=== PATIENT | male | born 1945 | race Caucasian/White ===

== ENCOUNTER 2016-12-14 23:19 | Emergency (ER) | payer MEDICARE ==
--- NOTE | 2016-12-14 23:46 | ED ---
General Adult HPI - General Chief complaint: Urogenital Stated complaint: blocked catheter Time Seen by Provider: 12/14/16 23:37 Source: patient, family, RN notes reviewed Mode of arrival: ambulatory Limitations: no limitations - History of Present Illness Initial comments: 70 y/o male presenting for urinary retention. Patient was seen by Dr. Fuentes's PA earlier today in the office with functioning torres. States she's had issues of hematuria for the past several weeks. Has been acutely worsened since he had his knee replaced on December 03. He states that they had issues placing a Torres catheter during surgery and since then he has had persistent hematuria. States he's had urinary obstruction and gone to [facility] with the difficulty placing a Torres. There is now Torres in place with leg bag. He states however that around 6 PM tonight he stopped urinating into the bag. He believes there is a blood clot stuck in the Torres. He denies any other complaints at this time. He denies any fevers or chills. - Related Data Home Medications Medication Instructions Recorded Confirmed Ciprofloxacin HCl [Cipro] 500 mg PO Q12HR 12/14/16 12/14/16 Tamsulosin [Flomax] 0.4 mg PO DAILY 12/14/16 12/14/16 Allergies Allergy/AdvReac Type Severity Reaction Status Date / Time acetaminophen [From [place]] Allergy Nausea & Verified 12/14/16 23:34 Vomiting hydrocodone [From [place]] Allergy Nausea & Verified 12/14/16 23:34 Vomiting oxycodone Allergy Nausea & Verified 12/14/16 23:34 Vomiting Review of Systems ROS Statement: Those systems with pertinent positive or pertinent negative responses have been documented in the HPI. ROS Other: All systems not noted in ROS Statement are negative. Past Medical History Past Medical History: No Reported History History of Any Multi-Drug Resistant Organisms: None Reported Past Surgical History: Cholecystectomy, Orthopedic Surgery, Prostate Surgery Additional Past Surgical History / Comment(s): eye surgery Past Psychological History: No Psychological Hx Reported Smoking Status: Never smoker Past Alcohol Use History: None Reported Past Drug Use History: None Reported General Exam - General Exam Comments Initial Comments: General: Awake and Alert. No acute distress. Does not appear acutely ill. Uncomfortable. Eyes: OLIVIA, EOM intact. No nystagmus. No scleral icterus. HENT: Atraumatic, normocephalic. Mucous membranes moist. Trachea midline. Neck: The neck is supple, there is no tenderness or JVD. Cardiovascular: Regular rate and rhythm. No murmur, rub, or gallop is appreciated. Distal pulses intact. Respiratory: Lungs are clear to auscultation bilaterally. No wheezes, rales, rhonchi. No respiratory distress. Gastrointestinal: Soft, tenderness over suprapubic area. No rebound or guarding. Non-distended. No masses or organomegaly noted. No CVA tenderness. Genitourinary: Torres catheter in place, with left leg bag. There is gross hematuria in the bag without criss blood. Musculoskeletal: No tenderness. Normal ROM. No gross deformity. No strength deficits. Neurological: A&Ox3. CN II-XII grossly intact, There are no obvious motor or sensory deficits. Coordination appears grossly intact. Speech is normal. Skin: Skin is warm and dry and no rashes or lesions are noted. Psychiatric: Cooperative, appropriate mood & affect, normal judgment. Limitations: no limitations Course Vital Signs 12/14/16 23:29 Temperature 98.5 F Pulse Rate 111 H Respiratory 20 Rate Blood Pressure 131/73 O2 Sat by Pulse 100 Oximetry Medical Decision Making - Medical Decision Making 70-year-old male with history of recurrent hematuria presenting for acute urinary retention. He does have a Torres catheter in place. He states this was placed with significant difficulty. He did follow-up with urology earlier today. States he has seen both Dr. Fuentes and Dr. Shanks in the past from urology. He states they called Dr. Shanks earlier [facility] who recommended he come to the ED josie. On initial exam pt appears uncomfortable, hematuria present in leg bag. Plan for irrigation and UA. Will replace torres if unable to flush obstruction. Patient states that he has had blood work done in the past few days and states his hemoglobin has not dropped. He declines blood draw in the ED at this time. I do not have access to these outside records, although he does not appear pale or with evidence of acute blood loss anemia at this time. Torres was flushed with good urine output. Multiple clot fragments were irrigated. Patient feeling improved after this. Patient states he is concerned because he is worried another clot will become clogged causing him to acutely retain again. Discussed this is a possibility, but he is able to irrigate his catheter at home. He states he has some of the supplies to do this. Recommend that he irrigated his Torres catheter at home as needed. I did discussed with Dr. Shanks, on-call Urology, he recommends drinking plenty of fluids to keep steady stream of urine. Recommends Flushing catheter as needed. He does not recommend any intervention at this time. I discussed with patient my conversation with Dr. Shanks. I showed the patient and his how to disconnect and flush the Torres catheter. Patient was provided with supplies to facilitate doing this. Nurse also reviewed way to flush catheter. They feel comfortable doing this. Discussed recommendation for discharge at this time with continued follow up with Dr. Fuentes or Dr. Shanks. He plans to follow up Saturday to have catheter removed if appropriate. Discussed concerning signs symptoms for immediate return to the ED. Patient is agreeable with plan and discharge home. Disposition Clinical Impression: Acute urinary retention, Hematuria, Torres catheter problem Disposition: HOME SELF-CARE Condition: Stable Instructions: Torres Catheter Placement and Care (ED) Additional Instructions: Please flush your torres catheter if it becomes obstructed again. Referrals: Keith Bird MD [Primary Care Provider] - 1-2 days Jonah Shanks MD [STAFF PHYSICIAN] - 1-2 days Marko Fuentes MD [STAFF PHYSICIAN] - 1-2 days Time of Disposition: 00:58
[2016-12-15] MEDS ORDERED: MORPHINE SULFATE 10 MG/ML SYRINGE IM STA (00:57)
[2016-12-15] MEDS ORDERED: ONDANSETRON ODT 4 MG TAB PO STA (00:57)
[2016-12-15 01:35] VITALS: BP 135/62; PULSE 79; RESP 18; TEMP 97.9
== END 2016-12-15 01:30 | disposition home or self-care (01) ==
LOC: EC 23:19
DX: T83.091A Other mechanical complication of indwelling urethral catheter, initial encounter (principal); R33.9 Retention of urine, unspecified; R31.9 Hematuria, unspecified; Z88.5 Allergy status to narcotic agent; Z79.899 Other long term (current) drug therapy
CPT/HCPCS: 99283; 96372; J2270

== ENCOUNTER 2016-12-17 14:11 | Inpatient (IN) | payer MEDICARE ==
[2016-12-17] MEDS ORDERED: DEXTROSE 5%-0.45% NACL 1,000 ML IV SCH (15:45)
[2016-12-17 16:51] LABS: Basophils % (A) 0 %; CHCM 33.3; Eosinophils # (A) 0.1 k/uL (0-0.7); Eosinophils % (A) 1 %; HCT 33.3 % (39.0-53.0); HDW 2.73; HGB 10.8 gm/dL (13.0-17.5); Luc # (Auto) 0.12; Luc % (Auto) 1; Lymphocytes # (A) 0.7 k/uL (1.0-4.8); Lymphocytes % (A) 7 %; MCH 28.3 pg (25.0-35.0); MCHC 32.3 g/dL (31.0-37.0); MCV 87.5 fL (80.0-100.0); Mean Platelet Volume 6.8; Monocytes # (A) 0.6 k/uL (0-1.0); Monocytes % (A) 5 %; Neutrophils # (A) 9.8 k/uL (1.3-7.7); Neutrophils % (A) 86 %; RDW 14.3 % (11.5-15.5); WBC 11.4 k/uL (3.8-10.6); WBC (Perox) 12.34
[2016-12-17 17:00] LABS: Potassium 4.2 mmol/L (3.5-5.1)
[2016-12-17] MEDS ORDERED: ONDANSETRON 4 MG/2 ML VIAL IVP PRN (17:13)
[2016-12-17] MEDS: D5-0.45% NACL WITH KCL 20MEQ/L 1,000 ML IV SCH (20:16)
[2016-12-17] MEDS ORDERED: NA PHOS,M-B/NA PHOS,DI-BA 133 ML ENEMA RECTAL ONE (21:00)
[2016-12-17] MEDS: CIPROFLOXACIN HCL 500 MG TAB PO SCH (21:59)
[2016-12-17] MEDS: traMADol 50 MG TAB PO PRN (22:02)
[2016-12-18] MEDS: D5-0.45% NACL WITH KCL 20MEQ/L 1,000 ML IV SCH ×4 (02:52→20:10)
[2016-12-18] MEDS: CIPROFLOXACIN HCL 500 MG TAB PO SCH ×2 (08:28→20:15)
[2016-12-18] MEDS: TAMSULOSIN 0.4 MG CAP.ER.24H PO SCH (08:28)
[2016-12-18] MEDS: traMADol 50 MG TAB PO PRN (08:29)
[2016-12-18 10:20] LABS: CH 29.1; HCT 30.7 % (39.0-53.0); HDW 2.76; HGB 10.1 gm/dL (13.0-17.5); MCH 29.2 pg (25.0-35.0); MCV 88.7 fL (80.0-100.0); Mean Platelet Volume 6.8; RBC 3.46 m/uL (4.30-5.90); RDW 14.2 % (11.5-15.5); WBC 12.6 k/uL (3.8-10.6)
[2016-12-18 10:46] LABS: Calcium 7.8 mg/dL (8.4-10.2); Potassium 4.6 mmol/L (3.5-5.1); Total Bilirubin 0.8 mg/dL (0.2-1.3); Total Protein 5.6 g/dL (6.3-8.2)
--- NOTE | 2016-12-18 11:38 | P.PN ---
Progress Note - Text The patient had a temperature of 100.4 last night but has been afebrile since then. Blood pressure is 132/64. He remains nauseated and anorexic but has had no vomiting. He had a small bowel movement yesterday evening after an enema and had another bowel movement this morning. His urine was grossly free of blood and concentrated in color yesterday evening and this morning but over the last hour has again become grossly bloody. Hemoglobin today is 10.1 and white blood count is 12,000. BUN/creatinine is 34/ 2.87 and is slightly better than yesterday. Physical exam Abdomen-somewhat bloated with gas but no focal tenderness. Incision over right knee is uninflamed. There is no calf tenderness and no significant edema of the right or left legs. Impression: #1-gross hematuria-the origin of this is unclear but is most likely coming from the prosthetic urethra or bladder neck as is from a traumatic cathetization attempt 2 weeks ago. Recent computed tomography scan of the abdomen and pelvis showed no significant abnormalities of the upper urinary system other than nonobstructive renal calculi. #2-acute renal failure-a portion of this is probably related to prerenal causes as the patient has not been eating or drinking well. There may also be some component of obstructive uropathy due to recent episodes of urinary retention related to the gross hematuria. There was no hydronephrosis noted on the computed tomography scan. #3-constipation with secondary nausea and anorexia-this has improved somewhat with the use of enemas. Plan: The patient will be continued on IV fluids and Cipro pending results of a urine culture. Cystoscopy will be set up tomorrow to further evaluate the cause of the gross hematuria as it appears that cautery may be necessary. The patient will be continued on DVT prophylaxis with pneumatic compression stockings. Unfortunately due to the recent gross hematuria it is impossible to safely use anticoagulants.
[2016-12-18] MEDS ORDERED: HYDROmorphone 1 MG/ML 1 ML SYRINGE IVP PRN (19:21)
[2016-12-18] MEDS ORDERED: LACTATED RINGERS 1,000 ML IV SCH (19:30)
[2016-12-18] MEDS ORDERED: ACETAMINOPHEN TAB 500 MG TAB PO PRN (23:04)
[2016-12-19] MEDS: D5-0.45% NACL WITH KCL 20MEQ/L 1,000 ML IV SCH ×4 (05:26→23:39)
[2016-12-19] MEDS: traMADol 50 MG TAB PO PRN (08:20)
[2016-12-19] MEDS: TAMSULOSIN 0.4 MG CAP.ER.24H PO SCH (08:20)
[2016-12-19] MEDS: CIPROFLOXACIN HCL 500 MG TAB PO SCH ×2 (08:20→20:26)
[2016-12-19 09:50] LABS: CHCM 32.5; HCT 33.3 % (39.0-53.0); HDW 2.79; HGB 10.8 gm/dL (13.0-17.5); Hypochromasia Slight; MCH 29.1 pg (25.0-35.0); MCHC 32.4 g/dL (31.0-37.0); MCV 89.8 fL (80.0-100.0); Mean Platelet Volume 6.9; RBC 3.71 m/uL (4.30-5.90); RDW 14.2 % (11.5-15.5); WBC 10.6 k/uL (3.8-10.6)
[2016-12-19 10:30] LABS: Calcium 8.2 mg/dL (8.4-10.2); Potassium 4.7 mmol/L (3.5-5.1)
[2016-12-19] MEDS ORDERED: IV FLUID CONTINUATION 1,000 ML IV ONE (11:48)
[2016-12-19] MEDS ORDERED: DEXAMETHASONE SOD PHOS (MDV) 100 MG/10 ML VIAL IVP ONE (11:55)
[2016-12-19] MEDS ORDERED: MIDAZOLAM 2 MG/2 ML VIAL ONE (12:37)
[2016-12-19] MEDS ORDERED: PROPOFOL 10 MG/ML 20 ML VIAL IV ONE (12:37)
[2016-12-19] MEDS ORDERED: fentaNYL (PF) 50 MCG/ML 2 ML AMP ONE (12:37)
[2016-12-19] MEDS ORDERED: VANCOMYCIN IV ONE ×2 (13:00)
[2016-12-19] MEDS ORDERED: SODIUM CHLORIDE 0.9% IV ONE ×2 (13:00)
--- NOTE | 2016-12-19 18:18 | OP ---
DATE OF SERVICE: 12/19/2016 SURGEON: NAOMI KNAPP MD PREOPERATIVE DIAGNOSIS: Gross hematuria. POSTOPERATIVE DIAGNOSIS: Gross hematuria, possibly from bleeding within prostatic urethra or bladder. OPERATION: Cystoscopy with cautery of polyp on dome of bladder and cautery of prostatic urethra. ANESTHESIA: General. Patient is a 70-year-old male who developed gross hematuria following an unsuccessful placement of a De La Paz catheter at the time of a right total knee arthroplasty on 12/03. This hematuria has persisted to the point where he developed clot urinary retention. CT scan of the abdomen and pelvis without IV contrast showed a non-obstructive left renal calculus but no other abnormalities. Cystoscopy under anesthesia was planned for further evaluation of the bleeding. PROCEDURE: Patient was taken to the operating suite, where adequate spinal anesthesia was instituted. Patient was placed in the dorsal lithotomy position. Care was taken not to twist the right knee due to his recent surgery. Pneumatic compression stockings were applied to the lower legs. Patient's De La Paz catheter was removed. The genitalia was prepped with Betadine soap, painted with Betadine solution and draped in sterile fashion. The penile and prostatic urethra were traversed under direct vision using the 17 Maltese cystoscope sheath and 30-degree lens. There was no evidence of inflammatory lesion, tumor or stricture noted in the anterior urethra. Prostatic urethra showed evidence of a previous TURP. The prostatic fossa and bladder neck appeared wide open. There appeared to be a small mucosal bridge at 7 o'clock, but it was unclear whether this was the source of the bleeding. The bladder was examined. Both ureteral orifices were of normal location and configuration and effluxed clear urine. Entire bladder was examined using the 30- and 70-degree lens. On the dome of the bladder to the right of the midline was a 3 or 4 mm raised area that appeared to have bled recently. The urothelium overlying this area appeared normal, and it was unclear whether this was merely related to previous catheter trauma. Using the 5 Maltese Bugbee electrode, the lesion on the dome of the bladder was thoroughly cauterized. The Bugbee was then used to divide the mucosal bridge within the prostatic urethra at 7 o'clock. A small amount of oozing was present within the prostatic urethra anteriorly which was most likely related to trauma from the cystoscope, and this was also cauterized. At the completion of the procedure, hemostasis appeared excellent. The cystoscope was withdrawn and a 16 Maltese De La Paz catheter was inserted and left to gravity drainage. The patient tolerated the procedure well and left the operating room awake and in satisfactory condition. The patient was given 500 mg of vancomycin IV at the start of the procedure. If his urine remains clear, his catheter will be removed and he will be discharged in the morning. CAMILLE
[2016-12-20 07:58] VITALS: BP 119/61; PULSE 79; RESP 14; TEMP 96.7
[2016-12-20] MEDS: D5-0.45% NACL WITH KCL 20MEQ/L 1,000 ML IV SCH (08:01)
[2016-12-20] MEDS: TAMSULOSIN 0.4 MG CAP.ER.24H PO SCH (08:03)
[2016-12-20] MEDS: CIPROFLOXACIN HCL 500 MG TAB PO SCH (08:03)
--- NOTE | 2016-12-20 10:42 | P.PN ---
Progress Note - Text The patient has been comfortable and normotensive overnight. He is tolerating a regular diet. He has no leg pain or swelling. His urine is tea to pink in color. The patient will be discharged later this morning and will go home with a De La Paz catheter. He will call me in the morning and if his urine is clear will remove the catheter and see me later in the day.
--- NOTE | 2017-01-02 21:28 | P.DS ---
Providers Date of admission: 12/17/16 14:43 Expected date of discharge: 12/20/16 Attending physician: Jonah Shanks Primary care physician: Stated None - Discharge Diagnosis(es) (1) Gross hematuria Status: Acute (2) Chronic renal failure, stage 3 (moderate) Status: Chronic (3) Acute urinary retention Status: Acute Hospital Course: The patient developed gross hematuria on 12/03/2016 following placement of a De La Paz catheter at the time of right total knee arthroplasty at [facility]. He continued to have intermittent gross hematuria and a CT of the abdomen/pelvis was done but the only abnormality seen was a nonobstructive left renal calculus and a probable 3 mm bladder calculus.. He had undergone TURP in 2016. He was seen in the office on the date of admission and was admitted due to weakness, anemia and continued gross hematuria that was requiring catheter irrigation. He continued to have urine that was intermittently clear and bloody. He underwent cystoscopy on 12/19 and several areas were cauterized in the prostatic fossa as well as one area on the right anterolateral bladder wall that looked as if they could have been the source of the gross hematuria. A catheter was left following the procedure and the patient was discharged with the catheter in place. If the urine remained clear the catheter was to be removed in 48 hours. Procedures: Cystoscopy with cautery of prosttic fossa and bladder wall-12/19/2016 Plan - Discharge Summary New Discharge Prescriptions: No Action Tamsulosin [Flomax] 0.4 mg PO DAILY Ciprofloxacin HCl [Cipro] 500 mg PO Q12HR Gabapentin [Neurontin] 300 mg PO BID Ondansetron [Zofran ODT] 8 mg PO Q12HR PRN PRN Reason: Nausea Doxycycline Hyclate 100 mg PO BID PRN PRN Reason: MRSA traMADol HCL [Ultram] 50 mg PO Q4HR PRN PRN Reason: Pain Multivitamins, Thera [Multivitamin (formulary)] 1 tab PO DAILY Discharge Medication List Ciprofloxacin HCl [Cipro] 500 mg PO Q12HR 12/14/16 [History] Tamsulosin [Flomax] 0.4 mg PO DAILY 12/14/16 [History] Doxycycline Hyclate 100 mg PO BID PRN 12/17/16 [History] Gabapentin [Neurontin] 300 mg PO BID 12/17/16 [History] Multivitamins, Thera [Multivitamin (formulary)] 1 tab PO DAILY 12/17/16 [History ] Ondansetron [Zofran ODT] 8 mg PO Q12HR PRN 12/17/16 [History] traMADol HCL [Ultram] 50 mg PO Q4HR PRN 12/17/16 [History] Follow up Appointment(s)/Referral(s): Raj Velasco MD [REFERRING] - 12/24/16 Keith Bird MD [STAFF PHYSICIAN] - 12/27/16 10:30 am (With Nurse practioner) Marko Fuentes MD [STAFF PHYSICIAN] - 12/27/16 8:00 am [facility] Visiting Nurse, [NON-STAFF] - Patient Instructions/Handouts: Cystoscopy (DC), De La Paz Catheter Placement and Care (DC) Activity/Diet/Wound Care/Special Instructions: Regular diet. Activity as tolerated. Care Plan Goals (MU): Call Dr Fuentes in AM on 12/21/2016 Discharge Disposition: HOME WITH HOME HEALTH SERVICES
== END 2016-12-20 11:17 | disposition home health service (06) | DRG 664 ==
LOC: 4MS4W 14:43
PROVIDERS: ADMIT Urology; ATTEND Urology
PROC: 0T9B70Z Drainage of Bladder with Drainage Device, Via Natural or Artificial Opening (ICD-10-PCS; 2016-12-19)
PROC: 0W3R8ZZ Control Bleeding in Genitourinary Tract, Via Natural or Artificial Opening Endoscopic (ICD-10-PCS; principal; 2016-12-19 15:30)
DX: R31.0 Gross hematuria (principal); N17.9 Acute kidney failure, unspecified; R63.0 Anorexia; N20.0 Calculus of kidney; K59.00 Constipation, unspecified; R33.9 Retention of urine, unspecified; K21.9 Gastro-esophageal reflux disease without esophagitis; R35.1 Nocturia; N18.9 Chronic kidney disease, unspecified; N40.1 Benign prostatic hyperplasia with lower urinary tract symptoms; R14.0 Abdominal distension (gaseous); K57.90 Diverticulosis of intestine, part unspecified, without perforation or abscess without bleeding; E78.00 Pure hypercholesterolemia, unspecified; R39.15 Urgency of urination; R33.8 Other retention of urine; D41.4 Neoplasm of uncertain behavior of bladder; R11.0 Nausea; Z90.79 Acquired absence of other genital organ(s); Z87.442 Personal history of urinary calculi; Z88.5 Allergy status to narcotic agent; Z98.890 Other specified postprocedural states; Z86.010 Personal history of colon polyps; Z96.651 Presence of right artificial knee joint; Z82.3 Family history of stroke; Z82.49 Family history of ischemic heart disease and other diseases of the circulatory system; Z80.0 Family history of malignant neoplasm of digestive organs; Z80.42 Family history of malignant neoplasm of prostate; Z84.1 Family history of disorders of kidney and ureter; Z79.1 Long term (current) use of non-steroidal anti-inflammatories (NSAID); Z79.899 Other long term (current) drug therapy; Z86.69 Personal history of other diseases of the nervous system and sense organs; Z87.2 Personal history of diseases of the skin and subcutaneous tissue; Z87.19 Personal history of other diseases of the digestive system
CPT/HCPCS: 80048; 80053; 85025; 85027; 87040; 96372; 99283

== ENCOUNTER 2017-07-30 13:20 | Observation (INO) | payer MEDICARE ==
--- NOTE | 2017-07-30 14:22 | ED ---
Chest Pain HPI - General Chief Complaint: Chest Pain Stated Complaint: passing blood clots in urine Time Seen by Provider: 07/30/17 14:00 Source: patient, family, RN notes reviewed Mode of arrival: wheelchair Limitations: no limitations - History of Present Illness Initial Comments: This is a 71-year-old male who is S with complaints of shortness of breath and cough for the past 6-7 weeks he apparently has some spots on his lungs he did recently have a PET scan. He also is had hematuria today passing the clot the size of his thumb he states. He's had nausea no overt fevers chills or sweats he has some also left-sided chest pain he believes may be in his lungs. No phlegm production no other symptoms at this time MD Complaint: chest pain, other - Related Data Home Medications Medication Instructions Recorded Confirmed Doxycycline Hyclate 200 mg PO BID PRN 12/17/16 07/30/17 Multivitamins, Thera [Multivitamin 1 tab PO DAILY 12/17/16 07/30/17 (formulary)] L.acidoph,Paracasei, B.lactis 1 cap PO DAILY 07/30/17 07/30/17 [Probiotic] Magnesium Gluconate [Magonate] 500 mg PO DAILY 07/30/17 07/30/17 Meloxicam 7.5 mg PO BID 07/30/17 07/30/17 Allergies Allergy/AdvReac Type Severity Reaction Status Date / Time hydrocodone [From [place]] AdvReac Hallucinati Verified 07/30/17 14:31 ons oxycodone AdvReac Hallucinati Verified 07/30/17 14:31 ons Review of Systems ROS Statement: Those systems with pertinent positive or pertinent negative responses have been documented in the HPI. ROS Other: All systems not noted in ROS Statement are negative. EKG Findings - EKG Results: EKG: interpreted by ERMD, sinus rhythm (Sinus rhythm with occasional PVC ventricular rate of 83. Interval 170 QRS duration 106 QT since QTC of 392/460 with anterior fascicular block no acute ST-T wave changes) Past Medical History Past Medical History: GERD/Reflux, Osteoarthritis (OA), Prostate Disorder, Renal Disease Additional Past Medical History / Comment(s): vertigo,small hiatal henia, randy cataracts-lens implants, past randy retinal detatchments/lt eye scleral buckle, shinlges, post herpetic trigeminal neuralgia. constipation, eczema/scalp, diverticulosis, colon polyps-benign History of Any Multi-Drug Resistant Organisms: MRSA Date of last positivie culture/infection: stomach/arms MDRO Source:: (per pt's ) Past Surgical History: Cholecystectomy, Orthopedic Surgery, Prostate Surgery Additional Past Surgical History / Comment(s): bx, colonoscopy w/bx, randy retinal sx(detatched retina), lt scelar buckle, turp, rt knee meniscus repair, nissens, rt achilles tendon repair, egd w/bx, rt knee replacment, rt knee revision 12-03-16, randy cataracts Past Anesthesia/Blood Transfusion Reactions: Previous Problems w/ Anesthesia Additional Past Anesthesia/Blood Transfusion Reaction / Comment(s): difficult intubation Past Psychological History: No Psychological Hx Reported Smoking Status: Never smoker Past Alcohol Use History: None Reported Past Drug Use History: None Reported - Past Family History Mother Family Medical History: Cancer, Congestive Heart Failure (CHF) Additional Family Medical History / Comment(s): kidney stone Father Family Medical History: Cancer, Congestive Heart Failure (CHF), CVA/TIA, Prostate Disorder Additional Family Medical History / Comment(s): prostate cancer General Exam - General Exam Comments Initial Comments: This is a well-developed well-nourished awake alert oriented times 3 male Limitations: no limitations General appearance: alert, anxious Head exam: Present: atraumatic, normocephalic, normal inspection Eye exam: Present: normal appearance, PERRL, EOMI. Absent: scleral icterus, conjunctival injection, periorbital swelling ENT exam: Present: normal exam, mucous membranes moist Neck exam: Present: normal inspection. Absent: tenderness, meningismus, lymphadenopathy Respiratory exam: Present: normal lung sounds bilaterally. Absent: respiratory distress, wheezes, rales, rhonchi, stridor Cardiovascular Exam: Present: regular rate, normal rhythm, normal heart sounds. Absent: systolic murmur, diastolic murmur, rubs, gallop, clicks GI/Abdominal exam: Present: soft, tenderness (Mild suprapubic tenderness palpation) Extremities exam: Present: normal inspection, full ROM, normal capillary refill. Absent: tenderness, pedal edema, joint swelling, calf tenderness Back exam: Present: normal inspection Neurological exam: Present: alert, oriented X3, CN II-XII intact Psychiatric exam: Present: normal affect, normal mood Skin exam: Present: warm, dry, intact, normal color. Absent: rash Course Vital Signs 07/30/17 07/30/17 07/30/17 13:47 14:03 15:03 Temperature 97.8 F Pulse Rate 84 74 76 Respiratory 20 20 Rate Blood Pressure 158/74 156/79 166/88 O2 Sat by Pulse 100 100 100 Oximetry 07/30/17 07/30/17 15:21 16:03 Temperature 99.1 F Pulse Rate 90 92 Respiratory 18 Rate Blood Pressure 166/80 155/75 O2 Sat by Pulse 98 97 Oximetry Chest Pain MDM - MDM Imaging shows no acute findings there is some evidence of bronchitis versus reactive airway disease. I did discuss the findings with the patient family members as well as with Dr. Rico and Dr. Aliya watts who was in the emergency department. Also with Dr. Fuentes patient will be admitted Disposition Clinical Impression: Bronchospasm, Hematuria, Exertional dyspnea, Chronic renal insufficiency Disposition: ADMITTED IP TO THIS [facility] Condition: Stable Referrals: Keith Bird MD [Primary Care Provider] - 1-2 days
[2017-07-30 14:33] LABS: Basophils # (A) 0.1 k/uL (0-0.2); Basophils % (A) 0 %; Eosinophils # (A) 0.1 k/uL (0-0.7); Eosinophils % (A) 1 %; HCT 42.8 % (39.0-53.0); HGB 13.9 gm/dL (13.0-17.5); Lymphocytes # (A) 0.9 k/uL (1.0-4.8); Lymphocytes % (A) 8 %; MCH 27.5 pg (25.0-35.0); MCHC 32.5 g/dL (31.0-37.0); MCV 84.7 fL (80.0-100.0); Mean Platelet Volume 7.1; Monocytes # (A) 0.6 k/uL (0-1.0); Monocytes % (A) 5 %; Neutrophils # (A) 9.3 k/uL (1.3-7.7); Neutrophils % (A) 85 %; Platelet Count 352 k/uL (150-450); RBC 5.05 m/uL (4.30-5.90); RDW 13.8 % (11.5-15.5)
[2017-07-30 14:40] LABS: Appearance,Urine Turbid (Clear); Bacteria,Urine Rare /hpf; Bilirubin,Urine Negative (Negative); Blood,Urine Large (Negative); Color,Urine Red; Glucose,Urine (UA) Negative (Negative); Ketones,Urine Negative (Negative); Leukocyte Esterase,Urine Negative (Negative); Mucus,Urine Few /hpf; Nitrite,Urine Negative (Negative); PH, Urine 5.5 (5.0-8.0); Protein,Urine 2+ (Negative); RBC,Urine >182 /hpf (0-5); Specific Gravity,Urine 1.019 (1.001-1.035); Squamous Epithelial Cell,Urine <1 /hpf (0-4); Urobilinogen,Urine <2.0 mg/dL (<2.0)
[2017-07-30 14:45] LABS: Albumin 4.2 g/dL (3.5-5.0); Calcium 9.9 mg/dL (8.4-10.2); Magnesium 1.8 mg/dL (1.6-2.3); Potassium 4.1 mmol/L (3.5-5.1); Total Bilirubin 0.6 mg/dL (0.2-1.3)
--- NOTE | 2017-07-30 14:45 | XR ---
EXAMINATION TYPE: XR chest 2V DATE OF EXAM: 07/30/2017 COMPARISON: NONE HISTORY: Chest pain, cough, difficulty breathing TECHNIQUE: Frontal and lateral views of the chest are obtained. FINDINGS: There is no focal air space opacity, pleural effusion, or pneumothorax seen. The cardiac silhouette size is within normal limits accounting for rotation towards the left. There are overlyin g cardiac leads. Some strand-like densities are present lingula region likely reflecting atelectasis or scar. The osseous structures are intact. There is bronchial wall thickening. Eventration of the ri ght hemidiaphragm suspected. IMPRESSION: Correlate for bronchitis, reactive airways disease, there may be atelectasis or scar, co nsider follow-up as indicated.
[2017-07-30 14:50] LABS: Creatine Kinase 81 U/L (55-170)
[2017-07-30 15:04] LABS: Creatine Kinase MB 0.6 ng/mL (0.0-2.4); Troponin I <0.012 ng/mL (0.000-0.034)
--- NOTE | 2017-07-30 16:58 | XR ---
EXAMINATION TYPE: XR abdomen 1V DATE OF EXAM: 07/30/2017 COMPARISON: NONE INDICATION: Blood clots in urine TECHNIQUE: Single view abdomen upright view FINDINGS: There is a nonspecific bowel gas pattern. Small bowel loops are in the midabdomen. Normal colonic bow el gas is present. There is a 0.8 cm calcification over the mid left kidney. An inferior pole left renal stone measures 1.0 cm. No right renal stones are evident. There are some additional smaller left renal stones presen t. There is a left upper quadrant abdomen calcification measuring 1.0 cm may be a superior pole left renal stone. Psoas margins are normal. No organomegaly is present. IMPRESSION: 1. Multiple mid to inferior pole left renal stones. Additional superior renal stone may be present
[2017-07-30] MEDS ORDERED: DOXYCYCLINE 50 MG CAP PO PRN (17:02)
[2017-07-30] MEDS: BUDESONIDE 0.5 MG/2 ML NEBU INHALATION SCH (19:58)
[2017-07-30] MEDS ORDERED: IPRATROPIUM-ALBUTEROL 3 ML NEB INHALATION SCH (20:00)
[2017-07-30] MEDS: IPRATROPIUM-ALBUTEROL 3 ML NEB INHALATION SCH (20:02)
[2017-07-30] MEDS: MELOXICAM 7.5 MG TAB PO SCH (20:52)
[2017-07-30] MEDS: SODIUM CHLORIDE 0.9% 1,000 ML IV SCH (20:53)
[2017-07-30] MEDS: ACETAMINOPHEN TAB 325 MG TAB PO PRN (20:56)
--- NOTE | 2017-07-30 21:06 | CONS ---
CONSULTATION Bob Singh is a 71-year-old male who presented to the ER at [facility] with hematuria. He had been passing some blood clots, had some abdominal pain. He has also had a cough for approximately 6 weeks. He subsequently was seen and admitted for further evaluation and management. He denies any hemoptysis. He denies any significant sputum production. He has had no fever, chills or rigors. Past medical history is positive for gastroesophageal reflux disease, prostate disorder for which he apparently had a transurethral resection of the prostate, history of hiatal hernia, history of retinal detachment, history of diverticulosis, constipation, history of recent colonoscopy which apparently showed polyps which were benign, history of cataracts. Family history is positive for cancer and CHF in his father, cancer and CHF in his mother. 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 He does not drink alcohol excessively. Medications prior to admission were: 1. Multivitamin. 2. Meloxicam. 3. Magnesium gluconate. 4. Lactobacillus and. 5. Doxycycline. On physical examination, blood pressure is 138/71, respiratory rate is 16, pulse rate 79, temperature 96.9, O2 sat on 2L by nasal cannula is 99%. HEENT reveals pupils that are equal. Chest is relatively clear. Cardiovascular system reveals an S1, S2. Abdomen is soft. There is no pedal edema. The patient's recent CT scan of the chest done at [facility] shows evidence of bilateral pulmonary nodules, more in the right lower zone than the left, which on PET scan show positivity, but there is a large liver lesion as well that is 4.8 x 4 cm along with positivity in the left kidney as well. Impression at this time is: 1. Cough which may be in part due to metastatic cancer. It is not clear whether this is lung primary versus a kidney or gastrointestinal primary. 2. Airway inflammation which may be contributing to his cough. 3. Hematuria, which may be related to kidney malignancy. At this point in time from a pulmonary standpoint, would start the patient on IV Solu- Medrol and aerosolized steroids. Would have the patient further seen by Surgery and Urology to decide the best modality for a biopsy: Ultrasound-guided kidney versus liver biopsy versus the lung itself. The lesions are in the periphery and will not likely be accessible by bronch. CT-guided needle biopsy in the right lower zone may be the way to go if the lung lesion needs to be pathologically identified. I would like to thank you for allowing me to participate in his care. GEMA / DAPHNE: [id number] /
[2017-07-31] MEDS: methylPREDNISolone SOD SUCCI 125 MG/2 ML VIAL IV SCH ×5 (00:04→23:06)
[2017-07-31] MEDS: SODIUM CHLORIDE 0.9% 1,000 ML IV SCH ×2 (04:13→11:11)
[2017-07-31] MEDS: IPRATROPIUM-ALBUTEROL 3 ML NEB INHALATION SCH ×4 (07:19→20:24)
[2017-07-31] MEDS: BUDESONIDE 0.5 MG/2 ML NEBU INHALATION SCH ×2 (07:19→20:24)
[2017-07-31] MEDS: MELOXICAM 7.5 MG TAB PO SCH (07:34)
[2017-07-31] MEDS: LACTOBACILLUS ACIDOPH & BULGAR 1 EACH PACKET PO SCH (07:34)
[2017-07-31] MEDS ORDERED: NON-FORMULARY DRUG (Magnesium Gluconate 500 MG) PO SCH (09:00)
--- NOTE | 2017-07-31 10:31 | P.GSCN ---
History of Present Illness Consult date: 07/31/17 Reason for Consult: Gross hematuria nad left renal mass History of present illness: The patient is a 71-year-old male admitted through the emergency room yesterday evening for evaluation of gross hematuria and a chronic cough. The patient said he has been passing bloody urine intermittently for approximately 1 month. He believes that the hematuria occurred initially immediately following colonoscopy and lasted for 3 or 4 days. He said that it recurred following a PET scan on 07/26 and again yesterday. The hematuria has been associated with the passage of blood clots. He has had no increased frequency or dysuria. In addition to the above the patient he says that he's had a chronic dry cough with occasional shortness of breath for the last 7 weeks. Computed tomography scan of the chest out IV contrast on 07/16/2017 showed several mediastinal nodes , multiple small pulmonary nodules and a possible mass in the upper pole of left kidney. The renal findings were not noted at the time of a computed tomography scan of the abdomen performed without IV contrast on 12/11/2016. PET scan on 07/26 also suggested some suspicious bilateral pulmonary nodules as well as increased activity in the region of mediastinal lymphadenopathy. There was a hepatic mass and a mass in the upper pole of the left kidney, both with increased activity. The patient denies any upper abdominal or flank pain. He has had some vague lower abdominal discomfort which is present more on the left than the right. He says that he has had a poor appetite for over 1 month and believes that he has lost 8-10 pounds over this period. He has a history of gross hematuria which occurred in 12/2016. As previously noted a computed tomography scan of the abdomen without IV contrast at that time showed no abnormality other than some nonobstructive left renal calculi. Cystoscopy identified an abnormality on the dome of the bladder which was felt to be the site of the bleeding and was cauterized. The patient was last seen by me in 03/21 and had noted no hematuria in the intervening period. The hematuria did not recur until approximately 1 month ago. The patient has a history of bladder outflow obstruction treated with transurethral incision of the prostate in 2015. He describes a good urinary flow and says he usually voids every 3-4 hours during the day and usually once or twice at night. BUN/creatinine on 07/30 was 24/2.30. Alkaline phosphatase was 230. BUN/ creatinine on 12/17/2016 were 46/2.98. Alkaline phosphatase was 87. Hemoglobin on 07/30 was 13.9 and white blood count was 11,000. Review of Systems - Constitutional Reports malaise, Denies fever - Cardiovascular Denies chest pain, Denies dyspnea on exertion, Denies orthopnea - Respiratory Reports cough, Denies cough with sputum, Denies hemoptysis, Denies pain on inspiration - Gastrointestinal Denies constipation, Denies diarrhea, Denies hematemesis, Denies hematochezia - Genitourinary Reports as per HPI Past Medical History Past Medical History: GERD/Reflux, Osteoarthritis (OA), Prostate Disorder, Renal Disease Additional Past Medical History / Comment(s): vertigo,small hiatal henia, randy cataracts-lens implants, past randy retinal detatchments/lt eye scleral buckle, shinlges, post herpetic trigeminal neuralgia. constipation, eczema/scalp, diverticulosis, colon polyps-benign History of Any Multi-Drug Resistant Organisms: MRSA Year Discovered:: stomach/arms MDRO Source:: (per pt's ) Past Surgical History: Cholecystectomy, Orthopedic Surgery, Prostate Surgery ( Transurethral incision of prostate) Additional Past Surgical History / Comment(s): bx, colonoscopy w/bx, randy retinal sx(detatched retina), lt scelar buckle, turp, rt knee meniscus repair, nissens, rt achilles tendon repair, egd w/bx, rt knee replacment, rt knee revision 12-03-16, randy cataracts Past Anesthesia/Blood Transfusion Reactions: Previous Problems w/ Anesthesia Additional Past Anesthesia/Blood Transfusion Reaction / Comm: difficult intubation Past Psychological History: No Psychological Hx Reported Additional Psychological History / Comment(s): pt lives at home with his tena. 1 indoor pet-dog. pt had r tknee sx 12-03-16 using walker. has vna nurse and pt. has shower chair, bsc, hospital bed, tens unit, w/c, railings. 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 Smoking Status: Never smoker Past Alcohol Use History: None Reported Past Drug Use History: None Reported - Past Family History Mother Family Medical History: Cancer, Congestive Heart Failure (CHF) Additional Family Medical History / Comment(s): kidney stone Father Family Medical History: Cancer, Congestive Heart Failure (CHF), CVA/TIA, Prostate Disorder Additional Family Medical History / Comment(s): prostate cancer Medications and Allergies Home Medications Medication Instructions Recorded Confirmed Type Doxycycline Hyclate 200 mg PO BID PRN 12/17/16 07/30/17 History Multivitamins, Thera [Multivitamin 1 tab PO DAILY 12/17/16 07/30/17 History (formulary)] L.acidoph,Paracasei, B.lactis 1 cap PO DAILY 07/30/17 07/30/17 History [Probiotic] Magnesium Gluconate [Magonate] 500 mg PO DAILY 07/30/17 07/30/17 History Meloxicam 7.5 mg PO BID 07/30/17 07/30/17 History Allergies Allergy/AdvReac Type Severity Reaction Status Date / Time hydrocodone [From [place]] AdvReac Hallucinati Verified 07/30/17 14:31 ons oxycodone AdvReac Hallucinati Verified 07/30/17 14:31 ons Surgical - Exam Vital Signs Temp Pulse Resp BP Pulse Ox 97.8 F 84 20 158/74 100 07/30/17 13:47 07/30/17 13:47 07/30/17 13:47 07/30/17 13:47 07/30/17 13:47 - General well developed, well nourished, no pain - Neck no masses, no lymphadectomy - Respiratory normal respiratory effort - Abdomen Abdomen: soft, non tender, no organomegaly, no masses - Genitourinary normal penis with no external lesions, testicles present, testicles non-tender - Psychiatric memory intact Results - Labs 07/30/17 14:22 07/30/17 14:22 Abnormal Lab Results - Last 24 Hours (Table) 07/30/17 07/30/17 07/30/17 Range/Units 14:22 14:22 14:22 WBC 11.0 H (3.8-10.6) k/uL Neutrophils # 9.3 H (1.3-7.7) k/uL Lymphocytes # 0.9 L (1.0-4.8) k/uL BUN 24 H (9-20) mg/dL Creatinine 2.30 H (0.66-1.25) mg/dL Glucose 110 H (74-99) mg/dL Alkaline Phosphatase 230 H (38-126) U/L Urine Protein 2+ H (Negative) Urine Blood Large H (Negative) Urine RBC >182 H (0-5) /hpf Urine Bacteria Rare H (None) /hpf Urine Mucus Few H (None) /hpf Diabetes panel 07/30/17 Range/Units 14:22 Sodium 142 (137-145) mmol/L Potassium 4.1 (3.5-5.1) mmol/L Chloride 105 (98-107) mmol/L Carbon Dioxide 25 (22-30) mmol/L BUN 24 H (9-20) mg/dL Creatinine 2.30 H (0.66-1.25) mg/dL Glucose 110 H (74-99) mg/dL Calcium 9.9 (8.4-10.2) mg/dL AST 30 (17-59) U/L ALT 37 (21-72) U/L Alkaline Phosphatase 230 H (38-126) U/L Total Protein 7.0 (6.3-8.2) g/dL Albumin 4.2 (3.5-5.0) g/dL Calcium panel 07/30/17 Range/Units 14:22 Calcium 9.9 (8.4-10.2) mg/dL Albumin 4.2 (3.5-5.0) g/dL Pituitary panel 07/30/17 Range/Units 14:22 Sodium 142 (137-145) mmol/L Potassium 4.1 (3.5-5.1) mmol/L Chloride 105 (98-107) mmol/L Carbon Dioxide 25 (22-30) mmol/L BUN 24 H (9-20) mg/dL Creatinine 2.30 H (0.66-1.25) mg/dL Glucose 110 H (74-99) mg/dL Calcium 9.9 (8.4-10.2) mg/dL Adrenal panel 07/30/17 Range/Units 14:22 Sodium 142 (137-145) mmol/L Potassium 4.1 (3.5-5.1) mmol/L Chloride 105 (98-107) mmol/L Carbon Dioxide 25 (22-30) mmol/L BUN 24 H (9-20) mg/dL Creatinine 2.30 H (0.66-1.25) mg/dL Glucose 110 H (74-99) mg/dL Calcium 9.9 (8.4-10.2) mg/dL Total Bilirubin 0.6 (0.2-1.3) mg/dL AST 30 (17-59) U/L ALT 37 (21-72) U/L Alkaline Phosphatase 230 H (38-126) U/L Total Protein 7.0 (6.3-8.2) g/dL Albumin 4.2 (3.5-5.0) g/dL Assessment and Plan (1) Gross hematuria Narrative/Plan: The gross hematuria may be related the mass in the upper pole of the left kidney. The CT and PET scan findings are suggestive of renal cell carcinoma however the findings are not conclusive due to the lack of IV contrast on the CT study. It is possible that the patient has hepatic and pulmonary/ mediastinal metastases. I would suggest CT or ultrasound guided needle biopsy of the mass in the right lobe of the liver as the next step and I discussed this with the patient. Current Visit: No Status: Acute Code(s): R31.0 - GROSS HEMATURIA SNOMED Code(s): 222037394 (2) Chronic renal failure, stage 3 (moderate) Narrative/Plan: The source of the patient's chronic renal failure is not clear and the patient says that he has never had a nephrology evaluation. His computed tomography scan from earlier this year showed thinning of the renal parenchyma bilaterally and I suspect that his problem has been chronic. His renal function is actually improved now compared with 12/2016. Current Visit: No Status: Chronic Code(s): N18.3 - CHRONIC KIDNEY DISEASE, STAGE 3 (MODERATE) SNOMED Code(s): 58070679
[2017-07-31] MEDS: ACETAMINOPHEN TAB 325 MG TAB PO PRN ×2 (10:38→21:36)
[2017-07-31] MEDS ORDERED: traMADol 50 MG TAB PO PRN (11:02)
[2017-07-31] MEDS: MULTIVITAMINS, THERA 1 EACH TAB PO SCH (11:10)
[2017-07-31] MEDS: ALPRAZolam 0.5 MG TAB PO PRN (11:10)
--- NOTE | 2017-07-31 11:49 | P.GSCN ---
History of Present Illness Consult date: 07/31/17 History of present illness: 71-year-old male that is known to me secondary to recent colonoscopy. He states that after this colonoscopy he had a few episodes of hematuria. He states that this did resolve and then began again. He also complained of a dry cough. Computed tomography scan of the chest out IV contrast on 07/16/2017 showed several mediastinal nodes, multiple small pulmonary nodules and a possible mass in the upper pole of left kidney. At this point a PET scan was ordered. PET scan on 07/26 also suggested some suspicious bilateral pulmonary nodules as well as increased activity in the region of mediastinal lymphadenopathy. There was a hepatic mass and a mass in the upper pole of the left kidney, both with increased activity. He denies any abdominal pain. He denies any change in bowel function or blood in stool. The colonoscopy that was recently completed found diverticulosis of the descending and sigmoid colon and no suspicious polypoid or inflammatory lesions. He denies any recent fevers, chills, chest pain. Review of Systems All systems: negative Past Medical History Past Medical History: GERD/Reflux, Osteoarthritis (OA), Prostate Disorder, Renal Disease Additional Past Medical History / Comment(s): vertigo,small hiatal henia, randy cataracts-lens implants, past randy retinal detatchments/lt eye scleral buckle, shinlges, post herpetic trigeminal neuralgia. constipation, eczema/scalp, diverticulosis, colon polyps-benign History of Any Multi-Drug Resistant Organisms: MRSA Year Discovered:: stomach/arms MDRO Source:: (per pt's ) Past Surgical History: Cholecystectomy, Orthopedic Surgery, Prostate Surgery ( Transurethral incision of prostate) Additional Past Surgical History / Comment(s): bx, colonoscopy w/bx, randy retinal sx(detatched retina), lt scelar buckle, turp, rt knee meniscus repair, nissens, rt achilles tendon repair, egd w/bx, rt knee replacment, rt knee revision 12-03-16, randy cataracts Past Anesthesia/Blood Transfusion Reactions: Previous Problems w/ Anesthesia Additional Past Anesthesia/Blood Transfusion Reaction / Comm: difficult intubation Past Psychological History: No Psychological Hx Reported Additional Psychological History / Comment(s): pt lives at home with his tena. 1 indoor pet-dog. pt had r tknee sx 12-03-16 using walker. has vna nurse and pt. has shower chair, bsc, hospital bed, tens unit, w/c, railings. 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 Smoking Status: Never smoker Past Alcohol Use History: None Reported Past Drug Use History: None Reported - Past Family History Mother Family Medical History: Cancer, Congestive Heart Failure (CHF) Additional Family Medical History / Comment(s): kidney stone Father Family Medical History: Cancer, Congestive Heart Failure (CHF), CVA/TIA, Prostate Disorder Additional Family Medical History / Comment(s): prostate cancer Medications and Allergies Home Medications Medication Instructions Recorded Confirmed Type Doxycycline Hyclate 200 mg PO BID PRN 12/17/16 07/30/17 History Multivitamins, Thera [Multivitamin 1 tab PO DAILY 12/17/16 07/30/17 History (formulary)] L.acidoph,Paracasei, B.lactis 1 cap PO DAILY 07/30/17 07/30/17 History [Probiotic] Magnesium Gluconate [Magonate] 500 mg PO DAILY 07/30/17 07/30/17 History Meloxicam 7.5 mg PO BID 07/30/17 07/30/17 History Allergies Allergy/AdvReac Type Severity Reaction Status Date / Time hydrocodone [From [place]] AdvReac Hallucinati Verified 07/30/17 14:31 ons oxycodone AdvReac Hallucinati Verified 07/30/17 14:31 ons Surgical - Exam Osteopathic Statement: *. No significant issues noted on an osteopathic structural exam other than those noted in the History and Physical/Consult. Vital Signs Temp Pulse Resp BP Pulse Ox 97.8 F 84 20 158/74 100 07/30/17 13:47 07/30/17 13:47 07/30/17 13:47 07/30/17 13:47 07/30/17 13:47 - General well nourished, no distress - Eyes PERRL, normal ocular movement - ENT normal nares, normal mucosa, no hearing loss - Neck no masses, no bruits, trachea midline, no lymphadectomy - Respiratory normal respiratory effort - Abdomen Soft, nontender, nondistended, no rebound, no guarding - Integumentary no rash, no growths - Neurologic normal coordination - Psychiatric oriented to time, oriented to person, oriented to place, speech is normal, memory intact Results - Labs 07/30/17 14:22 07/30/17 14:22 Abnormal Lab Results - Last 24 Hours (Table) 07/30/17 07/30/17 07/30/17 Range/Units 14:22 14:22 14:22 WBC 11.0 H (3.8-10.6) k/uL Neutrophils # 9.3 H (1.3-7.7) k/uL Lymphocytes # 0.9 L (1.0-4.8) k/uL BUN 24 H (9-20) mg/dL Creatinine 2.30 H (0.66-1.25) mg/dL Glucose 110 H (74-99) mg/dL Alkaline Phosphatase 230 H (38-126) U/L Urine Protein 2+ H (Negative) Urine Blood Large H (Negative) Urine RBC >182 H (0-5) /hpf Urine Bacteria Rare H (None) /hpf Urine Mucus Few H (None) /hpf Diabetes panel 07/30/17 Range/Units 14:22 Sodium 142 (137-145) mmol/L Potassium 4.1 (3.5-5.1) mmol/L Chloride 105 (98-107) mmol/L Carbon Dioxide 25 (22-30) mmol/L BUN 24 H (9-20) mg/dL Creatinine 2.30 H (0.66-1.25) mg/dL Glucose 110 H (74-99) mg/dL Calcium 9.9 (8.4-10.2) mg/dL AST 30 (17-59) U/L ALT 37 (21-72) U/L Alkaline Phosphatase 230 H (38-126) U/L Total Protein 7.0 (6.3-8.2) g/dL Albumin 4.2 (3.5-5.0) g/dL Calcium panel 07/30/17 Range/Units 14:22 Calcium 9.9 (8.4-10.2) mg/dL Albumin 4.2 (3.5-5.0) g/dL Pituitary panel 07/30/17 Range/Units 14:22 Sodium 142 (137-145) mmol/L Potassium 4.1 (3.5-5.1) mmol/L Chloride 105 (98-107) mmol/L Carbon Dioxide 25 (22-30) mmol/L BUN 24 H (9-20) mg/dL Creatinine 2.30 H (0.66-1.25) mg/dL Glucose 110 H (74-99) mg/dL Calcium 9.9 (8.4-10.2) mg/dL Adrenal panel 07/30/17 Range/Units 14:22 Sodium 142 (137-145) mmol/L Potassium 4.1 (3.5-5.1) mmol/L Chloride 105 (98-107) mmol/L Carbon Dioxide 25 (22-30) mmol/L BUN 24 H (9-20) mg/dL Creatinine 2.30 H (0.66-1.25) mg/dL Glucose 110 H (74-99) mg/dL Calcium 9.9 (8.4-10.2) mg/dL Total Bilirubin 0.6 (0.2-1.3) mg/dL AST 30 (17-59) U/L ALT 37 (21-72) U/L Alkaline Phosphatase 230 H (38-126) U/L Total Protein 7.0 (6.3-8.2) g/dL Albumin 4.2 (3.5-5.0) g/dL Assessment and Plan Plan: 71-year-old male with recent CT and PET scan findings of mediastinal, lung and kidney lesions - Per pulmonology, mediastinal lesions would be difficult with a bronchoscopy - Will refer to urology for kidney lesions and hematuria - I do think a liver biopsy is a good option for diagnosis and ability to dictate future care, this could be done with interventional radiology - I will continue to follow and provide recommendations as necessary Thank you for this consultation, I look forward in providing in this patient's care
[2017-07-31] MEDS ORDERED: traMADol 50 MG TAB PO SCH (13:00)
[2017-07-31] MEDS ORDERED: HYDROmorphone 1 MG/ML 1 ML SYRINGE IVP PRN (14:33)
--- NOTE | 2017-07-31 14:57 | US ---
EXAMINATION TYPE: US biopsy liver DATE OF EXAM: 07/31/2017 HISTORY: Liver mass. FINDINGS: Maximal barrier technique was utilized. The skin overlying a suitable path to the patient' s liver mass was localized with ultrasound and the overlying skin prepped and draped. Ultrasound was utilized with sterile technique. Lidocaine was used for local anesthesia. A skin latesha was made wit h a scalpel. An 18-gauge needle was advanced under direct ultrasound guidance and core specimen obta ined of the mass. Specimen submitted in formalin to Pathology. Following the procedure, hemostasis achieved and the patient is discharged in stable condition without complication. Impression: status POST ULTRASOUND GUIDED CORE BIOPSY OF liver MASS, PATHOLOGY IS PENDING. THIS PROC EDURE IS PERFORMED BY THE UNDERSIGNED.
[2017-07-31] MEDS ORDERED: HYDROmorphone 0.5 MG/0.5 ML SYRINGE IVP PRN (15:45)
[2017-07-31] MEDS ORDERED: DRY MOUTH SPRAY 44.3 SPRAY/44.3 ML SPRAY MUCOUS MEM PRN (15:50)
[2017-07-31] MEDS ORDERED: ALPRAZolam 0.5 MG TAB PO PRN (15:50)
--- NOTE | 2017-07-31 16:34 | PN ---
PROGRESS NOTE DATE OF SERVICE: 07/31/2017 HISTORY OF PRESENT ILLNESS: The patient is a 71-year-old male who presented to the emergency room with problems with hematuria, abdominal discomfort and cough that had been going on for many weeks. The patient had a chest x-ray done that stated, "Correlate for bronchitis with reactive airway disease with atelectasis scar possible and to consider followup." In addition, he had abdominal x-ray done. Findings showed multiple mid to inferior pole left renal stones with superior renal stones also noted. He did have a CT scan on 07/16 that showed multiple mediastinal nodes with multiple small pulmonary nodules and questionable mass in the upper pole of the left kidney and then had a PET scan done on 07/26 that showed suspicion for bilateral pulmonary nodule as well as mediastinal lymphadenopathy with a hepatic mass and a mass in the upper pole of the left kidney also noted. Subsequent plans are for patient to have a liver biopsy done today by interventional radiologist with further recommendations pending results of that biopsy. He is denying any problems with pain at this time. Due to location of nodule, he is not a candidate for bronchoscopy. He at present is on steroids and antibiotics. He is quite teary-eyed about potential problems with cancer. PHYSICAL EXAMINATION: Vital signs show temperature of 97.8, heart rate 92, respiratory rate 18, blood pressure 145/70, and oxygen saturation is 96% on 2 L. He has no labs for today noted. GENERAL: He is a pleasant 71-year-old male in no acute respiratory distress HEENT: Head is atraumatic, normocephalic. Pupils are reactive. Mucous membranes are moist. Neck is supple. Trachea is midline. Lungs sounds essentially clear throughout. CARDIOVASCULAR: S1, S2 is heard. Regular. Abdomen is soft. Bowel sounds heard. EXTREMITIES: No significant edema. NEUROLOGIC: He is awake, alert. IMPRESSION: 1. Cough, possibly related to metastatic cancer. 2. Liver and kidney mass where patient is having liver biopsy today. 3. Airway inflammation. 4. Hematuria. 5. History of methicillin-resistant Staphylococcus aeruginosa to right arm. 6. Chronic renal failure, stage III. PLAN: Patient to have liver biopsy today. Await those results. Again, patient is not a candidate for bronchoscopy due to nodule placement. Medications reviewed. Continue as ordered. Continue with nebulizer treatments as ordered. Steroids can be changed to p.o. tomorrow. Increase activity as tolerated. Will need to monitor surgical site closely for any bleeding. Will continue to follow patient closely and make further changes as necessary. Further recommendations pending liver biopsy results. MMODL / IJN: [id number] /
--- NOTE | 2017-07-31 18:53 | P.CONS ---
History of Present Illness - Reason for Consult Consult date: 07/31/17 positive PET scan Requesting physician: Tray Myles - Chief Complaint PEREZ - History of Present Illness Mr. Singh is a very pleasant male pt who states acute change in his health starting having a tooth work done about 7 or 8 weeks ago. Patient states that after his dental appointment he started having a dry cough, persistent, associated with pleuritic type chest pain and progressed to significant dyspnea on exertion which he was sent for CXR, he was then told to have CT which was done on 07/16, and then sent for PET done on 07/26. He is now s/p liver mass biopsy, he is denying any discomfort from the procedure at this time. In the last 7-8 weeks he has lost his appetite, lost about 20 pounds. He denies night sweats, hemoptysis, nausea or vomiting, abdominal pain or bloating , diarrhea or constipation, he has had hematuria with clots, he has had this before, he has significant dyspnea on exertion but, comfortable at rest, tires very easily. He had his gallbladder out earlier this year, had a colonoscopy about 3-4 weeks ago, Review of Systems 14 point ROS as stated in HPI Past Medical History Past Medical History: GERD/Reflux, Osteoarthritis (OA), Prostate Disorder, Renal Disease Additional Past Medical History / Comment(s): vertigo,small hiatal henia, randy cataracts-lens implants, past randy retinal detatchments/lt eye scleral buckle, shinlges, post herpetic trigeminal neuralgia. constipation, eczema/scalp, diverticulosis, colon polyps-benign History of Any Multi-Drug Resistant Organisms: MRSA Year Discovered:: stomach/arms MDRO Source:: -2016(per pt's ) Past Surgical History: Cholecystectomy, Orthopedic Surgery, Prostate Surgery ( Transurethral incision of prostate) Additional Past Surgical History / Comment(s): bx, colonoscopy w/bx, randy retinal sx(detatched retina), lt scelar buckle, turp, rt knee meniscus repair, nissens, rt achilles tendon repair, egd w/bx, rt knee replacment, rt knee revision 12-03-16, randy cataracts Past Anesthesia/Blood Transfusion Reactions: Previous Problems w/ Anesthesia Additional Past Anesthesia/Blood Transfusion Reaction / Comm: difficult intubation Past Psychological History: No Psychological Hx Reported Additional Psychological History / Comment(s): pt lives at home with his tena. 1 indoor pet-dog. pt had r tknee sx 5--17 using walker. has vna nurse and pt. has shower chair, bsc, hospital bed, tens unit, w/c, railings. 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 Smoking Status: Never smoker Past Alcohol Use History: None Reported Past Drug Use History: None Reported - Past Family History Mother Family Medical History: Cancer, Congestive Heart Failure (CHF) Additional Family Medical History / Comment(s): kidney stone Father Family Medical History: Cancer, Congestive Heart Failure (CHF), CVA/TIA, Prostate Disorder Additional Family Medical History / Comment(s): prostate cancer Medications and Allergies Home Medications Medication Instructions Recorded Confirmed Type Doxycycline Hyclate 200 mg PO BID PRN 12/17/16 07/30/17 History Multivitamins, Thera [Multivitamin 1 tab PO DAILY 12/17/16 07/30/17 History (formulary)] L.acidoph,Paracasei, B.lactis 1 cap PO DAILY 07/30/17 07/30/17 History [Probiotic] Magnesium Gluconate [Magonate] 500 mg PO DAILY 07/30/17 07/30/17 History Meloxicam 7.5 mg PO BID 07/30/17 07/30/17 History Allergies Allergy/AdvReac Type Severity Reaction Status Date / Time hydrocodone [From [place]] AdvReac Hallucinati Verified 07/30/17 14:31 ons oxycodone AdvReac Hallucinati Verified 07/30/17 14:31 ons Physical Exam Vitals: Vital Signs Temp Pulse Pulse Resp BP Pulse Ox 07/31/17 16:58 90 07/31/17 16:47 88 95 07/31/17 14:59 80 18 145/70 96 07/31/17 14:44 77 18 154/77 94 L 07/31/17 14:20 74 18 140/72 95 07/31/17 11:31 92 07/31/17 11:18 96 07/31/17 07:40 80 07/31/17 07:20 80 07/31/17 07:00 97.8 F 74 18 110/61 94 L 07/30/17 23:00 98.5 F 91 16 122/59 96 07/30/17 20:14 90 07/30/17 20:00 92 Intake and Output 07/31/17 07/31/17 07/31/17 06:59 14:59 22:59 Other: Voiding Method Toilet Toilet # Voids 2 2 - Constitutional General appearance: average body habitus, cooperative, no acute distress - EENT reddened patches on tongue, no ulcers Eyes: anicteric sclerae, EOMI, normal appearance ENT: hearing grossly normal - Neck Neck: no lymphadenopathy - Respiratory Respiratory: bilateral: CTA - Cardiovascular Rhythm: regular Heart sounds: normal: S1, S2 leg Peripheral Edema: bilateral: None - Gastrointestinal General gastrointestinal: no absent bowel sounds, no decreased bowel sounds, no distended, no hepatomegaly, no hyperactive bowel sounds, normal bowel sounds, no organomegaly, no rigid, no scaphoid, soft, no splenomegaly, no tenderness, no umbilical hernia, no ventral hernia - Integumentary Integumentary: normal - Neurologic Neurologic: CNII-XII intact - Musculoskeletal Musculoskeletal: strength equal bilaterally - Psychiatric Psychiatric: A&O x's 3, appropriate affect, intact judgment & insight Results CBC & Chem 7: 07/30/17 14:22 07/30/17 14:22 Chest x-ray: report reviewed Abdominal x-ray: report reviewed Assessment and Plan (1) Liver mass Narrative/Plan: Patient has had liver biopsy. Await pathology Current Visit: Yes Status: Acute Priority: High Code(s): R16.0 - HEPATOMEGALY, NOT ELSEWHERE CLASSIFIED SNOMED Code(s): 274826159 (2) Exertional dyspnea Narrative/Plan: pulmonary following, multiple medications prescribed, pt is comfortable at rest Current Visit: Yes Status: Acute Priority: High Code(s): R06.09 - OTHER FORMS OF DYSPNEA SNOMED Code(s): 33996584 Plan: Patient has positive PET scan with pathological uptake in the lungs liver and kidney, this information comes from Providers notes as well as patient and family, no report or image is in EMR at this time. We discussed the concern for malignancy due to all the suspicious findings. We reviewed the importance of pathology as we need conformation of malignancy and primary malignancy source as that significantly impacts treatment and prognosis. Pt and family verbalized understanding. I did explain that path will not likely be back until early next week so, if pt is feeling better he can be discharged from a Hem/Onc standpoint once cleared by Attending and Consulting Physicians. I confirmed contact info so that he can be reached as soon as path available. Pt family has is familiar with Dr. Nunez so they will be scheduled to follow up with him as soon as results available. All questions answered to the best of my ability.
--- NOTE | 2017-07-31 19:19 | P.HPIM ---
History of Present Illness H&P Date: 07/31/17 Chief Complaint: Hematuria This is a very pleasant 71 years old gentleman patient of Dr. Bird presents with hematuria, past medical history is positive for GERD, osteoarthritis, BPH status post TURP, history of retinal detachment, shingles status post herpetic trigeminal neuralgia, diverticulosis diagnosed on recent colonoscopy presents in with gross hematuria that started yesterday. According to patient he has chronic dry cough with associated shortness of breath which started 2 weeks ago. He states are Dr. Bird as outpatient who initially started patient on azithromycin along with a course of steroids. Since patient had no improvement in his symptoms he was started on doxycycline last . Chest x-ray was suspicious for lesions. Patient underwent CT of the chest on 07/16 that showed several mediastinotomy nodes, multiple small pulmonary nodules and a possible mass in the left kidney. A PET CAT scan was ordered on 07/26 which suggested suspicious bilateral pulmonary nodules along with increased activity in the region of mediastinal lymphadenopathy, hepatic mass and a mass in the upper pole of the left kidney with increased activity was also seen. Patient does endorses shortness of breath along with chronic cough for the past 1 week with no improvement. He has history of hematuria from renal stones in the past but it is also associated with flank pain. Patient underwent colonoscopy 3 weeks ago and the PET scan on 07/26 and passed blood clots through his urine on both the occasions. Blood clots were size of thumb. Symptoms reoccurred yesterday prior to admission and patient was admitted for evaluation. Patient denies any dizziness, or loss of consciousness. He denies any chest pain, palpitation associated with the symptoms. Chest x-ray suggestive of bronchitis. Abdominal x-ray suggested of multiple renal stones, nonobstructive. Patient has been seen by urologist who do not recommend any intervention for hematuria. Patient underwent needle biopsy of the liver mass and was seen post procedure. Patient is lying flat in bed without any discomfort. He did have an episode of desaturation early in the morning with SpO2 decreasing to 90%. Patient is currently on 2 L of oxygen. IV fluids will be stopped. Continue Solu-Medrol 60 IV every 6 hours for bronchitis along with doxycycline 100 mg twice a day. Patient will be reevaluated in the morning and CBC will be ordered to monitor at the drop in hemoglobin. Review of Systems Constitutional: Reports anorexia, Reports fatigue, Reports poor appetite, Reports weight loss (20 pound weight loss in 1 month), Denies chills, Denies fever Eyes: denies diplopia, denies irritation, denies itching, denies photophobia Ears, nose, mouth and throat: Denies epistaxis, Denies headache, Denies hoarseness, Denies neck lump, Denies nose pain, Denies odynophagia, Denies post- nasal drip Cardiovascular: Reports dyspnea on exertion, Reports shortness of breath, Denies chest pain, Denies edema, Denies high blood pressure, Denies irregular heart beat, Denies leg edema, Denies lightheadedness, Denies palpitations, Denies rapid heart beat, Denies syncope Respiratory: Reports cough, Reports dyspnea, Denies congestion, Denies cough with sputum, Denies home oxygen, Denies wheezing Gastrointestinal: Reports early satiety, Reports loss of appetite, Denies dyspepsia, Denies excessive gas, Denies hematemesis, Denies nausea, Denies vomiting Genitourinary: Reports hematuria, Reports kidney stones, Denies discharge, Denies dysuria, Denies flank pain, Denies urinary frequency, Denies urinary hesitancy, Denies urinary retention Musculoskeletal: Denies arm numbness/tingling, Denies low back pain, Denies morning stiffness, Denies muscle cramps, Denies muscle weakness Integumentary: Denies change in hair/nails, Denies growths, Denies rash Neurological: Denies ataxia, Denies balance difficulties, Denies numbness, Denies paralysis, Denies seizures Psychiatric: Reports anxiety, Reports insomnia, Denies hopelessness, Denies mood swings, Denies suicidal ideation Endocrine: Denies high blood sugars, Denies polyphagia, Denies polyuria, Denies proptosis Past Medical History Past Medical History: GERD/Reflux, Osteoarthritis (OA), Prostate Disorder, Renal Disease Additional Past Medical History / Comment(s): vertigo,small hiatal henia, randy cataracts-lens implants, past randy retinal detatchments/lt eye scleral buckle, shinlges, post herpetic trigeminal neuralgia. constipation, eczema/scalp, diverticulosis, colon polyps-benign History of Any Multi-Drug Resistant Organisms: MRSA Date of last positivie culture/infection: stomach/arms MDRO Source:: (per pt's ) Past Surgical History: Cholecystectomy, Orthopedic Surgery, Prostate Surgery ( Transurethral incision of prostate) Additional Past Surgical History / Comment(s): bx, colonoscopy w/bx, randy retinal sx(detatched retina), lt scelar buckle, turp, rt knee meniscus repair, nissens, rt achilles tendon repair, egd w/bx, rt knee replacment, rt knee revision 12-03-16, randy cataracts Past Anesthesia/Blood Transfusion Reactions: Previous Problems w/ Anesthesia Additional Past Anesthesia/Blood Transfusion Reaction / Comment(s): difficult intubation Past Psychological History: No Psychological Hx Reported Additional Psychological History / Comment(s): pt lives at home with his tena. 1 indoor pet-dog. pt had r tknee sx 12-03-16 using walker. has vna nurse and pt. has shower chair, bsc, hospital bed, tens unit, w/c, railings. 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 Smoking Status: Never smoker Past Alcohol Use History: None Reported Past Drug Use History: None Reported - Past Family History Mother Family Medical History: Cancer, Congestive Heart Failure (CHF) Additional Family Medical History / Comment(s): kidney stone Father Family Medical History: Cancer, Congestive Heart Failure (CHF), CVA/TIA, Prostate Disorder Additional Family Medical History / Comment(s): prostate cancer Medications and Allergies Home Medications Medication Instructions Recorded Confirmed Type Doxycycline Hyclate 200 mg PO BID PRN 12/17/16 07/30/17 History Multivitamins, Thera [Multivitamin 1 tab PO DAILY 12/17/16 07/30/17 History (formulary)] L.acidoph,Paracasei, B.lactis 1 cap PO DAILY 07/30/17 07/30/17 History [Probiotic] Magnesium Gluconate [Magonate] 500 mg PO DAILY 07/30/17 07/30/17 History Meloxicam 7.5 mg PO BID 07/30/17 07/30/17 History Allergies Allergy/AdvReac Type Severity Reaction Status Date / Time hydrocodone [From [place]] AdvReac Hallucinati Verified 07/30/17 14:31 ons oxycodone AdvReac Hallucinati Verified 07/30/17 14:31 ons Physical Exam Vitals: Vital Signs Temp Pulse Pulse Resp BP Pulse Ox 07/31/17 16:58 90 07/31/17 16:47 88 95 07/31/17 14:59 80 18 145/70 96 07/31/17 14:44 77 18 154/77 94 L 07/31/17 14:20 74 18 140/72 95 07/31/17 11:31 92 07/31/17 11:18 96 07/31/17 07:40 80 07/31/17 07:20 80 07/31/17 07:00 97.8 F 74 18 110/61 94 L 07/30/17 23:00 98.5 F 91 16 122/59 96 07/30/17 20:14 90 07/30/17 20:00 92 Intake and Output 07/31/17 07/31/17 07/31/17 06:59 14:59 22:59 Other: Voiding Method Toilet Toilet # Voids 2 2 - Constitutional General appearance: cooperative, no acute distress, obese - EENT Eyes: anicteric sclerae, PERRLA, normal appearance ENT: hearing grossly normal - Neck Neck: no lymphadenopathy, normal ROM, no other, no rigidity, no stridor, no thyromegaly - Respiratory Respiratory: bilateral: CTA, negative: diminished, dullness, rales, rhonchi - Cardiovascular Rhythm: regular Heart sounds: normal: S1, S2 Abnormal Heart Sounds: no systolic murmur, no diastolic murmur, no rub, no S3 Gallop, no S4 Gallop, no click, no other - Gastrointestinal General gastrointestinal: normal bowel sounds, soft - Integumentary Integumentary: no rash - Neurologic Neurologic: CNII-XII intact - Musculoskeletal Musculoskeletal: gait normal, strength equal bilaterally - Psychiatric Psychiatric: A&O x's 3, appropriate affect Results CBC & Chem 7: 07/30/17 14:22 07/30/17 14:22 Thrombosis Risk Factor Assmnt - DVT/VTE Prophylaxis DVT/VTE Prophylaxis: Mechanical Prophylaxis ordered - Choose All That Apply Any of the Below Risk Factors Present?: No Assessment and Plan Plan: #1 acute gross hematuria likely related to the mass at the upper pole of left kidney. No blood clots this morning. Monitor CBC. Monitor input and output. CT and PET scan are suggestive of renal cell carcinoma but since mass since are also seen in the liver and pulmonary it is unclear of the etiology. #2 cough associated with shortness of breath secondary to acute bronchitis - continue DuoNeb for shortness of breath, doxycycline 100 mg twice daily for bronchitis along with Solu-Medrol 60 IV every 6 hours with Pulmicort twice a day #3 chronic kidney disease stage III- cortical thinning present on computed tomography scan of the abdomen in the previous imaging. Nephrology consult pending for evaluation. Renal function appears stable. No evidence of prerenal disease. BMP pending for tomorrow #4 liver mass status post needle biopsy pathology pending #5 multiple pulmonary nodules with mediastinal lymphadenopathy likely secondary to metastasis, with unknown primary. Oncology consult placed #6 BPH status post TURP , stable #7 DVT prophylaxis with SCDs #8 GI prophylaxis with Pepcid 20 mg twice a day #9 anxiety Xanax 0.5 mg twice a day as needed Disposition patient may need 1-2 inpatient nights for evaluation of hematuria.
[2017-07-31] MEDS: FAMOTIDINE 20 MG TAB PO SCH (21:37)
[2017-07-31] MEDS: DOXYCYCLINE 50 MG CAP PO SCH (21:39)
[2017-07-31] MEDS: SALT AND SODA MOUTHWASH 1,000 ML PO SCH ×2 (23:06→23:09)
[2017-08-01] MEDS: SALT AND SODA MOUTHWASH 1,000 ML PO SCH ×2 (06:28→11:23)
[2017-08-01] MEDS: methylPREDNISolone SOD SUCCI 125 MG/2 ML VIAL IV SCH (06:28)
[2017-08-01 06:36] LABS: Glucose,Whole Blood 160 mg/dL (75-99)
[2017-08-01] MEDS: ALPRAZolam 0.5 MG TAB PO PRN (06:36)
[2017-08-01 07:57] LABS: Basophils % (A) 0 %; Eosinophils % (A) 0 %; HCT 35.6 % (39.0-53.0); HGB 11.6 gm/dL (13.0-17.5); Lymphocytes # (A) 0.6 k/uL (1.0-4.8); Lymphocytes % (A) 5 %; MCH 28.1 pg (25.0-35.0); MCHC 32.5 g/dL (31.0-37.0); MCV 86.4 fL (80.0-100.0); Monocytes # (A) 0.3 k/uL (0-1.0); Monocytes % (A) 2 %; Neutrophils # (A) 11.2 k/uL (1.3-7.7); Neutrophils % (A) 92 %; Platelet Count 292 k/uL (150-450); RBC 4.13 m/uL (4.30-5.90); RDW 14.2 % (11.5-15.5); WBC 12.2 k/uL (3.8-10.6)
[2017-08-01 07:59] VITALS: BP 127/66; RESP 20; TEMP 97
[2017-08-01 08:22] LABS: Albumin 3.3 g/dL (3.5-5.0); Calcium 9.2 mg/dL (8.4-10.2); Total Bilirubin 0.2 mg/dL (0.2-1.3)
[2017-08-01 08:26] LABS: Potassium 4.3 mmol/L (3.5-5.1)
[2017-08-01] MEDS: BUDESONIDE 0.5 MG/2 ML NEBU INHALATION SCH (08:44)
[2017-08-01] MEDS: IPRATROPIUM-ALBUTEROL 3 ML NEB INHALATION SCH ×2 (08:46→12:24)
[2017-08-01] MEDS: FAMOTIDINE 20 MG TAB PO SCH (09:08)
[2017-08-01] MEDS: DOXYCYCLINE 50 MG CAP PO SCH (09:08)
[2017-08-01] MEDS: LACTOBACILLUS ACIDOPH & BULGAR 1 EACH PACKET PO SCH (09:08)
[2017-08-01] MEDS: ACETAMINOPHEN TAB 325 MG TAB PO PRN (09:11)
[2017-08-01] MEDS: MULTIVITAMINS, THERA 1 EACH TAB PO SCH (11:18)
[2017-08-01 12:26] VITALS: PULSE 88
--- NOTE | 2017-08-01 13:02 | PN ---
PROGRESS NOTE DATE OF SERVICE: 08/01/2017 HISTORY OF PRESENT ILLNESS: Patient is a 71-year-old male who initially came in with problems with abdominal discomfort, cough that been going on for many weeks and hematuria. Patient was found on CAT scan and PET scan to have multiple suspicious areas to lungs, kidney and liver. He did have liver biopsy done yesterday and results are still pending at this time. Patient thinks that he may be able to be discharged home today. He appears stable. Vital signs have been good. Lung sounds appear clear at this time. He states his cough is better with Basye cough drops and he complains of having problems with dry mouth. He denies any problems at this time with nausea/vomiting, diarrhea, or chest pain. He denies productive cough. Also, patient will require further follow up with Pulmonary for further potential treatment. He has been seen by Oncology, Nephrology, and Urology and surgery. Patient is aware that diagnosis may not be made until next week and seems to be in somewhat better spirits today. PHYSICAL EXAMINATION: His vital signs show temperature of 97, heart rate 90, respiratory rate 20, blood pressure is 127/66, oxygen saturation is 96%. LABS: WBCs are 12.2, hemoglobin 11.6, hematocrit 35.6, platelets are 292. Sodium is 138, potassium 4.3, chloride 109, carbon dioxide 19, BUN 38, creatinine is 2.84, glucose 152, calcium is 9.2, total bilirubin 0.2, AST 28, ALT 32, alkaline phosphatase 162, total protein 6, albumin is 3.3. GENERAL: Patient is a pleasant 71-year-old male in no acute respiratory distress at this time. HEENT: Head is atraumatic, normocephalic. Mucous membranes moist. Neck is supple. Trachea is midline. Lungs sounds are diminished but clear. CARDIOVASCULAR: S1, S2 is heard, regular. Abdomen is soft. Bowel sounds are present. No bleeding noted at biopsy site. Extremities with no significant edema. He is able to move all extremities. NEUROLOGIC: He is awake, alert. IMPRESSION: 1. Cough, possibly metastatic cancer. 2. Liver and kidney mass with liver biopsy done and pending results. 3. Airway inflammation. 4. Hematuria. 5. History of methicillin-resistant Staphylococcus aureus to his right arm. 6. Chronic renal failure stage III. PLAN: Will await results from liver biopsy. Again, patient should continue with medications as ordered. He would benefit from nebulizer treatments on an outpatient basis. He needs to follow up with Dr. Amor in 1 week in the office. Continue to increase activity. Continue steroids as ordered. Continue with pulmonary hygiene. Will continue to follow patient with you. Will continue with supportive care. MMODL / IJN: [id number] /
--- NOTE | 2017-08-01 15:41 | P.DS ---
Providers Date of admission: 07/30/17 16:59 Attending physician: Xin Rico MD Consults: 07/30/17 16:59 Consult Physician Routine Consulting Provider: Marko Fuentes Consult Reason/Comments: Hematuria Do you want consulting provider notified?: Already Contacted Consult Physician Routine Consulting Provider: Tray Myles Consult Reason/Comments: Exertional dyspnea, bronchospasm, abnormal PET scan Do you want consulting provider notified?: Already Contacted 07/30/17 18:30 Consult Physician Routine Consulting Provider: Dionte Nunez Consult Reason/Comments: metastatic cancer Do you want consulting provider notified?: Yes 07/30/17 18:31 Consult Physician Routine Consulting Provider: Lavonne Campos Consult Reason/Comments: metastatic cancer Do you want consulting provider notified?: Yes 07/31/17 15:52 Consult Physician Routine Consulting Provider: Hernandez Lambert Consult Reason/Comments: ckd 3 with hematuria Do you want consulting provider notified?: Yes Primary care physician: [facility] Course: This is a very pleasant 71 years old gentleman patient of Dr. Bird presents with hematuria, past medical history is positive for GERD, osteoarthritis, BPH status post TURP, history of retinal detachment, shingles status post herpetic trigeminal neuralgia, diverticulosis diagnosed on recent colonoscopy presents in with gross hematuria that started yesterday. According to patient he has chronic dry cough with associated shortness of breath which started 2 weeks ago. He states are Dr. Bird as outpatient who initially started patient on azithromycin along with a course of steroids. Since patient had no improvement in his symptoms he was started on doxycycline last . Chest x-ray was suspicious for lesions. Patient underwent CT of the chest on 07/16 that showed several mediastinotomy nodes, multiple small pulmonary nodules and a possible mass in the left kidney. A PET CAT scan was ordered on 07/26 which suggested suspicious bilateral pulmonary nodules along with increased activity in the region of mediastinal lymphadenopathy, hepatic mass and a mass in the upper pole of the left kidney with increased activity was also seen. Patient does endorses shortness of breath along with chronic cough for the past 1 week with no improvement. He has history of hematuria from renal stones in the past but it is also associated with flank pain. Patient underwent colonoscopy 3 weeks ago and the PET scan on 07/26 and passed blood clots through his urine on both the occasions. Blood clots were size of thumb. Symptoms reoccurred yesterday prior to admission and patient was admitted for evaluation. Patient denies any dizziness, or loss of consciousness. He denies any chest pain, palpitation associated with the symptoms. Chest x-ray suggestive of bronchitis. Abdominal x-ray suggested of multiple renal stones, nonobstructive. Patient has been seen by urologist who do not recommend any intervention for hematuria. Patient underwent needle biopsy of the liver mass and was seen post procedure. Patient is lying flat in bed without any discomfort. He did have an episode of desaturation early in the morning with SpO2 decreasing to 90%. Patient is currently on 2 L of oxygen. IV fluids will be stopped. Continue Solu-Medrol 60 IV every 6 hours for bronchitis along with doxycycline 100 mg twice a day. Patient will be reevaluated in the morning and CBC will be ordered to monitor at the drop in hemoglobin. 08/01 meloxicam on hold due to chronic kidney disease. Patient's breathing is better. Continue doxycycline 100 mg twice daily for acute bronchitis along with prednisone and DuoNeb. Patient to follow-up with oncology as outpatient for follow-up on pathology. He did have some dizziness this morning which improved by itself. He notices some blood in his urine, urology assessed the patient yesterday and wanted to manage conservatively. Patient asked to increase his oral intake. Discharge diagnosis #1 acute gross hematuria likely related to the mass at the upper pole of left kidney. #2 cough associated with shortness of breath secondary to acute bronchitis #3 chronic kidney disease stage III with ATN from NSAIDS #4 liver mass status post needle biopsy #5 multiple pulmonary nodules with mediastinal lymphadenopathy likely secondary to metastasis, with unknown primary #6 BPH status post TURP #7 DVT prophylaxis #8 anxiety Discharge home to home care CC a copy of discharge to Dr. Bird Patient Condition at Discharge: Stable Plan - Discharge Summary Discharge Rx Participant: Yes New Discharge Prescriptions: New ALPRAZolam [Xanax] 0.5 mg PO BID PRN #30 tab PRN Reason: Anxiety Doxycycline [Vibramycin] 100 mg PO BID #10 cap Famotidine [Pepcid] 20 mg PO DAILY #30 tab Ipratropium-Albuterol Nebulize [Duoneb 0.5 mg-3 mg/3 ml Soln] 3 ml INHALATION RT-QID #120 ampul.neb predniSONE 30 mg PO DAILY #5 tab traMADol HCl [Ultram] 50 mg PO QID PRN #30 tab PRN Reason: MODERATE Pain Ipratropium-Albuterol Nebulize [Duoneb 0.5 mg-3 mg/3 ml Soln] 3 ml INHALATION TID PRN #90 neb PRN Reason: Shortness Of Breath Continue Multivitamins, Thera [Multivitamin (formulary)] 1 tab PO DAILY Magnesium Gluconate [Magonate] 500 mg PO DAILY L.acidoph,Paracasei, B.lactis [Probiotic] 1 cap PO DAILY Discontinued Doxycycline Hyclate 200 mg PO BID PRN PRN Reason: MRSA Meloxicam 7.5 mg PO BID Discharge Medication List Multivitamins, Thera [Multivitamin (formulary)] 1 tab PO DAILY 12/17/16 [History ] L.acidoph,Paracasei, B.lactis [Probiotic] 1 cap PO DAILY 07/30/17 [History] Magnesium Gluconate [Magonate] 500 mg PO DAILY 07/30/17 [History] ALPRAZolam [Xanax] 0.5 mg PO BID PRN #30 tab 08/01/17 [Rx] Doxycycline [Vibramycin] 100 mg PO BID #10 cap 08/01/17 [Rx] Famotidine [Pepcid] 20 mg PO DAILY #30 tab 08/01/17 [Rx] Ipratropium-Albuterol Nebulize [Duoneb 0.5 mg-3 mg/3 ml Soln] 3 ml INHALATION RT -QID #120 ampul.neb 08/01/17 [Rx] Ipratropium-Albuterol Nebulize [Duoneb 0.5 mg-3 mg/3 ml Soln] 3 ml INHALATION TID PRN #90 neb 08/01/17 [Rx] predniSONE 30 mg PO DAILY #5 tab 08/01/17 [Rx] traMADol HCl [Ultram] 50 mg PO QID PRN #30 tab 08/01/17 [Rx] Follow up Appointment(s)/Referral(s): Lydia Workman MD [STAFF PHYSICIAN] - 1 Week Keith Bird MD [Primary Care Provider] - 08/08/17 2:00 pm Bhumi Amor DO [Doctor of Osteopathic Medicine] - 08/08/17 11:30 am [facility] Visiting Nurse, [NON-STAFF] - Dionte Nunez MD [STAFF PHYSICIAN] - 08/13/17 12:00 pm Patient Instructions/Handouts: Bronchospasm (DC) Activity/Diet/Wound Care/Special Instructions: Dr. Mejía office will contact you with appt. Regular diet. Activity as tolerated. [facility] will comtact you. Discharge Disposition: HOME WITH HOME HEALTH SERVICES
--- NOTE | 2017-08-01 20:52 | CONS ---
CONSULTATION REASON FOR CONSULTATION: Renal failure. HISTORY OF PRESENT ILLNESS: Patient is a 71-year-old male who was admitted to the hospital on 07/30/2017 with complaints of chest pain, shortness of breath and cough. The patient stated that he also had hematuria. He states that he was told he had CKD stage IV in December of 2016. His renal function apparently had improved over time and he had been at stage III. Patient is not sure of his baseline creatinine. Serum creatinine this admission was at 2.3 mg/dL on 07/30 and it is at 2.8 mg/dL today. Review of previous labs shows serum creatinine 2.9 in December, and then it was around 2.8 on December 19, towards the end of that hospitalization. The patient states that his hematuria has improved. The patient had a CT of the chest on 07/16 which showed several mediastinal nodes and small multiple pulmonary nodules and a possible mass in the upper pole of the left kidney. A hepatic mass was also detected on a PET scan along with the mass in the upper pole of the left kidney. The patient has had a biopsy of the kidney mass done, results of which are still pending. Patient stated that he had been using NSAIDs until recently. PAST MEDICAL HISTORY: 1. Gastroesophageal reflux disease. 2. History of hematuria previously. 3. History of BPH. 4. CKD diagnosed in December. 5. Vertigo. 6. Shingles. 7. Post-herpetic trigeminal neuralgia. 8. Eczema. 9. Diverticulosis. 10.History of MRSA infection in foot and hand. PAST SURGICAL HISTORY: 1. Cholecystectomy. 2. Prostatic surgery. 3. Transurethral resection of prostate. 4. Colonoscopy. 5. Achilles tendon repair. 6. EGD. 7. Right knee arthroplasty with revision. 8. Bilateral cataract surgery. SOCIAL HISTORY: Negative for smoking, drug abuse or alcohol abuse. MEDICATIONS: Medications at home prior to admission included: 1. Mobic. 2. Magnesium. 3. Probiotics. 4. Multivitamins. 5. Doxycycline. ALLERGIES: 1. NORCO. 2. OXYCODONE. PHYSICAL EXAMINATION: Patient is comfortable, awake, alert and oriented x3, not in any acute distress. Blood pressure is 127/66, heart rate 90 per minute. He is afebrile. EXAMINATION OF THE HEART: S1, S2. EXAMINATION OF LUNGS: Bilateral breath sounds are heard. ABDOMEN: Soft, non-tender. Examination of lower extremities shows no significant edema. F[employer] exam is grossly intact. LABS: Sodium 138, potassium 4.3, chloride 109, BUN 38, serum creatinine 2.84, hemoglobin 11.6 g/dL. ASSESSMENT: 1. Chronic kidney disease, NKF stage IV, with creatinine as high as 2.9 in December of 2016, currently staying between 2.3 and 2.8 mg/dL. The patient is nonoliguric. He was on Mobic at home and he is advised to completely avoid all kinds of nonsteroidal anti-inflammatory agents. We will see him as outpatient for followup in about one week's time. In the meantime, we need to ascertain the primary for the metastatic disease noted on the CT scan. The patient is being followed by Urology. 2. Left kidney mass with multiple pulmonary nodules, mediastinal nodes and a hepatic mass, status post biopsy of the liver mass, report of which is currently pending. 3. Hematuria with previous history of hematuria, currently awaiting result of the liver mass biopsy. The patient has had previous hematuria due to trauma in the urethra while [place] La Paz catheter was being placed. PLAN: The patient is stable for discharge. Repeat labs as outpatient. Avoid all NSAIDs. We will see him back for followup in about one week's time. Thank you for this consultation. MMODL / IJN: [id number] /
[2017-08-02] MEDS ORDERED: FAMOTIDINE 20 MG TAB PO SCH (09:00)
== END 2017-08-01 13:42 | disposition home health service (06) ==
LOC: EC 13:20 → INTOOBSV 16:59 → 4MS4W 16:59
PROVIDERS: ADMIT Internal Medicine; ATTEND Internal Medicine
DX: R31.0 Gross hematuria (principal); R07.9 Chest pain, unspecified; J20.9 Acute bronchitis, unspecified; N18.4 Chronic kidney disease, stage 4 (severe); N17.0 Acute kidney failure with tubular necrosis; T39.395A Adverse effect of other nonsteroidal anti-inflammatory drugs [NSAID], initial encounter; N40.0 Benign prostatic hyperplasia without lower urinary tract symptoms; R91.8 Other nonspecific abnormal finding of lung field; R59.0 Localized enlarged lymph nodes; F41.9 Anxiety disorder, unspecified; I44.4 Left anterior fascicular block; N20.0 Calculus of kidney; M19.90 Unspecified osteoarthritis, unspecified site; K21.9 Gastro-esophageal reflux disease without esophagitis; K44.9 Diaphragmatic hernia without obstruction or gangrene; B02.22 Postherpetic trigeminal neuralgia; K57.30 Diverticulosis of large intestine without perforation or abscess without bleeding; H33.23 Serous retinal detachment, bilateral; N28.89 Other specified disorders of kidney and ureter; C78.7 Secondary malignant neoplasm of liver and intrahepatic bile duct; H26.9 Unspecified cataract; L30.9 Dermatitis, unspecified; Z79.899 Other long term (current) drug therapy; Z90.79 Acquired absence of other genital organ(s); Z88.5 Allergy status to narcotic agent; Z86.14 Personal history of Methicillin resistant Staphylococcus aureus infection; Z82.49 Family history of ischemic heart disease and other diseases of the circulatory system; Z80.42 Family history of malignant neoplasm of prostate; Z77.090 Contact with and (suspected) exposure to asbestos; Z87.442 Personal history of urinary calculi; Z79.1 Long term (current) use of non-steroidal anti-inflammatories (NSAID); Z79.2 Long term (current) use of antibiotics
CPT/HCPCS: 96374; 96375; 99285; 51798; 36415; 94640 ×5; 94760 ×2; 93005; 83880; 80053 ×2; 82150; 82550; 82553; 83690; 83735; 84484; 85025 ×2; 85610; 85730; 81001; 88342; 88307; 86788; 88341; 71020; 74000; 47000; 76942; G0378 ×3; J2930 ×2; J1170

== ENCOUNTER → 2017-08-02 | Outpatient (CLI) | payer MEDICARE ==
--- NOTE | 2017-08-06 10:54 | US ---
EXAMINATION TYPE: US renals and bladder DATE OF EXAM: 08/02/2017 COMPARISON: CT CLINICAL HISTORY: Calculus of [id number]. Gross hematuria/ known right liver mass EXAM MEASUREMENTS: Right Kidney: 10.0 x 5.2 x 5.4 cm Left Kidney: 12.5 x 6.7 x 5.3 cm Right Kidney: Slightly dilated renal pelvis= 1.5 cm Left Kidney: Multiple renal calculi, lower pole= 1.1 cm and medial into left ureter= 0.9 cm/ Moderate hydro/ possible lesion upper pole vs. lobulated contour= 1.4 x 1.5 x 1.8 cm Bladder: wnl Bilateral Jets seen: No Right lobe liver mass visualized= 5.2 cm, recently biopsied IMPRESSION: 1. Bilateral hydronephrosis greater on the left with multiple renal calculi. Upper pole also appears somewhat lobulated mass cannot be excluded recommend CT scan. 2. Right lobe liver mass measuring 5.[address] scan to assess for malignancy.
== END | disposition home or self-care (01) ==
LOC: RADUSMAIN 16:37
PROVIDERS: ATTEND Internal Medicine Geriatric Medicine
DX: N20.0 Calculus of kidney (principal); N13.30 Unspecified hydronephrosis; R16.0 Hepatomegaly, not elsewhere classified
CPT/HCPCS: 76770

== ENCOUNTER → 2017-08-22 | Outpatient (CLI) | payer MEDICARE ==
--- NOTE | 2017-08-22 13:04 | XR ---
EXAMINATION TYPE: XR tibia fibula RT DATE OF EXAM: 08/22/2017 CLINICAL HISTORY: pain TECHNIQUE: AP and lateral images of the right tibia and fibula are obtained. COMPARISON: None. FINDINGS: There is no acute fracture/dislocation evident. The joint spaces appear within normal fernando its. Postoperative changes of right total knee arthroplasty. The overlying soft tissue appears unrem arkable. IMPRESSION: There is no acute fracture or dislocation seen. ICD 10 NO FRACTURE, INITIAL EVALUATION
== END | disposition home or self-care (01) ==
LOC: RADXRMAIN 12:37
PROVIDERS: ATTEND Internal Medicine Geriatric Medicine
DX: M79.661 Pain in right lower leg (principal)

== ENCOUNTER 2017-09-05 09:58 | Inpatient (IN) | payer MEDICARE ==
[2017-09-05] MEDS ORDERED: ACETAMINOPHEN TAB 500 MG TAB PO STA (10:37)
[2017-09-05] MEDS ORDERED: IBUPROFEN 600 MG TAB PO STA (10:37)
[2017-09-05] MEDS ORDERED: HYDROmorphone 2 MG/ML 1 ML SYRINGE IVP STA (10:39)
[2017-09-05] MEDS ORDERED: ONDANSETRON 4 MG/2 ML VIAL IVP STA (10:39)
[2017-09-05] MEDS ORDERED: cefTRIAXone IN SWFI 1,000 MG/10 ML SYRINGE IVP STA (10:41)
--- NOTE | 2017-09-05 10:42 | ED ---
General Adult HPI - General Chief complaint: Shortness of Breath Stated complaint: Chest pain Time Seen by Provider: 09/05/17 10:00 Source: patient, family, RN notes reviewed Mode of arrival: wheelchair Limitations: no limitations - History of Present Illness Initial comments: This is a 71-year-old male who presents emergency department with past medical history significant for epithelial cell renal cancer. Patient states he has some metastatic disease in the liver and adenopathy in the lungs. Patient comes in complaining that he is feeling extremely weak feels warm and has had a bad cough. Patient states she's also had hematuria which is typical but the clots of been getting bigger as of recently. Patient denies any head or neck pain. Patient denies chest pain. Patient states he does have a little right sided abdominal pain which is not unusual for him. Patient denies any vomiting but is nauseated. Patient denies any diarrhea. Patient denies any rashes or lesions or areas of redness. Some shortness of breath - Related Data Home Medications Medication Instructions Recorded Confirmed L.acidoph,Paracasei, B.lactis 1 cap PO DAILY 07/30/17 09/05/17 [Probiotic] ALPRAZolam [Xanax] 0.25 mg PO BID 09/05/17 09/05/17 Budesonide [Pulmicort] 0.5 mg INHALATION RT-BID 09/05/17 09/05/17 Calcium/Vit D3 Chewable 1 tab PO DAILY 09/05/17 09/05/17 Codeine Phosphate/Guaifenesin 10 ml PO Q6H PRN 09/05/17 09/05/17 [Cheratussin AC Syrup] Multivitamins, Thera [Multivitamin 1 tab PO DAILY 09/05/17 09/05/17 (formulary)] Wheat Dextrin [Benefiber] 1 packet PO DAILY 09/05/17 09/05/17 traMADol HCl [Ultram] 50 mg PO Q6H PRN 09/05/17 09/05/17 Previous Rx's Medication Instructions Recorded Famotidine [Pepcid] 20 mg PO DAILY #30 tab 08/01/17 Ipratropium-Albuterol Nebulize 3 ml INHALATION RT-QID #120 08/01/17 [Duoneb 0.5 mg-3 mg/3 ml Soln] ampul.neb Allergies Allergy/AdvReac Type Severity Reaction Status Date / Time codeine AdvReac Nausea & Verified 09/05/17 10:25 Vomiting hydrocodone [From [place]] AdvReac Hallucinati Verified 09/05/17 10:25 ons morphine AdvReac Hallucinati Verified 09/05/17 10:25 ons oxycodone AdvReac Hallucinati Verified 09/05/17 10:25 ons Review of Systems ROS Statement: Those systems with pertinent positive or pertinent negative responses have been documented in the HPI. ROS Other: All systems not noted in ROS Statement are negative. Past Medical History Past Medical History: Cancer, GERD/Reflux, Osteoarthritis (OA), Prostate Disorder, Renal Disease Additional Past Medical History / Comment(s): vertigo,small hiatal henia, randy cataracts-lens implants, past randy retinal detatchments/lt eye scleral buckle, shinlges, post herpetic trigeminal neuralgia. constipation, eczema/scalp, diverticulosis, colon polyps-benign, urothelial cancer History of Any Multi-Drug Resistant Organisms: MRSA Date of last positivie culture/infection: stomach/arms MDRO Source:: (per pt's ) Past Surgical History: Cholecystectomy, Orthopedic Surgery, Prostate Surgery Additional Past Surgical History / Comment(s): bx, colonoscopy w/bx, randy retinal sx(detatched retina), lt scelar buckle, turp, rt knee meniscus repair, nissens, rt achilles tendon repair, egd w/bx, rt knee replacment, rt knee revision 12-03-16, randy cataracts Past Anesthesia/Blood Transfusion Reactions: Previous Problems w/ Anesthesia Additional Past Anesthesia/Blood Transfusion Reaction / Comment(s): difficult intubation Past Psychological History: No Psychological Hx Reported Smoking Status: Never smoker Past Alcohol Use History: None Reported Past Drug Use History: None Reported - Past Family History Mother Family Medical History: Cancer, Congestive Heart Failure (CHF) Additional Family Medical History / Comment(s): kidney stone Father Family Medical History: Cancer, Congestive Heart Failure (CHF), CVA/TIA, Prostate Disorder Additional Family Medical History / Comment(s): prostate cancer General Exam - General Exam Comments Initial Comments: GENERAL: Patient is well-developed and well-nourished. Patient is nontoxic and well- hydrated and is in mild distress. ENT: Neck is soft and supple. No significant lymphadenopathy is noted. Oropharynx is clear. Dry mucous membranes. Neck has full range of motion without eliciting any pain. EYES: The sclera were anicteric and conjunctiva were pink and moist. Extraocular movements were intact and pupils were equal round and reactive to light. Eyelids were unremarkable. PULMONARY: Unlabored respirations. Good breath sounds bilaterally. No audible rales rhonchi or wheezing was noted. CARDIOVASCULAR: There is a regular rate and rhythm without any murmurs gallops or rubs. ABDOMEN: Soft and nontender with normal bowel sounds. No palpable organomegaly was noted. There is no palpable pulsatile mass. SKIN: Skin is clear with no lesions or rashes and otherwise unremarkable. NEUROLOGIC: Patient is alert and oriented x3. Cranial nerves II through XII are grossly intact. Motor and sensory are also intact. Normal speech, volume and content. Symmetrical smile. MUSCULOSKELETAL: Normal extremities with adequate strength and full range of motion. No lower extremity swelling or edema. No calf tenderness. LYMPHATICS: No significant lymphadenopathy is noted PSYCHIATRIC: Normal psychiatric evaluation. Normal interpersonal interactions appears functionally intact in deals appropriately with others. No signs of depression. No signs of anxiety. Limitations: no limitations Course Vital Signs 09/05/17 09/05/17 09/05/17 10:04 10:41 12:21 Temperature 99.9 F H 100.8 F H 99 F Pulse Rate 116 H 95 Respiratory 20 20 Rate Blood Pressure 117/63 121/63 O2 Sat by Pulse 96 96 Oximetry 09/05/17 09/05/17 12:55 14:00 Temperature 98.4 F Pulse Rate 95 85 Respiratory 18 18 Rate Blood Pressure 128/67 143/76 O2 Sat by Pulse 98 98 Oximetry Medical Decision Making - Medical Decision Making EKG shows sinus tachycardia at 108 bpm MO interval is on a 60 QRS is 90 QT interval 332 QTC is 444. Patient's EKG shows no ST segment elevation or depression or T wave abnormalities are noted. Chest x-ray showed a possible bronchitis versus pneumonitis. I spoke with Dr. Clifford and he agreed that he wanted the patient on antibiotics and for me to consult pulmonary. I spoke with Dr. Perez she agreed to admit the patient I admitted the patient - Lab Data Result diagrams: 09/05/17 11:10 09/05/17 11:10 Lab Results 09/05/17 09/05/17 09/05/17 Range/Units 11:10 11:10 11:10 WBC 7.7 (3.8-10.6) k/uL RBC 4.12 L (4.30-5.90) m/uL Hgb 11.6 L (13.0-17.5) gm/dL Hct 35.2 L (39.0-53.0) % MCV 85.5 (80.0-100.0) fL MCH 28.1 (25.0-35.0) pg MCHC 32.9 (31.0-37.0) g/dL RDW 14.3 (11.5-15.5) % Plt Count 353 (150-450) k/uL Neutrophils % 74 % Lymphocytes % 13 % Monocytes % 9 % Eosinophils % 2 % Basophils % 1 % Neutrophils # 5.7 (1.3-7.7) k/uL Lymphocytes # 1.0 (1.0-4.8) k/uL Monocytes # 0.7 (0-1.0) k/uL Eosinophils # 0.2 (0-0.7) k/uL Basophils # 0.1 (0-0.2) k/uL PT (9.0-12.0) sec INR (<1.2) APTT (22.0-30.0) sec Sodium 138 (137-145) mmol/L Potassium 4.2 (3.5-5.1) mmol/L Chloride 107 (98-107) mmol/L Carbon Dioxide 23 (22-30) mmol/L Anion Gap 8 mmol/L BUN 28 H (9-20) mg/dL Creatinine 3.00 H (0.66-1.25) mg/dL Est GFR (MDRD) Af Amer 25 (>60 ml/min/1.73 sqM) Est GFR (MDRD) Non-Af 21 (>60 ml/min/1.73 sqM) Glucose 98 (74-99) mg/dL Plasma Lactic Acid Jan (0.7-2.0) mmol/L Calcium 7.5 L (8.4-10.2) mg/dL Total Bilirubin 0.3 (0.2-1.3) mg/dL AST 50 (17-59) U/L ALT 38 (21-72) U/L Alkaline Phosphatase 283 H (38-126) U/L Total Creatine Kinase 91 (55-170) U/L CK-MB (CK-2) 0.5 (0.0-2.4) ng/mL CK-MB (CK-2) Rel Index 0.5 Troponin I 0.060 H* (0.000-0.034) ng/mL Total Protein 5.5 L (6.3-8.2) g/dL Albumin 3.0 L (3.5-5.0) g/dL Urine Color Urine Appearance (Clear) Urine RBC (0-5) /hpf Urine WBC (0-5) /hpf Urine Opiates Screen (NotDetected) Ur Oxycodone Screen (NotDetected) Urine Methadone Screen (NotDetected) Ur Propoxyphene Screen (NotDetected) Ur Barbiturates Screen (NotDetected) U Tricyclic Antidepress (NotDetected) Ur Phencyclidine Scrn (NotDetected) Ur Amphetamines Screen (NotDetected) U Methamphetamines Scrn (NotDetected) U Benzodiazepines Scrn (NotDetected) Urine Cocaine Screen (NotDetected) U Marijuana (THC) Screen (NotDetected) Influenza Type A RNA (Not Detectd) Influenza Type B (PCR) (Not Detectd) 09/05/17 09/05/17 09/05/17 Range/Units 11:10 11:10 11:10 WBC (3.8-10.6) k/uL RBC (4.30-5.90) m/uL Hgb (13.0-17.5) gm/dL Hct (39.0-53.0) % MCV (80.0-100.0) fL MCH (25.0-35.0) pg MCHC (31.0-37.0) g/dL RDW (11.5-15.5) % Plt Count (150-450) k/uL Neutrophils % % Lymphocytes % % Monocytes % % Eosinophils % % Basophils % % Neutrophils # (1.3-7.7) k/uL Lymphocytes # (1.0-4.8) k/uL Monocytes # (0-1.0) k/uL Eosinophils # (0-0.7) k/uL Basophils # (0-0.2) k/uL PT 10.0 (9.0-12.0) sec INR 1.0 (<1.2) APTT 22.9 (22.0-30.0) sec Sodium (137-145) mmol/L Potassium (3.5-5.1) mmol/L Chloride (98-107) mmol/L Carbon Dioxide (22-30) mmol/L Anion Gap mmol/L BUN (9-20) mg/dL Creatinine (0.66-1.25) mg/dL Est GFR (MDRD) Af Amer (>60 ml/min/1.73 sqM) Est GFR (MDRD) Non-Af (>60 ml/min/1.73 sqM) Glucose (74-99) mg/dL Plasma Lactic Acid Jan 1.2 (0.7-2.0) mmol/L Calcium (8.4-10.2) mg/dL Total Bilirubin (0.2-1.3) mg/dL AST (17-59) U/L ALT (21-72) U/L Alkaline Phosphatase (38-126) U/L Total Creatine Kinase (55-170) U/L CK-MB (CK-2) (0.0-2.4) ng/mL CK-MB (CK-2) Rel Index Troponin I (0.000-0.034) ng/mL Total Protein (6.3-8.2) g/dL Albumin (3.5-5.0) g/dL Urine Color Urine Appearance (Clear) Urine RBC (0-5) /hpf Urine WBC (0-5) /hpf Urine Opiates Screen (NotDetected) Ur Oxycodone Screen (NotDetected) Urine Methadone Screen (NotDetected) Ur Propoxyphene Screen (NotDetected) Ur Barbiturates Screen (NotDetected) U Tricyclic Antidepress (NotDetected) Ur Phencyclidine Scrn (NotDetected) Ur Amphetamines Screen (NotDetected) U Methamphetamines Scrn (NotDetected) U Benzodiazepines Scrn (NotDetected) Urine Cocaine Screen (NotDetected) U Marijuana (THC) Screen (NotDetected) Influenza Type A RNA Not Detected (Not Detectd) Influenza Type B (PCR) Not Detected (Not Detectd) 02/01/18 02/01/18 Range/Units 12:48 12:48 WBC (3.8-10.6) k/uL RBC (4.30-5.90) m/uL Hgb (13.0-17.5) gm/dL Hct (39.0-53.0) % MCV (80.0-100.0) fL MCH (25.0-35.0) pg MCHC (31.0-37.0) g/dL RDW (11.5-15.5) % Plt Count (150-450) k/uL Neutrophils % % Lymphocytes % % Monocytes % % Eosinophils % % Basophils % % Neutrophils # (1.3-7.7) k/uL Lymphocytes # (1.0-4.8) k/uL Monocytes # (0-1.0) k/uL Eosinophils # (0-0.7) k/uL Basophils # (0-0.2) k/uL PT (9.0-12.0) sec INR (<1.2) APTT (22.0-30.0) sec Sodium (137-145) mmol/L Potassium (3.5-5.1) mmol/L Chloride (98-107) mmol/L Carbon Dioxide (22-30) mmol/L Anion Gap mmol/L BUN (9-20) mg/dL Creatinine (0.66-1.25) mg/dL Est GFR (MDRD) Af Amer (>60 ml/min/1.73 sqM) Est GFR (MDRD) Non-Af (>60 ml/min/1.73 sqM) Glucose (74-99) mg/dL Plasma Lactic Acid Jan (0.7-2.0) mmol/L Calcium (8.4-10.2) mg/dL Total Bilirubin (0.2-1.3) mg/dL AST (17-59) U/L ALT (21-72) U/L Alkaline Phosphatase (38-126) U/L Total Creatine Kinase (55-170) U/L CK-MB (CK-2) (0.0-2.4) ng/mL CK-MB (CK-2) Rel Index Troponin I (0.000-0.034) ng/mL Total Protein (6.3-8.2) g/dL Albumin (3.5-5.0) g/dL Urine Color Red Urine Appearance Bloody (Clear) Urine RBC >182 H (0-5) /hpf Urine WBC >182 H (0-5) /hpf Urine Opiates Screen Detected H (NotDetected) Ur Oxycodone Screen Not Detected (NotDetected) Urine Methadone Screen Not Detected (NotDetected) Ur Propoxyphene Screen Not Detected (NotDetected) Ur Barbiturates Screen Not Detected (NotDetected) U Tricyclic Antidepress Not Detected (NotDetected) Ur Phencyclidine Scrn Not Detected (NotDetected) Ur Amphetamines Screen Not Detected (NotDetected) U Methamphetamines Scrn Not Detected (NotDetected) U Benzodiazepines Scrn Detected H (NotDetected) Urine Cocaine Screen Not Detected (NotDetected) U Marijuana (THC) Screen Not Detected (NotDetected) Influenza Type A RNA (Not Detectd) Influenza Type B (PCR) (Not Detectd) Disposition Clinical Impression: Pneumonitis, Generalized weakness Disposition[facility] Referrals: Keith Bird MD [Primary Care Provider] - 1-2 days Time of Disposition: 14:28
[2017-09-05] MEDS: SODIUM CHLORIDE 0.9% 500 ML IV SCH ×2 (11:26→12:19)
[2017-09-05 11:34] LABS: Basophils # (A) 0.1 k/uL (0-0.2); Basophils % (A) 1 %; Eosinophils # (A) 0.2 k/uL (0-0.7); Eosinophils % (A) 2 %; HCT 35.2 % (39.0-53.0); HGB 11.6 gm/dL (13.0-17.5); Lymphocytes % (A) 13 %; MCH 28.1 pg (25.0-35.0); MCHC 32.9 g/dL (31.0-37.0); MCV 85.5 fL (80.0-100.0); Mean Platelet Volume 6.8; Monocytes # (A) 0.7 k/uL (0-1.0); Monocytes % (A) 9 %; Neutrophils # (A) 5.7 k/uL (1.3-7.7); Neutrophils % (A) 74 %; Platelet Count 353 k/uL (150-450); RBC 4.12 m/uL (4.30-5.90); RDW 14.3 % (11.5-15.5); WBC 7.7 k/uL (3.8-10.6)
[2017-09-05 11:41] LABS: Calcium 7.5 mg/dL (8.4-10.2); Potassium 4.2 mmol/L (3.5-5.1); Total Bilirubin 0.3 mg/dL (0.2-1.3); Total Protein 5.5 g/dL (6.3-8.2)
--- NOTE | 2017-09-05 11:58 | XR ---
EXAMINATION TYPE: XR chest 2V DATE OF EXAM: 09/05/2017 COMPARISON: 07/30/2017 HISTORY: 71-year-old male with fever TECHNIQUE: Frontal and lateral views FINDINGS: Heart normal size. Aorta and pulmonary vasculature within normal limits. Increased interstitial opaci ties diffusely throughout the lungs. No significant pleural effusion. IMPRESSION: Increased interstitial densities throughout. Correlate for bronchitis, atypical pneumonias, or inters titial pneumonitis.
[2017-09-05 12:13] LABS: Creatine Kinase MB 0.5 ng/mL (0.0-2.4)
[2017-09-05 12:16] LABS: Troponin I 0.06 ng/mL (0.000-0.034)
[2017-09-05 12:19] LABS: Partial Thromboplastin Time 22.9 sec (22.0-30.0)
[2017-09-05 13:12] LABS: Appearance,Urine Bloody (Clear)
[2017-09-05 13:13] LABS: Color,Urine Red
[2017-09-05 13:16] LABS: RBC,Urine >182 /hpf (0-5); WBC,Urine >182 /hpf (0-5)
[2017-09-05 14:21] LABS: Amphetamine Screen,Urine Not Detected (NotDetected); Barbiturate Screen,Urine Not Detected (NotDetected); Benzodiazepines Screen,Urine Detected (NotDetected); Cocaine Screen,Urine Not Detected (NotDetected); Methadone Screen, Urine Not Detected (NotDetected); Opiate Screen,Urine Detected (NotDetected); Oxycodone Screen, Urine Not Detected (NotDetected); Phencyclidine Screen,Urine Not Detected (NotDetected); Tricyclic Antidepressant,Urine Not Detected (NotDetected); Urn Cannabinoid Scrn Not Detected (NotDetected)
[2017-09-05] MEDS ORDERED: SODIUM CHLORIDE 0.9% 1,000 ML IV ONE (14:30)
[2017-09-05] MEDS ORDERED: LEVOFLOXACIN 750MG-D5W PMX 750 MG in DEXTROSE/WATER 1 150ML.BAG IVPB STA (14:32)
[2017-09-05] MEDS ORDERED: traMADol 50 MG TAB PO PRN (15:17)
--- NOTE | 2017-09-05 15:36 | P.HPIM ---
History of Present Illness H&P Date: 09/05/17 Chief Complaint: shortness of breathfever on immunotherapy for renal cancer This is a very pleasant 71 years old gentleman patient of Dr. Bird, Dr. Nunez, Dr. Alfredo Dr. S/P Shar presents with CK D stage III, persistent hematuria secondary to urothelial renal cell carcinoma during his last admission in 2016, from a liver biopsy, showing metastatic carcinoma showing a urothelial primarywas kidneys,managed by Dr. Vandana Fuentes,. He received his first immunotherapy on 02/23/2018 using Atezolizumab (tecentriq)every 3 weeks. No other chemoradiation therapy offered, he got so weak, with increasing weight loss, and increasing shortness of breath.. He got dehydrated requiring IV infusionfew days ago at Dr. Ross'demarcus. Patient now presents to the emergency room with increasing shortness of breath worse for the past 1 week, fever for one day duration, cough, mainly on the left side of his throat seems to CPAP more, she mentions that the coughing is worse when he lays down on his left side , he denies any hoarseness of voice, no vocal cord paralysis, patient's sputum is purulent, no recent antibiotic use, he almost passed out secondary to lightheadedness and weakness, and increasing paroxysms of cough that seems to be bothering him the most. He mentioned that the use of Tessalon Perles worse since this in the [place] cough drop gets this better.patient is maintained on nebulized albuterol Atrovent 4 times a day and Pulmicort 0.5 mg twice a day. He has doxycycline on a when necessary basis on right wrist MRSA- the right wrist which was inactive since past 3 months ago, no recurrence since then. Patient was given IV steroids at Dr. Murcia.. Patient continues to have urinary clots, bright red hematuria, no recent blood transfusion Other past medical history is positive for GERD, osteoarthritis, BPH status post TURP, history of retinal detachment, shingles status post herpetic trigeminal neuralgia, diverticulosis diagnosed on recent colonoscopy Previous diagnostic imaging included Patient underwent CT of the chest on that showed several mediastinotomy nodes, multiple small pulmonary nodules and a possible mass in the left kidney. A PET CAT scan was ordered on 07/26 which suggested suspicious bilateral pulmonary nodules along with increased activity in the region of mediastinal lymphadenopathy, hepatic mass and a mass in the upper pole of the left kidney with increased activity was also seen. liver core biopsy 07/31/2017, metastatic carcinoma suspicious for urothelial primary , 12/19/2016,Dr. Fuentes cystoscopy with cautery of polyp on dome of bladder and cautery of prostatic urethra presenting with gross hematuria Review of Systems Constitutional: Reports as per HPI, Reports chills, Reports fatigue, Reports lethargy, Reports poor appetite, Reports sweats, Reports weakness, Reports weight loss Ears, nose, mouth and throat: Reports as per HPI, Denies ant. neck pain, Denies bleeding gums, Denies dental pain, Denies dysphagia, Denies epistaxis, Denies headache, Denies hoarseness, Denies mouth pain, Denies nasal congestion, Denies nasal discharge, Denies neck fullness/pressure, Denies neck lump, Denies nose pain, Denies odynophagia, Denies post-nasal drip, Denies sinus pain, Denies sinus pressure, Denies swelling in mouth, Denies swelling in throat, Denies sore throat, Denies vertigo, Denies voice changes Cardiovascular: Reports as per HPI, Reports lightheadedness, Denies chest pain, Denies claudication, Denies decreased exercise tolerance, Denies dyspnea on exertion, Denies edema, Denies high blood pressure, Denies irregular heart beat , Denies leg edema, Denies orthopnea, Denies palpitations, Denies paroxysmal nocturnal dyspnea, Denies phlebitis, Denies rapid heart beat, Denies shortness of breath, Denies syncope Respiratory: Reports as per HPI, Reports cough, Reports cough with sputum, Reports dyspnea, Reports pain on inspiration Gastrointestinal: Reports as per HPI, Reports abdominal pain, Denies belching, Denies bloating, Denies BRBPR, Denies change in bowel habits, Denies coffee ground emesis, Denies constipation, Denies diarrhea, Denies dyspepsia, Denies early satiety, Denies excessive gas, Denies heartburn, Denies hematemesis, Denies hematochezia, Denies indigestion, Denies jaundice, Denies lactose intolerance, Denies loss of appetite, Denies melena, Denies nausea, Denies vomiting Genitourinary: Reports as per HPI, Reports hematuria, Reports urinary frequency , Reports urinary hesitancy, Denies decreased libido, Denies difficulties fathering child, Denies discharge, Denies dysuria, Denies erectile dysfunction, Denies flank pain, Denies genital pain, Denies genital sores, Denies impotence, Denies incontinence, Denies kidney stones, Denies nocturia, Denies polyuria, Denies testicular lump, Denies testicular pain, Denies urinary retention Musculoskeletal: Reports as per HPI, Denies arm numbness/tingling, Denies atrophy, Denies fractures, Denies frequent falls, Denies gait dysfunction, Denies hot joints, Denies leg numbness/tingling, Denies limitation of motion, Denies loss of height, Denies low back pain, Denies morning stiffness, Denies muscle cramps, Denies muscle weakness, Denies myalgias, Denies neck pain, Denies neck stiffness, Denies prior amputations, Denies redness of joints, Denies shooting arm pain, Denies shooting leg pain Integumentary: Reports as per HPI, Denies acne, Denies boils, Denies brittle nails, Denies change in hair/nails, Denies color changes, Denies darkening of skin, Denies depigmentation, Denies dryness, Denies foot/leg ulcers, Denies growths, Denies hirsutism, Denies lesions, Denies onychomycosis, Denies pruritus , Denies rash, Denies sores, Denies striae, Denies unusual bruising, Denies wounds Neurological: Reports as per HPI, Denies aphasia, Denies ataxia, Denies balance difficulties, Denies burning pain, Denies change in mentation, Denies change in smell/taste, Denies change in speech, Denies confusion, Denies convulsions, Denies double vision, Denies gait dysfunction, Denies head injury, Denies headaches, Denies hearing difficulties, Denies lack of coordination, Denies loss of vision, Denies memory loss, Denies migraines, Denies motor disturbance, Denies numbness, Denies paralysis, Denies paresthesias, Denies seizures, Denies sensory deficit, Denies spasticity, Denies syncope, Denies tic, Denies tingling , Denies transient paralysis, Denies tremors, Denies vertigo, Denies weakness, Denies visual changes Psychiatric: Reports as per HPI Endocrine: Reports as per HPI Hematologic/Lymphatic: Reports as per HPI Allergic/Immunologic: Reports as per HPI, Reports wheezing Past Medical History Past Medical History: Cancer, GERD/Reflux, Osteoarthritis (OA), Prostate Disorder, Renal Disease Additional Past Medical History / Comment(s): vertigo,small hiatal henia, randy cataracts-lens implants, past randy retinal detatchments/lt eye scleral buckle, shinlges, post herpetic trigeminal neuralgia. constipation, eczema/scalp, diverticulosis, colon polyps-benign, urothelial cancer History of Any Multi-Drug Resistant Organisms: MRSA Date of last positivie culture/infection: stomach/arms MDRO Source:: (per pt's ) Past Surgical History: Cholecystectomy, Orthopedic Surgery, Prostate Surgery Additional Past Surgical History / Comment(s): bx, colonoscopy w/bx, randy retinal sx(detatched retina), lt scelar buckle, turp, rt knee meniscus repair, nissens, rt achilles tendon repair, egd w/bx, rt knee replacment, rt knee revision 12-03-16, randy cataracts Past Anesthesia/Blood Transfusion Reactions: Previous Problems w/ Anesthesia Additional Past Anesthesia/Blood Transfusion Reaction / Comment(s): difficult intubation Past Psychological History: No Psychological Hx Reported Smoking Status: Never smoker Past Alcohol Use History: None Reported Past Drug Use History: None Reported - Past Family History Mother Family Medical History: Cancer, Congestive Heart Failure (CHF) Additional Family Medical History / Comment(s): kidney stone Father Family Medical History: Cancer, Congestive Heart Failure (CHF), CVA/TIA, Prostate Disorder Additional Family Medical History / Comment(s): prostate cancer Medications and Allergies Home Medications Medication Instructions Recorded Confirmed Type L.acidoph,Paracasei, B.lactis 1 cap PO DAILY 07/30/17 09/05/17 History [Probiotic] Famotidine [Pepcid] 20 mg PO DAILY #30 tab 08/01/17 09/05/17 Rx Ipratropium-Albuterol Nebulize 3 ml INHALATION RT-QID #120 08/01/17 09/05/17 Rx [Duoneb 0.5 mg-3 mg/3 ml Soln] ampul.neb ALPRAZolam [Xanax] 0.25 mg PO BID 09/05/17 09/05/17 History Budesonide [Pulmicort] 0.5 mg INHALATION RT-BID 09/05/17 09/05/17 History Calcium/Vit D3 Chewable 1 tab PO DAILY 09/05/17 09/05/17 History Codeine Phosphate/Guaifenesin 10 ml PO Q6H PRN 09/05/17 09/05/17 History [Cheratussin AC Syrup] Multivitamins, Thera [Multivitamin 1 tab PO DAILY 09/05/17 09/05/17 History (formulary)] Wheat Dextrin [Benefiber] 1 packet PO DAILY 09/05/17 09/05/17 History traMADol HCl [Ultram] 50 mg PO Q6H PRN 09/05/17 09/05/17 History Allergies Allergy/AdvReac Type Severity Reaction Status Date / Time codeine AdvReac Nausea & Verified 09/05/17 10:25 Vomiting hydrocodone [From [place]] AdvReac Hallucinati Verified 09/05/17 10:25 ons morphine AdvReac Hallucinati Verified 09/05/17 10:25 ons oxycodone AdvReac Hallucinati Verified 09/05/17 10:25 ons Physical Exam Vitals: Vital Signs Temp Pulse Resp BP Pulse Ox 09/05/17 14:00 85 18 143/76 98 09/05/17 12:55 98.4 F 95 18 128/67 98 09/05/17 12:21 99 F 95 20 121/63 96 09/05/17 10:41 100.8 F H 09/05/17 10:04 99.9 F H 116 H 20 117/63 96 Intake and Output 09/04/17 09/05/17 09/05/17 22:59 06:59 14:59 Other: Weight 79.379 kg Patient Weight 09/06/17 06:59 Weight 79.379 kg - Constitutional General appearance: average body habitus, cooperative, mild distress - EENT Eyes: anicteric sclerae, EOMI, PERRLA, normal appearance ENT: hard of hearing, NA/AT, normal oropharynx - Neck Neck: other - Respiratory Respiratory: bilateral: CTA, negative: diminished, dullness, rales, rhonchi, wheezing - Cardiovascular Rhythm: regular Heart sounds: normal: S1, S2 - Integumentary Integumentary: decreased turgor, rash - Musculoskeletal Musculoskeletal: generalized weakness, strength equal bilaterally - Psychiatric Psychiatric: A&O x's 3, appropriate affect, intact judgment & insight Results CBC & Chem 7: 09/05/17 11:10 09/05/17 11:10 Labs: Abnormal Lab Results - Last 24 Hours (Table) 09/05/17 09/05/17 09/05/17 Range/Units 11:10 11:10 11:10 RBC 4.12 L (4.30-5.90) m/uL Hgb 11.6 L (13.0-17.5) gm/dL Hct 35.2 L (39.0-53.0) % BUN 28 H (9-20) mg/dL Creatinine 3.00 H (0.66-1.25) mg/dL Calcium 7.5 L (8.4-10.2) mg/dL Alkaline Phosphatase 283 H (38-126) U/L Troponin I 0.060 H* (0.000-0.034) ng/mL Total Protein 5.5 L (6.3-8.2) g/dL Albumin 3.0 L (3.5-5.0) g/dL Urine RBC (0-5) /hpf Urine WBC (0-5) /hpf Urine Opiates Screen (NotDetected) U Benzodiazepines Scrn (NotDetected) 09/05/17 09/05/17 Range/Units 12:48 12:48 RBC (4.30-5.90) m/uL Hgb (13.0-17.5) gm/dL Hct (39.0-53.0) % BUN (9-20) mg/dL Creatinine (0.66-1.25) mg/dL Calcium (8.4-10.2) mg/dL Alkaline Phosphatase (38-126) U/L Troponin I (0.000-0.034) ng/mL Total Protein (6.3-8.2) g/dL Albumin (3.5-5.0) g/dL Urine RBC >182 H (0-5) /hpf Urine WBC >182 H (0-5) /hpf Urine Opiates Screen Detected H (NotDetected) U Benzodiazepines Scrn Detected H (NotDetected) Laboratory Results WBC 7.7 k/uL (3.8-10.6) 09/05/17 11:10 RBC 4.12 m/uL (4.30-5.90) L 09/05/17 11:10 Hgb 11.6 gm/dL (13.0-17.5) L 09/05/17 11:10 Hct 35.2 % (39.0-53.0) L 09/05/17 11:10 MCV 85.5 fL (80.0-100.0) 09/05/17 11:10 MCH 28.1 pg (25.0-35.0) 09/05/17 11:10 MCHC 32.9 g/dL (31.0-37.0) 09/05/17 11:10 RDW 14.3 % (11.5-15.5) 09/05/17 11:10 Plt Count 353 k/uL (150-450) 09/05/17 11:10 Neutrophils % 74 % 09/05/17 11:10 Lymphocytes % 13 % 09/05/17 11:10 Monocytes % 9 % 09/05/17 11:10 Eosinophils % 2 % 09/05/17 11:10 Basophils % 1 % 09/05/17 11:10 Neutrophils # 5.7 k/uL (1.3-7.7) 09/05/17 11:10 Lymphocytes # 1.0 k/uL (1.0-4.8) 09/05/17 11:10 Monocytes # 0.7 k/uL (0-1.0) 09/05/17 11:10 Eosinophils # 0.2 k/uL (0-0.7) 09/05/17 11:10 Basophils # 0.1 k/uL (0-0.2) 09/05/17 11:10 PT 10.0 sec (9.0-12.0) 09/05/17 11:10 INR 1.0 (<1.2) 09/05/17 11:10 APTT 22.9 sec (22.0-30.0) 09/05/17 11:10 Sodium 138 mmol/L (137-145) 09/05/17 11:10 Potassium 4.2 mmol/L (3.5-5.1) 09/05/17 11:10 Chloride 107 mmol/L (98-107) 09/05/17 11:10 Carbon Dioxide 23 mmol/L (22-30) 09/05/17 11:10 Anion Gap 8 mmol/L 09/05/17 11:10 BUN 28 mg/dL (9-20) H 09/05/17 11:10 Creatinine 3.00 mg/dL (0.66-1.25) H 09/05/17 11:10 Est GFR (MDRD) Af Amer 25 (>60 ml/min/1.73 sqM) 09/05/17 11:10 Est GFR (MDRD) Non-Af 21 (>60 ml/min/1.73 sqM) 09/05/17 11:10 Glucose 98 mg/dL (74-99) 09/05/17 11:10 Plasma Lactic Acid Jan 1.2 mmol/L (0.7-2.0) 09/05/17 11:10 Calcium 7.5 mg/dL (8.4-10.2) L 09/05/17 11:10 Total Bilirubin 0.3 mg/dL (0.2-1.3) 09/05/17 11:10 AST 50 U/L (17-59) 09/05/17 11:10 ALT 38 U/L (21-72) 09/05/17 11:10 Alkaline Phosphatase 283 U/L (38-126) H 09/05/17 11:10 Total Creatine Kinase 91 U/L (55-170) 09/05/17 11:10 CK-MB (CK-2) 0.5 ng/mL (0.0-2.4) 09/05/17 11:10 CK-MB (CK-2) Rel Index 0.5 09/05/17 11:10 Troponin I 0.060 ng/mL (0.000-0.034) H* 09/05/17 11:10 Total Protein 5.5 g/dL (6.3-8.2) L 09/05/17 11:10 Albumin 3.0 g/dL (3.5-5.0) L 09/05/17 11:10 Urine Color Red 09/05/17 12:48 Urine Appearance Bloody (Clear) 09/05/17 12:48 Urine RBC >182 /hpf (0-5) H 09/05/17 12:48 Urine WBC >182 /hpf (0-5) H 09/05/17 12:48 Urine Opiates Screen Detected (NotDetected) H 09/05/17 12:48 Ur Oxycodone Screen Not Detected (NotDetected) 09/05/17 12:48 Urine Methadone Screen Not Detected (NotDetected) 09/05/17 12:48 Ur Propoxyphene Screen Not Detected (NotDetected) 09/05/17 12:48 Ur Barbiturates Screen Not Detected (NotDetected) 09/05/17 12:48 U Tricyclic Antidepress Not Detected (NotDetected) 09/05/17 12:48 Ur Phencyclidine Scrn Not Detected (NotDetected) 09/05/17 12:48 Ur Amphetamines Screen Not Detected (NotDetected) 09/05/17 12:48 U Methamphetamines Scrn Not Detected (NotDetected) 09/05/17 12:48 U Benzodiazepines Scrn Detected (NotDetected) H 09/05/17 12:48 Urine Cocaine Screen Not Detected (NotDetected) 09/05/17 12:48 U Marijuana (THC) Screen Not Detected (NotDetected) 09/05/17 12:48 Influenza Type A RNA Not Detected (Not Detectd) 09/05/17 11:10 Influenza Type B (PCR) Not Detected (Not Detectd) 09/05/17 11:10 Thrombosis Risk Factor Assmnt - DVT/VTE Prophylaxis DVT/VTE Prophylaxis: Mechanical Prophylaxis ordered, Contraindicated - See note (nocturia) - Choose All That Apply Each Factor Represents 1 point: Abnormal pulmonary function (COPD) Each Risk Factor Represents 2 Points: Age 61-74 years, Malignancy Thrombosis Risk Factor Assessment Total Risk Factor Score: 5 Thrombosis Risk Factor Assessment Level: High Risk Assessment and Plan Plan: 1.febrile illness sepsis with SIRSworsening dyspnea, worsening hematuria, severe paroxysms of cough presenting with increasing debility and weakness, known urothelial cell carcinoma of the kidneys, with metastasis stasis to the liver and pulmonary lymph nodes followed closely by Dr. Nunez, which we have consulted, and is on Tecentriq given frst dose 08/26/2017.obtain VQ scan to evaluate for pulmonary emboli, patient will be difficult to anticoagulate secondary to hematuria, 2.pulmonary decompensation with mild respiratory distress without any hypoxemia , atypical pneumonia so interstitial pneumonitis, influenza test is negative, Solu-Medrol 60 mg every 6 hours, maintain Pulmicort and Xopenex IV IVLevaquin consult with Dr. Aliya Myles, obtain echocardiogram 3 metastatic urothelial kidney carcinoma presenting with, Mass left upper pole left kidneyongoing hematuria, monitor for postobstructive kidney failure, metastases to the liver and mediastinal lymph node noted patient has bilateral hydronephrosis, consult were made with Dr. Fuentes urologyDr. Mayra Workman 4.Bilateral hydronephrosis with hematuria, postobstructive uropathy noted with acute on chronic kidney failure consult with Dr. Fuentes 5.CK D stage III-IV with acute kidney failure,secondary to dehydration and postobstructive hydronephrosis nephrology is consulted consult with Dr. Workman 6 BPH status post TURP , stable 7 DVT prophylaxis with SCDs 8 GI prophylaxis with Pepcid 20 mg twice a day 9 anxiety Xanax 0.5 mg twice a day as needed 10. Personal history of MRSA resolved June 2017 located right wrist
[2017-09-05] MEDS: IPRATROPIUM-ALBUTEROL 3 ML NEB INHALATION SCH ×2 (16:29→20:39)
--- NOTE | 2017-09-05 16:54 | NM ---
EXAMINATION TYPE: NM pul vent and perfuse DATE OF EXAM: 09/05/2017 COMPARISON: Radiograph same day HISTORY: 71-year-old male shortness of breath and history of cancer TECHNIQUE: Utilizing inhalation of 71.0 mCi Tc 99m DTPA aerosol and intravenous injection of 5.3 mCi of Tc 99m MAA, ventilation and perfusion images are acquired post injection in multiple projections. FINDINGS: There is heterogeneity of ventilation and perfusion in the lungs without any mismatched perfusion def ects. IMPRESSION: Low probability for pulmonary embolus.
--- NOTE | 2017-09-05 17:37 | P.GSCN ---
History of Present Illness Consult date: 09/05/17 Reason for Consult: Gross hematuria History of present illness: The patient is a 71-year-old male admitted through emergency emergency room for evaluation of increasing weakness associated with coughing, shortness of breath and gross hematuria. 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 He has a history of intermittent gross hematuria which has occurred in the past following periods of activity. He was started on immunotherapy with Atezolizumab approximately 10 days ago. He says he's had a persistent cough which is worse when he lies on his left side. The cough has only subsided over the last 24 hours. He is become progressively weaker and his had periods of nausea but no vomiting. He has periodic gross hematuria which recurred over the last 2 days. The patient has been passing some clots along with the blood. His hemoglobin in the emergency room was 11.6. BUN/creatinine were 28/3.0 and are relatively stable as the patient has chronic kidney disease's-stage 3. V/Q scan in the emergency room showed a low likelihood of pulmonary emboli. Computed tomography scan of the chest, abdomen and pelvis showed changes suggestive of blood in the left renal pelvis and proximal ureter as well as small amount of density in the bladder consistent with some blood adjacent to the left ureteral orifice. A mass is present in the upper pole the left kidney consistent with the patient's known transitional cell carcinoma. Review of Systems - Constitutional Reports chills, Reports poor appetite, Reports weakness - Cardiovascular Reports shortness of breath, Denies leg edema - Respiratory Reports cough, Denies cough with sputum - Gastrointestinal Reports abdominal pain (the patient said he had some right upper quadrant abdominal pain yesterday but this has resolved) - Genitourinary Reports as per HPI Past Medical History Past Medical History: Cancer, GERD/Reflux, Osteoarthritis (OA), Prostate Disorder, Renal Disease Additional Past Medical History / Comment(s): vertigo,small hiatal henia, randy cataracts-lens implants, past randy retinal detatchments/lt eye scleral buckle, shinlges, post herpetic trigeminal neuralgia.brochitis constipation, eczema/ scalp, diverticulosis, colon polyps-benign,kidney stone,urinary retention, hematuria- urothelial cancer, per family "spots on liver, bones. pulmonary nodules History of Any Multi-Drug Resistant Organisms: MRSA Year Discovered:: stomach/arms MDRO Source:: (per pt's ) Past Surgical History: Cholecystectomy, Orthopedic Surgery, Prostate Surgery Additional Past Surgical History / Comment(s): bx, colonoscopy w/bx, randy retinal sx(detatched retina), lt scelar buckle, turp, rt knee meniscus repair, nissens, rt achilles tendon repair, egd w/bx, rt knee replacment, rt knee revision 12-03-16, randy cataracts, cystocopy w/ cautery of polyp, liver bx Past Anesthesia/Blood Transfusion Reactions: Previous Problems w/ Anesthesia Additional Past Anesthesia/Blood Transfusion Reaction / Comm: difficult intubation Smoking Status: Never smoker - Past Family History Mother Family Medical History: Cancer, Congestive Heart Failure (CHF) Additional Family Medical History / Comment(s): kidney stone Father Family Medical History: Cancer, Congestive Heart Failure (CHF), CVA/TIA, Prostate Disorder Additional Family Medical History / Comment(s): prostate cancer Medications and Allergies Home Medications Medication Instructions Recorded Confirmed Type L.acidoph,Paracasei, B.lactis 1 cap PO DAILY 07/30/17 09/05/17 History [Probiotic] Famotidine [Pepcid] 20 mg PO DAILY #30 tab 08/01/17 09/05/17 Rx Ipratropium-Albuterol Nebulize 3 ml INHALATION RT-QID #120 08/01/17 09/05/17 Rx [Duoneb 0.5 mg-3 mg/3 ml Soln] ampul.neb ALPRAZolam [Xanax] 0.25 mg PO BID 09/05/17 09/05/17 History Budesonide [Pulmicort] 0.5 mg INHALATION RT-BID 09/05/17 09/05/17 History Calcium/Vit D3 Chewable 1 tab PO DAILY 09/05/17 09/05/17 History Codeine Phosphate/Guaifenesin 10 ml PO Q6H PRN 09/05/17 09/05/17 History [Cheratussin AC Syrup] Multivitamins, Thera [Multivitamin 1 tab PO DAILY 09/05/17 09/05/17 History (formulary)] Wheat Dextrin [Benefiber] 1 packet PO DAILY 09/05/17 09/05/17 History traMADol HCl [Ultram] 50 mg PO Q6H PRN 09/05/17 09/05/17 History Allergies Allergy/AdvReac Type Severity Reaction Status Date / Time codeine AdvReac Nausea & Verified 09/05/17 10:25 Vomiting hydrocodone [From [place]] AdvReac Hallucinati Verified 09/05/17 10:25 ons morphine AdvReac Hallucinati Verified 09/05/17 10:25 ons oxycodone AdvReac Hallucinati Verified 09/05/17 10:25 ons Surgical - Exam Vital Signs Temp Pulse Resp BP Pulse Ox 99.9 F H 116 H 20 117/63 96 09/05/17 10:04 09/05/17 10:04 09/05/17 10:04 09/05/17 10:04 09/05/17 10:04 - General well developed, well nourished, moderate distress - Neck no masses, no lymphadectomy - Respiratory other (The patient is slightly short of breath but there is no audible wheezing or rhonchi ) - Abdomen Abdomen: soft, non tender, no organomegaly Results - Labs 09/05/17 11:10 09/05/17 11:10 Abnormal Lab Results - Last 24 Hours (Table) 09/05/17 09/05/17 09/05/17 Range/Units 11:10 11:10 11:10 RBC 4.12 L (4.30-5.90) m/uL Hgb 11.6 L (13.0-17.5) gm/dL Hct 35.2 L (39.0-53.0) % BUN 28 H (9-20) mg/dL Creatinine 3.00 H (0.66-1.25) mg/dL Calcium 7.5 L (8.4-10.2) mg/dL Alkaline Phosphatase 283 H (38-126) U/L Troponin I 0.060 H* (0.000-0.034) ng/mL Total Protein 5.5 L (6.3-8.2) g/dL Albumin 3.0 L (3.5-5.0) g/dL Urine RBC (0-5) /hpf Urine WBC (0-5) /hpf Urine Opiates Screen (NotDetected) U Benzodiazepines Scrn (NotDetected) 09/05/17 09/05/17 Range/Units 12:48 12:48 RBC (4.30-5.90) m/uL Hgb (13.0-17.5) gm/dL Hct (39.0-53.0) % BUN (9-20) mg/dL Creatinine (0.66-1.25) mg/dL Calcium (8.4-10.2) mg/dL Alkaline Phosphatase (38-126) U/L Troponin I (0.000-0.034) ng/mL Total Protein (6.3-8.2) g/dL Albumin (3.5-5.0) g/dL Urine RBC >182 H (0-5) /hpf Urine WBC >182 H (0-5) /hpf Urine Opiates Screen Detected H (NotDetected) U Benzodiazepines Scrn Detected H (NotDetected) Diabetes panel 09/05/17 Range/Units 11:10 Sodium 138 (137-145) mmol/L Potassium 4.2 (3.5-5.1) mmol/L Chloride 107 (98-107) mmol/L Carbon Dioxide 23 (22-30) mmol/L BUN 28 H (9-20) mg/dL Creatinine 3.00 H (0.66-1.25) mg/dL Glucose 98 (74-99) mg/dL Calcium 7.5 L (8.4-10.2) mg/dL AST 50 (17-59) U/L ALT 38 (21-72) U/L Alkaline Phosphatase 283 H (38-126) U/L Total Protein 5.5 L (6.3-8.2) g/dL Albumin 3.0 L (3.5-5.0) g/dL Calcium panel 09/05/17 Range/Units 11:10 Calcium 7.5 L (8.4-10.2) mg/dL Albumin 3.0 L (3.5-5.0) g/dL Pituitary panel 09/05/17 Range/Units 11:10 Sodium 138 (137-145) mmol/L Potassium 4.2 (3.5-5.1) mmol/L Chloride 107 (98-107) mmol/L Carbon Dioxide 23 (22-30) mmol/L BUN 28 H (9-20) mg/dL Creatinine 3.00 H (0.66-1.25) mg/dL Glucose 98 (74-99) mg/dL Calcium 7.5 L (8.4-10.2) mg/dL Adrenal panel 09/05/17 Range/Units 11:10 Sodium 138 (137-145) mmol/L Potassium 4.2 (3.5-5.1) mmol/L Chloride 107 (98-107) mmol/L Carbon Dioxide 23 (22-30) mmol/L BUN 28 H (9-20) mg/dL Creatinine 3.00 H (0.66-1.25) mg/dL Glucose 98 (74-99) mg/dL Calcium 7.5 L (8.4-10.2) mg/dL Total Bilirubin 0.3 (0.2-1.3) mg/dL AST 50 (17-59) U/L ALT 38 (21-72) U/L Alkaline Phosphatase 283 H (38-126) U/L Total Protein 5.5 L (6.3-8.2) g/dL Albumin 3.0 L (3.5-5.0) g/dL Assessment and Plan (1) Hematuria Narrative/Plan: The patient's gross hematuria is most likely arising from his known transitional cell carcinoma in the upper pole the left kidney. He has had intermittent episodes of gross hematuria associated with activity and it is likely that his prolonged coughing has caused this again. Unfortunately surgical treatment of the left kidney is not a reasonable option due to the patient's underlying renal dysfunction. It is hoped that the patient's immunotherapy will allow regression of the tumor as well as his metastatic disease. The patient is voiding and at the present time a catheter is not necessary due to the hematuria. Current Visit: No Status: Acute Code(s): R31.9 - HEMATURIA, UNSPECIFIED SNOMED Code(s): 46292291
[2017-09-05] MEDS: CHLORPHEN-HYDROcod 8-10mg/5ml 5 ML ORAL.SYRG PO SCH ×2 (18:23→21:11)
[2017-09-05] MEDS: BUDESONIDE 0.5 MG/2 ML NEBU INHALATION SCH (20:39)
[2017-09-05] MEDS: AMMONIUM LACTATE 12% LOTION 225 GM BTL TOPICAL SCH (21:11)
[2017-09-05] MEDS: MIRTAZAPINE 15 MG TAB PO SCH (21:11)
[2017-09-06] MEDS: ALPRAZolam 0.25 MG TAB PO SCH ×3 (00:48→20:51)
[2017-09-06 07:21] LABS: Basophils # (A) 0.1 k/uL (0-0.2); Basophils % (A) 1 %; Eosinophils # (A) 0.3 k/uL (0-0.7); Eosinophils % (A) 4 %; HCT 33.8 % (39.0-53.0); HGB 10.8 gm/dL (13.0-17.5); Hypochromasia Slight; Lymphocytes # (A) 0.8 k/uL (1.0-4.8); Lymphocytes % (A) 12 %; MCH 27.8 pg (25.0-35.0); MCHC 31.8 g/dL (31.0-37.0); MCV 87.4 fL (80.0-100.0); Mean Platelet Volume 6.8; Monocytes # (A) 0.4 k/uL (0-1.0); Monocytes % (A) 6 %; Neutrophils # (A) 5.4 k/uL (1.3-7.7); Neutrophils % (A) 76 %; Platelet Count 348 k/uL (150-450); RBC 3.87 m/uL (4.30-5.90); RDW 14.3 % (11.5-15.5); WBC 7.1 k/uL (3.8-10.6)
[2017-09-06 07:35] LABS: Calcium 7.4 mg/dL (8.4-10.2); Total Bilirubin 0.2 mg/dL (0.2-1.3); Total Protein 5.5 g/dL (6.3-8.2)
[2017-09-06] MEDS: BUDESONIDE 0.5 MG/2 ML NEBU INHALATION SCH ×2 (07:43→19:55)
[2017-09-06] MEDS: IPRATROPIUM-ALBUTEROL 3 ML NEB INHALATION SCH ×4 (07:43→19:55)
[2017-09-06 07:51] LABS: Potassium 4.5 mmol/L (3.5-5.1)
[2017-09-06] MEDS: FAMOTIDINE 20 MG TAB PO SCH (08:25)
[2017-09-06] MEDS: CHLORPHEN-HYDROcod 8-10mg/5ml 5 ML ORAL.SYRG PO SCH ×2 (08:25→21:06)
[2017-09-06] MEDS: MULTIVITAMINS, THERA 1 EACH TAB PO SCH (08:26)
[2017-09-06] MEDS: AMMONIUM LACTATE 12% LOTION 225 GM BTL TOPICAL SCH ×2 (08:26→20:51)
[2017-09-06] MEDS: LACTOBACILLUS ACIDOPH & BULGAR 1 EACH PACKET PO SCH (08:26)
--- NOTE | 2017-09-06 10:10 | CT ---
EXAMINATION TYPE: CT ChestAbdPelvis wo con DATE OF EXAM: 09/05/2017 INDICATION: Dyspnea, bilateral hydronephrosis, and renal CA. COMPARISON: 03/04/2014 CT abdomen pelvis, Ultrasound renals 08/02/2017. Ultrasound biopsy liver 2016. CT DLP: 1431 mGycm CONTRAST: Performed without Oral Contrast . No intravenous contrast. TECHNIQUE: Axial images at 5 mm thick sections. Reconstructed images in the coronal plane. FINDINGS: CT CHEST: Portion of the thyroid visualized is normal. There is some apical thickening. Some pneumonitis changes in the anterior left upper lobe. There is a peripheral punctate density left upper lobe measuring 0.5 cm. Series 3 image 15 tiny right upper lob e peripheral based nodule measuring 0.4 cm is present. Series 3 image 20. There are multiple peripher al based nodules throughout bilateral lungs. A larger density is include posterior right midlung shari uring 0.4-0.5 cm. Series 3 image 23. Possible nodular density posterior right midlung measuring 1.1 c m. Series 3 image 25. 0.6 cm peripheral nodule left lateral lung. Series 3 image 25. Additional nodul es are in the posterior right midlung. Measuring 0.7 cm. Series 3 image 31. There is a lingular nodul e in the periphery measuring 0.9 cm. Series 3 image 36. There is a nodule at the right lung base shari uring 0.8 cm. Series 3 image 46. Numerous additional punctate nodules are present. A small nodule in the left lung base measuring 1.5 cm. Series 3 image 49. 1.0 cm calcification is within the pleural effusion posteriorly. Series 3 image 29. Small pretracheal lymph nodes are present in the superior mediastinum. There is a 1.3 cm lymph node a djacent to the ascending thoracic aorta at the level of the aortopulmonic window. A 1.0 cm lymph node is in the medial aspect aortopulmonic window additional smaller lymph nodes in the pretracheal space . There is a subcarinal lymph node which appears enlarged measuring 1.4 cm. Soft tissue density may b e in the suprahilar region on the right. Underlying adenopathy may be present. Studies without intrav enous contrast limiting the evaluation at the right hilar soft tissue density. The ascending aorta diameter at the level of the main pulmonary artery is 4.0 cm. The main pulmonary artery diameter at the bifurcation is 2.[address] ABDOMEN: Liver: Within the anterior right tip of the liver there is very subtle hypodensity in relation to the remaining portions of the liver. Underlying mass may be present which may measure up to 6.0 x 6.3 cm . This area may correspond with the ultrasound findings. This appears to be biopsied 07/31/2017. An a dditional hypoechoic area measuring 1.3 cm at the superior dome of the right lobe of the liver. This is hypoechoic and indistinct and is not a simple cyst. An additional lesion is not excluded. Spleen: Normal Pancreas: There is fatty infiltration through the pancreas. Adrenal glands: The adrenal glands are normal. Gallbladder: Surgically absent Kidneys: There are nonobstructing renal stones at the inferior pole left kidney measuring 0.9 and 0.7 cm in size. There is a mass at the superior pole left kidney. It is difficult to delineate the mass from the norm al parenchymal tissue. Best estimate of size is 7.2 x 7.6 cm. There is a 1.6 cm lymph node adjacent t o the renal artery and vein adjacent to the aorta. Series 3 image 71. Some shotty periaortic adenopat hy is evident. No hydronephrosis or hydroureter is evident on either kidney. No masses cysts or calcifications are w ithin the right kidney. Aorta: Minimal Vascular calcification is within the aorta. Inferior vena cava: Normal. Evaluation for thrombus cannot be performed. CT PELVIS: Multiple diverticuli are within the sigmoid colon. Some fluid-filled small bowel loops within the low er pelvis are at the upper limits of normal for size. Mild ileus is not excluded. No suspicious obstr uction is evident. Fecal debris is within the colon. Appendix: Not clearly identified. No suspicious tubular structures or inflammatory changes are eviden t. Urinary bladder: Normal. Genitourinary structures: Prostate calcification is present. Osseous structures: There are multiple scattered small areas of mild sclerosis scattered within the b ilateral femoral necks within the proximal pubic rami and within the medial iliac wings and sacroilia c joints. Some additional mild sclerosis is within upper lumbar vertebral levels and within lower tho racic vertebral levels. Facet degenerative changes are present within the lumbar spine. Spondylosis p resent greater in the thoracic spine. IMPRESSIONS: 1. Soft tissue density at the right hilar region has limited evaluation due to lack of intravenous co ntrast. Adenopathy and mass should be considered. 2. Too numerous to count small peripheral nodules present throughout the bilateral lungs. Larger nodu les measuring 0.4 to 1.5 cm are discussed above. Findings are suspicious for metastatic disease. 3. Enlarged mediastinal adenopathy. 4. Small bilateral pleural effusions. 5. Scattered mildly sclerotic areas within the pelvis and vertebral bodies discussed above. Findings are suspicious for sclerotic metastases. No expansile lytic lesions are identified at this time. 6. Diverticulosis within the sigmoid colon without acute diverticulitis. #7 liver lesion poorly visu alized on current examination due to lack of contrast. This area is better visualized on the ultrasou nd images.
--- NOTE | 2017-09-06 10:34 | P.CNPUL ---
History of Present Illness Consult date: 09/06/17 Requesting physician: Donna Perez Reason for consult: pneumonia Chief complaint: Shortness of breath History of present illness: This is a 71-year-old male patient being seen and examined and evaluated on rounds. Patient states he came into the emergency room complaining of lethargy and weakness as well as increasing shortness of breath with a productive cough with purulent sputum. The patient uses DuoNeb 4 times a day at home and Pulmicort twice a day. Patient was recently given IV steroids at oncologist's office. He also stated that he had been having increased hematuria more than his baseline and had been passing blood clots through his urine. He has a known history of chronic persistent hematuria secondary urothelial cell carcinoma of the kidneys, with metastasis stasis to the liver and pulmonary lymph nodes followed closely also by Dr. Nunez, Dr Fuentes, Dr Workman. A PET CAT scan was ordered on 07/26 which suggested suspicious bilateral pulmonary nodules along with increased activity in the region of mediastinal lymphadenopathy, hepatic mass and a mass in the upper pole of the left kidney with increased activity was also seen. Upon examination today the patient's resting up in bed on room air states he continues to have shortness of breath with exertion and extensive conversation. He continues to have a productive cough with purulent sputum. He has been utilizing the breathing treatments as scheduled which he states is helping him. Review of Systems 14 point review of systems was completed and is negative unless noted above in the HPI. Past Medical History Past Medical History: Cancer, GERD/Reflux, Osteoarthritis (OA), Prostate Disorder, Renal Disease Additional Past Medical History / Comment(s): vertigo,small hiatal henia, randy cataracts-lens implants, past randy retinal detatchments/lt eye scleral buckle, shinlges, post herpetic trigeminal neuralgia.brochitis constipation, eczema/ scalp, diverticulosis, colon polyps-benign,kidney stone,urinary retention, hematuria- urothelial cancer, per family "spots on liver, bones. pulmonary nodules History of Any Multi-Drug Resistant Organisms: MRSA Date of last positivie culture/infection: stomach/arms MDRO Source:: (per pt's ) Past Surgical History: Cholecystectomy, Orthopedic Surgery, Prostate Surgery Additional Past Surgical History / Comment(s): bx, colonoscopy w/bx, randy retinal sx(detatched retina), lt scelar buckle, turp, rt knee meniscus repair, nissens, rt achilles tendon repair, egd w/bx, rt knee replacment, rt knee revision 12-03-16, randy cataracts, cystocopy w/ cautery of polyp, liver bx Past Anesthesia/Blood Transfusion Reactions: Previous Problems w/ Anesthesia Additional Past Anesthesia/Blood Transfusion Reaction / Comment(s): difficult intubation Smoking Status: Never smoker - Past Family History Mother Family Medical History: Cancer, Congestive Heart Failure (CHF) Additional Family Medical History / Comment(s): kidney stone Father Family Medical History: Cancer, Congestive Heart Failure (CHF), CVA/TIA, Prostate Disorder Additional Family Medical History / Comment(s): prostate cancer Medications and Allergies Home Medications Medication Instructions Recorded Confirmed Type L.acidoph,Paracasei, B.lactis 1 cap PO DAILY 07/30/17 09/05/17 History [Probiotic] Famotidine [Pepcid] 20 mg PO DAILY #30 tab 08/01/17 09/05/17 Rx Ipratropium-Albuterol Nebulize 3 ml INHALATION RT-QID #120 08/01/17 09/05/17 Rx [Duoneb 0.5 mg-3 mg/3 ml Soln] ampul.neb ALPRAZolam [Xanax] 0.25 mg PO BID 09/05/17 09/05/17 History Budesonide [Pulmicort] 0.5 mg INHALATION RT-BID 09/05/17 09/05/17 History Calcium/Vit D3 Chewable 1 tab PO DAILY 09/05/17 09/05/17 History Codeine Phosphate/Guaifenesin 10 ml PO Q6H PRN 09/05/17 09/05/17 History [Cheratussin AC Syrup] Multivitamins, Thera [Multivitamin 1 tab PO DAILY 09/05/17 09/05/17 History (formulary)] Wheat Dextrin [Benefiber] 1 packet PO DAILY 09/05/17 09/05/17 History traMADol HCl [Ultram] 50 mg PO Q6H PRN 09/05/17 09/05/17 History Allergies Allergy/AdvReac Type Severity Reaction Status Date / Time codeine AdvReac Nausea & Verified 09/05/17 10:25 Vomiting hydrocodone [From [place]] AdvReac Hallucinati Verified 09/05/17 10:25 ons morphine AdvReac Hallucinati Verified 09/05/17 10:25 ons oxycodone AdvReac Hallucinati Verified 09/05/17 10:25 ons Physical Exam Vitals: Vital Signs Temp Pulse Pulse Pulse Resp BP BP 09/06/17 08:02 120 H 09/06/17 08:00 97.4 F L 119 H 24 156/74 09/06/17 07:44 116 H 09/06/17 04:20 94 17 09/06/17 04:00 98.8 F 115 H 20 179/84 09/06/17 00:15 98.4 F 94 17 134/64 09/05/17 20:52 84 16 09/05/17 20:40 97.4 F L 80 89 20 133/80 09/05/17 20:39 86 16 09/05/17 17:33 96.6 F L 80 24 141/74 09/05/17 16:40 84 09/05/17 16:36 97.1 F L 77 18 142/81 09/05/17 16:29 84 09/05/17 14:00 85 18 143/76 09/05/17 12:55 98.4 F 95 18 128/67 09/05/17 12:21 99 F 95 20 121/63 09/05/17 10:41 100.8 F H Pulse Ox 09/06/17 08:02 09/06/17 08:00 94 L 09/06/17 07:44 09/06/17 04:20 09/06/17 04:00 97 09/06/17 00:15 96 09/05/17 20:52 09/05/17 20:40 98 09/05/17 20:39 09/05/17 17:33 99 09/05/17 16:40 09/05/17 16:36 99 09/05/17 16:29 09/05/17 14:00 98 09/05/17 12:55 98 09/05/17 12:21 96 09/05/17 10:41 Intake and Output 09/05/17 09/06/17 09/06/17 22:59 06:59 14:59 Intake Total 150 354 Output Total 500 1200 300 Balance -350 -1200 54 Intake: IV 150 Levofloxacin 750Mg-D5w 150 Pmx 750 mg In Dextrose/ Water 1 150ml.bag @ 100 mls/hr IVPB ONCE STA Rx#: [id number] Oral 354 Output: Urine 500 1200 300 Other: Voiding Method Toilet Toilet Toilet Urinal Urinal Urinal # Voids 1 1 1 Weight 83.7 kg GENERAL EXAM: Alert comfortable in no apparent distress. HEAD: Normocephalic. EYES: Normal reaction of pupils, equal size. NOSE: Clear with pink turbinates. THROAT: No erythema or exudates. NECK: No masses, no JVD. CHEST: No chest wall deformity. LUNGS: Equal air entry with no crackles, wheeze, rhonchi or dullness. Bases diminished CVS: S1 and S2 normal with no audible mumurs, regular rhythm. ABDOMEN: No hepatosplenomegaly, normal bowel sounds, no guarding or rigidity. EXTREMITIES: No edema noted, pedal pulses palpable. CENTRAL NERVOUS SYSTEM: No focal deficits, tone is normal in all 4 extremities. Results - Laboratory Findings CBC and BMP: 09/06/17 06:51 09/06/17 06:51 PT/INR, D-dimer PT 10.0 sec (9.0-12.0) 09/05/17 11:10 INR 1.0 (<1.2) 09/05/17 11:10 Abnormal lab findings: Abnormal Labs 09/05/17 09/05/17 09/05/17 11:10 11:10 11:10 RBC 4.12 L Hgb 11.6 L Hct 35.2 L Lymphocytes # Chloride BUN 28 H Creatinine 3.00 H Glucose Calcium 7.5 L Alkaline Phosphatase 283 H Troponin I 0.060 H* Total Protein 5.5 L Albumin 3.0 L Urine RBC Urine WBC Urine Opiates Screen U Benzodiazepines Scrn 09/05/17 09/05/17 09/06/17 12:48 12:48 06:51 RBC 3.87 L Hgb 10.8 L Hct 33.8 L Lymphocytes # 0.8 L Chloride BUN Creatinine Glucose Calcium Alkaline Phosphatase Troponin I Total Protein Albumin Urine RBC >182 H Urine WBC >182 H Urine Opiates Screen Detected H U Benzodiazepines Scrn Detected H 09/06/17 06:51 RBC Hgb Hct Lymphocytes # Chloride 111 H BUN 24 H Creatinine 2.57 H Glucose 100 H Calcium 7.4 L Alkaline Phosphatase 291 H Troponin I Total Protein 5.5 L Albumin 3.0 L Urine RBC Urine WBC Urine Opiates Screen U Benzodiazepines Scrn - Diagnostic Findings Chest x-ray: report reviewed, image reviewed Assessment and Plan Assessment: SIRS urothelial cell carcinoma of the kidneys, with metastasis stasis to the liver and pulmonary lymph nodes followed closely by Dr. Nunez Interstitial pneumonitis Multiple peripheral bilateral lung nodules suspicious for metastatic disease Small bilateral pleural effusions Bilateral hydronephrosis with hematuria Acute on Chronic kidney disease stage 3-4 Anxiety BPH Medications have been reviewed and will be continued as ordered. Continue with antibiotics. Influenza swab was negative. Continue with pulmonary hygiene, coughing and deep breathing exercises, and supportive care. Supplemental oxygen to maintain oxygen saturations of 92% or better. Continue nebulizer treatments. GI and DVT prophylaxis. Oncology, urology also on consult. We will continue to monitor labs/results and adjust treatment as necessary. Further recommendations pending. I performed an examination of the patient and discussed their management with the nurse practitioner. I have reviewed the nurse practitioner's note and agree with the documented findings and plan of care.
[2017-09-06] MEDS ORDERED: METHYLPHENIDATE HCL 10 MG TAB PO ONE (11:00)
[2017-09-06 11:33] VITALS: BMI 27.2
--- NOTE | 2017-09-06 13:21 | P.PN ---
Subjective Progress Note Date: 09/06/17 This is a very pleasant 71 years old gentleman patient of Dr. Bird, Dr. Nunez, Dr. Fuentes, S/P Shar presents with CK D stage III, persistent hematuria secondary to urothelial renal cell carcinoma during his last admission in 2016, from a liver biopsy, showing metastatic carcinoma showing a urothelial primarywas kidneys,managed by Dr. Vandana Fuentes,. He received his first immunotherapy on 02/23/2018 using Atezolizumab (tecentriq)every 3 weeks. No other chemoradiation therapy offered, he got so weak, with increasing weight loss, and increasing shortness of breath.. He got dehydrated requiring IV infusionfew days ago at Dr. Ross's. Patient now presents to the emergency room with increasing shortness of breath worse for the past 1 week, fever for one day duration, cough, mainly on the left side of his throat seems to CPAP more, she mentions that the coughing is worse when he lays down on his left side , he denies any hoarseness of voice, no vocal cord paralysis, patient's sputum is purulent, no recent antibiotic use, he almost passed out secondary to lightheadedness and weakness, and increasing paroxysms of cough that seems to be bothering him the most. He mentioned that the use of Tessalon Perles worse since this in the [place] cough drop gets this better.patient is maintained on nebulized albuterol Atrovent 4 times a day and Pulmicort 0.5 mg twice a day. He has doxycycline on a when necessary basis on right wrist MRSA- the right wrist which was inactive since past 3 months ago, no recurrence since then. Patient was given IV steroids at Dr. Murcia.. Patient continues to have urinary clots, bright red hematuria, no recent blood transfusion Other past medical history is positive for GERD, osteoarthritis, BPH status post TURP, history of retinal detachment, shingles status post herpetic trigeminal neuralgia, diverticulosis diagnosed on recent colonoscopy Previous diagnostic imaging included Patient underwent CT of the chest on that showed several mediastinotomy nodes, multiple small pulmonary nodules and a possible mass in the left kidney. A PET CAT scan was ordered on 07/26 which suggested suspicious bilateral pulmonary nodules along with increased activity in the region of mediastinal lymphadenopathy, hepatic mass and a mass in the upper pole of the left kidney with increased activity was also seen. liver core biopsy 07/31/2017, metastatic carcinoma suspicious for urothelial primary , 12/19/2016,Dr. Fuentes cystoscopy with cautery of polyp on dome of bladder and cautery of prostatic urethra presenting with gross hematuria 09/06: VQ scan is low probability for pulmonary embolism. Patient has been seen by Dr. Fuentes for hematuria most likely from transitional cell carcinoma in the upper pole of the left kidney aggravated by prolonged coughing. Surgical treatment is not an option no need for catheter. CT of the chest abdomen and pelvis reveal soft tissue density at the right hilar region. Adenopathy and mass should be considered. Numerous small peripheral nodules bilateral lungs. Larger nodules measuring 0.4-1.5 cm. Findings suspicious for metastatic disease. Enlarged mediastinal adenopathy. Small bilateral pleural effusions. Scattered mildly sclerotic areas within the pelvis and vertebral bodies. Findings are suspicious for sclerotic metastasis. No expansile lytic lesions identified. Diverticulosis within the sigmoid without acute diverticulitis. Liver lesion poorly visualized. Today BUN is 24 and creatinine 2.57. Urine culture is in progress and blood culture is received. Patient seen by Dr. LORI Myles with recommendations continue current plan. Oncology consult is pending. Nephrology is following. Psychiatry consult is pending. Echocardiogram has been taken but not reported. Physical therapy has evaluated with recommendations for either home care inpatient rehab or subacute rehab. Objective - Vital Signs Vital signs: Vital Signs Temp 98.8 F 09/06/17 04:00 Pulse 116 H 09/06/17 07:44 Resp 17 09/06/17 04:20 BP 179/84 09/06/17 04:00 Pulse Ox 97 09/06/17 04:00 Intake & Output 09/05/17 09/06/17 09/06/17 18:59 06:59 18:59 Intake Total 150 Output Total 200 1500 Balance -50 -1500 Weight 79.379 kg 83.7 kg Intake: IV 150 Levofloxacin 750Mg-D5w 150 Pmx 750 mg In Dextrose/ Water 1 150ml.bag @ 100 mls/hr IVPB ONCE STA Rx#: [id number] Output: Urine 200 1500 Other: Voiding Method Toilet Toilet Urinal Urinal # Voids 1 - Exam General appearance: average body habitus, cooperative, mild distress - EENT Eyes: anicteric sclerae, EOMI, PERRLA, normal appearance ENT: hard of hearing, NA/AT, normal oropharynx - Neck Neck: other - Respiratory Respiratory: bilateral: CTA, negative: diminished, dullness, rales, rhonchi, wheezing - Cardiovascular Rhythm: regular Heart sounds: normal: S1, S2 - Integumentary Integumentary: decreased turgor, rash - Musculoskeletal Musculoskeletal: generalized weakness, strength equal bilaterally - Psychiatric Psychiatric: A&O x's 3, appropriate affect, intact judgment & insight - Labs CBC & Chem 7: 09/06/17 06:51 09/06/17 06:51 Labs: Abnormal Lab Results - Last 24 Hours (Table) 09/05/17 09/05/17 09/05/17 Range/Units 11:10 11:10 11:10 RBC 4.12 L (4.30-5.90) m/uL Hgb 11.6 L (13.0-17.5) gm/dL Hct 35.2 L (39.0-53.0) % Lymphocytes # (1.0-4.8) k/uL Chloride (98-107) mmol/L BUN 28 H (9-20) mg/dL Creatinine 3.00 H (0.66-1.25) mg/dL Glucose (74-99) mg/dL Calcium 7.5 L (8.4-10.2) mg/dL Alkaline Phosphatase 283 H (38-126) U/L Troponin I 0.060 H* (0.000-0.034) ng/mL Total Protein 5.5 L (6.3-8.2) g/dL Albumin 3.0 L (3.5-5.0) g/dL Urine RBC (0-5) /hpf Urine WBC (0-5) /hpf Urine Opiates Screen (NotDetected) U Benzodiazepines Scrn (NotDetected) 09/05/17 09/05/17 09/06/17 Range/Units 12:48 12:48 06:51 RBC 3.87 L (4.30-5.90) m/uL Hgb 10.8 L (13.0-17.5) gm/dL Hct 33.8 L (39.0-53.0) % Lymphocytes # 0.8 L (1.0-4.8) k/uL Chloride (98-107) mmol/L BUN (9-20) mg/dL Creatinine (0.66-1.25) mg/dL Glucose (74-99) mg/dL Calcium (8.4-10.2) mg/dL Alkaline Phosphatase (38-126) U/L Troponin I (0.000-0.034) ng/mL Total Protein (6.3-8.2) g/dL Albumin (3.5-5.0) g/dL Urine RBC >182 H (0-5) /hpf Urine WBC >182 H (0-5) /hpf Urine Opiates Screen Detected H (NotDetected) U Benzodiazepines Scrn Detected H (NotDetected) 09/06/17 Range/Units 06:51 RBC (4.30-5.90) m/uL Hgb (13.0-17.5) gm/dL Hct (39.0-53.0) % Lymphocytes # (1.0-4.8) k/uL Chloride 111 H (98-107) mmol/L BUN 24 H (9-20) mg/dL Creatinine 2.57 H (0.66-1.25) mg/dL Glucose 100 H (74-99) mg/dL Calcium 7.4 L (8.4-10.2) mg/dL Alkaline Phosphatase 291 H (38-126) U/L Troponin I (0.000-0.034) ng/mL Total Protein 5.5 L (6.3-8.2) g/dL Albumin 3.0 L (3.5-5.0) g/dL Urine RBC (0-5) /hpf Urine WBC (0-5) /hpf Urine Opiates Screen (NotDetected) U Benzodiazepines Scrn (NotDetected) Microbiology - Last 24 Hours (Table) 09/05/17 12:48 Urine Culture - Preliminary Urine,Voided Assessment and Plan Plan: 1. Febrile illness with sepsis with SIRS with worsening dyspnea, worsening hematuria, severe paroxysms of cough presenting with increasing debility and weakness, known urothelial cell carcinoma of the kidneys, with metastasis stasis to the liver and pulmonary lymph nodes followed closely by Dr. Nunez, which we have consulted, and is on Tecentriq given frst dose 08/26/2017. VQ scan negative. 2. Pulmonary decompensation with mild respiratory distress without any hypoxemia , atypical pneumonia or interstitial pneumonitis, influenza test is negative, Solu-Medrol 60 mg every 6 hours, maintain Pulmicort and Xopenex IV IVLevaquin consult with Dr. Aliya Myles, obtain echocardiogram 3. metastatic urothelial kidney carcinoma presenting with, Mass left upper pole left kidneyongoing hematuria, monitor for postobstructive kidney failure, metastases to the liver and mediastinal lymph node noted patient has bilateral hydronephrosis, consult were made with Dr. Fuentes urologyDr. Mayra Workman 4. Bilateral hydronephrosis with hematuria, postobstructive uropathy noted with acute on chronic kidney failure consult with Dr. Fuentes 5. CKD stage III-IV with acute kidney failure,secondary to dehydration and postobstructive hydronephrosis nephrology is consulted consult with Dr. Workman 6. BPH status post TURP , stable 7. DVT prophylaxis with SCDs 8. GI prophylaxis with Pepcid 20 mg twice a day 9. Generalized anxiety disorder. Continue Xanax 0.5 mg twice a day as needed 10. Personal history of MRSA resolved June 2017 located right wrist Discharge plan: To be determined Impression and plan of care have been directed as dictated by the signing physician. Shannan Vail nurse practitioner acting as scribe for signing physician.
--- NOTE | 2017-09-06 13:32 | ECHOF ---
Referral Reason:dyspnea MEASUREMENTS -------- HEIGHT: 175.3 cm WEIGHT: 79.4 kg BP: 142/81 RVIDd: 2.8 cm (< 3.3) IVSd: 1.5 cm (0.6 - 1.1) LVIDd: 4.5 cm (3.9 - 5.3) LVPWd: 1.5 cm (0.6 - 1.1) IVSs: 1.7 cm LVIDs: 3.2 cm LVPWs: 1.9 cm LAESV Index (A-L): 26.29 ml/m Ao Diam: 3.4 cm (2.0 - 3.7) AV Cusp: 2.2 cm (1.5 - 2.6) LA Diam: 3.1 cm (2.7 - 3.8) EPSS: 1.0 cm MV E Lázaro: 0.71 m/s MV DecT: 249 ms MV A Lázaro: 0.75 m/s MV E/A Ratio: 0.95 RAP: 5.00 mmHg RVSP: 11.37 mmHg MV EF SLOPE: 96.41 mm/s (70 - 150) MV EXCURSION: 1.35 cm (> 18.000) FINDINGS -------- Sinus rhythm. This was a technically good study. The left ventricular size is normal. There is moderate concentric left ventricular hypertrophy. O verall left ventricular systolic function is normal with, an EF between 55 - 60 %. The right ventricle is normal in size and function. Normal LA size by volume 22+/-6 ml/m2. The right atrium is normal in size. The aortic valve is trileaflet, and appears structurally normal. No aortic stenosis or regurgitation. The mitral valve leaflets are mildly thickened. There is trace mitral regurgitation. Trace tricuspid regurgitation present. Right ventricular systolic pressure is normal at < 35 mmHg. There is no evidence of pulmonary hypertension. The pulmonic valve was not well visualized. The aortic root size is normal. Normal inferior vena cava with normal inspiratory collapse consistent with estimated right atrial pre ssure of 5 mmHg. The pericardium is normal. There is no pericardial effusion. CONCLUSIONS -------- 1. Sinus rhythm. 2. This was a technically good study. 3. The left ventricular size is normal. 4. There is moderate concentric left ventricular hypertrophy. 5. Overall left ventricular systolic function is normal with, an EF between 55 - 60 %. 6. Normal LA size by volume 22+/-6 ml/m2. 7. The aortic valve is trileaflet, and appears structurally normal. No aortic stenosis or regurgitati on. 8. The mitral valve leaflets are mildly thickened. 9. There is trace mitral regurgitation. 10. Trace tricuspid regurgitation present. 11. Right ventricular systolic pressure is normal at < 35 mmHg. 12. There is no evidence of pulmonary hypertension. 13. The pulmonic valve was not well visualized. 14. The aortic root size is normal. 15. There is no pericardial effusion. FREIGHT REPRESENTATIVE: Ranjith Stephens RDCS
[2017-09-06] MEDS: FLUTICASONE 50MCG/SPRAY NASAL 16GM EA NOSTRIL SCH ×2 (13:53→20:51)
--- NOTE | 2017-09-06 15:03 | CONS ---
CONSULTATION REASON FOR CONSULT: Renal failure. HISTORY OF PRESENT ILLNESS: Patient is a 71-year-old male who has a history of renal cell cancer, being managed by Urology and Oncology, maintained on immunotherapy. He was admitted to the hospital with complaints of increased weakness, not feeling well. He states that he had not been eating much. Patient's serum creatinine was 3.0 mg/dL on initial admission. He is maintained on IV fluids. His creatinine is down to 2.57. Review of previous labs show serum creatinine about 2.8-2.3 mg/dL. Patient did complain of cough as well prior to admission. He had a CT of the chest, abdomen and pelvis done which showed evidence of changes suggestive of blood in the left renal pelvis and proximal ureter and a mass in the upper pole of the left kidney from the left renal cell cancer. Review of previous labs did show serum creatinine about 2.8-2.3 mg/dL. PAST MEDICAL HISTORY: As stated for renal cell cancer with mets, currently on immunotherapy. Chronic kidney disease stage IV, osteoarthritis, BPH, hiatal hernia, post herpetic trigeminal neuralgia, retinal detachment, diverticulosis, history of MRSA infection on the right forearm about 4 years ago. PAST SURGICAL HISTORY: Colonoscopy, retinal surgery, knee surgery, knee arthroplasty on the right side , right Achilles tendon repair, cataract surgery. Revision of arthroplasty in December of 2016, liver biopsy. SOCIAL HISTORY: Negative for smoking, drug abuse or alcohol abuse. REVIEW OF SYSTEMS: As per the HPI, no history of diarrhea or abdominal pain. Patient has had low appetite and some nausea on and off. Other systems negative. MEDICATIONS: At home included probiotic, Pepcid, calcium, Pulmicort, Xanax, Ultram, Benefiber , multivitamins. ALLERGIES: Include CODEINE, NORCO, MORPHINE, VICODIN. PHYSICAL EXAMINATION: On examination, patient is currently comfortable, awake, alert, oriented x3, he is not in any acute distress. Blood pressure is 148/78, heart rate 119 per minute. He is afebrile. Examination of the heart, S1, S2. Examination of the lungs, decreased breath sounds at bases. No crackles or wheezing is heard. Abdomen is soft, nontender. Examination of the lower extremities shows no evidence of edema. PATIENT SAFETY COORDINATOR exam is grossly intact. Patient is moving all 4 extremities. LABS: Show sodium 143, potassium 4.5, chloride 111, serum creatinine 2.57, hemoglobin 10.8 g/dL, calcium 7.4. UA shows more than 182 RBCs and WBCs. ASSESSMENT: 1. Acute kidney injury, prerenal, currently improving with IV hydration. Patient is maintained on IV fluids. 2. Chronic kidney disease stage IV, etiology is likely nephrosclerosis. Patient does not have underlying obstructive uropathy. We will review his outpatient record as well. It appears that his creatinine has been about 2.3-2.6 mg/ dL over most of the year in 2017. 3. Metastatic left renal cell cancer with multiple nodules in the lungs and the liver and mediastinum. 4. Hematuria related to underlying urothelial malignancy. 5. Possible pneumonia. PLAN: Continue IV fluids. Will review outpatient record. No nephrotoxic agents on board. Decrease dose on Levaquin. Encourage increased oral intake and repeat labs in a.m. Thank you for this consultation. Will continue to follow the patient with you during his hospitalization. MMODL / IJN: [id number] / CAMLILE
[2017-09-06] MEDS ORDERED: LEVOFLOXACIN 750MG-D5W PMX 750 MG in DEXTROSE/WATER 1 150ML.BAG IVPB SCH (16:00)
[2017-09-06] MEDS: LEVOFLOXACIN 750MG-D5W PMX 750 MG in DEXTROSE/WATER 1 150ML.BAG IVPB SCH (16:50)
--- NOTE | 2017-09-06 17:09 | CONS ---
CONSULTATION DATE OF SERVICE: 09/06/2017 PURPOSE OF CONSULTATION: Evaluate for depression. HISTORY OF PRESENT ILLNESS: The patient is a 71-year-old male who was admitted for complications related to renal cell carcinoma that is advanced. From a psychiatric standpoint, the patient has had significant depression and anxiety. The patient described how his had gone through an extended period of time of significant medical problems in the recent past. She was in some type of placement setting for number of months. She had a slow recovery. Apparently, the patient had to provide a significant amount of care for his . He felt that things were just clearing up for him as his now is stable. He had been an active person doing outdoor activities, some home repair and so forth then he was found to have renal cell carcinoma. There had been a lot of studies and interventions that he said all happened very quickly to him. He became increasingly depressed. He has crying spells. His sleep is up and down. He has persistent physical symptoms including shortness of breath and dehydration. He notes poor energy impart related to the interventions he has been through and part relating to depressed mood. He does not have a past history of psychiatric issues. There is no past history of substance abuse. I talked with the patient's and daughter. They both confirmed that he has been struggling for quite a while with depression. He gets quite hopeless and negative. He has crying spells. He gets anxious. At times it can be difficult for his to try to provide him with assurance and support. MENTAL STATUS: The patient was in bed sitting up. He gave good eye contact. Psychomotor activity was a little restless. Speech was clear. He answered questions with direct responses. He talked at length about things that had been going on in his life including some of the struggles he had with trying to support his during her infirmity. He spoke in a fairly calm measured voice. When he talked about his current situation he teared up very quickly. He then was able to recover from that. His affect was intense at times. His mood depressed. He was significantly distressed. ASSESSMENT: I would initiate a diagnosis of major depression. There are a number of factors leading into his depression. I will start the patient on Ritalin 10 mg a day. The benefits of Ritalin is it can be effective antidepressant and often can work in a fairly short period of time compared to standard antidepressants. Also half-life his a very short so that if there are any problems the medicine is cleared quickly. I will start him on 10 mg for a 1 time dose. I will get a report from the staff in the afternoon. I would look to at least get him to 10 mg in the morning and possibly 5 mg in the afternoon. I would consider titrating to somewhat higher doses as indicated. I will continue to follow. GEMA / SAVITAN: [id number] /
--- NOTE | 2017-09-06 18:05 | P.CONS ---
History of Present Illness - Reason for Consult Consult date: 09/06/17 Fever, SOB, metastatic urothelial cancer - History of Present Illness This is a 71 yr old white patient who presented with persistent dry cough for about 8 weeks,had a CXR followed by CT scan of chest on 07/16/2017 which revealed bilateral suspicious lung nodules and borderline enlarged mediastinal nodes,at the same time. He had had prior h/o intermittent gross hematuria,he had a cystoscopy in ,at that time and felt to be secondary to his prostate,he had recurrent gross hematuria in June and . On 07/26/2017,PET scan revealed suspicious uptake in bilateral subcentimeter lung nodules,mediastinal nodes,2cm subcarinal node,suspicious uptake in left kidney,suspicious 4.8cm right hepatic lobe lesion,multiple suspicious osseous lesions,involving right humerus,T11-L1,L2,left iliac bone and right sacrum. On 07/31/2017,CT guided biopsy of liver lesion was consistent with metastatic urothelial carcinoma,was confirmed at [facility] as well. He lost about 20 pounds over the last 3 months,has dry cough,hoarsness of his voice and exertional dyspnea. Thus he appeared to have metastatic urothelial carcinoma,likely of left renal pelvis origin. His hoarsness and cough were felt related to laryngeal nerve involvement with subcarinal nodes. he was seen in the office by Dr. Nunez, and various treatment options discussed. His renal function did not permit the use of cisplatin. therefore he recommended immunotherapy with atezolizumab, and adding xgeva in view of bone mets. The patient and his family decided to proceed with immunotherapy and xgeva. He had his first treatment 2 weeks ago. As noted, the patient has been short of breath since prior to starting treatment. He has had a dry cough off and on. He states that his symptoms have been slowly progressive. there does seem to be fluctuation in severity related to humidity and the temperature. He came into the emergency room due to feeling feverish, and was found to have a temperature of 100.8. Clinically he appeared to be short of breath. He was therefore admitted for management. On careful questioning, the patient denies any drastic change in his respiratory status since his treatment, but feels that he has had somewhat steady progression at the same rate. consult was placed for further evaluation and recommendations Review of Systems Constitutional: Reports fatigue, Reports fever, Reports poor appetite, Reports weight loss Eyes: denies blurred vision, denies pain Ears: deny: decreased hearing, ear discharge, earache, tinnitus Ears, nose, mouth and throat: Reports hoarseness, Reports nasal congestion Cardiovascular: Reports dyspnea on exertion Respiratory: Reports cough, Reports dyspnea Gastrointestinal: Denies abdominal pain, Denies diarrhea, Denies nausea, Denies vomiting Genitourinary: Reports as per HPI Musculoskeletal: Reports muscle weakness Integumentary: Denies pruritus, Denies rash Neurological: Reports weakness, Denies numbness Psychiatric: Denies anxiety, Denies depression Endocrine: Reports fatigue, Reports weight change Hematologic/Lymphatic: Reports as per HPI Past Medical History Past Medical History: Cancer, GERD/Reflux, Osteoarthritis (OA), Prostate Disorder, Renal Disease Additional Past Medical History / Comment(s): vertigo,small hiatal henia, randy cataracts-lens implants, past randy retinal detatchments/lt eye scleral buckle, shinlges, post herpetic trigeminal neuralgia.brochitis constipation, eczema/ scalp, diverticulosis, colon polyps-benign,kidney stone,urinary retention, hematuria- urothelial cancer, per family "spots on liver, bones. pulmonary nodules History of Any Multi-Drug Resistant Organisms: MRSA Year Discovered:: stomach/arms MDRO Source:: (per pt's ) Past Surgical History: Cholecystectomy, Orthopedic Surgery, Prostate Surgery Additional Past Surgical History / Comment(s): bx, colonoscopy w/bx, randy retinal sx(detatched retina), lt scelar buckle, turp, rt knee meniscus repair, nissens, rt achilles tendon repair, egd w/bx, rt knee replacment, rt knee revision 12-03-16, randy cataracts, cystocopy w/ cautery of polyp, liver bx Past Anesthesia/Blood Transfusion Reactions: Previous Problems w/ Anesthesia Additional Past Anesthesia/Blood Transfusion Reaction / Comm: difficult intubation Smoking Status: Never smoker - Past Family History Mother Family Medical History: Cancer, Congestive Heart Failure (CHF) Additional Family Medical History / Comment(s): kidney stone Father Family Medical History: Cancer, Congestive Heart Failure (CHF), CVA/TIA, Prostate Disorder Additional Family Medical History / Comment(s): prostate cancer Medications and Allergies Home Medications Medication Instructions Recorded Confirmed Type L.acidoph,Paracasei, B.lactis 1 cap PO DAILY 07/30/17 09/05/17 History [Probiotic] Famotidine [Pepcid] 20 mg PO DAILY #30 tab 08/01/17 09/05/17 Rx Ipratropium-Albuterol Nebulize 3 ml INHALATION RT-QID #120 08/01/17 09/05/17 Rx [Duoneb 0.5 mg-3 mg/3 ml Soln] ampul.neb ALPRAZolam [Xanax] 0.25 mg PO BID 09/05/17 09/05/17 History Budesonide [Pulmicort] 0.5 mg INHALATION RT-BID 09/05/17 09/05/17 History Calcium/Vit D3 Chewable 1 tab PO DAILY 09/05/17 09/05/17 History Codeine Phosphate/Guaifenesin 10 ml PO Q6H PRN 09/05/17 09/05/17 History [Cheratussin AC Syrup] Multivitamins, Thera [Multivitamin 1 tab PO DAILY 09/05/17 09/05/17 History (formulary)] Wheat Dextrin [Benefiber] 1 packet PO DAILY 09/05/17 09/05/17 History traMADol HCl [Ultram] 50 mg PO Q6H PRN 09/05/17 09/05/17 History Allergies Allergy/AdvReac Type Severity Reaction Status Date / Time codeine AdvReac Nausea & Verified 09/05/17 10:25 Vomiting hydrocodone [From [place]] AdvReac Hallucinati Verified 09/05/17 10:25 ons morphine AdvReac Hallucinati Verified 09/05/17 10:25 ons oxycodone AdvReac Hallucinati Verified 09/05/17 10:25 ons Physical Exam Vitals: Vital Signs Temp Pulse Pulse Pulse Resp BP Pulse Ox 09/06/17 16:56 112 H 09/06/17 16:41 115 H 96 09/06/17 16:00 97.8 F 115 H 20 146/77 94 L 09/06/17 13:36 112 H 09/06/17 13:23 112 H 09/06/17 11:29 105 H 20 148/78 95 09/06/17 11:15 119 H 24 09/06/17 08:02 120 H 09/06/17 08:00 97.4 F L 119 H 24 156/74 94 L 09/06/17 07:44 116 H 09/06/17 04:20 94 17 09/06/17 04:00 98.8 F 115 H 20 179/84 97 09/06/17 00:15 98.4 F 94 17 134/64 96 09/05/17 20:52 84 16 09/05/17 20:40 97.4 F L 80 89 20 133/80 98 09/05/17 20:39 86 16 Intake and Output 09/06/17 09/06/17 09/06/17 06:59 14:59 22:59 Intake Total 594 150 Output Total 1200 300 250 Balance -1200 294 -100 Intake: Intake, IV Titration 150 Amount Levofloxacin 750Mg-D5w 150 Pmx 750 mg In Dextrose/ Water 1 150ml.bag @ 100 mls/hr IVPB Q48H [facility] Rx#: [id number] Oral 594 Output: Urine 1200 300 250 Other: Voiding Method Toilet Toilet Toilet Urinal Urinal Urinal # Voids 1 1 1 Weight 83.7 kg 83.7 kg Patient Weight 09/07/17 06:59 Weight 83.7 kg - Constitutional General appearance: no acute distress (increased work of breathing after even mild exertion, and conversation noted) - EENT Eyes: EOMI, PERRLA ENT: hearing grossly normal, normal oropharynx - Neck Neck: no lymphadenopathy Thyroid: bilateral: normal size - Respiratory Respiratory: bilateral: CTA - Cardiovascular Rhythm: regular Heart sounds: normal: S1, S2 - Gastrointestinal General gastrointestinal: normal bowel sounds, soft - Integumentary Integumentary: normal - Neurologic Neurologic: CNII-XII intact - Musculoskeletal Musculoskeletal: generalized weakness, strength equal bilaterally - Psychiatric Psychiatric: A&O x's 3, appropriate affect Results CBC & Chem 7: 09/06/17 06:51 09/06/17 06:51 Labs: Abnormal Lab Results - Last 24 Hours (Table) 09/06/17 09/06/17 Range/Units 06:51 06:51 RBC 3.87 L (4.30-5.90) m/uL Hgb 10.8 L (13.0-17.5) gm/dL Hct 33.8 L (39.0-53.0) % Lymphocytes # 0.8 L (1.0-4.8) k/uL Chloride 111 H (98-107) mmol/L BUN 24 H (9-20) mg/dL Creatinine 2.57 H (0.66-1.25) mg/dL Glucose 100 H (74-99) mg/dL Calcium 7.4 L (8.4-10.2) mg/dL Alkaline Phosphatase 291 H (38-126) U/L Total Protein 5.5 L (6.3-8.2) g/dL Albumin 3.0 L (3.5-5.0) g/dL Microbiology - Last 24 Hours (Table) 09/05/17 12:48 Urine Culture - Final Urine,Voided 09/05/17 11:10 Blood Culture - Preliminary Blood No Growth after 24 hours Chest x-ray: report reviewed CT scan - chest: report reviewed, image reviewed Assessment and Plan (1) Exertional dyspnea Narrative/Plan: he patient had presented with fever, as well as worsening shortness of breath. The case was discussed with the emergency room physician. The concern was an adverse event from his immunotherapy, versus exacerbation of pre- existing COPD and dyspnea, likely due to a viral syndrome. His chest x-ray did not show significant findings in terms of interstitial infiltrates. His CT scan of the chest done in 07/21 had shown some bilateral interstitial changes. Therefore a repeat CT scan was ordered, and the case discussed in detail with pulmonary medicine. Images were also reviewed with them. Evidence of metastatic disease in the lung, and mild interstitial changes bilaterally were again noted with small bilateral pleural effusions. The patient was assessed by pulmonary medicine. Based on his imaging, as well as his clinical presentation, it was felt that this was unlikely to be a medication effect but rather a probable viral syndrome causing exacerbation of his underlying lung condition. The patient is being treated with aerosols, antibiotics and steroids. Defer to pulmonary medicine for continued management. Current Visit: No Status: Acute Priority: High Code(s): R06.09 - OTHER FORMS OF DYSPNEA SNOMED Code(s): 75898892 (2) Metastatic urothelial carcinoma Narrative/Plan: The patient has just started treatment, with immunotherapy. As noted it is felt that his presentation is unlikely to be related to adverse drug reaction. Therefore after resolution of his acute condition, the patient will continue treatment as scheduled, with close monitoring. Current Visit: Yes Status: Acute Code(s): C79.10 - SECONDARY MALIGNANT NEOPLASM OF UNSPECIFIED URINARY ORGANS SNOMED Code(s): 88561362
[2017-09-06] MEDS: MIRTAZAPINE 15 MG TAB PO SCH (18:44)
[2017-09-07] MEDS: IPRATROPIUM-ALBUTEROL 3 ML NEB INHALATION SCH ×4 (07:14→19:43)
[2017-09-07] MEDS: BUDESONIDE 0.5 MG/2 ML NEBU INHALATION SCH ×3 (07:15→19:43)
[2017-09-07 08:18] LABS: Basophils % (A) 1 %; Eosinophils # (A) 0.3 k/uL (0-0.7); Eosinophils % (A) 4 %; HCT 30.6 % (39.0-53.0); Lymphocytes # (A) 1.2 k/uL (1.0-4.8); Lymphocytes % (A) 17 %; MCH 27.8 pg (25.0-35.0); MCHC 32.7 g/dL (31.0-37.0); MCV 84.8 fL (80.0-100.0); Mean Platelet Volume 7.1; Monocytes # (A) 0.7 k/uL (0-1.0); Monocytes % (A) 9 %; Neutrophils # (A) 4.8 k/uL (1.3-7.7); Neutrophils % (A) 67 %; Platelet Count 326 k/uL (150-450); RDW 14.9 % (11.5-15.5); WBC 7.1 k/uL (3.8-10.6)
[2017-09-07 08:28] LABS: Albumin 2.7 g/dL (3.5-5.0); Calcium 7.2 mg/dL (8.4-10.2); Potassium 4.2 mmol/L (3.5-5.1); Total Bilirubin 0.2 mg/dL (0.2-1.3); Total Protein 5.1 g/dL (6.3-8.2)
[2017-09-07] MEDS ORDERED: METHYLPHENIDATE HCL 10 MG TAB PO ONE (09:00)
[2017-09-07] MEDS: MULTIVITAMINS, THERA 1 EACH TAB PO SCH (10:04)
[2017-09-07] MEDS: FAMOTIDINE 20 MG TAB PO SCH (10:04)
[2017-09-07] MEDS: CHLORPHEN-HYDROcod 8-10mg/5ml 5 ML ORAL.SYRG PO SCH ×2 (10:05→21:12)
[2017-09-07] MEDS ORDERED: ALPRAZolam 0.25 MG TAB PO PRN (10:06)
[2017-09-07] MEDS: ALPRAZolam 0.25 MG TAB PO SCH (10:08)
[2017-09-07] MEDS: FLUTICASONE 50MCG/SPRAY NASAL 16GM EA NOSTRIL SCH ×2 (10:09→21:12)
[2017-09-07] MEDS: AMMONIUM LACTATE 12% LOTION 225 GM BTL TOPICAL SCH ×2 (10:09→21:12)
--- NOTE | 2017-09-07 10:49 | P.PN ---
Subjective Progress Note Date: 09/07/17 This is a very pleasant 71 years old gentleman patient of Dr. Bird, Dr. Nunez, Dr. Fuentes, S/P Shar presents with CK D stage III, persistent hematuria secondary to urothelial renal cell carcinoma during his last admission in 2016, from a liver biopsy, showing metastatic carcinoma showing a urothelial primarywas kidneys,managed by Dr. Vandana Fuentes,. He received his first immunotherapy on 02/23/2018 using Atezolizumab (tecentriq)every 3 weeks. No other chemoradiation therapy offered, he got so weak, with increasing weight loss, and increasing shortness of breath.. He got dehydrated requiring IV infusionfew days ago at Dr. Ross's. Patient now presents to the emergency room with increasing shortness of breath worse for the past 1 week, fever for one day duration, cough, mainly on the left side of his throat seems to CPAP more, she mentions that the coughing is worse when he lays down on his left side , he denies any hoarseness of voice, no vocal cord paralysis, patient's sputum is purulent, no recent antibiotic use, he almost passed out secondary to lightheadedness and weakness, and increasing paroxysms of cough that seems to be bothering him the most. He mentioned that the use of Tessalon Perles worse since this in the [place] cough drop gets this better.patient is maintained on nebulized albuterol Atrovent 4 times a day and Pulmicort 0.5 mg twice a day. He has doxycycline on a when necessary basis on right wrist MRSA- the right wrist which was inactive since past 3 months ago, no recurrence since then. Patient was given IV steroids at Dr. Murcia.. Patient continues to have urinary clots, bright red hematuria, no recent blood transfusion Other past medical history is positive for GERD, osteoarthritis, BPH status post TURP, history of retinal detachment, shingles status post herpetic trigeminal neuralgia, diverticulosis diagnosed on recent colonoscopy Previous diagnostic imaging included Patient underwent CT of the chest on that showed several mediastinotomy nodes, multiple small pulmonary nodules and a possible mass in the left kidney. A PET CAT scan was ordered on 07/26 which suggested suspicious bilateral pulmonary nodules along with increased activity in the region of mediastinal lymphadenopathy, hepatic mass and a mass in the upper pole of the left kidney with increased activity was also seen. liver core biopsy 07/31/2017, metastatic carcinoma suspicious for urothelial primary , 12/19/2016,Dr. Fuentes cystoscopy with cautery of polyp on dome of bladder and cautery of prostatic urethra presenting with gross hematuria 2/: VQ scan is low probability for pulmonary embolism. Patient has been seen by Dr. Fuentes for hematuria most likely from transitional cell carcinoma in the upper pole of the left kidney aggravated by prolonged coughing. Surgical treatment is not an option no need for catheter. CT of the chest abdomen and pelvis reveal soft tissue density at the right hilar region. Adenopathy and mass should be considered. Numerous small peripheral nodules bilateral lungs. Larger nodules measuring 0.4-1.5 cm. Findings suspicious for metastatic disease. Enlarged mediastinal adenopathy. Small bilateral pleural effusions. Scattered mildly sclerotic areas within the pelvis and vertebral bodies. Findings are suspicious for sclerotic metastasis. No expansile lytic lesions identified. Diverticulosis within the sigmoid without acute diverticulitis. Liver lesion poorly visualized. Today BUN is 24 and creatinine 2.57. Urine culture is in progress and blood culture is received. Patient seen by Dr. LORI Myles with recommendations continue current plan. Oncology consult is pending. Nephrology is following. Psychiatry consult is pending. Echocardiogram has been taken but not reported. Physical therapy has evaluated with recommendations for either home care, inpatient rehab or subacute rehab. 2/3: Patient is continued on IV fluids. Dr. Clifford is following with dyspnea thought to be possibly related to immunotherapy versus exacerbation of COPD or likely due to viral syndrome but after review thought to be less likely a medication effect. Patient states that he has been on immunotherapy for about 2 weeks now. He does complain of cough being back and nonproductive. He denies any fever or chills. He does state he has decreased appetite and is feeling tired. He is urinating without difficulty. He is complaining of constipation for which Senokot scheduled.repeat BUN 19 and creatinine 2.56. Patient has been seen by an psychiatrist with new diagnosis of major depression and started Ritalin 10 mg for one dose. His nurse is going to give this this morning and give report to Dr. Lopez. Objective - Vital Signs Vital signs: Vital Signs Temp 98.3 F 02/03/18 07:00 Pulse 106 H 09/07/17 08:00 Resp 16 09/07/17 08:00 BP 150/74 09/07/17 07:00 Pulse Ox 94 L 09/07/17 07:18 Intake & Output 09/06/17 09/07/17 09/07/17 18:59 06:59 18:59 Intake Total 981 Output Total 550 Balance 431 Weight 83.7 kg 80.428 kg Intake: Intake, IV Titration 150 Amount Levofloxacin 750Mg-D5w 150 Pmx 750 mg In Dextrose/ Water 1 150ml.bag @ 100 mls/hr IVPB Q48H [facility] Rx#: [id number] Oral 831 Output: Urine 550 Other: Voiding Method Toilet Toilet Urinal Urinal # Voids 1 2 - Exam General appearance: average body habitus, cooperative, mild distress - EENT Eyes: anicteric sclerae, EOMI, PERRLA, normal appearance ENT: hard of hearing, NA/AT, normal oropharynx - Neck Neck: other - Respiratory Respiratory: bilateral: CTA, negative: diminished, dullness, rales, rhonchi, wheezing - Cardiovascular Rhythm: regular Heart sounds: normal: S1, S2 - Integumentary Integumentary: decreased turgor, rash - Musculoskeletal Musculoskeletal: generalized weakness, strength equal bilaterally - Psychiatric Psychiatric: A&O x's 3, appropriate affect, intact judgment & insight - Labs CBC & Chem 7: 09/07/17 07:42 09/07/17 07:42 Labs: Abnormal Lab Results - Last 24 Hours (Table) 09/07/17 09/07/17 Range/Units 07:42 07:42 RBC 3.60 L (4.30-5.90) m/uL Hgb 10.0 L (13.0-17.5) gm/dL Hct 30.6 L (39.0-53.0) % Chloride 111 H (98-107) mmol/L Creatinine 2.56 H (0.66-1.25) mg/dL Calcium 7.2 L (8.4-10.2) mg/dL Alkaline Phosphatase 255 H (38-126) U/L Total Protein 5.1 L (6.3-8.2) g/dL Albumin 2.7 L (3.5-5.0) g/dL Microbiology - Last 24 Hours (Table) 09/05/17 12:48 Urine Culture - Final Urine,Voided 09/05/17 11:10 Blood Culture - Preliminary Blood No Growth after 24 hours Assessment and Plan Plan: 1. Febrile illness with sepsis with SIRS with worsening dyspneasecondary to COPD exacerbation or viral syndrome. Continue Pulmicort, DuoNeb treatments, Levaquin. Consult with pulmonary medicine and oncology appreciated. Patient is followed closely by Dr. Nunez, which we have consulted, and is on Tecentriq given frst dose 08/26/2017. VQ scan negative. 2. Pulmonary decompensation with mild respiratory distress without any hypoxemia due to viral syndrome, maintain Pulmicort and Xopenex IV IVLevaquin consult with Dr. Nickerson/Juan Manuel Myles, obtain echocardiogram 3. metastatic urothelial kidney carcinoma presenting with, Mass left upper pole left kidneyongoing hematuria, monitor for postobstructive kidney failure, metastases to the liver and mediastinal lymph node noted patient has bilateral hydronephrosis, consult were made with Dr. Fuentes urologyDr. Mayra Workman. Patient is on immunotherapy. 4. Bilateral hydronephrosis with hematuria, postobstructive uropathy noted with acute on chronic kidney failure consult with Dr. Fuentes 5. Acute kidney injury with chronic kidney disease stage IV. Nephrology is following. Continue IV fluids. Avoid nephrotoxic agents. 6. BPH status post TURP , stable 7. DVT prophylaxis with SCDs 8. GI prophylaxis with Pepcid 20 mg twice a day 9. Generalized anxiety disorder. Continue Xanax 0.5 mg twice a day as needed 10. Personal history of MRSA resolved June 2017 located right wrist 11. New diagnosis of major depression. Consult with psychiatry appreciated. Ritalin 1 dose to be started this morning. Discharge plan: To be determined Impression and plan of care have been directed as dictated by the signing physician. Shannan Vail nurse practitioner acting as scribe for signing physician.
[2017-09-07] MEDS: SENNOSIDES-DOCUSATE SODIUM 1 EACH TAB PO SCH (11:59)
[2017-09-07] MEDS: LACTOBACILLUS ACIDOPH & BULGAR 1 EACH PACKET PO SCH (12:00)
--- NOTE | 2017-09-07 14:11 | P.PN ---
Subjective Progress Note Date: 09/07/17 Seen and examined for the follow-up of acute kidney injury. Complaining of polyuria. Still has hematuria Objective - Vital Signs Vital signs: Vital Signs Temp 98.3 F 09/07/17 07:00 Pulse 108 H 09/07/17 11:27 Resp 16 09/07/17 08:00 BP 150/74 09/07/17 07:00 Pulse Ox 94 L 09/07/17 07:18 Intake & Output 09/06/17 09/07/17 09/07/17 18:59 06:59 18:59 Intake Total 981 Output Total 550 Balance 431 Weight 83.7 kg 80.428 kg Intake: Intake, IV Titration 150 Amount Levofloxacin 750Mg-D5w 150 Pmx 750 mg In Dextrose/ Water 1 150ml.bag @ 100 mls/hr IVPB Q48H [facility] Rx#: [id number] Oral 831 Output: Urine 550 Other: Voiding Method Toilet Toilet Urinal Urinal # Voids 1 2 1 - Exam Lying in bed no acute distress S1 and S2 heard Lungs clear No edema - Labs CBC & Chem 7: 09/07/17 07:42 09/07/17 07:42 Labs: Abnormal Lab Results - Last 24 Hours (Table) 09/07/17 09/07/17 Range/Units 07:42 07:42 RBC 3.60 L (4.30-5.90) m/uL Hgb 10.0 L (13.0-17.5) gm/dL Hct 30.6 L (39.0-53.0) % Chloride 111 H (98-107) mmol/L Creatinine 2.56 H (0.66-1.25) mg/dL Calcium 7.2 L (8.4-10.2) mg/dL Alkaline Phosphatase 255 H (38-126) U/L Total Protein 5.1 L (6.3-8.2) g/dL Albumin 2.7 L (3.5-5.0) g/dL Microbiology - Last 24 Hours (Table) 09/05/17 11:10 Blood Culture - Preliminary Blood No Growth after 48 hours 09/05/17 12:48 Urine Culture - Final Urine,Voided Assessment and Plan Assessment: Impression: #1 acute kidney injury secondary to prerenal process from dehydration #2 CK D stage IV secondary to nephrosclerosis and obstructive uropathy from urothelial malignancy baseline creatinine 2.3-2.6 MG per DL #3 metastatic left renal cell cancer #4 hematuria secondary to urothelial malignancy #5 possible pneumonia Recommendations: #1 renal function stable and improving agree with stopping IV fluids as he is getting short of breath #2 avoid nephrotoxic agents #3 monitor hemoglobin for persistent hematuria #4 supportive care
--- NOTE | 2017-09-07 16:59 | PN ---
PROGRESS NOTE He seems to be doing significantly better overall. He is not in any respiratory distress today and has been relatively afebrile. On physical examination, his blood pressure is 150/74, respiratory rate of 18, pulse rate of 108, temperature 98.3, O2 saturation on room air is 92%. HEENT is unremarkable. Chest reveals decreased breath sounds. No wheeze. Cardiovascular system reveals an S1, S2. Abdomen is soft. There is no edema. Sodium is 141, potassium 4.2, chloride 111, bicarb 22, BUN 19, creatinine 2.56. White count of 7.1, hemoglobin of 10. IMPRESSION AT THIS TIME: 1. Urothelial carcinoma with metastasis to the liver and pulmonary lymph nodes. 2. Metastatic disease in the lungs. 3. Small bilateral effusions. 4. Possible viral illness, cannot rule out atypical pneumonia. Continue Levaquin, bronchodilators, aerosolized steroids, hydration. Prognosis is fair. MMODL / IJN: [id number] /
[2017-09-07] MEDS: MIRTAZAPINE 15 MG TAB PO SCH (17:31)
[2017-09-08] MEDS: IPRATROPIUM-ALBUTEROL 3 ML NEB INHALATION SCH ×4 (07:38→20:01)
[2017-09-08] MEDS: BUDESONIDE 0.5 MG/2 ML NEBU INHALATION SCH ×2 (07:38→20:01)
[2017-09-08 07:53] LABS: Basophils % (A) 1 %; Eosinophils # (A) 0.3 k/uL (0-0.7); Eosinophils % (A) 5 %; HCT 32.3 % (39.0-53.0); HGB 9.9 gm/dL (13.0-17.5); Hypochromasia Slight; Lymphocytes # (A) 0.9 k/uL (1.0-4.8); Lymphocytes % (A) 13 %; MCH 27.3 pg (25.0-35.0); MCHC 30.7 g/dL (31.0-37.0); MCV 88.9 fL (80.0-100.0); Mean Platelet Volume 7.1; Monocytes # (A) 0.6 k/uL (0-1.0); Monocytes % (A) 9 %; Neutrophils # (A) 4.8 k/uL (1.3-7.7); Neutrophils % (A) 71 %; Platelet Count 360 k/uL (150-450); RBC 3.63 m/uL (4.30-5.90); RDW 15.2 % (11.5-15.5); WBC 6.8 k/uL (3.8-10.6)
[2017-09-08] MEDS: CHLORPHEN-HYDROcod 8-10mg/5ml 5 ML ORAL.SYRG PO SCH ×2 (08:36→20:20)
[2017-09-08] MEDS: METHYLPHENIDATE HCL 5 MG TAB PO SCH ×2 (08:38→14:23)
[2017-09-08] MEDS: FLUTICASONE 50MCG/SPRAY NASAL 16GM EA NOSTRIL SCH ×2 (08:39→20:20)
[2017-09-08] MEDS: AMMONIUM LACTATE 12% LOTION 225 GM BTL TOPICAL SCH (08:39)
[2017-09-08] MEDS: FAMOTIDINE 20 MG TAB PO SCH (08:39)
[2017-09-08] MEDS: SENNOSIDES-DOCUSATE SODIUM 1 EACH TAB PO SCH (08:39)
[2017-09-08] MEDS ORDERED: BISACODYL 10 MG SUPP RECTAL PRN (09:28)
[2017-09-08] MEDS: HYDROcodone/APAP 7.5-325MG 1 EACH TAB PO PRN ×3 (09:38→20:20)
--- NOTE | 2017-09-08 10:37 | P.PN ---
Subjective Progress Note Date: 09/08/17 This is a very pleasant 71 years old gentleman patient of Dr. Bird, Dr. Nunez, Dr. Fuenets, S/P Shar presents with CK D stage III, persistent hematuria secondary to urothelial renal cell carcinoma during his last admission in 2016, from a liver biopsy, showing metastatic carcinoma showing a urothelial primarywas kidneys,managed by Dr. Vandana Fuentes,. He received his first immunotherapy on 02/23/2018 using Atezolizumab (tecentriq)every 3 weeks. No other chemoradiation therapy offered, he got so weak, with increasing weight loss, and increasing shortness of breath.. He got dehydrated requiring IV infusionfew days ago at Dr. Ross's. Patient now presents to the emergency room with increasing shortness of breath worse for the past 1 week, fever for one day duration, cough, mainly on the left side of his throat seems to CPAP more, she mentions that the coughing is worse when he lays down on his left side , he denies any hoarseness of voice, no vocal cord paralysis, patient's sputum is purulent, no recent antibiotic use, he almost passed out secondary to lightheadedness and weakness, and increasing paroxysms of cough that seems to be bothering him the most. He mentioned that the use of Tessalon Perles worse since this in the [place] cough drop gets this better.patient is maintained on nebulized albuterol Atrovent 4 times a day and Pulmicort 0.5 mg twice a day. He has doxycycline on a when necessary basis on right wrist MRSA- the right wrist which was inactive since past 3 months ago, no recurrence since then. Patient was given IV steroids at Dr. Murcia.. Patient continues to have urinary clots, bright red hematuria, no recent blood transfusion Other past medical history is positive for GERD, osteoarthritis, BPH status post TURP, history of retinal detachment, shingles status post herpetic trigeminal neuralgia, diverticulosis diagnosed on recent colonoscopy Previous diagnostic imaging included Patient underwent CT of the chest on that showed several mediastinotomy nodes, multiple small pulmonary nodules and a possible mass in the left kidney. A PET CAT scan was ordered on 07/26 which suggested suspicious bilateral pulmonary nodules along with increased activity in the region of mediastinal lymphadenopathy, hepatic mass and a mass in the upper pole of the left kidney with increased activity was also seen. liver core biopsy 07/31/2017, metastatic carcinoma suspicious for urothelial primary , 12/19/2016,Dr. Fuentes cystoscopy with cautery of polyp on dome of bladder and cautery of prostatic urethra presenting with gross hematuria 2/: VQ scan is low probability for pulmonary embolism. Patient has been seen by Dr. Fuentes for hematuria most likely from transitional cell carcinoma in the upper pole of the left kidney aggravated by prolonged coughing. Surgical treatment is not an option no need for catheter. CT of the chest abdomen and pelvis reveal soft tissue density at the right hilar region. Adenopathy and mass should be considered. Numerous small peripheral nodules bilateral lungs. Larger nodules measuring 0.4-1.5 cm. Findings suspicious for metastatic disease. Enlarged mediastinal adenopathy. Small bilateral pleural effusions. Scattered mildly sclerotic areas within the pelvis and vertebral bodies. Findings are suspicious for sclerotic metastasis. No expansile lytic lesions identified. Diverticulosis within the sigmoid without acute diverticulitis. Liver lesion poorly visualized. Today BUN is 24 and creatinine 2.57. Urine culture is in progress and blood culture is received. Patient seen by Dr. LORI Myles with recommendations continue current plan. Oncology consult is pending. Nephrology is following. Psychiatry consult is pending. Echocardiogram has been taken but not reported. Physical therapy has evaluated with recommendations for either home care, inpatient rehab or subacute rehab. 2/3: Patient is continued on IV fluids. Dr. Clifford is following with dyspnea thought to be possibly related to immunotherapy versus exacerbation of COPD or likely due to viral syndrome but after review thought to be less likely a medication effect. Patient states that he has been on immunotherapy for about 2 weeks now. He does complain of cough being back and nonproductive. He denies any fever or chills. He does state he has decreased appetite and is feeling tired. He is urinating without difficulty. He is complaining of constipation for which Senokot scheduled.repeat BUN 19 and creatinine 2.56. Patient has been seen by an psychiatrist with new diagnosis of major depression and started Ritalin 10 mg for one dose. His nurse is going to give this this morning and give report to Dr. Lopez. 2/4: Patient is complaining of right lower abdominal pain and found to have a ventral hernia. Patient instructed to hold area. No incarceration noted. Patient tolerated the Adderall and psychiatry has added this for scheduled morning and afternoon dose. Patient continues to have a cough which [place] increased to 7.5 and he has had no hallucinations is listed as a ALLERGY. Scheduled Solu-Medrol added 40 mg every 8 hours. Abdominal binder to be ordered. He is complaining of constipation despite Senokot and brown balm will be given today. Objective - Vital Signs Vital signs: Vital Signs Temp 98 F 09/08/17 06:42 Pulse 100 09/08/17 07:50 Resp 20 09/08/17 06:42 BP 139/76 09/08/17 06:42 Pulse Ox 92 L 09/08/17 06:42 Intake & Output 09/07/17 09/08/17 09/08/17 18:59 06:59 18:59 Output Total 300 Balance -300 Weight 79.5 kg Output: Urine 300 Other: Voiding Method Toilet Urinal # Voids 3 2 # Bowel Movements 1 - Exam General appearance: average body habitus, cooperative, mild distress - EENT Eyes: anicteric sclerae, EOMI, PERRLA, normal appearance ENT: hard of hearing, NA/AT, normal oropharynx - Neck Neck: other - Respiratory Respiratory: bilateral: CTA, negative: diminished, dullness, rales, rhonchi, wheezing - Cardiovascular Rhythm: regular Heart sounds: normal: S1, S2 - Integumentary Integumentary: decreased turgor, rash - Musculoskeletal Musculoskeletal: generalized weakness, strength equal bilaterally - Psychiatric Psychiatric: A&O x's 3, appropriate affect, intact judgment & insight - Labs CBC & Chem 7: 09/08/17 07:19 09/07/17 07:42 Labs: Abnormal Lab Results - Last 24 Hours (Table) 09/08/17 Range/Units 07:19 RBC 3.63 L (4.30-5.90) m/uL Hgb 9.9 L (13.0-17.5) gm/dL Hct 32.3 L (39.0-53.0) % MCHC 30.7 L (31.0-37.0) g/dL Lymphocytes # 0.9 L (1.0-4.8) k/uL Microbiology - Last 24 Hours (Table) 09/05/17 11:10 Blood Culture - Preliminary Blood No Growth after 48 hours Assessment and Plan Plan: 1. Febrile illness with sepsis with SIRS with worsening dyspneasecondary to COPD exacerbation or viral syndrome. Continue Pulmicort, DuoNeb treatments, Levaquin. Consult with pulmonary medicine and oncology appreciated. Patient is followed closely by Dr. Nunez, which we have consulted, and is on Tecentriq given frst dose 08/26/2017. VQ scan negative. 2. Pulmonary decompensation with mild respiratory distress without any hypoxemia due to viral syndrome, maintain Pulmicort and Xopenex IV IVLevaquin consult with Dr. Aliya Myles, obtain echocardiogram 3. metastatic urothelial kidney carcinoma presenting with, Mass left upper pole left kidneyongoing hematuria, monitor for postobstructive kidney failure, metastases to the liver and mediastinal lymph node noted patient has bilateral hydronephrosis, consult were made with Dr. Fuentes urologyDr. Mayra Workman. Patient is on immunotherapy. 4. Bilateral hydronephrosis with hematuria, postobstructive uropathy noted with acute on chronic kidney failure consult with Dr. Fuentes 5. Acute kidney injury with chronic kidney disease stage IV. Nephrology is following. Continue IV fluids. Avoid nephrotoxic agents. 6. BPH status post TURP , stable 7. DVT prophylaxis with SCDs 8. GI prophylaxis with Pepcid 20 mg twice a day 9. Generalized anxiety disorder. Continue Xanax 0.5 mg twice a day as needed 10. Personal history of MRSA resolved June 2017 located right wrist 11. New diagnosis of major depression. Consult with psychiatry appreciated. Ritalin 1 dose to be started this morning. Discharge plan: home with [facility] palliative care Impression and plan of care have been directed as dictated by the signing physician. Shannan [place] nurse practitioner acting as scribe for signing physician. Time with Patient: Greater than 30
[2017-09-08] MEDS: methylPREDNISolone SOD SUCCI 40 MG/ML 1 ML VIAL IV SCH ×3 (11:41→23:04)
[2017-09-08] MEDS: MULTIVITAMINS, THERA 1 EACH TAB PO SCH (11:41)
[2017-09-08] MEDS: LACTOBACILLUS ACIDOPH & BULGAR 1 EACH PACKET PO SCH (11:41)
--- NOTE | 2017-09-08 11:55 | P.PN ---
Subjective Progress Note Date: 09/08/17 Seen and examined for the follow-up of acute kidney injury. Still has hematuria , better Objective - Vital Signs Vital signs: Vital Signs Temp 98 F 09/08/17 06:42 Pulse 100 09/08/17 11:42 Resp 20 09/08/17 06:42 BP 139/76 09/08/17 06:42 Pulse Ox 92 L 09/08/17 06:42 Intake & Output 09/07/17 09/08/17 09/08/17 18:59 06:59 18:59 Output Total 300 Balance -300 Weight 79.5 kg Output: Urine 300 Other: Voiding Method Toilet Urinal Urinal # Voids 3 2 # Bowel Movements 1 - Exam Lying in bed no acute distress S1 and S2 heard Lungs clear No edema - Labs CBC & Chem 7: 09/08/17 07:19 09/07/17 07:42 Labs: Abnormal Lab Results - Last 24 Hours (Table) 09/08/17 Range/Units 07:19 RBC 3.63 L (4.30-5.90) m/uL Hgb 9.9 L (13.0-17.5) gm/dL Hct 32.3 L (39.0-53.0) % MCHC 30.7 L (31.0-37.0) g/dL Lymphocytes # 0.9 L (1.0-4.8) k/uL Microbiology - Last 24 Hours (Table) 09/05/17 11:10 Blood Culture - Preliminary Blood No Growth after 48 hours Assessment and Plan Assessment: Impression: #1 acute kidney injury secondary to prerenal process from dehydration. Creatinine back to baseline #2 CKD stage IV secondary to nephrosclerosis and obstructive uropathy from urothelial malignancy baseline creatinine 2.3-2.6 MG per DL #3 metastatic left renal cell cancer #4 hematuria secondary to urothelial malignancy #5 possible pneumonia Recommendations: #1 renal function stable and back to baseline #2 avoid nephrotoxic agents #3 monitor hemoglobin for persistent hematuria #4 supportive care
[2017-09-08] MEDS: MAGNESIUM HYDROXIDE 2,400 MG/10 ML CUP PO PRN (14:23)
[2017-09-08] MEDS: LEVOFLOXACIN 750MG-D5W PMX 750 MG in DEXTROSE/WATER 1 150ML.BAG IVPB SCH (14:37)
--- NOTE | 2017-09-08 17:10 | PN ---
PROGRESS NOTE DATE OF SERVICE: 09/08/17 He was seen on 09/08/2017. He has some shortness of breath and wheezing, but is feeling better overall. His blood pressure 144/82, respiratory rate of 18, pulse of 103, temperature 97.9, O2 saturation on room air is 94%. HEENT is unremarkable. Chest reveals wheeze on forced expiration. Cardiovascular system is S1, S2. Abdomen is soft. There is no edema. White count of 6.8, hemoglobin of 9.9. IMPRESSION: At this time is: 1. Possible viral illness contributing to his fever and cannot rule out secondary bacterial infection. 2. Urothelial cancer with metastatic disease to the lung in the form of mediastinal lymph nodes. 3. Chronic obstructive pulmonary disease exacerbation. 4. Anemia. At this point in time, would continue bronchodilators, aerosolized steroids, IV steroids, may start to taper them or switch him to oral steroids tomorrow if he is otherwise doing better. Increase his activity level. His prognosis at this time is fair. MMODL / IJN: [id number] /
[2017-09-08] MEDS: MIRTAZAPINE 15 MG TAB PO SCH (17:28)
[2017-09-09] MEDS: HYDROcodone/APAP 7.5-325MG 1 EACH TAB PO PRN ×2 (08:16→20:25)
[2017-09-09] MEDS: FAMOTIDINE 20 MG TAB PO SCH (08:16)
[2017-09-09] MEDS: METHYLPHENIDATE HCL 5 MG TAB PO SCH ×2 (08:16→14:55)
[2017-09-09] MEDS: SENNOSIDES-DOCUSATE SODIUM 1 EACH TAB PO SCH (08:17)
[2017-09-09] MEDS: methylPREDNISolone SOD SUCCI 40 MG/ML 1 ML VIAL IV SCH (08:17)
[2017-09-09] MEDS: FLUTICASONE 50MCG/SPRAY NASAL 16GM EA NOSTRIL SCH ×2 (08:17→20:25)
[2017-09-09] MEDS: AMMONIUM LACTATE 12% LOTION 225 GM BTL TOPICAL SCH (08:17)
[2017-09-09] MEDS: BUDESONIDE 0.5 MG/2 ML NEBU INHALATION SCH ×2 (08:26→20:13)
[2017-09-09] MEDS: IPRATROPIUM-ALBUTEROL 3 ML NEB INHALATION SCH ×4 (08:26→20:13)
[2017-09-09] MEDS: CHLORPHEN-HYDROcod 8-10mg/5ml 5 ML ORAL.SYRG PO SCH ×2 (08:57→20:25)
--- NOTE | 2017-09-09 11:16 | P.PN ---
Subjective Progress Note Date: 09/09/17 Principal diagnosis: SIRS, 2/4 POA Acute exacerbation of COPD Dyspnea on exertion without hypoxemia Generalized weakness Viral illness Urothelial cancer with metastatic disease to lungs/liver Small bilateral pleural effusions Anemia, normocytic TOÑITO on CKD 4 Hematuria Major depression Moderate PCM O2 to maintain saturation greater than equal to 90%, patient currently on room air Pulmicort Duo nebs Add Perforomist Antibiotics: Levaquin Solu-Medrol taper Consider diuresis, will leave up to the discretion of nephrology Check lower extremity ultrasound PT and OT Incentive spirometry and pulmonary hygiene Psych, nephro, heme/onc, urology recommendations appreciated GI and DVT prophylaxis: Pepcid and add Heparin Objective - Vital Signs Vital signs: Vital Signs Temp 97.0 F L 09/09/17 07:00 Pulse 104 H 09/09/17 08:42 Resp 18 09/09/17 07:00 BP 138/86 09/09/17 07:00 Pulse Ox 97 09/09/17 08:29 Intake & Output 09/08/17 09/09/17 09/09/17 18:59 06:59 18:59 Intake Total 755 Balance 755 Weight 79 kg Intake: Oral 755 Other: Voiding Method Urinal Urinal Toilet Urinal # Voids 3 2 - Labs CBC & Chem 7: 09/08/17 07:19 09/07/17 07:42 Labs: Microbiology - Last 24 Hours (Table) 09/05/17 11:10 Blood Culture - Preliminary Blood No Growth after 72 hours
[2017-09-09] MEDS ORDERED: RX INFO: IV CONTRAST WAS GIVEN 1 EACH MISC MISCELLANE PRN (13:20)
--- NOTE | 2017-09-09 13:22 | US ---
EXAMINATION TYPE: US venous doppler duplex LE DATE OF EXAM: 09/09/2017 12:57 PM COMPARISON: CTR chest CLINICAL HISTORY: rule out DVT. Right adrenal CA with metastasis SIDE PERFORMED: bilateral TECHNIQUE: The lower extremity deep venous system is examined utilizing real time linear array sonog nishant with graded compression, doppler sonography and color-flow sonography. VESSELS IMAGED: Common Femoral Vein Deep Femoral Vein Greater Saphenous Vein * Femoral Vein Popliteal Vein Small Saphenous Vein * Proximal Calf Veins (* superficial vessels) Right Leg: Is positive for DVT in one of two calf veins. Valve echoes are also noted in Femoral Vein , but color flow patency is seen at this level. Left Leg: Negative for DVT. IMPRESSION: 1. Exam positive for DVT within the right lower extremity involving the infrapopliteal deep venous sy stem.
[2017-09-09] MEDS: guaiFENesin 600 MG TABLET.ER PO SCH ×2 (13:37→20:25)
[2017-09-09] MEDS: MULTIVITAMINS, THERA 1 EACH TAB PO SCH (13:38)
[2017-09-09] MEDS: LACTOBACILLUS ACIDOPH & BULGAR 1 EACH PACKET PO SCH (13:38)
[2017-09-09] MEDS ORDERED: traMADol 50 MG TAB PO PRN (14:37)
[2017-09-09] MEDS: MAGNESIUM HYDROXIDE 2,400 MG/10 ML CUP PO PRN (14:55)
--- NOTE | 2017-09-09 15:30 | P.PN ---
Subjective Progress Note Date: 09/09/17 This is a very pleasant 71 years old gentleman patient of Dr. Bird, Dr. Nunez, Dr. Fuentes, S/P Shar presents with CK D stage III, persistent hematuria secondary to urothelial renal cell carcinoma during his last admission in 2016, from a liver biopsy, showing metastatic carcinoma showing a urothelial primarywas kidneys,managed by Dr. Vandana Fuentes,. He received his first immunotherapy on 02/23/2018 using Atezolizumab (tecentriq)every 3 weeks. No other chemoradiation therapy offered, he got so weak, with increasing weight loss, and increasing shortness of breath.. He got dehydrated requiring IV infusionfew days ago at Dr. Ross's. Patient now presents to the emergency room with increasing shortness of breath worse for the past 1 week, fever for one day duration, cough, mainly on the left side of his throat seems to CPAP more, she mentions that the coughing is worse when he lays down on his left side , he denies any hoarseness of voice, no vocal cord paralysis, patient's sputum is purulent, no recent antibiotic use, he almost passed out secondary to lightheadedness and weakness, and increasing paroxysms of cough that seems to be bothering him the most. He mentioned that the use of Tessalon Perles worse since this in the [place] cough drop gets this better.patient is maintained on nebulized albuterol Atrovent 4 times a day and Pulmicort 0.5 mg twice a day. He has doxycycline on a when necessary basis on right wrist MRSA- the right wrist which was inactive since past 3 months ago, no recurrence since then. Patient was given IV steroids at Dr. Murcia.. Patient continues to have urinary clots, bright red hematuria, no recent blood transfusion Other past medical history is positive for GERD, osteoarthritis, BPH status post TURP, history of retinal detachment, shingles status post herpetic trigeminal neuralgia, diverticulosis diagnosed on recent colonoscopy Previous diagnostic imaging included Patient underwent CT of the chest on that showed several mediastinotomy nodes, multiple small pulmonary nodules and a possible mass in the left kidney. A PET CAT scan was ordered on 07/26 which suggested suspicious bilateral pulmonary nodules along with increased activity in the region of mediastinal lymphadenopathy, hepatic mass and a mass in the upper pole of the left kidney with increased activity was also seen. liver core biopsy 07/31/2017, metastatic carcinoma suspicious for urothelial primary , 12/19/2016,Dr. Fuentes cystoscopy with cautery of polyp on dome of bladder and cautery of prostatic urethra presenting with gross hematuria 2/: VQ scan is low probability for pulmonary embolism. Patient has been seen by Dr. Fuentes for hematuria most likely from transitional cell carcinoma in the upper pole of the left kidney aggravated by prolonged coughing. Surgical treatment is not an option no need for catheter. CT of the chest abdomen and pelvis reveal soft tissue density at the right hilar region. Adenopathy and mass should be considered. Numerous small peripheral nodules bilateral lungs. Larger nodules measuring 0.4-1.5 cm. Findings suspicious for metastatic disease. Enlarged mediastinal adenopathy. Small bilateral pleural effusions. Scattered mildly sclerotic areas within the pelvis and vertebral bodies. Findings are suspicious for sclerotic metastasis. No expansile lytic lesions identified. Diverticulosis within the sigmoid without acute diverticulitis. Liver lesion poorly visualized. Today BUN is 24 and creatinine 2.57. Urine culture is in progress and blood culture is received. Patient seen by Dr. LORI Myles with recommendations continue current plan. Oncology consult is pending. Nephrology is following. Psychiatry consult is pending. Echocardiogram has been taken but not reported. Physical therapy has evaluated with recommendations for either home care, inpatient rehab or subacute rehab. 2/3: Patient is continued on IV fluids. Dr. Clifford is following with dyspnea thought to be possibly related to immunotherapy versus exacerbation of COPD or likely due to viral syndrome but after review thought to be less likely a medication effect. Patient states that he has been on immunotherapy for about 2 weeks now. He does complain of cough being back and nonproductive. He denies any fever or chills. He does state he has decreased appetite and is feeling tired. He is urinating without difficulty. He is complaining of constipation for which Senokot scheduled.repeat BUN 19 and creatinine 2.56. Patient has been seen by an psychiatrist with new diagnosis of major depression and started Ritalin 10 mg for one dose. His nurse is going to give this this morning and give report to Dr. Lopez. 2/4: Patient is complaining of right lower abdominal pain and found to have a ventral hernia. Patient instructed to hold area. No incarceration noted. Patient tolerated the Adderall and psychiatry has added this for scheduled morning and afternoon dose. Patient continues to have a cough which [place] increased to 7.5 and he has had no hallucinations is listed as a ALLERGY. Scheduled Solu-Medrol added 40 mg every 8 hours. Abdominal binder to be ordered. He is complaining of constipation despite Senokot and brown balm will be given today. 09/09: BUN is 19 and creatinine 2.56. Ultrasound of the right lower extremity was positive for DVT within the infrapopliteal. Patient was unable to have CT angiogram as his kidney function was too high. VQ scan was unable to be performed as there was no isotope available. Patient will be started on renal dose Lovenox. Objective - Vital Signs Vital signs: Vital Signs Temp 97.0 F L 09/09/17 07:00 Pulse 104 H 09/09/17 08:42 Resp 18 09/09/17 07:00 BP 138/86 09/09/17 07:00 Pulse Ox 97 09/09/17 08:29 Intake & Output 09/08/17 09/09/17 09/09/17 18:59 06:59 18:59 Intake Total 755 Balance 755 Weight 79 kg Intake: Oral 755 Other: Voiding Method Urinal Urinal Toilet Urinal # Voids 3 2 - Exam General appearance: average body habitus, cooperative, mild distress - EENT Eyes: anicteric sclerae, EOMI, PERRLA, normal appearance ENT: hard of hearing, NA/AT, normal oropharynx - Neck Neck: other - Respiratory Respiratory: bilateral: CTA, negative: diminished, dullness, rales, rhonchi, wheezing - Cardiovascular Rhythm: regular Heart sounds: normal: S1, S2 - Integumentary Integumentary: decreased turgor, rash - Musculoskeletal Musculoskeletal: generalized weakness, strength equal bilaterally - Psychiatric Psychiatric: A&O x's 3, appropriate affect, intact judgment & insight - Labs CBC & Chem 7: 09/08/17 07:19 09/07/17 07:42 Labs: Microbiology - Last 24 Hours (Table) 09/05/17 11:10 Blood Culture - Preliminary Blood No Growth after 72 hours Assessment and Plan Plan: 1. Febrile illness with sepsis with SIRS with worsening dyspneasecondary to COPD exacerbation or viral syndrome. Continue Pulmicort, DuoNeb treatments, Levaquin. Consult with pulmonary medicine and oncology appreciated. Patient is followed closely by Dr. Nunez, which we have consulted, and is on Tecentriq given frst dose 08/26/2017. VQ scan negative. 2. Pulmonary decompensation with mild respiratory distress without any hypoxemia due to viral syndrome, maintain Pulmicort and Xopenex IV IVLevaquin consult with Dr. Nickerson/Juan Manuel Myles, obtain echocardiogram 3. metastatic urothelial kidney carcinoma presenting with, Mass left upper pole left kidneyongoing hematuria, monitor for postobstructive kidney failure, metastases to the liver and mediastinal lymph node noted patient has bilateral hydronephrosis, consult were made with Dr. Fuentes urologyDr. Mayra Workman. Patient is on immunotherapy. 4. Bilateral hydronephrosis with hematuria, postobstructive uropathy noted with acute on chronic kidney failure consult with Dr. Fuentes 5. Acute kidney injury with chronic kidney disease stage IV. Nephrology is following. Continue IV fluids. Avoid nephrotoxic agents. 6. BPH status post TURP , stable 7. DVT prophylaxis with SCDs 8. GI prophylaxis with Pepcid 20 mg twice a day 9. Generalized anxiety disorder. Continue Xanax 0.5 mg twice a day as needed 10. Personal history of MRSA resolved June 2017 located right wrist 11. New diagnosis of major depression. Consult with psychiatry appreciated. Ritalin 1 dose to be started this morning. 12. Right lower extremity DVT. Lovenox started. Discharge plan: home with [facility] palliative care Impression and plan of care have been directed as dictated by the signing physician. Shannan [place] nurse practitioner acting as scribe for signing physician.
[2017-09-09] MEDS ORDERED: HEPARIN SODIUM,PORCINE 5,000 UNIT/ML 1 ML VIAL SQ SCH (16:00)
--- NOTE | 2017-09-09 16:54 | P.PN ---
Progress Note - Text Progress Note Date: 09/09/17 Patient had lower extremity doppler which was positive for right lower extremity DVT. Patient started on Lovenox. With worsening dyspnea, would treat for presumed pulmonary embolism. No need for CTA as the patient has TOÑITO/ CKD and the treatment will not change. Will discuss oral anticoagulation options with the patient tomorrow.
[2017-09-09] MEDS: MIRTAZAPINE 15 MG TAB PO SCH (17:00)
[2017-09-09] MEDS: FORMOTEROL FUMARATE 20 MCG/2 ML NEBU INHALATION SCH (20:13)
[2017-09-09] MEDS: ENOXAPARIN 80 MG/0.8 ML SYRINGE SQ SCH (20:26)
[2017-09-09] MEDS ORDERED: methylPREDNISolone SOD SUCCI 40 MG/ML 1 ML VIAL IV SCH (21:00)
[2017-09-09] MEDS ORDERED: ENOXAPARIN 80 MG/0.8 ML SYRINGE SQ SCH (21:00)
--- NOTE | 2017-09-09 21:50 | CONS ---
CONSULTATION DATE OF SERVICE: 09/09/2017 PURPOSE OF CONSULTATION: Evaluate for depression. INTERVAL HISTORY: Patient has been doing fair. He has had some complications in his care, in that he says that he developed a blood clot behind his left knee. He will be getting treatment for that, though he says that he anticipates being discharged tomorrow. He continues to have periods where he can get quite intense crying spells when he thinks about what he says is "the unknown." He is quite aware of his medical treatments and the discharge plan. He is able to repeat things in detail without reference to any information. He generally seems to be tolerating the Ritalin fairly well. His pulse is been up; however, his pulse was up prior to his starting on Ritalin. All morning on September 06 his pulse is in the 110 to 120 range prior to receiving his first dose. His pulse continued the same after that. It is noted that Ritalin has a short half-life of typically 4 hours, though in spite of that he has shown a consistent elevated pulse in the evening times as well. It is noteworthy that after his increase to 15 mg, which he received at 8:30 on September 08, his pulse actually has been lower and remained below 100 until 2300 on September 08, when his pulse went up to 109. Today he received Ritalin 15 mg at 8:15. His pulse 30 minutes later was 104 and then at noon 96 and has remained in the 90s for the rest of the day today. The patient continues to show significant mood struggles, though it is difficult to say to what extent that is depression that requires treatment with antidepressants. At this point, I think it is reasonable to continue his Ritalin 15 mg in the morning and 5 mg in mid afternoon. The dose could be raised to the range of 20 mg in the morning and 10 in the afternoon or even 20 twice a day if there is clear evidence that it is helping. Typically depression shows fairly early response to Ritalin therapy, within a week or 2 at the most. If he persists with significant distress, it might be reasonable to put him on an SSRI such as Prozac. I would start 10 mg a day for 4 or 5 days and then increase to 20 mg. It would be reasonable to start an SSRI and continue the Ritalin at least short term and then consider a cross taper or continue both medications if he shows good response. I will continue to follow. MMODL / IJN: [id number] /
[2017-09-10 01:30] VITALS: TEMP 96.8
[2017-09-10] MEDS: IPRATROPIUM-ALBUTEROL 3 ML NEB INHALATION SCH ×2 (07:39→11:10)
[2017-09-10] MEDS: BUDESONIDE 0.5 MG/2 ML NEBU INHALATION SCH (07:39)
[2017-09-10] MEDS: FORMOTEROL FUMARATE 20 MCG/2 ML NEBU INHALATION SCH (07:39)
[2017-09-10 08:19] VITALS: BP 149/70; RESP 18
[2017-09-10] MEDS: CHLORPHEN-HYDROcod 8-10mg/5ml 5 ML ORAL.SYRG PO SCH (08:34)
[2017-09-10] MEDS: HYDROcodone/APAP 7.5-325MG 1 EACH TAB PO PRN (08:37)
[2017-09-10] MEDS: guaiFENesin 600 MG TABLET.ER PO SCH (08:38)
[2017-09-10] MEDS: FLUTICASONE 50MCG/SPRAY NASAL 16GM EA NOSTRIL SCH (08:39)
[2017-09-10] MEDS: METHYLPHENIDATE HCL 5 MG TAB PO SCH (08:39)
[2017-09-10] MEDS: SENNOSIDES-DOCUSATE SODIUM 1 EACH TAB PO SCH (08:39)
[2017-09-10] MEDS: FAMOTIDINE 20 MG TAB PO SCH (08:39)
[2017-09-10] MEDS: AMMONIUM LACTATE 12% LOTION 225 GM BTL TOPICAL SCH (08:40)
[2017-09-10 08:41] LABS: HCT 32.2 % (39.0-53.0); HGB 10.2 gm/dL (13.0-17.5); Hypochromasia Slight; MCH 27.2 pg (25.0-35.0); MCHC 31.5 g/dL (31.0-37.0); MCV 86.5 fL (80.0-100.0); Mean Platelet Volume 6.6; Platelet Count 460 k/uL (150-450); RBC 3.73 m/uL (4.30-5.90); RDW 14.4 % (11.5-15.5); WBC 10.1 k/uL (3.8-10.6)
[2017-09-10] MEDS ORDERED: predniSONE 20 MG TAB PO SCH (09:00)
[2017-09-10 09:01] LABS: Calcium 7.8 mg/dL (8.4-10.2); Phosphorus 2.1 mg/dL (2.5-4.5); Potassium 4.6 mmol/L (3.5-5.1)
--- NOTE | 2017-09-10 10:36 | P.PN ---
Subjective Progress Note Date: 09/10/17 Patient is being seen examined and evaluated today on rounds. Yesterday Patient had lower extremity doppler which was positive for right lower extremity DVT. Patient started on Lovenox. With worsening dyspnea, would treat for presumed pulmonary embolism. No need for CTA as the patient has TOÑITO/ CKD and the treatment will not change. Patient states that he will discuss oral anticoagulation options with the PCP and his Hem/onc physician. Today he states he is feeling much more better he is feeling as if the flutter valve and the Mucinex have helped him greatly. He has readily bringing up sputum more efficiently. Patient states he is slightly less short of breath today, and looking forward to discharge. Patient is being set up with [facility] nursing. Objective - Vital Signs Vital signs: Vital Signs Temp 96.8 F L 09/10/17 07:00 Pulse 98 09/10/17 08:05 Resp 18 09/10/17 07:00 BP 149/70 09/10/17 07:00 Pulse Ox 98 09/10/17 07:00 Intake & Output 09/09/17 09/10/17 09/10/17 18:59 06:59 18:59 Intake Total 480 Balance 480 Weight 80.5 kg Intake: Oral 480 Other: Voiding Method Toilet Toilet Urinal Urinal # Voids 3 1 # Bowel Movements 1 - Exam GENERAL EXAM: Alert, active, comfortable in no apparent distress. HEAD: Normocephalic. EYES: Normal reaction of pupils, equal size. NOSE: Clear with pink turbinates. THROAT: No erythema or exudates. NECK: No masses, no JVD. CHEST: No chest wall deformity. LUNGS: Equal air entry with no crackles, wheeze, rhonchi or dullness. CVS: S1 and S2 normal with no audible mumurs, regular rhythm. ABDOMEN: No hepatosplenomegaly, normal bowel sounds, no guarding or rigidity. EXTREMITIES: No edema noted, pedal pulses palpable. Generalized weakness CENTRAL NERVOUS SYSTEM: No focal deficits, tone is normal in all 4 extremities. - Labs CBC & Chem 7: 09/10/17 07:45 09/10/17 07:45 Labs: Abnormal Lab Results - Last 24 Hours (Table) 09/10/17 09/10/17 Range/Units 07:45 07:45 RBC 3.73 L (4.30-5.90) m/uL Hgb 10.2 L (13.0-17.5) gm/dL Hct 32.2 L (39.0-53.0) % Plt Count 460 H (150-450) k/uL Chloride 108 H (98-107) mmol/L BUN 32 H (9-20) mg/dL Creatinine 2.65 H (0.66-1.25) mg/dL Calcium 7.8 L (8.4-10.2) mg/dL Phosphorus 2.1 L (2.5-4.5) mg/dL Microbiology - Last 24 Hours (Table) 09/05/17 11:10 Blood Culture - Preliminary Blood No Growth after 96 hours Assessment and Plan Assessment: SIRS, 2/4 POA Acute exacerbation of COPD Dyspnea on exertion without hypoxemia Generalized weakness Viral illness 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 O2 to maintain saturation greater than equal to 90%, patient currently on room air Pulmicort Duo nebs Perforomist Antibiotics: Levaquin Oral steroid taper PT and OT Incentive spirometry and pulmonary hygiene Psych, nephro, heme/onc, urology recommendations appreciated GI and DVT prophylaxis I performed an examination of the patient and discussed their management with the nurse practitioner. I have reviewed the nurse practitioner's note and agree with the documented findings and plan of care.
[2017-09-10] MEDS: ENOXAPARIN 80 MG/0.8 ML SYRINGE SQ SCH (11:07)
[2017-09-10 11:13] VITALS: PULSE 98
[2017-09-10] MEDS ORDERED: LEVOFLOXACIN 750 MG TAB PO SCH (15:00)
--- NOTE | 2017-09-10 15:21 | P.DS ---
Providers Date of admission: 09/05/17 14:32 Expected date of discharge: 09/10/17 Attending physician: Donna Perez Consults: 09/05/17 14:30 Consult Physician Urgent Consulting Provider: Tray Myles Consult Reason/Comments: Pneumonitis Do you want consulting provider notified?: Yes 09/05/17 14:36 Consult Physician Urgent Consulting Provider: Dionte Nunez Consult Reason/Comments: Epithelial cell cancer Do you want consulting provider notified?: Yes 09/05/17 15:15 Consult Physician Routine Consulting Provider: Lydia Workman Consult Reason/Comments: ckd 3 Do you want consulting provider notified?: Yes 09/05/17 15:32 Consult Physician Routine Consulting Provider: Marko Fuentes Consult Reason/Comments: urothelial ca kidney, randy hydro, hematuria Do you want consulting provider notified?: Yes 09/05/17 18:12 Consult Physician Urgent Consulting Provider: Brendan Lopez Consult Reason/Comments: suicidal ideations Do you want consulting provider notified?: Yes Primary care physician: [place] [facility] Course: This is a very pleasant 71 years old gentleman patient of Dr. Bird, Dr. Nunez, Dr. Fuentes, Dr. Nickerson/Juan Manuel Myles presents with CK D stage III, persistent hematuria secondary to urothelial renal cell carcinoma during his last admission in 2016, from a liver biopsy, showing metastatic carcinoma showing a urothelial primarywas kidneys,managed by Dr. Vandana Fuentes,. He received his first immunotherapy on 02/23/2018 using Atezolizumab (tecentriq)every 3 weeks. No other chemoradiation therapy offered, he got so weak, with increasing weight loss, and increasing shortness of breath.. He got dehydrated requiring IV infusionfew days ago at Dr. Ross's. Patient now presents to the emergency room with increasing shortness of breath worse for the past 1 week, fever for one day duration, cough, mainly on the left side of his throat seems to CPAP more, she mentions that the coughing is worse when he lays down on his left side , he denies any hoarseness of voice, no vocal cord paralysis, patient's sputum is purulent, no recent antibiotic use, he almost passed out secondary to lightheadedness and weakness, and increasing paroxysms of cough that seems to be bothering him the most. He mentioned that the use of Tessalon Perles worse since this in the [place] cough drop gets this better.patient is maintained on nebulized albuterol Atrovent 4 times a day and Pulmicort 0.5 mg twice a day. He has doxycycline on a when necessary basis on right wrist MRSA- the right wrist which was inactive since past 3 months ago, no recurrence since then. Patient was given IV steroids at Dr. Nunez'demarcus.. Patient continues to have urinary clots, bright red hematuria, no recent blood transfusion Other past medical history is positive for GERD, osteoarthritis, BPH status post TURP, history of retinal detachment, shingles status post herpetic trigeminal neuralgia, diverticulosis diagnosed on recent colonoscopy Previous diagnostic imaging included Patient underwent CT of the chest on that showed several mediastinotomy nodes, multiple small pulmonary nodules and a possible mass in the left kidney. A PET CAT scan was ordered on 07/26 which suggested suspicious bilateral pulmonary nodules along with increased activity in the region of mediastinal lymphadenopathy, hepatic mass and a mass in the upper pole of the left kidney with increased activity was also seen. liver core biopsy 07/31/2017, metastatic carcinoma suspicious for urothelial primary , 12/19/2016,Dr. Fuentes cystoscopy with cautery of polyp on dome of bladder and cautery of prostatic urethra presenting with gross hematuria 09/06: VQ scan is low probability for pulmonary embolism. Patient has been seen by Dr. Fuentes for hematuria most likely from transitional cell carcinoma in the upper pole of the left kidney aggravated by prolonged coughing. Surgical treatment is not an option no need for catheter. CT of the chest abdomen and pelvis reveal soft tissue density at the right hilar region. Adenopathy and mass should be considered. Numerous small peripheral nodules bilateral lungs. Larger nodules measuring 0.4-1.5 cm. Findings suspicious for metastatic disease. Enlarged mediastinal adenopathy. Small bilateral pleural effusions. Scattered mildly sclerotic areas within the pelvis and vertebral bodies. Findings are suspicious for sclerotic metastasis. No expansile lytic lesions identified. Diverticulosis within the sigmoid without acute diverticulitis. Liver lesion poorly visualized. Today BUN is 24 and creatinine 2.57. Urine culture is in progress and blood culture is received. Patient seen by Dr. LORI Myles with recommendations continue current plan. Oncology consult is pending. Nephrology is following. Psychiatry consult is pending. Echocardiogram has been taken but not reported. Physical therapy has evaluated with recommendations for either home care, inpatient rehab or subacute rehab. 2/3: Patient is continued on IV fluids. Dr. Clifford is following with dyspnea thought to be possibly related to immunotherapy versus exacerbation of COPD or likely due to viral syndrome but after review thought to be less likely a medication effect. Patient states that he has been on immunotherapy for about 2 weeks now. He does complain of cough being back and nonproductive. He denies any fever or chills. He does state he has decreased appetite and is feeling tired. He is urinating without difficulty. He is complaining of constipation for which Senokot scheduled.repeat BUN 19 and creatinine 2.56. Patient has been seen by an psychiatrist with new diagnosis of major depression and started Ritalin 10 mg for one dose. His nurse is going to give this this morning and give report to Dr. Lopez. 09/08: Patient is complaining of right lower abdominal pain and found to have a ventral hernia. Patient instructed to hold area. No incarceration noted. Patient tolerated the Adderall and psychiatry has added this for scheduled morning and afternoon dose. Patient continues to have a cough which [place] increased to 7.5 and he has had no hallucinations is listed as a ALLERGY. Scheduled Solu-Medrol added 40 mg every 8 hours. Abdominal binder to be ordered. He is complaining of constipation despite Senokot and brown balm will be given today. 09/09: BUN is 19 and creatinine 2.56. Ultrasound of the right lower extremity was positive for DVT within the infrapopliteal. Patient was unable to have CT angiogram as his kidney function was too high. VQ scan was unable to be performed as there was no isotope available. Patient will be started on renal dose Lovenox. 09/10: Patient will be maintained on Lovenox at discharge and he does have a follow-up appointment with Dr. Ross on Saturday. Patient does complain of shortness of breath with ambulation. No new complaints. Patient will be discharged home today in stable condition. Discharge diagnoses: 1. Febrile illness with sepsis with SIRS with worsening dyspneasecondary to COPD exacerbation or viral syndrome. 2. Pulmonary decompensation with mild respiratory distress without any hypoxemia due to viral syndrome 3. metastatic urothelial kidney carcinoma 4. Bilateral hydronephrosis with hematuria, postobstructive uropathy noted with acute on chronic kidney failure 5. Acute kidney injury with chronic kidney disease stage IV 6. BPH status post TURP 7. Generalized anxiety disorder. 8. Personal history of MRSA resolved June 2017 located right wrist 9. New diagnosis of major depression. 10. Right lower extremity DVT. Discharge plan: home with [facility] palliative care Impression and plan of care have been directed as dictated by the signing physician. Shannan Vail nurse practitioner acting as scribe for signing physician. Patient Condition at Discharge: Good Plan - Discharge Summary Discharge Rx Participant: Yes New Discharge Prescriptions: New Ammonium Lactate Lotion [Lac-Hydrin 12% Lotion] 1 applic TOPICAL DAILY applic CHLORPHEN-HYDROcod 8-10mg/5ml [Tussionex] 5 ml PO Q12HR #150 ml Enoxaparin [Lovenox] 80 mg SQ HS #30 syringe Fluticasone Nasal [place] [Flonase Nasal [place]] 1 spray EA NOSTRIL BID spr guaiFENesin [Mucinex] 1,200 mg PO Q12HR tablet.er Levofloxacin [Levaquin] 750 mg PO Q48H #4 tab Methylphenidate HCl [Ritalin] 5 mg PO 1400 #30 tab Methylphenidate HCl [Ritalin] 15 mg PO AC-BRKFST #30 tab Mirtazapine [Remeron] 15 mg PO 1800 #30 tab predniSONE 0 mg PO DIRECTED #40 tab Continue L.acidoph,Paracasei, B.lactis [Probiotic] 1 cap PO DAILY Famotidine [Pepcid] 20 mg PO DAILY #30 tab Ipratropium-Albuterol Nebulize [Duoneb 0.5 mg-3 mg/3 ml Soln] 3 ml INHALATION RT-QID #120 ampul.neb Wheat Dextrin [Benefiber] 1 packet PO DAILY Multivitamins, Thera [Multivitamin (formulary)] 1 tab PO DAILY Calcium/Vit D3 Chewable 1 tab PO DAILY ALPRAZolam [Xanax] 0.25 mg PO BID traMADol HCl [Ultram] 50 mg PO Q6H PRN PRN Reason: Pain Budesonide [Pulmicort] 0.5 mg INHALATION RT-BID Discontinued Codeine Phosphate/Guaifenesin [Cheratussin AC Syrup] 10 ml PO Q6H PRN PRN Reason: Cough Discharge Medication List L.acidoph,Paracasei, B.lactis [Probiotic] 1 cap PO DAILY 07/30/17 [History] Famotidine [Pepcid] 20 mg PO DAILY #30 tab 08/01/17 [Rx] Ipratropium-Albuterol Nebulize [Duoneb 0.5 mg-3 mg/3 ml Soln] 3 ml INHALATION RT -QID #120 ampul.neb 08/01/17 [Rx] ALPRAZolam [Xanax] 0.25 mg PO BID 09/05/17 [History] Budesonide [Pulmicort] 0.5 mg INHALATION RT-BID 09/05/17 [History] Calcium/Vit D3 Chewable 1 tab PO DAILY 09/05/17 [History] Multivitamins, Thera [Multivitamin (formulary)] 1 tab PO DAILY 09/05/17 [History ] Wheat Dextrin [Benefiber] 1 packet PO DAILY 09/05/17 [History] traMADol HCl [Ultram] 50 mg PO Q6H PRN 09/05/17 [History] Ammonium Lactate Lotion [Lac-Hydrin 12% Lotion] 1 applic TOPICAL DAILY applic 09/10/17 [Rx] CHLORPHEN-HYDROcod 8-10mg/5ml [Tussionex] 5 ml PO Q12HR #150 ml 09/10/17 [Rx] Enoxaparin [Lovenox] 80 mg SQ HS #30 syringe 09/10/17 [Rx] Fluticasone Nasal [place] [Flonase Nasal [place]] 1 spray EA NOSTRIL BID spr [Rx] Levofloxacin [Levaquin] 750 mg PO Q48H #4 tab 09/10/17 [Rx] Methylphenidate HCl [Ritalin] 5 mg PO 1400 #30 tab 09/10/17 [Rx] Methylphenidate HCl [Ritalin] 15 mg PO AC-BRKFST #30 tab 09/10/17 [Rx] Mirtazapine [Remeron] 15 mg PO 1800 #30 tab 09/10/17 [Rx] guaiFENesin [Mucinex] 1,200 mg PO Q12HR tablet.er 09/10/17 [Rx] predniSONE 0 mg PO DIRECTED #40 tab 09/10/17 [Rx] Follow up Appointment(s)/Referral(s): Keith Bird MD [Primary Care Provider] - 09/19/17 5:45 pm Bhumi Amor DO [Doctor of Osteopathic Medicine] - 09/17/17 11:45 am [facility] Visiting Nurse, [NON-STAFF] - Dionte Nunez MD [STAFF PHYSICIAN] - 1 Week (scheduled on Saturday) Patient Instructions/Handouts: Pneumonitis (DC) Activity/Diet/Wound Care/Special Instructions: Regular diet. Activity as tolerated. Discharge Disposition: HOME WITH HOME HEALTH SERVICES
== END 2017-09-10 12:42 | disposition home health service (06) | DRG 871 ==
LOC: EC 09:58 → UNDOADMIN 14:32 → 5MS5E 14:32 → 6SEL 14:32 → 4MS4W 09-06 18:29
PROVIDERS: ADMIT Family Medicine; ATTEND Family Medicine
DX: A41.9 Sepsis, unspecified organism (principal); I26.99 Other pulmonary embolism without acute cor pulmonale; E44.0 Moderate protein-calorie malnutrition; I82.401 Acute embolism and thrombosis of unspecified deep veins of right lower extremity; C78.00 Secondary malignant neoplasm of unspecified lung; N17.9 Acute kidney failure, unspecified; N18.4 Chronic kidney disease, stage 4 (severe); J84.89 Other specified interstitial pulmonary diseases; C64.2 Malignant neoplasm of left kidney, except renal pelvis; D64.9 Anemia, unspecified; C78.7 Secondary malignant neoplasm of liver and intrahepatic bile duct; C79.51 Secondary malignant neoplasm of bone; J44.1 Chronic obstructive pulmonary disease with (acute) exacerbation; N13.30 Unspecified hydronephrosis; E86.0 Dehydration; B34.9 Viral infection, unspecified; F32.9 Major depressive disorder, single episode, unspecified; F41.1 Generalized anxiety disorder; I12.9 Hypertensive chronic kidney disease with stage 1 through stage 4 chronic kidney disease, or unspecified chronic kidney disease; K21.9 Gastro-esophageal reflux disease without esophagitis; K43.9 Ventral hernia without obstruction or gangrene; K57.90 Diverticulosis of intestine, part unspecified, without perforation or abscess without bleeding; K59.00 Constipation, unspecified; Z80.42 Family history of malignant neoplasm of prostate; N40.0 Benign prostatic hyperplasia without lower urinary tract symptoms; Z79.899 Other long term (current) drug therapy; Z82.49 Family history of ischemic heart disease and other diseases of the circulatory system; Z86.010 Personal history of colon polyps; Z86.14 Personal history of Methicillin resistant Staphylococcus aureus infection; Z87.442 Personal history of urinary calculi; Z90.79 Acquired absence of other genital organ(s); Z96.1 Presence of intraocular lens
CPT/HCPCS: 36415; 71046; 71250; 74176; 78582; 80048; 80053; 80306; 81001; 82533; 82550; 82553; 83605; 83880; 84100; 84439; 84443; 84481; 84484; 85025; 85027; 85610; 85730; 87040; 87086; 87502; 93005; 93306; 93970; 94640; 94667; 94760; 96365; 96366; 96375; 99285

== ENCOUNTER 2017-09-17 10:51 | Inpatient (IN) | payer MEDICARE ==
[2017-09-17] MEDS ORDERED: LEVOFLOXACIN 750 MG TAB PO SCH (13:30)
[2017-09-17 14:58] VITALS: BMI 25.5
[2017-09-17] MEDS: ALPRAZolam 0.25 MG TAB PO SCH ×2 (15:01→22:10)
[2017-09-17 15:24] LABS: HCT 35.3 % (39.0-53.0); HGB 10.6 gm/dL (13.0-17.5); Hypochromasia Slight; MCH 26.5 pg (25.0-35.0); MCV 88.4 fL (80.0-100.0); Mean Platelet Volume 6.9; Platelet Count 348 k/uL (150-450); RBC 3.99 m/uL (4.30-5.90); RDW 15.1 % (11.5-15.5)
[2017-09-17] MEDS: SODIUM CHLORIDE 0.9% 1,000 ML IV SCH (15:27)
[2017-09-17] MEDS: CHLORPHEN-HYDROcod 8-10mg/5ml 5 ML ORAL.SYRG PO SCH ×2 (15:30→22:10)
[2017-09-17] MEDS: METHYLPHENIDATE HCL 5 MG TAB PO SCH (15:30)
[2017-09-17 15:37] LABS: Albumin 2.9 g/dL (3.5-5.0); Calcium 7.4 mg/dL (8.4-10.2); Phosphorus 3.2 mg/dL (2.5-4.5); Potassium 4.2 mmol/L (3.5-5.1); Total Bilirubin 0.3 mg/dL (0.2-1.3); Total Protein 5.3 g/dL (6.3-8.2)
[2017-09-17] MEDS: traMADol 50 MG TAB PO PRN ×2 (15:53→22:33)
[2017-09-17] MEDS: IPRATROPIUM-ALBUTEROL 3 ML NEB INHALATION SCH ×2 (16:10→20:51)
--- NOTE | 2017-09-17 16:39 | XR ---
EXAMINATION TYPE: XR chest 2V DATE OF EXAM: 09/17/2017 COMPARISON: September 05, 2017 HISTORY: Fever TECHNIQUE: Frontal and lateral views of the chest are obtained. FINDINGS: There is some patchy infiltrate in the left lower lobe. There is a small linear infiltrate in the right midlung. There is very slight blunting of costophrenic angles. Heart size is normal. Me diastinum is normal. The bony thorax is intact. There is spurring in the thoracic spine. IMPRESSION: Bilateral pulmonary infiltrates and atelectasis that is worse in the left lower lobe. No gross heart failure. Chest appears slightly improved compared to last exam.
[2017-09-17] MEDS: MIRTAZAPINE 15 MG TAB PO SCH (17:33)
[2017-09-17] MEDS: NYSTATIN 100,000 UNIT/ML SUSP 500,000 UNIT/5 ML CUP PO SCH ×2 (18:08→22:09)
[2017-09-17] MEDS: BUDESONIDE 0.5 MG/2 ML NEBU INHALATION SCH (20:51)
[2017-09-17] MEDS: guaiFENesin 600 MG TABLET.ER PO SCH (22:09)
[2017-09-17] MEDS: ENOXAPARIN 80 MG/0.8 ML SYRINGE SQ SCH (22:09)
[2017-09-17] MEDS: FLUTICASONE 50MCG/SPRAY NASAL 16GM EA NOSTRIL SCH (23:57)
[2017-09-18] MEDS: SODIUM CHLORIDE 0.9% 1,000 ML IV SCH ×2 (06:25→17:42)
[2017-09-18] MEDS: FAMOTIDINE 20 MG TAB PO SCH (07:30)
[2017-09-18] MEDS: AMMONIUM LACTATE 12% LOTION 225 GM BTL TOPICAL SCH (07:30)
[2017-09-18] MEDS: METHYLPHENIDATE HCL 5 MG TAB PO SCH ×2 (07:30→13:50)
[2017-09-18] MEDS: ALPRAZolam 0.25 MG TAB PO SCH ×2 (07:30→22:16)
[2017-09-18] MEDS: guaiFENesin 600 MG TABLET.ER PO SCH ×2 (07:31→22:16)
[2017-09-18] MEDS: NYSTATIN 100,000 UNIT/ML SUSP 500,000 UNIT/5 ML CUP PO SCH ×4 (07:31→22:16)
[2017-09-18] MEDS: CHLORPHEN-HYDROcod 8-10mg/5ml 5 ML ORAL.SYRG PO SCH ×2 (07:34→23:29)
[2017-09-18] MEDS ORDERED: predniSONE 20 MG TAB PO SCH (09:00)
[2017-09-18 09:08] LABS: HCT 32.8 % (39.0-53.0); HGB 10.1 gm/dL (13.0-17.5); Hypochromasia Slight; MCH 26.8 pg (25.0-35.0); MCHC 30.9 g/dL (31.0-37.0); MCV 86.7 fL (80.0-100.0); Mean Platelet Volume 6.7; Platelet Count 357 k/uL (150-450); RBC 3.78 m/uL (4.30-5.90); RDW 15.2 % (11.5-15.5)
[2017-09-18] MEDS: IPRATROPIUM-ALBUTEROL 3 ML NEB INHALATION SCH ×4 (09:15→20:17)
[2017-09-18] MEDS: BUDESONIDE 0.5 MG/2 ML NEBU INHALATION SCH ×2 (09:15→20:17)
[2017-09-18 09:38] LABS: Albumin 2.7 g/dL (3.5-5.0); Calcium 6.8 mg/dL (8.4-10.2); Total Bilirubin 0.5 mg/dL (0.2-1.3); Total Protein 5.2 g/dL (6.3-8.2)
[2017-09-18] MEDS: FLUTICASONE 50MCG/SPRAY NASAL 16GM EA NOSTRIL SCH ×2 (09:55→22:16)
[2017-09-18] MEDS ORDERED: VANCOMYCIN IV PER PHARMACY 1 EACH MISC MISCELLANE PRN (10:01)
--- NOTE | 2017-09-18 10:25 | P.CNPUL ---
<Jenny Rowell E - Last Filed: 09/18/17 10:12> History of Present Illness Consult date: 09/18/17 Requesting physician: Keith Bird Reason for consult: pneumonia Chief complaint: shortness of breath History of present illness: This patient came in to our office on 09/17/2017, for follow-up visit post his previous hospitalization. The patient was noted to have an elevated white count from his previous days lab drawn, a congested cough, phlegm production, fever, tachypnea, tachycardia. The patient had just received chemotherapy this week as well. Patient was advised to go to the hospital and was a direct admit to his primary care physician Dr. Bird. The patient's will in the office also had a lot of questions in regards to the chemo and she feels that the patient gets very sick with each chemo treatment she had multiple questions in regards to the chemo unwired like the oncologist to be on board during his stay as well. 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 He is followed closely by Dr. Ross, Dr. Rendon and Dr. Workman. His PET scan on 1222 suggested suspicious bilateral pulmonary nodules with increased activity in the regional of mediastinal lymphadenopathy, hepatic mass and a mass in the upper pole of the left kidney was also seen. Upon examination today the patient is resting up in bed on room air he is currently in chemo precautions, he continues to have some shortness of breath cough and congestion he's had a hard time bringing up the sputum. Patient was on a prednisone taper in the outpatient setting we will put the patient back on IV Solu-Medrol. Chest x-ray was reviewed and does show bilateral pulmonary infiltrates/atelectasis more so in the left lower lobe. All labs have been reviewed. Review of Systems 14 point review of systems was completed and is negative unless noted above in the HPI. Past Medical History Past Medical History: Cancer, GERD/Reflux, Osteoarthritis (OA), Prostate Disorder, Renal Disease Additional Past Medical History / Comment(s): vertigo,small hiatal henia, randy cataracts-lens implants, past randy retinal detatchments/lt eye scleral buckle, shinlges, post herpetic trigeminal neuralgia.brochitis constipation, eczema/ scalp, diverticulosis, colon polyps-benign,kidney stone,urinary retention, hematuria- urothelial cancer, per family "spots on liver, bones. pulmonary nodules; DVT right leg, possible PE in lungs per patient. History of Any Multi-Drug Resistant Organisms: MRSA Date of last positivie culture/infection: stomach/arms MDRO Source:: 2011(per pt's ) Past Surgical History: Cholecystectomy, Orthopedic Surgery, Prostate Surgery Additional Past Surgical History / Comment(s): bx, colonoscopy w/bx, randy retinal sx(detatched retina), lt scelar buckle, turp, rt knee meniscus repair, nissens, rt achilles tendon repair, egd w/bx, rt knee replacment, rt knee revision 12-03-16, randy cataracts, cystocopy w/ cautery of polyp, liver bx Past Anesthesia/Blood Transfusion Reactions: Previous Problems w/ Anesthesia Additional Past Anesthesia/Blood Transfusion Reaction / Comment(s): Difficult intubation Past Psychological History: Anxiety, Depression Additional Psychological History / Comment(s): pt lives at home with his tena. 1 indoor pet-dog. pt had r tknee sx 12-03-16 using walker. has VNA nurse and pt. has shower chair, bsc, hospital bed, tens unit, w/c, railings. 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 Smoking Status: Never smoker Past Alcohol Use History: None Reported Past Drug Use History: None Reported - Past Family History Mother Family Medical History: Cancer, Congestive Heart Failure (CHF) Additional Family Medical History / Comment(s): kidney stone Father Family Medical History: Cancer, Congestive Heart Failure (CHF), CVA/TIA, Prostate Disorder Additional Family Medical History / Comment(s): prostate cancer Medications and Allergies Home Medications Medication Instructions Recorded Confirmed Type L.acidoph,Paracasei, B.lactis 1 cap PO DAILY 07/30/17 09/17/17 History [Probiotic] Famotidine [Pepcid] 20 mg PO DAILY #30 tab 08/01/17 09/17/17 Rx Ipratropium-Albuterol Nebulize 3 ml INHALATION RT-QID #120 08/01/17 09/17/17 Rx [Duoneb 0.5 mg-3 mg/3 ml Soln] ampul.neb ALPRAZolam [Xanax] 0.25 mg PO BID 09/05/17 09/17/17 History Budesonide [Pulmicort] 0.5 mg INHALATION RT-BID 09/05/17 09/17/17 History Calcium/Vit D3 Chewable 1 tab PO DAILY 09/05/17 09/17/17 History Multivitamins, Thera [Multivitamin 1 tab PO DAILY 09/05/17 09/17/17 History (formulary)] Wheat Dextrin [Benefiber] 1 packet PO DAILY 09/05/17 09/17/17 History traMADol HCl [Ultram] 50 mg PO Q6H PRN 09/05/17 09/17/17 History Ammonium Lactate Lotion 1 applic TOPICAL DAILY applic 09/10/17 09/17/17 Rx [Lac-Hydrin 12% Lotion] CHLORPHEN-HYDROcod 8-10mg/5ml 5 ml PO Q12HR #150 ml 09/10/17 09/17/17 Rx [Tussionex] Enoxaparin [Lovenox] 80 mg SQ HS #30 syringe 09/10/17 09/17/17 Rx Fluticasone Nasal [place] [Flonase 1 spray EA NOSTRIL BID spr 09/10/17 09/17/17 Rx Nasal [place]] Methylphenidate HCl [Ritalin] 15 mg PO AC-BRKFST #30 tab 09/10/17 09/17/17 Rx guaiFENesin [Mucinex] 1,200 mg PO Q12HR tablet.er 09/10/17 09/17/17 Rx Methylphenidate HCl [Ritalin] 5 mg PO DAILY@1400 09/17/17 09/17/17 History Mirtazapine [Remeron] 15 mg PO HS@1800 09/17/17 09/17/17 History predniSONE See Taper PO DAILY 09/17/17 09/17/17 History Allergies Allergy/AdvReac Type Severity Reaction Status Date / Time codeine AdvReac Nausea & Verified 09/17/17 13:49 Vomiting hydrocodone [From [place]] AdvReac Hallucinati Verified 09/17/17 13:49 ons morphine AdvReac Hallucinati Verified 09/17/17 13:49 ons oxycodone AdvReac Hallucinati Verified 09/17/17 13:49 ons Physical Exam Vitals: Vital Signs Temp Pulse Pulse Resp BP Pulse Ox 09/18/17 07:00 99.8 F H 62 16 126/74 94 L 09/17/17 23:00 99.4 F 108 H 16 124/68 94 L 09/17/17 21:06 60 09/17/17 20:53 62 96 09/17/17 20:00 0 L 09/17/17 16:17 57 L 09/17/17 16:11 57 L 09/17/17 15:00 98.1 F 57 L 18 126/57 94 L 09/17/17 13:20 97.5 F L 61 18 127/61 97 Intake and Output 09/17/17 09/18/17 09/18/17 22:59 06:59 14:59 Intake Total 220 Output Total 1100 525 Balance -880 -525 Intake: Oral 220 Output: Urine 1100 525 Other: Voiding Method Urinal # Voids 1 2 Weight 78.5 kg Patient Weight 09/19/17 06:59 Weight 78.5 kg GENERAL EXAM: Alert, comfortable in no apparent distress. HEAD: Normocephalic. EYES: Normal reaction of pupils, equal size. NOSE: Clear with pink turbinates. THROAT: No erythema or exudates. NECK: No masses, no JVD. CHEST: No chest wall deformity. LUNGS: Lungs noted to be diminished with some expiratory wheezing throughout.. CVS: S1 and S2 normal with no audible mumurs, regular rhythm. ABDOMEN: No hepatosplenomegaly, normal bowel sounds, no guarding or rigidity. EXTREMITIES: No edema noted, pedal pulses palpable. CENTRAL NERVOUS SYSTEM: No focal deficits, tone is normal in all 4 extremities. Results - Laboratory Findings CBC and BMP: 09/18/17 08:05 09/17/17 15:07 Abnormal lab findings: Abnormal Labs 09/17/17 09/17/17 09/18/17 15:07 15:07 08:05 WBC 17.0 H 12.0 H RBC 3.99 L 3.78 L Hgb 10.6 L 10.1 L Hct 35.3 L 32.8 L MCHC 30.0 L 30.9 L Chloride 109 H Carbon Dioxide 20 L BUN 42 H Creatinine 2.90 H Glucose 113 H Calcium 7.4 L Alkaline Phosphatase 303 H Total Protein 5.3 L Albumin 2.9 L - Diagnostic Findings Chest x-ray: report reviewed, image reviewed Assessment and Plan Assessment: Sepsis Bilateral pneumonia, suspect mixed bacterial, healthcare acquired Acute exacerbation of COPD Urothelial cancer with metastatic disease disease to the lungs and liver Immunocompromise secondary to chemotherapy treatment Generalized weakness CKD 4 Hematuria Severe depression Supplemental oxygen to maintain oxygen saturations greater than 90% currently on room air DuoNeb and Pulmicort Antibiotics cefepime and Vanco consult ID Solu-Medrol Incentive spirometer and pulmonary hygiene Repeat chest x-ray and labs in the morning Obtain sputum culture Consult oncology, has multiple questions in regards to the current chemotherapy treatment, and requests oncology on board Blood cultures pending GI and DVT prophylaxis I performed an examination of the patient and discussed their management with the nurse practitioner. I have reviewed the nurse practitioner's note and agree with the documented findings and plan of care. <Bhumi Amor A - Last Filed: 09/18/17 10:28> Physical Exam Osteopathic Statement: *. No significant issues noted on an osteopathic structural exam other than those noted in the History and Physical/Consult. Vitals: Vital Signs Temp Pulse Pulse Resp BP Pulse Ox 09/18/17 07:00 99.8 F H 62 16 126/74 94 L 09/17/17 23:00 99.4 F 108 H 16 124/68 94 L 09/17/17 21:06 60 09/17/17 20:53 62 96 09/17/17 20:00 0 L 09/17/17 16:17 57 L 09/17/17 16:11 57 L 09/17/17 15:00 98.1 F 57 L 18 126/57 94 L 09/17/17 13:20 97.5 F L 61 18 127/61 97 Intake and Output 09/17/17 09/18/17 09/18/17 22:59 06:59 14:59 Intake Total 220 Output Total 1100 525 Balance -880 -525 Intake: Oral 220 Output: Urine 1100 525 Other: Voiding Method Urinal # Voids 1 2 Weight 78.5 kg Patient Weight 09/19/17 06:59 Weight 78.5 kg Results - Laboratory Findings CBC and BMP: 09/18/17 08:05 09/18/17 08:05 Abnormal lab findings: Abnormal Labs 09/17/17 09/17/17 09/18/17 15:07 15:07 08:05 WBC 17.0 H 12.0 H RBC 3.99 L 3.78 L Hgb 10.6 L 10.1 L Hct 35.3 L 32.8 L MCHC 30.0 L 30.9 L Chloride 109 H Carbon Dioxide 20 L BUN 42 H Creatinine 2.90 H Glucose 113 H Calcium 7.4 L Alkaline Phosphatase 303 H Total Protein 5.3 L Albumin 2.9 L 09/18/17 08:05 WBC RBC Hgb Hct MCHC Chloride 108 H Carbon Dioxide 17 L BUN 36 H Creatinine 2.72 H Glucose 107 H Calcium 6.8 L Alkaline Phosphatase 299 H Total Protein 5.2 L Albumin 2.7 L Assessment and Plan Assessment: NAGMA - recheck lactic acid, monitor renal function Repeat Labs in AM UA and urine culture, blood cultures pending
[2017-09-18] MEDS ORDERED: VANCOMYCIN 1,500 MG in SODIUM CHLORIDE 0.9% 250 ML IVPB ONE (10:30)
[2017-09-18] MEDS: CEFEPIME 2 GM in SODIUM CHLORIDE 0.9% 50 ML IVPB SCH (10:45)
[2017-09-18] MEDS: MULTIVITAMINS, THERA 1 EACH TAB PO SCH (11:42)
[2017-09-18] MEDS: LACTOBACILLUS ACIDOPH & BULGAR 1 EACH PACKET PO SCH (11:43)
--- NOTE | 2017-09-18 13:52 | P.HPIM ---
History of Present Illness H&P Date: 09/17/17 This is a 71-year-old male patient of Dr. Bird, Dr. Nunez, Dr. Fuentes, Dr. LORI Myles with history of CKD stage III, persistent hematuria secondary to urothelial renal cell carcinoma during his admission in 07/31/2017, from a liver biopsy, showing metastatic carcinoma showing a urothelial primary was kidneys,managed by Dr. Mayra Fuentes. He received his first immunotherapy using Atezolizumab (tecentriq)every 3 weeks. No other chemoradiation therapy offered, he got so weak, with increasing weight loss, and increasing shortness of breath, and was seen by yesterday in the office as a follow-up from recent hospitalization and the patient was directed to the hospital as a direct admission due to bilateral lower lobe pneumonia with increased shortness with an increased coughing and a temperature 103.1 because of the recent chemotherapy was admitted to the hospital for bilateral gram-negative pneumonia with sepsis. Patient was started on vancomycin as well as cefepime awaiting blood cultures as well as sputum culture. Previous diagnostic imaging included Patient underwent CT of the chest on that showed several mediastinotomy nodes, multiple small pulmonary nodules and a possible mass in the left kidney. A PET CAT scan was ordered on 07/26 which suggested suspicious bilateral pulmonary nodules along with increased activity in the region of mediastinal lymphadenopathy, hepatic mass and a mass in the upper pole of the left kidney with increased activity was also seen. liver core biopsy 07/31/2017, metastatic carcinoma suspicious for urothelial primary , 12/19/2016,Dr. Fuentes cystoscopy with cautery of polyp on dome of bladder and cautery of prostatic urethra presenting with gross hematuria . Review of Systems Constitutional: Reports anorexia, Reports chronic pain, Reports fatigue, Reports fever, Reports lethargy, Reports malaise, Reports weakness, Reports weight loss Eyes: denies blurred vision, denies bulging eye, denies decreased vision Ears: deny: decreased hearing Ears, nose, mouth and throat: Reports voice changes, Denies dysphagia, Denies neck lump, Denies swelling in throat, Denies sore throat, Denies vertigo Cardiovascular: Reports decreased exercise tolerance, Reports dyspnea on exertion, Reports shortness of breath, Denies chest pain, Denies high blood pressure, Denies paroxysmal nocturnal dyspnea, Denies phlebitis, Denies rapid heart beat, Denies syncope Respiratory: Reports congestion, Reports cough, Reports cough with sputum, Reports dyspnea, Reports wheezing, Denies sleep apnea, Denies snoring Gastrointestinal: Reports constipation, Reports nausea, Denies abdominal pain, Denies bloating, Denies BRBPR, Denies excessive gas, Denies heartburn, Denies hematemesis, Denies melena, Denies vomiting Genitourinary: Reports dysuria, Reports hematuria, Reports nocturia, Reports urinary hesitancy Musculoskeletal: Denies myalgias Musculoskeletal: absent: ankle pain, ankle stiffness, ankle swelling, elbow pain , elbow stiffness, elbow swelling, foot pain, foot stiffness, foot swelling, hand pain, hand stiffness, hand swelling, hip pain, hip stiffness, hip swelling , knee pain, knee stiffness, knee swelling, shoulder pain, shoulder stiffness, shoulder swelling, wrist pain, wrist stiffness, wrist swelling Integumentary: Denies pruritus, Denies rash Neurological: Denies numbness, Denies weakness Psychiatric: Reports anxiety, Reports depression Endocrine: Denies fatigue, Denies weight change Past Medical History Past Medical History: Cancer, GERD/Reflux, Hyperlipidemia, Osteoarthritis (OA), Prostate Disorder, Renal Disease Additional Past Medical History / Comment(s): vertigo,small hiatal henia, randy cataracts-lens implants, past randy retinal detatchments/lt eye scleral buckle, shinlges, post herpetic trigeminal neuralgia.brochitis constipation, eczema/ scalp, diverticulosis, colon polyps-benign,kidney stone,urinary retention, hematuria- urothelial cancer, per family "spots on liver, bones. pulmonary nodules; DVT right leg, possible PE in lungs per patient. History of Any Multi-Drug Resistant Organisms: MRSA Date of last positivie culture/infection: stomach/arms MDRO Source:: 2011(per pt's ) Past Surgical History: Cholecystectomy, Orthopedic Surgery, Prostate Surgery Additional Past Surgical History / Comment(s): bx, colonoscopy w/bx, randy retinal sx(detatched retina), lt scelar buckle, turp, rt knee meniscus repair, nissens, rt achilles tendon repair, egd w/bx, rt knee replacment, rt knee revision 12-03-16, randy cataracts, cystocopy w/ cautery of polyp, liver bx Past Anesthesia/Blood Transfusion Reactions: Previous Problems w/ Anesthesia Additional Past Anesthesia/Blood Transfusion Reaction / Comment(s): Difficult intubation Past Psychological History: Anxiety, Depression Additional Psychological History / Comment(s): pt lives at home with his tena. 1 indoor pet-dog. pt had r tknee sx 12-03-16 using walker. has VNA nurse and pt. has shower chair, bsc, hospital bed, tens unit, w/c, railings. 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 Smoking Status: Never smoker Past Alcohol Use History: None Reported Past Drug Use History: None Reported - Past Family History Mother Family Medical History: Cancer, Congestive Heart Failure (CHF) Additional Family Medical History / Comment(s): Mother at age 83 from acute kidney failure with history of kidney stones. Father Family Medical History: Cancer, Congestive Heart Failure (CHF), CVA/TIA, Prostate Disorder Additional Family Medical History / Comment(s): Father in his 60s from prostate cancer. He had a stroke in his 40s. Brother(s) Additional Family Medical History / Comment(s): Patient had one brother that as an infant from pneumonia. Sister(s) Additional Family Medical History / Comment(s): Patient has one sister with hypertension and glaucoma. Son(s) Additional Family Medical History / Comment(s): Patient has 2 sons and 1 daughter with no major medical problems. Medications and Allergies Home Medications Medication Instructions Recorded Confirmed Type L.acidoph,Paracasei, B.lactis 1 cap PO DAILY 07/30/17 09/17/17 History [Probiotic] Famotidine [Pepcid] 20 mg PO DAILY #30 tab 08/01/17 09/17/17 Rx Ipratropium-Albuterol Nebulize 3 ml INHALATION RT-QID #120 08/01/17 09/17/17 Rx [Duoneb 0.5 mg-3 mg/3 ml Soln] ampul.neb ALPRAZolam [Xanax] 0.25 mg PO BID 09/05/17 09/17/17 History Budesonide [Pulmicort] 0.5 mg INHALATION RT-BID 09/05/17 09/17/17 History Calcium/Vit D3 Chewable 1 tab PO DAILY 09/05/17 09/17/17 History Multivitamins, Thera [Multivitamin 1 tab PO DAILY 09/05/17 09/17/17 History (formulary)] Wheat Dextrin [Benefiber] 1 packet PO DAILY 09/05/17 09/17/17 History traMADol HCl [Ultram] 50 mg PO Q6H PRN 09/05/17 09/17/17 History Ammonium Lactate Lotion 1 applic TOPICAL DAILY applic 09/10/17 09/17/17 Rx [Lac-Hydrin 12% Lotion] CHLORPHEN-HYDROcod 8-10mg/5ml 5 ml PO Q12HR #150 ml 09/10/17 09/17/17 Rx [Tussionex] Enoxaparin [Lovenox] 80 mg SQ HS #30 syringe 09/10/17 09/17/17 Rx Fluticasone Nasal [place] [Flonase 1 spray EA NOSTRIL BID spr 09/10/17 09/17/17 Rx Nasal [place]] Methylphenidate HCl [Ritalin] 15 mg PO AC-BRKFST #30 tab 09/10/17 09/17/17 Rx guaiFENesin [Mucinex] 1,200 mg PO Q12HR tablet.er 09/10/17 09/17/17 Rx Methylphenidate HCl [Ritalin] 5 mg PO DAILY@1400 09/17/17 09/17/17 History Mirtazapine [Remeron] 15 mg PO HS@1800 09/17/17 09/17/17 History predniSONE See Taper PO DAILY 09/17/17 09/17/17 History Allergies Allergy/AdvReac Type Severity Reaction Status Date / Time codeine AdvReac Nausea & Verified 09/17/17 13:49 Vomiting hydrocodone [From [place]] AdvReac Hallucinati Verified 09/17/17 13:49 ons morphine AdvReac Hallucinati Verified 09/17/17 13:49 ons oxycodone AdvReac Hallucinati Verified 09/17/17 13:49 ons Physical Exam Vitals: Vital Signs Temp Pulse Pulse Resp BP Pulse Ox 09/18/17 07:00 99.8 F H 62 16 126/74 94 L 09/17/17 23:00 99.4 F 108 H 16 124/68 94 L 09/17/17 21:06 60 09/17/17 20:53 62 96 09/17/17 20:00 0 L 09/17/17 16:17 57 L 09/17/17 16:11 57 L 09/17/17 15:00 98.1 F 57 L 18 126/57 94 L 09/17/17 13:20 97.5 F L 61 18 127/61 97 Intake and Output 09/17/17 09/18/17 09/18/17 22:59 06:59 14:59 Intake Total 220 Output Total 1100 525 Balance -880 -525 Intake: Oral 220 Output: Urine 1100 525 Other: Voiding Method Urinal Urinal # Voids 1 2 Weight 78.5 kg Patient Weight 09/19/17 06:59 Weight 78.5 kg - Constitutional General appearance: average body habitus, mild distress - EENT Eyes: anicteric sclerae, EOMI, PERRLA, no ptosis, no scleral icterus, normal appearance ENT: hearing grossly normal, other (Thrush.), thrush Ears: bilateral: normal - Neck Neck: no lymphadenopathy, normal ROM, no rigidity, no stridor, no thyromegaly Carotids: bilateral: upstroke delayed Thyroid: bilateral: normal size - Respiratory Respiratory: bilateral: diminished, rhonchi, wheezing, negative: dullness, rales - Cardiovascular Rhythm: regular Heart sounds: normal: S1, S2 Abnormal Heart Sounds: systolic murmur, no S3 Gallop, no S4 Gallop, no click - Gastrointestinal General gastrointestinal: normal bowel sounds, soft, no splenomegaly, no tenderness, no umbilical hernia, no ventral hernia - Integumentary Integumentary: normal, normal turgor - Neurologic Neurologic: CNII-XII intact - Musculoskeletal Musculoskeletal: generalized weakness, strength equal bilaterally - Psychiatric Psychiatric: A&O x's 3, appropriate affect, intact judgment & insight Results CBC & Chem 7: 09/19/17 08:42 09/19/17 08:42 Labs: Abnormal Lab Results - Last 24 Hours (Table) 09/17/17 09/17/17 09/18/17 Range/Units 15:07 15:07 08:05 WBC 17.0 H 12.0 H (3.8-10.6) k/uL RBC 3.99 L 3.78 L (4.30-5.90) m/uL Hgb 10.6 L 10.1 L (13.0-17.5) gm/dL Hct 35.3 L 32.8 L (39.0-53.0) % MCHC 30.0 L 30.9 L (31.0-37.0) g/dL Chloride 109 H (98-107) mmol/L Carbon Dioxide 20 L (22-30) mmol/L BUN 42 H (9-20) mg/dL Creatinine 2.90 H (0.66-1.25) mg/dL Glucose 113 H (74-99) mg/dL Calcium 7.4 L (8.4-10.2) mg/dL Alkaline Phosphatase 303 H (38-126) U/L Total Protein 5.3 L (6.3-8.2) g/dL Albumin 2.9 L (3.5-5.0) g/dL 09/18/17 Range/Units 08:05 WBC (3.8-10.6) k/uL RBC (4.30-5.90) m/uL Hgb (13.0-17.5) gm/dL Hct (39.0-53.0) % MCHC (31.0-37.0) g/dL Chloride 108 H (98-107) mmol/L Carbon Dioxide 17 L (22-30) mmol/L BUN 36 H (9-20) mg/dL Creatinine 2.72 H (0.66-1.25) mg/dL Glucose 107 H (74-99) mg/dL Calcium 6.8 L (8.4-10.2) mg/dL Alkaline Phosphatase 299 H (38-126) U/L Total Protein 5.2 L (6.3-8.2) g/dL Albumin 2.7 L (3.5-5.0) g/dL Thrombosis Risk Factor Assmnt - DVT/VTE Prophylaxis DVT/VTE Prophylaxis: Pharmacologic Prophylaxis ordered, Mechanical Prophylaxis ordered - Choose All That Apply Any of the Below Risk Factors Present?: Yes Each Factor Represents 1 point: Sepsis (< 1month) Other Risk Factors: Yes Each Risk Factor Represents 2 Points: Age 61-74 years Each Risk Factor Represents 3 Points: Family history of DVT/PE, History of DVT/ PE Thrombosis Risk Factor Assessment Total Risk Factor Score: 9 Thrombosis Risk Factor Assessment Level: High Risk Assessment and Plan Assessment: Assessment and plan: 1. Bilateral lower lobe gram-negative pneumonias along with metastatic urothelial cancer to the lungs and possible from embolic disease. Continue patient on Lovenox 80 mg subcutaneously every 24 hours, continue vancomycin pharmacy to dose its peak and trough, continue cefepime, pulmonary consultation as well as ID consult, continue oxygen support, continue DuoNeb 3 mg nebulization 4 times every day, continue Pulmicort nebulization twice every day , continue patient on Tussionex 5 mL orally twice every day, continue Mucinex 1200 mg orally twice every day, monitor the patient very closely. Check blood cultures as well as sputum culture. 2. Thrush. Start the patient on nystatin swish and swallow 5 mL orally 3 times every day . 3. metastatic urothelial kidney carcinoma . Patient did receive 2 doses of Tecentriq last dose was yesterday. 4. Bilateral hydronephrosis with hematuria, postobstructive uropathy noted with acute on chronic kidney failure . 5. Acute kidney injury with chronic kidney disease stage IV. Monitor the patient CMP. 6. BPH status post TURP . Stable at this time. 7. Generalized anxiety disorder. Currently on Xanax. 8. Personal history of MRSA resolved June 2017 located right wrist. Stable. 9. New diagnosis of major depression. Continue current management. 10. Right lower extremity DVT. Continue Lovenox 80 mg subcutaneously every 24 hours. 11. DVT prophylaxis. Continue patient on Lovenox 80 mg subcutaneously every 24 hours. 12. GI prophylaxis. Continue Pepcid 20 mg orally twice every day. 13. Admit to inpatient. Estimate length of stay 2 midnights.
--- NOTE | 2017-09-18 14:57 | P.PN ---
Subjective Progress Note Date: 09/18/17 This is a 71-year-old male patient of Dr. Bird, Dr. Nunez, Dr. Fuentes, Dr. LORI Myles with history of CKD stage III, persistent hematuria secondary to urothelial renal cell carcinoma during his admission in 07/31/2017, from a liver biopsy, showing metastatic carcinoma showing a urothelial primary was kidneys,managed by Dr. Mayra Fuentes. He received his first immunotherapy on 02/23/2018 using Atezolizumab (tecentriq)every 3 weeks. No other chemoradiation therapy offered, he got so weak, with increasing weight loss, and increasing shortness of breath, and was seen by yesterday in the office as a follow-up from recent hospitalization and the patient was directed to the hospital as a direct admission due to bilateral lower lobe pneumonia with increased shortness with an increased coughing and a temperature 103.1 because of the recent chemotherapy was admitted to the hospital for bilateral gram-negative pneumonia with sepsis. Patient was started on vancomycin as well as cefepime awaiting blood cultures as well as sputum culture. Previous diagnostic imaging included Patient underwent CT of the chest on that showed several mediastinotomy nodes, multiple small pulmonary nodules and a possible mass in the left kidney. A PET CAT scan was ordered on 07/26 which suggested suspicious bilateral pulmonary nodules along with increased activity in the region of mediastinal lymphadenopathy, hepatic mass and a mass in the upper pole of the left kidney with increased activity was also seen. liver core biopsy 07/31/2017, metastatic carcinoma suspicious for urothelial primary , 12/19/2016,Dr. Fuentes cystoscopy with cautery of polyp on dome of bladder and cautery of prostatic urethra presenting with gross hematuria . 09/18: Repeat white count is 12.0. BUN 36 and creatinine 2.72. Alkaline phosphatase is 299. Patient is seen and followed by Dr. Amor. Patient has been sleepy and tired today. No new complaints. Objective - Vital Signs Vital signs: Vital Signs Temp 99.8 F H 09/18/17 07:00 Pulse 62 09/18/17 07:00 Resp 16 09/18/17 07:00 BP 126/74 09/18/17 07:00 Pulse Ox 94 L 09/18/17 07:00 Intake & Output 09/17/17 09/18/17 09/18/17 18:59 06:59 18:59 Intake Total 220 Output Total 800 825 Balance -800 -605 Weight 78.5 kg 78.5 kg Intake: Oral 220 Output: Urine 800 825 Other: Voiding Method Urinal Urinal # Voids 1 2 - Exam - Constitutional General appearance: average body habitus, mild distress - EENT Eyes: anicteric sclerae, EOMI, PERRLA, no ptosis, no scleral icterus, normal appearance ENT: hearing grossly normal, other (Thrush.), thrush Ears: bilateral: normal - Neck Neck: no lymphadenopathy, normal ROM, no rigidity, no stridor, no thyromegaly Carotids: bilateral: upstroke delayed Thyroid: bilateral: normal size - Respiratory Respiratory: bilateral: diminished, rhonchi, wheezing, negative: dullness, rales - Cardiovascular Rhythm: regular Heart sounds: normal: S1, S2 Abnormal Heart Sounds: systolic murmur, no S3 Gallop, no S4 Gallop, no click - Gastrointestinal General gastrointestinal: normal bowel sounds, soft, no splenomegaly, no tenderness, no umbilical hernia, no ventral hernia - Integumentary Integumentary: normal, normal turgor - Neurologic Neurologic: CNII-XII intact - Musculoskeletal Musculoskeletal: generalized weakness, strength equal bilaterally - Psychiatric Psychiatric: A&O x's 3, appropriate affect, intact judgment & insight - Labs CBC & Chem 7: 09/18/17 08:05 09/18/17 08:05 Labs: Abnormal Lab Results - Last 24 Hours (Table) 09/17/17 09/17/17 09/18/17 Range/Units 15:07 15:07 08:05 WBC 17.0 H 12.0 H (3.8-10.6) k/uL RBC 3.99 L 3.78 L (4.30-5.90) m/uL Hgb 10.6 L 10.1 L (13.0-17.5) gm/dL Hct 35.3 L 32.8 L (39.0-53.0) % MCHC 30.0 L 30.9 L (31.0-37.0) g/dL Chloride 109 H (98-107) mmol/L Carbon Dioxide 20 L (22-30) mmol/L BUN 42 H (9-20) mg/dL Creatinine 2.90 H (0.66-1.25) mg/dL Glucose 113 H (74-99) mg/dL Calcium 7.4 L (8.4-10.2) mg/dL Alkaline Phosphatase 303 H (38-126) U/L Total Protein 5.3 L (6.3-8.2) g/dL Albumin 2.9 L (3.5-5.0) g/dL Assessment and Plan Plan: 1. Bilateral lower lobe gram-negative pneumonias along with metastatic urothelial cancer to the lungs and possible from embolic disease. Continue patient on Lovenox 80 mg subcutaneously every 24 hours, continue vancomycin pharmacy to dose its peak and trough, continue cefepime, pulmonary consultation as well as ID consult, continue oxygen support, continue DuoNeb 3 mg nebulization 4 times every day, continue Pulmicort nebulization twice every day , continue patient on Tussionex 5 mL orally twice every day, continue Mucinex 1200 mg orally twice every day, monitor the patient very closely. Check blood cultures as well as sputum culture. 2. Thrush. Start the patient on nystatin swish and swallow 5 mL orally 3 times every day . 3. metastatic urothelial kidney carcinoma . Patient did receive 2 doses of Tecentriq last dose was yesterday. 4. Bilateral hydronephrosis with hematuria, postobstructive uropathy noted with acute on chronic kidney failure . 5. Acute kidney injury with chronic kidney disease stage IV. Monitor the patient CMP. 6. BPH status post TURP . Stable at this time. 7. Generalized anxiety disorder. Currently on Xanax. 8. Personal history of MRSA resolved June 2017 located right wrist. Stable. 9. New diagnosis of major depression. Continue current management. 10. Right lower extremity DVT. Continue Lovenox 80 mg subcutaneously every 24 hours. 11. DVT prophylaxis. Continue patient on Lovenox 80 mg subcutaneously every 24 hours. 12. GI prophylaxis. Continue Pepcid 20 mg orally twice every day. 13. Admit to inpatient. Estimate length of stay 2 midnights. Discharge plan: Most likely return home Impression and plan of care have been directed as dictated by the signing physician. Shannan Vail nurse practitioner acting as scribe for signing physician.
[2017-09-18] MEDS: MIRTAZAPINE 15 MG TAB PO SCH (17:42)
--- NOTE | 2017-09-18 22:02 | CONS ---
CONSULTATION DATE OF SERVICE: 09/18/2017 REASON FOR CONSULTATION: Pneumonia and antibiotic recommendations. HISTORY OF PRESENT ILLNESS: The patient is a 71-year-old male with a past medical history significant for urothelial carcinoma of the kidneys, metastases to the liver, pulmonary nodules , for which the patient is under the care of Dr. Nunez. The patient received his chemo on Saturday. The patient was evaluated in the pulmonary office on Saturday, where the patient was noted to be extremely weak and tired, with no energy. The patient does have a dry hacking cough, bringing up some yellow sputum, moderate in intensity. At times he is bringing up some yellowish to whitish sputum but no hemoptysis. The patient also has bilateral lower rib cage pain from all the coughing that has been going on for the last 2 to 3 days. The pain is described to be 5 to 6 out of 10 in intensity, and no radiation. The patient apparently also had a fever at the pulmonary office of 103 degrees Fahrenheit. He was noted to have elevated white count and a fever and concern about sepsis. He was directly admitted to the hospital with the x- ray showing bilateral infiltrate. He was started on broad-spectrum antibiotic and ID was consulted for further recommendations regarding antibiotic therapy. The patient denies having any URI symptoms. He has some mild headache. Denies any abdominal pain. He has been feeling nauseous but no vomiting and no diarrhea. However, the patient is constipated. No bowel movement for 2 days. REVIEW OF SYSTEMS: CONSTITUTIONAL: Positive for weakness along with a fever. EYES: No complaint. ENT: No complaint. RESPIRATORY: As per HPI. CARDIOVASCULAR: No complaint. GENITOURINARY: As per HPI. GASTROINTESTINAL: As per HPI. MUSCULOSKELETAL: No complaint. INTEGUMENTARY: No complaint. PSYCHOLOGICAL: No complaint. ENDOCRINE: No complaint. NEUROLOGICAL: No complaint. PAST MEDICAL HISTORY: 1. Metastatic renal cancer with metastases to the liver and lungs. 2. History of prostate disorder. 3. Gastroesophageal reflux disease. 4. Osteoarthritis. 5. Hiatal hernia. 6. Shingles. 7. Postoperative neuralgia. 8. Previous history of MRSA infection. PAST SURGICAL HISTORY: 1. Cholecystectomy. 2. Prostate surgery. 3. Colonoscopy with biopsy. 4. Bilateral retinal surgery. SOCIAL HISTORY: No history of smoking, drinking or drug use. FAMILY HISTORY: Mother with history of congestive heart failure and kidney stone. Father with history of prostate cancer and congestive heart failure with CVA. ALLERGIES: 1. CODEINE. 2. HYDROMORPHONE. CURRENT MEDICATIONS: 1. DuoNeb. 2. Xanax. 3. Pulmicort. 4. Cefepime 2 grams daily. 5. Tussionex. 6. Lovenox. 7. Pepcid. 8. Flonase. 9. Mucinex. 10.Lac-Hydrin. 11.Ritalin. 12.Solu-Medrol. 13.Remeron. 14.Vancomycin, Pharmacy to dose. 15.Mycostatin oral suspension. PHYSICAL EXAMINATION: His blood pressure is 114/69 with a pulse of 91, temperature of 98.3. He is 94% on room air. General description is an elderly male up in the bed up in no distress. No tachypnea or accessory muscle of respiration use. HEENT examination shows slight pallor. No scleral icterus. Oral mucosa membrane is dry. No pharyngeal erythema or thrush NECK: Trachea is central. There is no thyromegaly. LUNGS: Unlabored breathing with coarse breath sounds at the bases bilaterally. Occasional wheeze. HEART: S1, S2. Regular rate and rhythm. No murmur. ABDOMEN: Soft. No tenderness. No guarding or rigidity. No organomegaly. EXTREMITIES: No edema of the feet. SKIN EXAMINATION: No rashes or mass palpable. Neurologically patient is awake, alert, oriented x 3 mood and affect is normal LABS: BUN of 42, creatinine 2.0. Electrolytes have been normal. Liver enzymes are normal. Alkaline phosphatase is slightly elevated. Hemoglobin 10.6, white count 17,000. Influenza serology was negative. Blood culture has been obtained, currently pending. Chest x-ray with bilateral pulmonary infiltrates and atelectasis that is worse in the left lower lobe. DIAGNOSTIC IMPRESSION AND PLAN: 1. Patient admitted to hospital with a cough, increasing shortness of breath with some yellow sputum with bilateral lower lobe infiltrates, mostly on the left side , in a patient who does have metastatic renal cancer with recent chemotherapy. The patient did have features of sepsis, especially with the fever of 103 and elevated white count and tachycardia. Source is pneumonia with concern about possible Gram- negative pneumonia, though underlying MRSA infection is not totally excluded. 2. Patient who does have renal insufficiency and high risk of nephrotoxicity from the antibiotic that he needs for his underlying pneumonia. 3. Comorbid conditions, including metastatic renal cancer with metastases to the liver and kidneys. PLAN: 1. Recommend obtaining sputum for Gram stain culture and sensitivity. 2. With the concern more likely about a Gram-negative pneumonia, recommend keeping the patient on cefepime 2 grams daily dose adjust to his kidney function. However, we will hold on his vancomycin to prevent any further nephrotoxicity. 3. Gentle IV fluid. 4. We will follow up on his clinical condition as well as cultures to further adjust medication if needed. Thank you for this consultation. Will follow this patient along with you. His was present at bedside. All her questions and concerns were answered. MMODL / IJN: [id number] / [place]IL[place]
[2017-09-18] MEDS: methylPREDNISolone SOD SUCCI 40 MG/ML 1 ML VIAL IV SCH (22:16)
[2017-09-18] MEDS: ENOXAPARIN 80 MG/0.8 ML SYRINGE SQ SCH (22:16)
[2017-09-18] MEDS: traMADol 50 MG TAB PO PRN (23:30)
[2017-09-19] MEDS: BUDESONIDE 0.5 MG/2 ML NEBU INHALATION SCH ×2 (07:04→19:26)
[2017-09-19] MEDS: IPRATROPIUM-ALBUTEROL 3 ML NEB INHALATION SCH ×4 (07:04→19:26)
[2017-09-19] MEDS: SODIUM CHLORIDE 0.9% 1,000 ML IV SCH (07:42)
[2017-09-19] MEDS: AMMONIUM LACTATE 12% LOTION 225 GM BTL TOPICAL SCH (07:43)
[2017-09-19] MEDS: CEFEPIME 2 GM in SODIUM CHLORIDE 0.9% 50 ML IVPB SCH (07:43)
[2017-09-19] MEDS: guaiFENesin 600 MG TABLET.ER PO SCH ×2 (07:43→21:17)
[2017-09-19] MEDS: ALPRAZolam 0.25 MG TAB PO SCH ×2 (07:43→21:16)
[2017-09-19] MEDS: METHYLPHENIDATE HCL 5 MG TAB PO SCH ×2 (07:43→11:16)
[2017-09-19] MEDS: FLUTICASONE 50MCG/SPRAY NASAL 16GM EA NOSTRIL SCH ×2 (07:44→21:17)
[2017-09-19] MEDS: FAMOTIDINE 20 MG TAB PO SCH (07:44)
[2017-09-19] MEDS: methylPREDNISolone SOD SUCCI 40 MG/ML 1 ML VIAL IV SCH ×2 (07:44→21:18)
[2017-09-19] MEDS: NYSTATIN 100,000 UNIT/ML SUSP 500,000 UNIT/5 ML CUP PO SCH ×4 (07:45→23:01)
[2017-09-19] MEDS: CHLORPHEN-HYDROcod 8-10mg/5ml 5 ML ORAL.SYRG PO SCH ×2 (07:48→21:16)
[2017-09-19 09:10] LABS: HCT 33.2 % (39.0-53.0); HGB 10.2 gm/dL (13.0-17.5); Hypochromasia Moderate; MCHC 30.6 g/dL (31.0-37.0); MCV 88.1 fL (80.0-100.0); Mean Platelet Volume 7.1; Platelet Count 365 k/uL (150-450); RBC 3.77 m/uL (4.30-5.90)
[2017-09-19 09:34] LABS: Albumin 2.9 g/dL (3.5-5.0); Calcium 7.3 mg/dL (8.4-10.2); Potassium 4.7 mmol/L (3.5-5.1); Total Bilirubin 0.4 mg/dL (0.2-1.3); Total Protein 5.5 g/dL (6.3-8.2)
--- NOTE | 2017-09-19 09:51 | P.CONS ---
History of Present Illness - Reason for Consult Consult date: 09/19/17 metastatic urothelial adenocarcinoma Requesting physician: Jenny Rowell - Chief Complaint PEREZ - History of Present Illness Jammie Flaherty is a very pleasant male pt of Dr. Nunez who initially presented with persistent dry cough of about 8 weeks duration, CXR was suspicious so pt had CT on 07/16/17 which revealed bilateral lung nodules and borderline enlarged mediastinal nodes. Pt had been experiencing intermittent gross hematuria earlier in the year and had cystoscopy done in December 2016, hematuria was felt to be secondary to his prostate, but he had recurrent gross hematuria in June and July 2017. PET revealed suspicious uptake lung nodules, mediastinal nodes, subcarinal node , left kidney, suspicious 4.8cm right hepatic lobe lesion, multiple suspicious osseous lesions, 07/31/17 pt had biopsy of liver lesion, path consistent with metastatic urothelial carcinoma, diagnosis confirmed at [facility]. Pt was started on immunotherapy atezolizumab, and he was admitted to hospital just a few days after infusion with SOB. He was seen by Dr. Myles and chest imaging did not appear to be a treatment induced pneumonitis, pt was treated with abx and steroids with resolution of his symptoms. He received his second cycle 3 days ago, about 24 hours after infusion he returned to hospital with SOB/PEREZ. When seen pt denied fevers, oral irritation, his cough and breathing are actually better then before he started treatment, no nausea, vomiting, mild abd discomfort but denies diarrhea or constipation, swelling, rash, numbness, tingling or new pain. He can ambulate independently. Review of Systems 10 point ROS as stated in HPI Past Medical History Past Medical History: Cancer, GERD/Reflux, Hyperlipidemia, Osteoarthritis (OA), Prostate Disorder, Renal Disease Additional Past Medical History / Comment(s): vertigo,small hiatal henia, randy cataracts-lens implants, past randy retinal detatchments/lt eye scleral buckle, shinlges, post herpetic trigeminal neuralgia.brochitis constipation, eczema/ scalp, diverticulosis, colon polyps-benign,kidney stone,urinary retention, hematuria- urothelial cancer, per family "spots on liver, bones. pulmonary nodules; DVT right leg, possible PE in lungs per patient. History of Any Multi-Drug Resistant Organisms: MRSA Year Discovered:: stomach/arms MDRO Source:: 2011(per pt's ) Past Surgical History: Cholecystectomy, Orthopedic Surgery, Prostate Surgery Additional Past Surgical History / Comment(s): bx, colonoscopy w/bx, randy retinal sx(detatched retina), lt scelar buckle, turp, rt knee meniscus repair, nissens, rt achilles tendon repair, egd w/bx, rt knee replacment, rt knee revision 12-03-16, randy cataracts, cystocopy w/ cautery of polyp, liver bx Past Anesthesia/Blood Transfusion Reactions: Previous Problems w/ Anesthesia Additional Past Anesthesia/Blood Transfusion Reaction / Comm: Difficult intubation Past Psychological History: Anxiety, Depression Additional Psychological History / Comment(s): pt lives at home with his tena. 1 indoor pet-dog. pt had r tknee sx 12-03-16 using walker. has VNA nurse and pt. has shower chair, bsc, hospital bed, tens unit, w/c, railings. 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 Smoking Status: Never smoker Past Alcohol Use History: None Reported Past Drug Use History: None Reported - Past Family History Mother Family Medical History: Cancer, Congestive Heart Failure (CHF) Additional Family Medical History / Comment(s): Mother at age 83 from acute kidney failure with history of kidney stones. Father Family Medical History: Cancer, Congestive Heart Failure (CHF), CVA/TIA, Prostate Disorder Additional Family Medical History / Comment(s): Father in his 60s from prostate cancer. He had a stroke in his 40s. Brother(s) Additional Family Medical History / Comment(s): Patient had one brother that as an infant from pneumonia. Sister(s) Additional Family Medical History / Comment(s): Patient has one sister with hypertension and glaucoma. Son(s) Additional Family Medical History / Comment(s): Patient has 2 sons and 1 daughter with no major medical problems. Medications and Allergies Home Medications Medication Instructions Recorded Confirmed Type L.acidoph,Paracasei, B.lactis 1 cap PO DAILY 07/30/17 09/17/17 History [Probiotic] Famotidine [Pepcid] 20 mg PO DAILY #30 tab 08/01/17 09/17/17 Rx Ipratropium-Albuterol Nebulize 3 ml INHALATION RT-QID #120 08/01/17 09/17/17 Rx [Duoneb 0.5 mg-3 mg/3 ml Soln] ampul.neb ALPRAZolam [Xanax] 0.25 mg PO BID 09/05/17 09/17/17 History Budesonide [Pulmicort] 0.5 mg INHALATION RT-BID 09/05/17 09/17/17 History Calcium/Vit D3 Chewable 1 tab PO DAILY 09/05/17 09/17/17 History Multivitamins, Thera [Multivitamin 1 tab PO DAILY 09/05/17 09/17/17 History (formulary)] Wheat Dextrin [Benefiber] 1 packet PO DAILY 09/05/17 09/17/17 History traMADol HCl [Ultram] 50 mg PO Q6H PRN 09/05/17 09/17/17 History Ammonium Lactate Lotion 1 applic TOPICAL DAILY applic 09/10/17 09/17/17 Rx [Lac-Hydrin 12% Lotion] CHLORPHEN-HYDROcod 8-10mg/5ml 5 ml PO Q12HR #150 ml 09/10/17 09/17/17 Rx [Tussionex] Enoxaparin [Lovenox] 80 mg SQ HS #30 syringe 09/10/17 09/17/17 Rx Fluticasone Nasal [place] [Flonase 1 spray EA NOSTRIL BID spr 09/10/17 09/17/17 Rx Nasal [place]] Methylphenidate HCl [Ritalin] 15 mg PO AC-BRKFST #30 tab 09/10/17 09/17/17 Rx guaiFENesin [Mucinex] 1,200 mg PO Q12HR tablet.er 09/10/17 09/17/17 Rx Methylphenidate HCl [Ritalin] 5 mg PO DAILY@1400 09/17/17 09/17/17 History Mirtazapine [Remeron] 15 mg PO HS@1800 09/17/17 09/17/17 History predniSONE See Taper PO DAILY 09/17/17 09/17/17 History Allergies Allergy/AdvReac Type Severity Reaction Status Date / Time codeine AdvReac Nausea & Verified 09/17/17 13:49 Vomiting hydrocodone [From [place]] AdvReac Hallucinati Verified 09/17/17 13:49 ons morphine AdvReac Hallucinati Verified 09/17/17 13:49 ons oxycodone AdvReac Hallucinati Verified 09/17/17 13:49 ons Physical Exam Vitals: Vital Signs Temp Pulse Pulse Resp BP BP Pulse Ox 09/19/17 08:20 156/67 09/19/17 07:21 60 09/19/17 07:07 52 L 95 09/19/17 07:00 96.7 F L 58 L 22 174/74 96 09/18/17 23:00 99.2 F 99 20 155/84 93 L 09/18/17 20:32 97 09/18/17 20:17 94 09/18/17 16:57 99 09/18/17 16:49 101 H 96 09/18/17 15:00 98.3 F 91 16 114/69 94 L 09/18/17 13:53 52 L 09/18/17 13:36 52 L Intake and Output 09/18/17 09/19/17 09/19/17 22:59 06:59 14:59 Intake Total 600 950 240 Output Total 800 Balance 600 150 240 Intake: Intake, IV Titration 600 600 Amount Sodium Chloride 0.9% 1, 600 600 000 ml @ 75 mls/hr IV . [id number] [facility] Rx#:[id number] Oral 350 240 Output: Urine 800 Other: Voiding Method Urinal Urinal - Constitutional General appearance: average body habitus, cooperative, mild distress - EENT Eyes: anicteric sclerae, EOMI, normal appearance ENT: normal oropharynx - Neck Neck: no lymphadenopathy - Respiratory Respiratory: left: diminished (base), bilateral: CTA - Cardiovascular Heart sounds: normal: S1, S2 Abnormal Heart Sounds: other (extra beats noted) - Gastrointestinal General gastrointestinal: normal bowel sounds, tenderness Localized gastrointestinal: tender: RUQ, LLQ - Neurologic Neurologic: CNII-XII intact - Musculoskeletal Musculoskeletal: strength equal bilaterally - Psychiatric Psychiatric: A&O x's 3, appropriate affect, intact judgment & insight Results CBC & Chem 7: 09/19/17 08:42 09/19/17 08:42 Labs: Abnormal Lab Results - Last 24 Hours (Table) 09/18/17 09/19/17 09/19/17 Range/Units 08:05 08:42 08:42 WBC 11.0 H (3.8-10.6) k/uL RBC 3.77 L (4.30-5.90) m/uL Hgb 10.2 L (13.0-17.5) gm/dL Hct 33.2 L (39.0-53.0) % MCHC 30.6 L (31.0-37.0) g/dL Chloride 108 H 111 H (98-107) mmol/L Carbon Dioxide 17 L 15 L (22-30) mmol/L BUN 36 H 35 H (9-20) mg/dL Creatinine 2.72 H 2.55 H (0.66-1.25) mg/dL Glucose 107 H 247 H (74-99) mg/dL Calcium 6.8 L 7.3 L (8.4-10.2) mg/dL Alkaline Phosphatase 299 H 286 H (38-126) U/L Total Protein 5.2 L 5.5 L (6.3-8.2) g/dL Albumin 2.7 L 2.9 L (3.5-5.0) g/dL Microbiology - Last 24 Hours (Table) 09/18/17 15:00 Gram Stain - Final Sputum Sputum Culture - Final 09/17/17 16:38 Blood Culture - Preliminary Blood No Growth after 24 hours 09/17/17 15:07 Blood Culture - Preliminary Blood No Growth after 24 hours Chest x-ray: report reviewed Assessment and Plan (1) Exertional dyspnea Narrative/Plan: Pulmonary and ID following. When I first met pt he was in tears because his breathing was so labored, he could not finish a sentence and his cough was nagging and nearly constant. His breathing symptoms have actually improved since receiving immunotherapy. Case was discussed with ID, suspect a pneumonia so pt will be treated for the same and see how pt improves. Current Visit: Yes Status: Acute Priority: High Code(s): R06.09 - OTHER FORMS OF DYSPNEA SNOMED Code(s): 35959364 (2) Metastatic urothelial carcinoma Narrative/Plan: S/P 2 cycles of atezolizumab with improvements in symptoms of PEREZ and hematuria , pt agrees with this assessment. He thinks he would do better with some hydration after treatment so we will look into providing that for him. Treatment plan will continue as scheduled as long as he recovers adequately. Current Visit: Yes Status: Acute Priority: High Code(s): C79.10 - SECONDARY MALIGNANT NEOPLASM OF UNSPECIFIED URINARY ORGANS SNOMED Code(s): 75833079 (3) Hematuria Narrative/Plan: Pt states this is intermittent, he states it gets a little worse right after treatment then it slows down again, Pt will ensure he is voiding at least 4-5 times a day and report any feeling of bladder fullness Current Visit: Yes Status: Chronic Priority: Medium Code(s): R31.9 - HEMATURIA, UNSPECIFIED SNOMED Code(s): 52389437
[2017-09-19] MEDS ORDERED: VANCOMYCIN 1,500 MG in SODIUM CHLORIDE 0.9% 250 ML IVPB ONE (10:00)
--- NOTE | 2017-09-19 10:15 | XR ---
EXAMINATION TYPE: XR chest 2V DATE OF EXAM: 09/19/2017 COMPARISON: 09/17/2017 TECHNIQUE: PA and lateral views submitted. HISTORY: febrile FINDINGS: Small less than 1 cm nodules again noted within the left upper lobe. Coarsened interstitium with left lower lobe infiltrate and small left effusion. Heart size stable. No pneumothorax. IMPRESSION: 1. Left lower lobe infiltrate and small effusion. 2. Coarsened interstitium correlate for chronic interstitial lung disease, interstitial pneumonitis o r venous congestion.
[2017-09-19] MEDS: MULTIVITAMINS, THERA 1 EACH TAB PO SCH (11:16)
[2017-09-19] MEDS: LACTOBACILLUS ACIDOPH & BULGAR 1 EACH PACKET PO SCH (11:16)
[2017-09-19] MEDS: SODIUM BICARBONATE TAB 650 MG TAB PO SCH ×2 (14:05→21:17)
--- NOTE | 2017-09-19 15:11 | P.PN ---
Subjective Progress Note Date: 09/19/17 This is a 71-year-old male patient of Dr. Bird, Dr. Nunez, Dr. Fuentes, Dr. LORI Myles with history of CKD stage III, persistent hematuria secondary to urothelial renal cell carcinoma during his admission in 07/31/2017, from a liver biopsy, showing metastatic carcinoma showing a urothelial primary was kidneys,managed by Dr. Mayra Fuentes. He received his first immunotherapy using Atezolizumab (tecentriq)every 3 weeks. No other chemoradiation therapy offered, he got so weak, with increasing weight loss, and increasing shortness of breath, and was seen by yesterday in the office as a follow-up from recent hospitalization and the patient was directed to the hospital as a direct admission due to bilateral lower lobe pneumonia with increased shortness with an increased coughing and a temperature 103.1 because of the recent chemotherapy was admitted to the hospital for bilateral gram-negative pneumonia with sepsis. Patient was started on vancomycin as well as cefepime awaiting blood cultures as well as sputum culture. Previous diagnostic imaging included Patient underwent CT of the chest on that showed several mediastinotomy nodes, multiple small pulmonary nodules and a possible mass in the left kidney. A PET CAT scan was ordered on 07/26 which suggested suspicious bilateral pulmonary nodules along with increased activity in the region of mediastinal lymphadenopathy, hepatic mass and a mass in the upper pole of the left kidney with increased activity was also seen. liver core biopsy 07/31/2017, metastatic carcinoma suspicious for urothelial primary , 12/19/2016,Dr. Fuentes cystoscopy with cautery of polyp on dome of bladder and cautery of prostatic urethra presenting with gross hematuria. 09/18: Repeat white count is 12.0. BUN 36 and creatinine 2.72. Alkaline phosphatase is 299. Patient is seen and followed by Dr. Amor. Patient has been sleepy and tired today. No new complaints. 09/19: Repeat chest x-ray shows left lower lobe infiltrate and small effusion. Coarse and interstitial and correlate for chronic interstitial lung disease, interstitial pneumonitis or venous congestion. Patient is followed by oncology and Dr. Ordaz from infectious disease. Patient is continued on cefepime. Sputum culture is contaminated with oral jose a. Repeat sputum culture has not been obtained.. Blood culture is showing no growth on 2 specimens. CO2 is down to 15 and sodium bicarb added. IV fluids discontinued. BUN 35 and creatinine 2.55. Patient has had a bowel movement. He is currently on Solu- Medrol 40 mg every 12 hours. Patient does state that he has been up for a shower today and is now seen sitting in a chair. Objective - Vital Signs Vital signs: Vital Signs Temp 96.7 F L 09/19/17 07:00 Pulse 64 09/19/17 10:59 Resp 22 09/19/17 07:00 BP 156/67 09/19/17 08:20 Pulse Ox 95 09/19/17 07:07 Intake & Output 09/18/17 09/19/17 09/19/17 18:59 06:59 18:59 Intake Total 1550 240 Output Total 800 Balance 750 240 Weight 78.5 kg Intake: Intake, IV Titration 1200 Amount Sodium Chloride 0.9% 1, 1200 000 ml @ 75 mls/hr IV . [id number] [facility] Rx#:[id number] Oral 350 240 Output: Urine 800 Other: Voiding Method Urinal Urinal Urinal # Voids 2 # Bowel Movements 1 - Exam - Constitutional General appearance: average body habitus, mild distress - EENT Eyes: anicteric sclerae, EOMI, PERRLA, no ptosis, no scleral icterus, normal appearance ENT: hearing grossly normal, other (Thrush.), thrush Ears: bilateral: normal - Neck Neck: no lymphadenopathy, normal ROM, no rigidity, no stridor, no thyromegaly Carotids: bilateral: upstroke delayed Thyroid: bilateral: normal size - Respiratory Respiratory: bilateral: diminished, rhonchi, wheezing, negative: dullness, rales - Cardiovascular Rhythm: regular Heart sounds: normal: S1, S2 Abnormal Heart Sounds: systolic murmur, no S3 Gallop, no S4 Gallop, no click - Gastrointestinal General gastrointestinal: normal bowel sounds, soft, no splenomegaly, no tenderness, no umbilical hernia, no ventral hernia - Integumentary Integumentary: normal, normal turgor - Neurologic Neurologic: CNII-XII intact - Musculoskeletal Musculoskeletal: generalized weakness, strength equal bilaterally - Psychiatric Psychiatric: A&O x's 3, appropriate affect, intact judgment & insight - Labs CBC & Chem 7: 09/19/17 08:42 09/19/17 08:42 Labs: Abnormal Lab Results - Last 24 Hours (Table) 09/19/17 09/19/17 Range/Units 08:42 08:42 WBC 11.0 H (3.8-10.6) k/uL RBC 3.77 L (4.30-5.90) m/uL Hgb 10.2 L (13.0-17.5) gm/dL Hct 33.2 L (39.0-53.0) % MCHC 30.6 L (31.0-37.0) g/dL Chloride 111 H (98-107) mmol/L Carbon Dioxide 15 L (22-30) mmol/L BUN 35 H (9-20) mg/dL Creatinine 2.55 H (0.66-1.25) mg/dL Glucose 247 H (74-99) mg/dL Calcium 7.3 L (8.4-10.2) mg/dL Alkaline Phosphatase 286 H (38-126) U/L Total Protein 5.5 L (6.3-8.2) g/dL Albumin 2.9 L (3.5-5.0) g/dL Microbiology - Last 24 Hours (Table) 09/18/17 15:00 Gram Stain - Final Sputum Sputum Culture - Final 09/17/17 16:38 Blood Culture - Preliminary Blood No Growth after 24 hours 09/17/17 15:07 Blood Culture - Preliminary Blood No Growth after 24 hours Assessment and Plan Plan: 1. Bilateral lower lobe gram-negative pneumonias along with metastatic urothelial cancer to the lungs and possible from embolic disease. Continue patient on Lovenox 80 mg subcutaneously every 24 hours, continue cefepime, pulmonary consultation as well as ID consult, continue oxygen support, continue DuoNeb 3 mg nebulization 4 times every day, continue Pulmicort nebulization twice every day, continue patient on Tussionex 5 mL orally twice every day, continue Mucinex 1200 mg orally twice every day, monitor the patient very closely. Check blood cultures as well as sputum culture. 2. Thrush. Start the patient on nystatin swish and swallow 5 mL orally 3 times every day . 3. metastatic urothelial kidney carcinoma . Patient did receive 2 doses of Tecentriq last dose was yesterday. 4. Bilateral hydronephrosis with hematuria, postobstructive uropathy noted with acute on chronic kidney failure . 5. Acute kidney injury with chronic kidney disease stage IV. Monitor the patient CMP. 6. BPH status post TURP . Stable at this time. 7. Generalized anxiety disorder. Currently on Xanax. 8. Personal history of MRSA resolved June 2017 located right wrist. Stable. 9. New diagnosis of major depression. Continue current management. 10. Right lower extremity DVT. Continue Lovenox 80 mg subcutaneously every 24 hours. 11. DVT prophylaxis. Continue patient on Lovenox 80 mg subcutaneously every 24 hours. 12. GI prophylaxis. Continue Pepcid 20 mg orally twice every day. 13. Admit to inpatient. Estimate length of stay 2 midnights. Discharge plan: Most likely return home Impression and plan of care have been directed as dictated by the signing physician. Shannan Vail nurse practitioner acting as scribe for signing physician.
--- NOTE | 2017-09-19 16:25 | P.PN ---
Subjective Progress Note Date: 09/19/17 Principal diagnosis: Sepsis Patient seen and examined with his at bedside. The patient is complaining of continued cough. He states he is having a hard time expectorating his sputum. He feels that it is very thick and difficult to bring up. He denies fevers and chills. He states overall he is feeling much better. Objective - Vital Signs Vital signs: Vital Signs Temp 97.2 F L 09/19/17 15:00 Pulse 68 09/19/17 15:22 Resp 20 09/19/17 15:00 BP 142/71 09/19/17 15:00 Pulse Ox 94 L 09/19/17 15:00 Intake & Output 09/18/17 09/19/17 09/19/17 18:59 06:59 18:59 Intake Total 1550 240 Output Total 800 Balance 750 240 Weight 78.5 kg Intake: Intake, IV Titration 1200 Amount Sodium Chloride 0.9% 1, 1200 000 ml @ 75 mls/hr IV . [id number] [facility] Rx#:[id number] Oral 350 240 Output: Urine 800 Other: Voiding Method Urinal Urinal Urinal # Voids 2 2 # Bowel Movements 1 - Exam GENERAL EXAM: Alert, comfortable in no apparent distress. HEAD: Normocephalic. EYES: Normal reaction of pupils, equal size. NOSE: Clear with pink turbinates. THROAT: No erythema or exudates. NECK: No masses, no JVD. CHEST: No chest wall deformity. LUNGS: Lungs noted to be diminished with some expiratory wheezing throughout.. CVS: S1 and S2 normal with no audible mumurs, regular rhythm. ABDOMEN: No hepatosplenomegaly, normal bowel sounds, no guarding or rigidity. EXTREMITIES: No edema noted, pedal pulses palpable. CENTRAL NERVOUS SYSTEM: No focal deficits, tone is normal in all 4 extremities. - Labs CBC & Chem 7: 09/19/17 08:42 09/19/17 08:42 Labs: Abnormal Lab Results - Last 24 Hours (Table) 09/19/17 09/19/17 Range/Units 08:42 08:42 WBC 11.0 H (3.8-10.6) k/uL RBC 3.77 L (4.30-5.90) m/uL Hgb 10.2 L (13.0-17.5) gm/dL Hct 33.2 L (39.0-53.0) % MCHC 30.6 L (31.0-37.0) g/dL Chloride 111 H (98-107) mmol/L Carbon Dioxide 15 L (22-30) mmol/L BUN 35 H (9-20) mg/dL Creatinine 2.55 H (0.66-1.25) mg/dL Glucose 247 H (74-99) mg/dL Calcium 7.3 L (8.4-10.2) mg/dL Alkaline Phosphatase 286 H (38-126) U/L Total Protein 5.5 L (6.3-8.2) g/dL Albumin 2.9 L (3.5-5.0) g/dL Microbiology - Last 24 Hours (Table) 09/19/17 11:45 Gram Stain - Final Sputum Sputum Culture - Final 09/18/17 15:00 Gram Stain - Final Sputum Sputum Culture - Final 09/17/17 16:38 Blood Culture - Preliminary Blood No Growth after 24 hours 09/17/17 15:07 Blood Culture - Preliminary Blood No Growth after 24 hours Assessment and Plan Assessment: Sepsis Bilateral pneumonia, suspect mixed bacterial, healthcare acquired Acute exacerbation of COPD Urothelial cancer with metastatic disease disease to the lungs and liver Immunocompromise secondary to chemotherapy treatment Generalized weakness CKD 4 Hematuria Severe depression Supplemental oxygen to maintain oxygen saturations greater than 90% currently on room air DuoNeb and Pulmicort Antibiotics cefepime and Vanco consult ID Solu-Medrol Incentive spirometer and pulmonary hygiene Repeat chest x-ray and labs in the morning Obtain sputum culture Consult oncology, has multiple questions in regards to the current chemotherapy treatment, and requests oncology on board Blood cultures pending GI and DVT prophylaxis Flutter and Mucomyst nebs
[2017-09-19] MEDS: MIRTAZAPINE 15 MG TAB PO SCH (18:40)
[2017-09-19 18:58] LABS: Appearance,Urine Cloudy (Clear); Bacteria,Urine Rare /hpf; Bilirubin,Urine Negative (Negative); Blood,Urine Large (Negative); Color,Urine Yellow; Glucose,Urine (UA) 3+ (Negative); Granular Casts,Urine 8 /lpf (0); Ketones,Urine Negative (Negative); Leukocyte Esterase,Urine Negative (Negative); Mucus,Urine Rare /hpf; Nitrite,Urine Negative (Negative); PH, Urine 5.5 (5.0-8.0); Protein,Urine 1+ (Negative); RBC,Urine >182 /hpf (0-5); Specific Gravity,Urine 1.014 (1.001-1.035); Urobilinogen,Urine <2.0 mg/dL (<2.0); WBC,Urine 5 /hpf (0-5)
[2017-09-19] MEDS: ACETYLCYSTEINE 800 MG/4 ML VIAL INHALATION SCH (19:26)
[2017-09-19] MEDS: ENOXAPARIN 80 MG/0.8 ML SYRINGE SQ SCH (21:17)
--- NOTE | 2017-09-19 21:42 | PN ---
PROGRESS NOTE DATE OF SERVICE: 09/19/2017. REASON FOR FOLLOWUP: Pneumonia possible gram negative. INTERVAL HISTORY: The patient is afebrile. Has been breathing comfortably. Cough seems to have slightly decreased in intensity and more productive now. No chest pain. No abdominal pain and no diarrhea. EXAMINATION: Blood pressure 142/71 with a pulse 66, temperature 97.2. He is 94% on room air. General description is an elderly male up in the bed, up in no distress. Respiratory system unlabored breathing. Some coarse breath sounds in the bases. No wheeze. Heart S1, S2. Regular rate and rhythm. Abdomen soft. No tenderness. LABS: Hemoglobin 10.2, white count 11,000, BUN of 35, creatinine is 2.55. Sputum is currently pending. Blood culture so far negative. DIAGNOSTIC IMPRESSION AND PLAN: The patient with left lobe pneumonia in a patient who recently did received his immunotherapy for the underlying malignancy with immune deficiency and concern for possible gram- negative. The patient this time will continue on the cefepime while waiting for the sputum culture to finalize. Continue supportive care. MMODL / IJN: [id number] / MTDBishop
[2017-09-20] MEDS: IPRATROPIUM-ALBUTEROL 3 ML NEB INHALATION SCH ×4 (06:54→21:34)
[2017-09-20] MEDS: BUDESONIDE 0.5 MG/2 ML NEBU INHALATION SCH ×2 (06:54→21:39)
[2017-09-20] MEDS: ACETYLCYSTEINE 800 MG/4 ML VIAL INHALATION SCH ×3 (06:54→21:34)
[2017-09-20] MEDS: METHYLPHENIDATE HCL 5 MG TAB PO SCH ×2 (08:05→11:29)
[2017-09-20] MEDS: AMMONIUM LACTATE 12% LOTION 225 GM BTL TOPICAL SCH (08:06)
[2017-09-20] MEDS: ALPRAZolam 0.25 MG TAB PO SCH ×2 (08:06→20:34)
[2017-09-20] MEDS: CEFEPIME 2 GM in SODIUM CHLORIDE 0.9% 50 ML IVPB SCH (08:09)
[2017-09-20] MEDS: CHLORPHEN-HYDROcod 8-10mg/5ml 5 ML ORAL.SYRG PO SCH ×2 (08:09→20:34)
[2017-09-20] MEDS: methylPREDNISolone SOD SUCCI 40 MG/ML 1 ML VIAL IV SCH ×2 (08:10→22:30)
[2017-09-20] MEDS: guaiFENesin 600 MG TABLET.ER PO SCH ×2 (08:10→20:35)
[2017-09-20] MEDS: FLUTICASONE 50MCG/SPRAY NASAL 16GM EA NOSTRIL SCH ×2 (08:10→20:36)
[2017-09-20] MEDS: SODIUM BICARBONATE TAB 650 MG TAB PO SCH ×2 (08:10→20:35)
[2017-09-20] MEDS: NYSTATIN 100,000 UNIT/ML SUSP 500,000 UNIT/5 ML CUP PO SCH ×4 (08:10→22:47)
[2017-09-20] MEDS: FAMOTIDINE 20 MG TAB PO SCH (08:10)
[2017-09-20] MEDS: MULTIVITAMINS, THERA 1 EACH TAB PO SCH (08:11)
[2017-09-20 08:51] LABS: HCT 31.8 % (39.0-53.0); HGB 9.8 gm/dL (13.0-17.5); Hypochromasia Slight; MCH 26.7 pg (25.0-35.0); MCHC 30.9 g/dL (31.0-37.0); MCV 86.6 fL (80.0-100.0); Mean Platelet Volume 7.2; Platelet Count 417 k/uL (150-450); RBC 3.67 m/uL (4.30-5.90); RDW 15.4 % (11.5-15.5); WBC 15.3 k/uL (3.8-10.6)
--- NOTE | 2017-09-20 09:35 | P.PN ---
Subjective Progress Note Date: 09/20/17 Principal diagnosis: Sepsis Patient is being seen examined and evaluated today with medical surgical unit. The patient remains in chemo precautions. Patient states that he continues to have shortness of breath with exertion however it is improving. He states he likes the Mucomyst breathing treatment that was added yesterday. He continues to have shortness of breath with exertion and activity however this is improving. He is using his incentive spirometer and pulling volumes of the thousand without. Patient's repeat sputum culture is currently pending. He is afebrile denies any further complaints. Objective - Vital Signs Vital signs: Vital Signs Temp 96.8 F L 09/20/17 07:00 Pulse 56 L 09/20/17 07:18 Resp 16 09/20/17 07:00 BP 137/69 09/20/17 07:00 Pulse Ox 96 09/20/17 07:00 Intake & Output 09/19/17 09/20/17 09/20/17 18:59 06:59 18:59 Intake Total 240 300 Balance 240 300 Intake: Oral 240 300 Other: Voiding Method Toilet Toilet Urinal # Voids 2 1 1 # Bowel Movements 0 - Exam GENERAL EXAM: Alert, comfortable in no apparent distress. HEAD: Normocephalic. EYES: Normal reaction of pupils, equal size. NOSE: Clear with pink turbinates. THROAT: No erythema or exudates. NECK: No masses, no JVD. CHEST: No chest wall deformity. LUNGS: Lungs noted to be diminished with some expiratory wheezing throughout.. CVS: S1 and S2 normal with no audible mumurs, regular rhythm. ABDOMEN: No hepatosplenomegaly, normal bowel sounds, no guarding or rigidity. EXTREMITIES: No edema noted, pedal pulses palpable. CENTRAL NERVOUS SYSTEM: No focal deficits, tone is normal in all 4 extremities. - Labs CBC & Chem 7: 09/20/17 08:10 09/19/17 08:42 Labs: Abnormal Lab Results - Last 24 Hours (Table) 09/19/17 09/19/17 09/20/17 Range/Units 08:42 15:26 08:10 WBC 15.3 H (3.8-10.6) k/uL RBC 3.67 L (4.30-5.90) m/uL Hgb 9.8 L (13.0-17.5) gm/dL Hct 31.8 L (39.0-53.0) % MCHC 30.9 L (31.0-37.0) g/dL Chloride 111 H (98-107) mmol/L Carbon Dioxide 15 L (22-30) mmol/L BUN 35 H (9-20) mg/dL Creatinine 2.55 H (0.66-1.25) mg/dL Glucose 247 H (74-99) mg/dL Calcium 7.3 L (8.4-10.2) mg/dL Alkaline Phosphatase 286 H (38-126) U/L Total Protein 5.5 L (6.3-8.2) g/dL Albumin 2.9 L (3.5-5.0) g/dL Urine Protein 1+ H (Negative) Urine Glucose (UA) 3+ H (Negative) Urine Blood Large H (Negative) Urine RBC >182 H (0-5) /hpf Urine Bacteria Rare H (None) /hpf Urine Mucus Rare H (None) /hpf Microbiology - Last 24 Hours (Table) 09/19/17 19:00 Gram Stain - Preliminary Sputum Sputum Culture - Preliminary 09/19/17 15:26 Urine Culture - Preliminary Urine,Voided 09/17/17 16:38 Blood Culture - Preliminary Blood No Growth after 48 hours 09/17/17 15:07 Blood Culture - Preliminary Blood No Growth after 48 hours 09/19/17 11:45 Gram Stain - Final Sputum Sputum Culture - Final 09/18/17 15:00 Gram Stain - Final Sputum Sputum Culture - Final Assessment and Plan Assessment: Sepsis Bilateral pneumonia, suspect mixed bacterial, healthcare acquired Acute exacerbation of COPD Urothelial cancer with metastatic disease disease to the lungs and liver Immunocompromise secondary to chemotherapy treatment Generalized weakness CKD 4 Hematuria Severe depression Supplemental oxygen to maintain oxygen saturations greater than 90% currently on room air DuoNeb and Pulmicort Antibiotics cefepime, consult ID Solu-Medrol Incentive spirometer and pulmonary hygiene Repeat sputum culture pending Consult oncology, has multiple questions in regards to the current chemotherapy treatment, and requests oncology on board Blood cultures pending GI and DVT prophylaxis Flutter and Mucomyst nebs I performed an examination of the patient and discussed their management with the nurse practitioner. I have reviewed the nurse practitioner's note and agree with the documented findings and plan of care.
[2017-09-20 09:58] LABS: Calcium 7.8 mg/dL (8.4-10.2); Potassium 4.8 mmol/L (3.5-5.1); Total Bilirubin 0.3 mg/dL (0.2-1.3); Total Protein 5.5 g/dL (6.3-8.2)
[2017-09-20 10:31] LABS: Vancomycin,Random 5.9 ug/mL
[2017-09-20] MEDS: LACTOBACILLUS ACIDOPH & BULGAR 1 EACH PACKET PO SCH (11:29)
--- NOTE | 2017-09-20 14:07 | P.PN ---
Subjective Progress Note Date: 09/20/17 This is a 71-year-old male patient of Dr. Bird, Dr. Nunez, Dr. Fuentes, Dr. LORI Myles with history of CKD stage III, persistent hematuria secondary to urothelial renal cell carcinoma during his admission in 07/31/2017, from a liver biopsy, showing metastatic carcinoma showing a urothelial primary was kidneys,managed by Dr. Mayra Fuentes. He received his first immunotherapy using Atezolizumab (tecentriq)every 3 weeks. No other chemoradiation therapy offered, he got so weak, with increasing weight loss, and increasing shortness of breath, and was seen by yesterday in the office as a follow-up from recent hospitalization and the patient was directed to the hospital as a direct admission due to bilateral lower lobe pneumonia with increased shortness with an increased coughing and a temperature 103.1 because of the recent chemotherapy was admitted to the hospital for bilateral gram-negative pneumonia with sepsis. Patient was started on vancomycin as well as cefepime awaiting blood cultures as well as sputum culture. Previous diagnostic imaging included Patient underwent CT of the chest on that showed several mediastinotomy nodes, multiple small pulmonary nodules and a possible mass in the left kidney. A PET CAT scan was ordered on 07/26 which suggested suspicious bilateral pulmonary nodules along with increased activity in the region of mediastinal lymphadenopathy, hepatic mass and a mass in the upper pole of the left kidney with increased activity was also seen. liver core biopsy 07/31/2017, metastatic carcinoma suspicious for urothelial primary , 12/19/2016,Dr. Fuentes cystoscopy with cautery of polyp on dome of bladder and cautery of prostatic urethra presenting with gross hematuria. 09/18: Repeat white count is 12.0. BUN 36 and creatinine 2.72. Alkaline phosphatase is 299. Patient is seen and followed by Dr. Amor. Patient has been sleepy and tired today. No new complaints. 09/19: Repeat chest x-ray shows left lower lobe infiltrate and small effusion. Coarse and interstitial and correlate for chronic interstitial lung disease, interstitial pneumonitis or venous congestion. Patient is followed by oncology and Dr. Ordaz from infectious disease. Patient is continued on cefepime. Sputum culture is contaminated with oral jose a. Repeat sputum culture has not been obtained.. Blood culture is showing no growth on 2 specimens. CO2 is down to 15 and sodium bicarb added. IV fluids discontinued. BUN 35 and creatinine 2.55. Patient has had a bowel movement. He is currently on Solu- Medrol 40 mg every 12 hours. Patient does state that he has been up for a shower today and is now seen sitting in a chair. 09/20: Patient is sitting up in bed eating his lunch is feeling better, he continues to have some coughing minimal phlegm production, he denies any chest pain less short of breath he denies any abdominal pain no nausea or vomiting he had a small bowel movement. Objective - Vital Signs Vital signs: Vital Signs Temp 96.8 F L 09/20/17 07:00 Pulse 56 L 09/20/17 07:18 Resp 16 09/20/17 07:00 BP 137/69 09/20/17 07:00 Pulse Ox 96 09/20/17 07:00 Intake & Output 09/19/17 09/20/17 09/20/17 18:59 06:59 18:59 Intake Total 240 300 Balance 240 300 Intake: Oral 240 300 Other: Voiding Method Toilet Toilet Urinal # Voids 2 1 1 # Bowel Movements 0 - Exam - Constitutional General appearance: average body habitus, mild distress - EENT Eyes: anicteric sclerae, EOMI, PERRLA, no ptosis, no scleral icterus, normal appearance ENT: hearing grossly normal, other (Thrush.), thrush Ears: bilateral: normal - Neck Neck: no lymphadenopathy, normal ROM, no rigidity, no stridor, no thyromegaly Carotids: bilateral: upstroke delayed Thyroid: bilateral: normal size - Respiratory Respiratory: bilateral: diminished, rhonchi, wheezing, negative: dullness, rales - Cardiovascular Rhythm: regular Heart sounds: normal: S1, S2 Abnormal Heart Sounds: systolic murmur, no S3 Gallop, no S4 Gallop, no click - Gastrointestinal General gastrointestinal: normal bowel sounds, soft, no splenomegaly, no tenderness, no umbilical hernia, no ventral hernia - Integumentary Integumentary: normal, normal turgor - Neurologic Neurologic: CNII-XII intact - Musculoskeletal Musculoskeletal: generalized weakness, strength equal bilaterally - Psychiatric Psychiatric: A&O x's 3, appropriate affect, intact judgment & insight - Labs CBC & Chem 7: 09/20/17 08:10 09/20/17 08:10 Labs: Abnormal Lab Results - Last 24 Hours (Table) 09/19/17 09/20/17 Range/Units 15:26 08:10 WBC 15.3 H (3.8-10.6) k/uL RBC 3.67 L (4.30-5.90) m/uL Hgb 9.8 L (13.0-17.5) gm/dL Hct 31.8 L (39.0-53.0) % MCHC 30.9 L (31.0-37.0) g/dL Urine Protein 1+ H (Negative) Urine Glucose (UA) 3+ H (Negative) Urine Blood Large H (Negative) Urine RBC >182 H (0-5) /hpf Urine Bacteria Rare H (None) /hpf Urine Mucus Rare H (None) /hpf Microbiology - Last 24 Hours (Table) 09/19/17 19:00 Gram Stain - Preliminary Sputum Sputum Culture - Preliminary 09/19/17 15:26 Urine Culture - Preliminary Urine,Voided 09/17/17 16:38 Blood Culture - Preliminary Blood No Growth after 48 hours 09/17/17 15:07 Blood Culture - Preliminary Blood No Growth after 48 hours 09/19/17 11:45 Gram Stain - Final Sputum Sputum Culture - Final 09/18/17 15:00 Gram Stain - Final Sputum Sputum Culture - Final Assessment and Plan Assessment: Assessment and Plan Plan: 1. Bilateral lower lobe gram-negative pneumonias along with metastatic urothelial cancer to the lungs and possible from embolic disease. Continue patient on Lovenox 80 mg subcutaneously every 24 hours, continue cefepime, continue oxygen support, continue DuoNeb 3 mg nebulization 4 times every day, continue Pulmicort nebulization twice every day, continue patient on Tussionex 5 mL orally twice every day, continue Mucinex 1200 mg orally twice every day, monitor the patient very closely. Did use Mucomyst today for first time. 2. Thrush. Start the patient on nystatin swish and swallow 5 mL orally 3 times every day . 3. metastatic urothelial kidney carcinoma . Patient did receive 2 doses of Tecentriq last dose was yesterday. 4. Bilateral hydronephrosis with hematuria, postobstructive uropathy noted with acute on chronic kidney failure . 5. Acute kidney injury with chronic kidney disease stage IV. Monitor the patient CMP. 6. BPH status post TURP . Stable at this time. 7. Generalized anxiety disorder. Currently on Xanax. 8. Personal history of MRSA resolved June 2017 located right wrist. Stable. 9. New diagnosis of major depression. Continue current management. 10. Right lower extremity DVT. Continue Lovenox 80 mg subcutaneously every 24 hours. 11. DVT prophylaxis. Continue patient on Lovenox 80 mg subcutaneously every 24 hours. 12. GI prophylaxis. Continue Pepcid 20 mg orally twice every day.
[2017-09-20] MEDS: MIRTAZAPINE 15 MG TAB PO SCH (17:41)
--- NOTE | 2017-09-20 20:13 | PN ---
PROGRESS NOTE DATE OF SERVICE: 09/20/2016. REASON FOR FOLLOWUP: Pneumonia. INTERVAL HISTORY: The patient is afebrile, has been slightly comfortable. He did have a cough which is getting now more productive. No hemoptysis. No chest pain. No nausea, vomiting. No abdominal pain and no diarrhea. EXAMINATION: Blood pressure 150/82 with a pulse of 54, temperature of 97.2. He is 92% on room air. General description is an elderly male lying in bed in no distress. RESPIRATORY SYSTEM: Unlabored breathing. Some coarse breath sounds at the bases. No wheeze. HEART: S1, S2. Regular rate and rhythm. ABDOMEN: Soft. No tenderness. LABS: White count slightly jumped to 15.3 with a BUN of 38, creatinine is 2.58. Sputum culture has negative so far. Blood culture has been negative so far. DIAGNOSTIC IMPRESSION AND PLAN: Patient with left lower lobe pneumonia, question for possible gram-negative. He is currently covered with cefepime. That will be continued. Did have slight jump in the white count, could be related to the steroids the patient is already on, as clinically no evidence of any worsening condition and adjusting antibiotic further based on his clinical response. Continue supportive care. MMODL / IJN: [id number] /
[2017-09-20] MEDS: ENOXAPARIN 80 MG/0.8 ML SYRINGE SQ SCH (20:36)
[2017-09-21] MEDS: IPRATROPIUM-ALBUTEROL 3 ML NEB INHALATION SCH ×4 (07:19→19:33)
[2017-09-21] MEDS: BUDESONIDE 0.5 MG/2 ML NEBU INHALATION SCH ×2 (07:20→19:33)
[2017-09-21 08:21] LABS: Basophils % (A) 0 %; Eosinophils % (A) 0 %; HCT 31.6 % (39.0-53.0); HGB 9.8 gm/dL (13.0-17.5); Hypochromasia Slight; Lymphocytes # (A) 0.7 k/uL (1.0-4.8); Lymphocytes % (A) 5 %; MCH 27.1 pg (25.0-35.0); MCHC 30.9 g/dL (31.0-37.0); MCV 87.5 fL (80.0-100.0); Mean Platelet Volume 7.1; Monocytes # (A) 0.4 k/uL (0-1.0); Monocytes % (A) 3 %; Neutrophils # (A) 12.8 k/uL (1.3-7.7); Neutrophils % (A) 92 %; Platelet Count 426 k/uL (150-450); RBC 3.61 m/uL (4.30-5.90); RDW 15.5 % (11.5-15.5); WBC 13.9 k/uL (3.8-10.6)
[2017-09-21 08:36] LABS: Calcium 8.2 mg/dL (8.4-10.2); Magnesium 2.3 mg/dL (1.6-2.3); Potassium 5.4 mmol/L (3.5-5.1); Total Bilirubin 0.3 mg/dL (0.2-1.3); Total Protein 5.4 g/dL (6.3-8.2)
[2017-09-21] MEDS: METHYLPHENIDATE HCL 5 MG TAB PO SCH ×2 (09:36→13:06)
[2017-09-21] MEDS: ALPRAZolam 0.25 MG TAB PO SCH ×2 (09:36→21:54)
[2017-09-21] MEDS: AMMONIUM LACTATE 12% LOTION 225 GM BTL TOPICAL SCH (09:37)
[2017-09-21] MEDS: CEFEPIME 2 GM in SODIUM CHLORIDE 0.9% 50 ML IVPB SCH (09:37)
[2017-09-21] MEDS: FAMOTIDINE 20 MG TAB PO SCH (09:37)
[2017-09-21] MEDS: NYSTATIN 100,000 UNIT/ML SUSP 500,000 UNIT/5 ML CUP PO SCH ×4 (09:38→21:54)
[2017-09-21] MEDS: FLUTICASONE 50MCG/SPRAY NASAL 16GM EA NOSTRIL SCH ×2 (09:38→21:53)
[2017-09-21] MEDS: guaiFENesin 600 MG TABLET.ER PO SCH ×2 (09:38→21:54)
[2017-09-21] MEDS: methylPREDNISolone SOD SUCCI 40 MG/ML 1 ML VIAL IV SCH (09:38)
[2017-09-21] MEDS: SODIUM BICARBONATE TAB 650 MG TAB PO SCH ×2 (09:39→21:53)
[2017-09-21] MEDS: CHLORPHEN-HYDROcod 8-10mg/5ml 5 ML ORAL.SYRG PO SCH ×2 (09:48→21:54)
[2017-09-21] MEDS: traMADol 50 MG TAB PO PRN (09:48)
--- NOTE | 2017-09-21 10:08 | P.PN ---
Subjective Progress Note Date: 09/21/17 Principal diagnosis: Sepsis Patient seen and examined. Patient states he is feeling much better today. Although he notes that he gets very short of breath with exertion. His cough is improving. He has been able to expectorate sputum. He denies fevers and chills. Objective - Vital Signs Vital signs: Vital Signs Temp 97.2 F L 09/20/17 15:00 Pulse 60 09/21/17 07:33 Resp 18 09/20/17 22:05 BP 165/82 09/20/17 22:05 Pulse Ox 100 09/20/17 22:05 Intake & Output 09/20/17 09/21/17 09/21/17 18:59 06:59 18:59 Other: Voiding Method Toilet Toilet # Voids 2 2 1 - Exam GENERAL EXAM: Alert, comfortable in no apparent distress. HEAD: Normocephalic. EYES: Normal reaction of pupils, equal size. NOSE: Clear with pink turbinates. THROAT: No erythema or exudates. NECK: No masses, no JVD. CHEST: No chest wall deformity. LUNGS: Lungs noted to be diminished with some expiratory wheezing throughout.. CVS: S1 and S2 normal with no audible mumurs, regular rhythm. ABDOMEN: No hepatosplenomegaly, normal bowel sounds, no guarding or rigidity. EXTREMITIES: No edema noted, pedal pulses palpable. CENTRAL NERVOUS SYSTEM: No focal deficits, tone is normal in all 4 extremities. - Labs CBC & Chem 7: 09/21/17 07:31 09/21/17 07:31 Labs: Abnormal Lab Results - Last 24 Hours (Table) 09/20/17 09/21/17 09/21/17 Range/Units 08:10 07:31 07:31 WBC 13.9 H (3.8-10.6) k/uL RBC 3.61 L (4.30-5.90) m/uL Hgb 9.8 L (13.0-17.5) gm/dL Hct 31.6 L (39.0-53.0) % MCHC 30.9 L (31.0-37.0) g/dL Neutrophils # 12.8 H (1.3-7.7) k/uL Lymphocytes # 0.7 L (1.0-4.8) k/uL Potassium 5.4 H (3.5-5.1) mmol/L Chloride 109 H 109 H (98-107) mmol/L Carbon Dioxide 19 L 20 L (22-30) mmol/L BUN 38 H 44 H (9-20) mg/dL Creatinine 2.58 H 2.51 H (0.66-1.25) mg/dL Glucose 154 H 124 H (74-99) mg/dL Calcium 7.8 L 8.2 L (8.4-10.2) mg/dL Alkaline Phosphatase 286 H 288 H (38-126) U/L Total Protein 5.5 L 5.4 L (6.3-8.2) g/dL Albumin 3.0 L 3.0 L (3.5-5.0) g/dL Microbiology - Last 24 Hours (Table) 09/19/17 15:26 Urine Culture - Final Urine,Voided 09/17/17 16:38 Blood Culture - Preliminary Blood No Growth after 72 hours 09/17/17 15:07 Blood Culture - Preliminary Blood No Growth after 72 hours 09/19/17 19:00 Gram Stain - Preliminary Sputum Sputum Culture - Preliminary Assessment and Plan Assessment: Sepsis Bilateral pneumonia, suspect mixed bacterial, healthcare acquired Acute exacerbation of COPD 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
[2017-09-21] MEDS: ACETYLCYSTEINE 800 MG/4 ML VIAL INHALATION SCH ×3 (11:14→19:33)
[2017-09-21] MEDS ORDERED: SODIUM POLYSTYRENE SULFONATE 15 GM/60 ML BOTTLE PO STA (12:25)
[2017-09-21] MEDS: LACTOBACILLUS ACIDOPH & BULGAR 1 EACH PACKET PO SCH (13:05)
[2017-09-21] MEDS: MULTIVITAMINS, THERA 1 EACH TAB PO SCH (13:06)
--- NOTE | 2017-09-21 13:10 | P.PN ---
Subjective Progress Note Date: 09/21/17 Principal diagnosis: Pneumonia Patient continued to improve slowly and gradually since admission stated that this morning was able to spit up some loose sputum patient feels all overall improved but still not quite back to baseline. The bedside including daughter and granddaughter and who reassured me that he was able to take shower on his own yesterday and felt much better. Patient is denying chest pain, nausea, vomiting, abdominal pain and said that he is back to normal with his appetite Objective - Vital Signs Vital signs: Vital Signs Temp 97.1 F L 09/21/17 07:00 Pulse 68 09/21/17 11:30 Resp 16 09/21/17 07:00 BP 138/76 09/21/17 07:00 Pulse Ox 95 09/21/17 07:00 Intake & Output 09/20/17 09/21/17 09/21/17 18:59 06:59 18:59 Other: Voiding Method Toilet Toilet # Voids 2 2 1 - Exam Gen.: in stated age, no acute distress Heart: Normal S1-S2 Lungs: Diminished bilaterally Abdomen: Soft, no tenderness, positive bowel sounds in all 4 quadrant no guarding or rebound Skin: No new rash Psych: Alert and oriented 3 Neuro: No focal deficit - Labs CBC & Chem 7: 09/21/17 07:31 09/21/17 07:31 Labs: Abnormal Lab Results - Last 24 Hours (Table) 09/21/17 09/21/17 Range/Units 07:31 07:31 WBC 13.9 H (3.8-10.6) k/uL RBC 3.61 L (4.30-5.90) m/uL Hgb 9.8 L (13.0-17.5) gm/dL Hct 31.6 L (39.0-53.0) % MCHC 30.9 L (31.0-37.0) g/dL Neutrophils # 12.8 H (1.3-7.7) k/uL Lymphocytes # 0.7 L (1.0-4.8) k/uL Potassium 5.4 H (3.5-5.1) mmol/L Chloride 109 H (98-107) mmol/L Carbon Dioxide 20 L (22-30) mmol/L BUN 44 H (9-20) mg/dL Creatinine 2.51 H (0.66-1.25) mg/dL Glucose 124 H (74-99) mg/dL Calcium 8.2 L (8.4-10.2) mg/dL Alkaline Phosphatase 288 H (38-126) U/L Total Protein 5.4 L (6.3-8.2) g/dL Albumin 3.0 L (3.5-5.0) g/dL Microbiology - Last 24 Hours (Table) 09/19/17 15:26 Urine Culture - Final Urine,Voided 09/17/17 16:38 Blood Culture - Preliminary Blood No Growth after 72 hours 09/17/17 15:07 Blood Culture - Preliminary Blood No Growth after 72 hours Assessment and Plan Assessment: 1. Left lower lobe pneumonia. We would continue cefepime continue aggressive breathing treatment and pulmonary hygiene. White blood count is still elevated but close to normal we will continue monitoring and continue IV antibiotics consider discharge once patient is hemodialysis stable. 2. Zestoretic urothelial cancer. We will continue supportive [place] and follow- up with hematology oncology recommendation. 3. DVT perplexes patients on Lovenox 80 milligram for concern of embolic disease we would discontinue current medication giving the chronic kidney disease and placed patient's on heparin instead. I would like to consult nephrology for further evaluation. 4. Chronic kidney disease. Baseline around 3 this morning creatinine is 2.5 I would like to follow up with nephrology recommendation consult that Dr. Workman who is aware with the condition. 5. Hyperkalemia. I would like to provide cachexia late on the. Blood work in the morning follow-up with nephrology recommendation. 6. Elevated white blood count management as above. 7. Serial debility and deconditioning will have PT OT evaluated the patient regarding discharge planning
[2017-09-21] MEDS ORDERED: traMADol 50 MG TAB PO PRN (14:27)
[2017-09-21] MEDS: HEPARIN SODIUM,PORCINE 5,000 UNIT/ML 1 ML VIAL SQ SCH ×2 (16:52→22:56)
[2017-09-21] MEDS: MIRTAZAPINE 15 MG TAB PO SCH (16:53)
--- NOTE | 2017-09-21 17:47 | PN ---
PROGRESS NOTE DATE OF SERVICE: 09/21/2017. REASON FOR FOLLOWUP: Pneumonia. INTERVAL HISTORY: The patient is afebrile. He is breathing slightly comfortably. He did have a cough. He is getting more productive now. No chest pain. No abdominal pain or any diarrhea. EXAMINATION: Blood pressure is 140/72 with a pulse of 94. Temperature 97.9. He is 93% on room air. General description is a elderly male up in the bed, up in no distress. RESPIRATORY SYSTEM: Unlabored breathing with coarse breath sounds bilaterally. Occasional wheeze. HEART: S1, S2. Regular rate and rhythm. ABDOMEN: Soft, no tenderness. LABS: Hemoglobin 9.8, white count 13.9 with a BUN of 44, creatinine is 2.51. Sputum is currently pending. Blood cultures have been negative. DIAGNOSTIC IMPRESSION AND PLAN: Patient with left lower lobe pneumonia. Cultures with possible positive gram negative. Waiting for the sputum culture to finalize to narrow down his antibiotics. Keep the patient on cefepime at this point and continue supportive care. Family present at bedside. Their questions were answered. MMODL / IJN: [id number] /
--- NOTE | 2017-09-21 19:02 | CONS ---
CONSULTATION REASON FOR CONSULT: Renal failure. HISTORY OF PRESENT ILLNESS: Patient is a 71-year-old male who was admitted to the hospital on 09/17/2017 with a weakness and fever. He was not feeling well. He was found to have bilateral pneumonia. Currently, he is maintained on antibiotics. Patient has a underlying history of urothelial renal cell cancer, which was diagnosed from a metastatic lesion in the liver. He was started on immunotherapy. Currently patient states he has had hematuria on and off. He has CKD stage III with a creatinine currently staying at about 2.5-2.6 mg/dL for baseline. The patient was mildly hyperkalemic today with a potassium of 5.4. He is currently maintained on IV antibiotics in form of cefepime and he is feeling better. PAST MEDICAL HISTORY: CKD stage IV as of December of 2016. Vertigo, shingles, post herpetic neuralgia. Trigeminal neuralgia, gastroesophageal reflux disease, BPH, diverticulosis, history of MRSA infection in foot and hand. PAST SURGICAL HISTORY: Cholecystectomy, prostatic surgery, TURP, colonoscopy, Achilles tendon repair, EGD, right knee arthroplasty with revision, bilateral cataract surgery. SOCIAL HISTORY: Negative for smoking, drug abuse or alcohol abuse. ALLERGIES: Include NORCO AND VICODIN. REVIEW OF SYSTEMS: As per HPI. Other systems negative on examination. MEDICATIONS: Medications at home prior to admission: Pepcid, Xanax, Pulmicort, Ultram, Lovenox, Ritalin, Mucinex, Remeron, prednisone. EXAMINATION: Patient is currently comfortable, awake, alert, oriented x3. He is not in any acute distress. Blood pressure is 140/72, heart rate is 72 per minute. He is afebrile. Examination of the heart: S1, S2. Examination lungs: Bilateral breath sounds are heard. Occasional wheezing is heard. Abdomen is soft, nontender. Examination lower extremity shows no significant edema. 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 Patient moving all 4 extremities. LAB: Show sodium 140, potassium 5.4, chloride 109, CO2 is 20, BUN 44, serum creatinine 2.5, hemoglobin 9.8 g/dL, calcium 8.2. ASSESSMENT: 1. Chronic kidney disease NKF stage IV, etiology is a secondary to nephrosclerosis. The patient could have an underlying GN. Also, he has a left renal mass. At this time we do not have labs prior to December of 2016. 2. Hyperkalemia associated with chronic kidney disease as well as hyperglycemia. Blood sugar had been high at 247 on 09/19. Subsequently, it has been about 150-120 mg/dL. The patient did receive 1 dose of Kayexalate. 3. Bilateral pneumonia, hospital-acquired. Maintained on cefepime. 4. Metastatic renal cell cancer, maintained on the immunotherapy which was started recently. PLAN: Maintain patient on low-potassium diet. Repeat labs in a.m. Avoid nephrotoxic agents. May continue with the sodium bicarb which will also help with the hyperkalemia. Thank you for this consultation. We will continue to follow the patient with you during his hospitalization. MMODL / IJN: [id number] /
[2017-09-22] MEDS: METHYLPHENIDATE HCL 5 MG TAB PO SCH ×2 (08:32→13:51)
[2017-09-22] MEDS: AMMONIUM LACTATE 12% LOTION 225 GM BTL TOPICAL SCH (08:33)
[2017-09-22] MEDS: HEPARIN SODIUM,PORCINE 5,000 UNIT/ML 1 ML VIAL SQ SCH ×2 (08:33→16:44)
[2017-09-22] MEDS: ALPRAZolam 0.25 MG TAB PO SCH ×2 (08:33→20:43)
[2017-09-22] MEDS: CEFEPIME 2 GM in SODIUM CHLORIDE 0.9% 50 ML IVPB SCH (08:33)
[2017-09-22] MEDS: CHLORPHEN-HYDROcod 8-10mg/5ml 5 ML ORAL.SYRG PO SCH ×2 (08:36→20:44)
[2017-09-22] MEDS: FAMOTIDINE 20 MG TAB PO SCH (08:36)
[2017-09-22] MEDS: guaiFENesin 600 MG TABLET.ER PO SCH ×2 (08:37→20:43)
[2017-09-22] MEDS: FLUTICASONE 50MCG/SPRAY NASAL 16GM EA NOSTRIL SCH ×2 (08:37→20:44)
[2017-09-22] MEDS: NYSTATIN 100,000 UNIT/ML SUSP 500,000 UNIT/5 ML CUP PO SCH ×4 (08:37→20:43)
[2017-09-22] MEDS: predniSONE 20 MG TAB PO SCH (08:39)
[2017-09-22] MEDS: SODIUM BICARBONATE TAB 650 MG TAB PO SCH ×2 (08:39→20:43)
[2017-09-22] MEDS: IPRATROPIUM-ALBUTEROL 3 ML NEB INHALATION SCH ×4 (08:40→20:54)
[2017-09-22] MEDS: BUDESONIDE 0.5 MG/2 ML NEBU INHALATION SCH ×2 (08:40→20:55)
[2017-09-22] MEDS: ACETYLCYSTEINE 800 MG/4 ML VIAL INHALATION SCH ×3 (08:40→20:54)
--- NOTE | 2017-09-22 10:29 | P.PN ---
Subjective Progress Note Date: 09/22/17 Principal diagnosis: HCAP Patient seen and examined. Patient states he is feeling much better today. He was able to ambulate in the hallway. He states he doesn't cough all night but he is coughing this morning. It is productive. He denies fevers or chills. He is hoping to go home soon. Objective - Vital Signs Vital signs: Vital Signs Temp 97.7 F 09/22/17 05:00 Pulse 88 09/22/17 09:03 Resp 16 09/22/17 09:03 BP 144/79 09/22/17 05:00 Pulse Ox 95 09/22/17 08:44 Intake & Output 09/21/17 09/22/17 09/22/17 18:59 06:59 18:59 Intake Total 1020 100 Balance 1020 100 Intake: Oral 1020 100 Other: Voiding Method Toilet # Voids 3 1 - Exam GENERAL EXAM: Alert, comfortable in no apparent distress. HEAD: Normocephalic. EYES: Normal reaction of pupils, equal size. NOSE: Clear with pink turbinates. THROAT: No erythema or exudates. NECK: No masses, no JVD. CHEST: No chest wall deformity. LUNGS: improving aeration, scattered crackles at the bases CVS: S1 and S2 normal with no audible mumurs, regular rhythm. ABDOMEN: No hepatosplenomegaly, normal bowel sounds, no guarding or rigidity. EXTREMITIES: No edema noted, pedal pulses palpable. CENTRAL NERVOUS SYSTEM: No focal deficits, tone is normal in all 4 extremities. 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
--- NOTE | 2017-09-22 11:16 | P.PN ---
Subjective Progress Note Date: 09/22/17 Principal diagnosis: Pneumonia Patient continued to improve slowly and gradually since admission stated that this morning was able to spit up some loose sputum patient feels all overall improved but still not quite back to baseline. The bedside including daughter and granddaughter and who reassured me that he was able to take shower on his own yesterday and felt much better. Patient is denying chest pain, nausea, vomiting, abdominal pain and said that he is back to normal with his appetite Objective - Vital Signs Vital signs: Vital Signs Temp 97.7 F 09/22/17 05:00 Pulse 88 09/22/17 09:03 Resp 16 09/22/17 09:03 BP 144/79 09/22/17 05:00 Pulse Ox 95 09/22/17 08:44 Intake & Output 09/21/17 09/22/17 09/22/17 18:59 06:59 18:59 Intake Total 1020 100 Balance 1020 100 Intake: Oral 1020 100 Other: Voiding Method Toilet # Voids 3 1 - Labs CBC & Chem 7: 09/21/17 07:31 09/21/17 07:31 Labs: Microbiology - Last 24 Hours (Table) 09/19/17 19:00 Gram Stain - Final Sputum Sputum Culture - Final 09/17/17 16:38 Blood Culture - Preliminary Blood No Growth after 96 hours 09/17/17 15:07 Blood Culture - Preliminary Blood No Growth after 96 hours
--- NOTE | 2017-09-22 11:18 | P.PN ---
Subjective Progress Note Date: 09/22/17 Principal diagnosis: Pneumonia Patient is improving overall up to the bathroom on his own steady on his feet tolerating diet still complaining of cough but stated that his shortness breath has improved significantly since yesterday and still able to cough up loose sputum Objective - Vital Signs Vital signs: Vital Signs Temp 97.7 F 09/22/17 05:00 Pulse 88 09/22/17 09:03 Resp 16 09/22/17 09:03 BP 144/79 09/22/17 05:00 Pulse Ox 95 09/22/17 08:44 Intake & Output 09/21/17 09/22/17 09/22/17 18:59 06:59 18:59 Intake Total 1020 100 Balance 1020 100 Intake: Oral 1020 100 Other: Voiding Method Toilet # Voids 3 1 - Exam Gen.: in stated age, no acute distress Heart: Normal S1-S2 Lungs: Diminished bilaterally Abdomen: Soft, no tenderness, positive bowel sounds in all 4 quadrant no guarding or rebound Skin: No new rash Psych: Alert and oriented 3 Neuro: No focal deficit - Labs CBC & Chem 7: 09/21/17 07:31 09/21/17 07:31 Labs: Microbiology - Last 24 Hours (Table) 09/19/17 19:00 Gram Stain - Final Sputum Sputum Culture - Final 09/17/17 16:38 Blood Culture - Preliminary Blood No Growth after 96 hours 09/17/17 15:07 Blood Culture - Preliminary Blood No Growth after 96 hours Assessment and Plan Assessment: 1. Left lower lobe pneumonia. We would continue cefepime continue aggressive breathing treatment and pulmonary hygiene. White blood count is still elevated but close to normal we will continue monitoring and continue IV antibiotics consider discharge once stable 2. Metastatic urothelial cancer. We will continue supportive Care and follow- up with hematology oncology recommendation. 3. DVT perplexes patients on Lovenox 80 milligram for concern of embolic disease we would discontinue current medication giving the chronic kidney disease and placed patient's on heparin instead. I would like to consult nephrology for further evaluation. 4. Chronic kidney disease. Baseline around 3 this morning creatinine is 2.5 I would like to follow up with nephrology recommendation consult that Dr. Workman who is aware with the condition. 5. Hyperkalemia. Patient had 2 bowel movements since yesterday and blood work is still pending this morning. 6. Elevated white blood count management as above. 7. Serial debility and deconditioning will have PT OT evaluated the patient regarding discharge planning
[2017-09-22 12:06] LABS: Basophils % (A) 0 %; Eosinophils % (A) 0 %; HCT 32.7 % (39.0-53.0); HGB 10.3 gm/dL (13.0-17.5); Hypochromasia Slight; Lymphocytes # (A) 0.7 k/uL (1.0-4.8); Lymphocytes % (A) 5 %; MCH 27.1 pg (25.0-35.0); MCHC 31.4 g/dL (31.0-37.0); MCV 86.4 fL (80.0-100.0); Monocytes # (A) 0.9 k/uL (0-1.0); Monocytes % (A) 6 %; Neutrophils # (A) 12.9 k/uL (1.3-7.7); Neutrophils % (A) 88 %; Platelet Count 389 k/uL (150-450); RBC 3.79 m/uL (4.30-5.90); RDW 15.5 % (11.5-15.5); WBC 14.6 k/uL (3.8-10.6)
[2017-09-22 12:14] LABS: Calcium 8.5 mg/dL (8.4-10.2); Potassium 4.2 mmol/L (3.5-5.1)
[2017-09-22] MEDS: MULTIVITAMINS, THERA 1 EACH TAB PO SCH (13:52)
[2017-09-22] MEDS: LACTOBACILLUS ACIDOPH & BULGAR 1 EACH PACKET PO SCH (13:52)
--- NOTE | 2017-09-22 14:36 | XR ---
EXAMINATION TYPE: XR chest 2V DATE OF EXAM: 09/22/2017 HISTORY: pneumonia. REFERENCE: Previous study dated 09/19/2017. FINDINGS: The patient's left lower lobe infiltrate persists. This is not significantly changed from p revious. There is an associated left effusion. The heart is not enlarged. There is coarse interstitia l change, unchanged from previous. IMPRESSION: 1. LEFT LOWER LOBE INFILTRATE. 2. COARSE INTERSTITIAL CHANGE. THIS HAS WORSENED FROM THE STUDY OF 07/30/2017. THIS MAY REPRESENT ATY PICAL PNEUMONIA SUPERIMPOSED UPON CHRONIC INTERSTITIAL CHANGE.
[2017-09-22] MEDS: MIRTAZAPINE 15 MG TAB PO SCH (16:44)
--- NOTE | 2017-09-22 16:55 | PN ---
PROGRESS NOTE Patient is seen for followup for acute kidney injury. Renal function has improved with serum creatinine down from 2.9 to about 2.5-2.4 mg/dL, which appears to be his baseline. The patient was admitted with pneumonia. He has been maintained on antibiotics. He was also mildly hyperkalemic. Currently, he feels well. He is off of the oxygen and wants to go home. EXAMINATION: Blood pressure 156/76, heart rate 100 per minute. He is afebrile. Examination of the heart S1, S2. Examination of the lungs bilateral breath sounds are heard. Abdomen is soft, nontender. Examination of the lower extremities shows no evidence of edema. FUNDS TRANSFER CLERK exam is grossly intact. LABS SHOW: Sodium 140, potassium 4.2, chloride 106, BUN 47, serum creatinine 2.42, hemoglobin 10.3 g/dL. ASSESSMENT: 1. Acute kidney injury secondary to pneumonia, currently improved. 2. Chronic kidney disease stage 4 with baseline creatinine about 2.5 mg/dL. The patient will need followup as outpatient. He does have metastatic renal cancer on the left kidney. 3. Metastatic renal cell cancer, maintained on immunotherapy, being followed by Oncology. PLAN: Patient is stable for discharge from Nephrology standpoint. He needs to follow up as outpatient and we will obtain his proteinuria workup as outpatient. MMODL / IJN: [id number] /
--- NOTE | 2017-09-22 23:12 | PN ---
PROGRESS NOTE DATE OF SERVICE: 09/22/2017. REASON FOR FOLLOWUP VISIT: Pneumonia, questionable gram-negative. INTERVAL HISTORY: The patient is afebrile. He has been breathing comfortably. Cough decreased in intensity and become more sputum but no hemoptysis. No chest pain. No abdominal pain. No diarrhea. EXAMINATION: Blood pressure 156/76 with a pulse of 100. Temperature 97.2. He is 94% on room air. General description is an elderly male up in the bed, up in no distress. Respiratory system: Unlabored breathing. Coarse breath sounds at the bases. No wheeze. Heart S1, S2 regular rate and rhythm. Abdomen soft, no tenderness. LABS: Hemoglobin 10.3, white count 14.6, BUN of 47, creatinine is 2.42. Sputum culture so far negative. DIAGNOSTIC IMPRESSION AND PLAN: Patient with left lobe pneumonia concerning for possible gram-negative, overall improvement on the cefepime. Recommend finish therapy with oral Avelox 400 daily for another week with close outpatient followup. Family present at bedside. Their questions were answered. MMODL / IJN: [id number] /
[2017-09-23] MEDS: HEPARIN SODIUM,PORCINE 5,000 UNIT/ML 1 ML VIAL SQ SCH ×2 (00:17→09:10)
--- NOTE | 2017-09-23 07:16 | P.CONS ---
History of Present Illness - Chief Complaint Medical debility - History of Present Illness I had the op to see patient for inpatient rehab consultation with regard to medical debility. He was admitted to [facility] September 17 known cancer with shortness of breath. Diagnoses bilateral pneumonia with history of MRSA. Seen by Dr. Amor for this. Also seen by Donya zamorano who notes metastatic urothelial cancer. I have just added PT and OT. Chest x-rays followed for at least left lower lobe infiltrate and coarse changes consistent with pneumonia. Previous functional history as elicited from patient: 71-year-old right-handed white male who is lives in one floor home with . does the cooking, laundry, driving. Patient retired. Describes independent with sitdown shower and gait without device. Dr. Bird is regular doctor. Family history of cancer in both parents. Review of Systems Review of systems: ENT: Denies sneezes or discharge. Eyes: Denies discharge or photophobia. Cardiac: Denies chest pain or palpitation. Pulmonary: Denies cough or shortness of breath. Gastrointestinal: Denies nausea, emesis, constipation, diarrhea. Genitourinary: Denies discharge or frequency. Musculoskeletal: Denies muscle or bone aches. Neurologic: Denies motor or sensory change. In fact, reports independent in room including bathroom. Endocrine: Denies shakes or sweats. Oncology: Denies cancers. Dermatologic: Denies rash, itching, pruritus. ALLERGY/immunology: Denies sneezes, rashes. Past Medical History Past Medical History: Cancer, GERD/Reflux, Hyperlipidemia, Osteoarthritis (OA), Prostate Disorder, Renal Disease Additional Past Medical History / Comment(s): vertigo,small hiatal henia, randy cataracts-lens implants, past randy retinal detatchments/lt eye scleral buckle, shinlges, post herpetic trigeminal neuralgia.brochitis constipation, eczema/ scalp, diverticulosis, colon polyps-benign,kidney stone,urinary retention, hematuria- urothelial cancer, per family "spots on liver, bones. pulmonary nodules; DVT right leg, possible PE in lungs per patient. History of Any Multi-Drug Resistant Organisms: MRSA Year Discovered:: stomach/arms MDRO Source:: 2011(per pt's ) Past Surgical History: Cholecystectomy, Orthopedic Surgery, Prostate Surgery Additional Past Surgical History / Comment(s): bx, colonoscopy w/bx, randy retinal sx(detatched retina), lt scelar buckle, turp, rt knee meniscus repair, nissens, rt achilles tendon repair, egd w/bx, rt knee replacment, rt knee revision 12-03-16, randy cataracts, cystocopy w/ cautery of polyp, liver bx Past Anesthesia/Blood Transfusion Reactions: Previous Problems w/ Anesthesia Additional Past Anesthesia/Blood Transfusion Reaction / Comm: Difficult intubation Past Psychological History: Anxiety, Depression Additional Psychological History / Comment(s): pt lives at home with his tena. 1 indoor pet-dog. pt had r tknee sx 12-03-16 using walker. has VNA nurse and pt. has shower chair, bsc, hospital bed, tens unit, w/c, railings. 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 Smoking Status: Never smoker Past Alcohol Use History: None Reported Past Drug Use History: None Reported - Past Family History Mother Family Medical History: Cancer, Congestive Heart Failure (CHF) Additional Family Medical History / Comment(s): Mother at age 83 from acute kidney failure with history of kidney stones. Father Family Medical History: Cancer, Congestive Heart Failure (CHF), CVA/TIA, Prostate Disorder Additional Family Medical History / Comment(s): Father in his 60s from prostate cancer. He had a stroke in his 40s. Brother(s) Additional Family Medical History / Comment(s): Patient had one brother that as an from pneumonia. Sister(s) Additional Family Medical History / Comment(s): Patient has one sister with hypertension and glaucoma. Son(s) Additional Family Medical History / Comment(s): Patient has 2 sons and 1 daughter with no major medical problems. Medications and Allergies Home Medications Medication Instructions Recorded Confirmed Type L.acidoph,Paracasei, B.lactis 1 cap PO DAILY 07/30/17 09/17/17 History [Probiotic] Famotidine [Pepcid] 20 mg PO DAILY #30 tab 08/01/17 09/17/17 Rx Ipratropium-Albuterol Nebulize 3 ml INHALATION RT-QID #120 08/01/17 09/17/17 Rx [Duoneb 0.5 mg-3 mg/3 ml Soln] ampul.neb ALPRAZolam [Xanax] 0.25 mg PO BID 09/05/17 09/17/17 History Budesonide [Pulmicort] 0.5 mg INHALATION RT-BID 09/05/17 09/17/17 History Calcium/Vit D3 Chewable 1 tab PO DAILY 09/05/17 09/17/17 History Multivitamins, Thera [Multivitamin 1 tab PO DAILY 09/05/17 09/17/17 History (formulary)] Wheat Dextrin [Benefiber] 1 packet PO DAILY 09/05/17 09/17/17 History traMADol HCl [Ultram] 50 mg PO Q6H PRN 09/05/17 09/17/17 History Ammonium Lactate Lotion 1 applic TOPICAL DAILY applic 09/10/17 09/17/17 Rx [Lac-Hydrin 12% Lotion] CHLORPHEN-HYDROcod 8-10mg/5ml 5 ml PO Q12HR #150 ml 09/10/17 09/17/17 Rx [Tussionex] Enoxaparin [Lovenox] 80 mg SQ HS #30 syringe 09/10/17 09/17/17 Rx Fluticasone Nasal [place] [Flonase 1 spray EA NOSTRIL BID spr 09/10/17 09/17/17 Rx Nasal [place]] Methylphenidate HCl [Ritalin] 15 mg PO AC-BRKFST #30 tab 09/10/17 09/17/17 Rx guaiFENesin [Mucinex] 1,200 mg PO Q12HR tablet.er 09/10/17 09/17/17 Rx Methylphenidate HCl [Ritalin] 5 mg PO DAILY@1400 09/17/17 09/17/17 History Mirtazapine [Remeron] 15 mg PO HS@1800 09/17/17 09/17/17 History predniSONE See Taper PO DAILY 09/17/17 09/17/17 History Allergies Allergy/AdvReac Type Severity Reaction Status Date / Time codeine AdvReac Nausea & Verified 09/17/17 13:49 Vomiting hydrocodone [From [place]] AdvReac Hallucinati Verified 09/17/17 13:49 ons morphine AdvReac Hallucinati Verified 09/17/17 13:49 ons oxycodone AdvReac Hallucinati Verified 09/17/17 13:49 ons Physical Exam Vitals: Vital Signs Temp Pulse Pulse Resp BP Pulse Ox 09/22/17 23:00 98.5 F 107 H 20 135/74 90 L 09/22/17 21:18 90 09/22/17 21:08 90 09/22/17 21:07 90 09/22/17 20:54 90 18 09/22/17 17:03 97 09/22/17 16:53 97 18 09/22/17 15:00 97.2 F L 100 16 156/76 94 L 09/22/17 12:35 87 16 09/22/17 12:23 90 09/22/17 09:03 88 16 09/22/17 08:55 86 16 09/22/17 08:54 84 16 09/22/17 08:44 80 16 95 Intake and Output 09/22/17 09/23/17 09/23/17 22:59 06:59 14:59 Other: Voiding Method Toilet # Voids 1 1 Skin: Atrophic, intact. General: Medium build and comfortable appearance. Head: Normocephalic, atraumatic. Eyes: Symmetric. Pupils equal round. Ears: Symmetric. Hearing within normal limits. Mouth: Clear. Neck: Supple. Carotid without bruit. Cardiac: Regular rate and rhythm. Lungs: Clear anteriorly and posteriorly. Abdomen: Soft active nontender. Extremities: Normal tone. Neurological: Mental status: Alert, cooperative, pleasant. Cranial nerves: Symmetric facial tone and trapezius. Motor: Normal strength and isolation all 4 limbs. Sensation: Intact throughout. DTRs: Symmetric and equal throughout. Mobility: Reports independent in room including bathroom. Results CBC & Chem 7: 09/22/17 11:40 09/22/17 11:40 Labs: Abnormal Lab Results - Last 24 Hours (Table) 09/22/17 09/22/17 Range/Units 11:40 11:40 WBC 14.6 H (3.8-10.6) k/uL RBC 3.79 L (4.30-5.90) m/uL Hgb 10.3 L (13.0-17.5) gm/dL Hct 32.7 L (39.0-53.0) % Neutrophils # 12.9 H (1.3-7.7) k/uL Lymphocytes # 0.7 L (1.0-4.8) k/uL BUN 47 H (9-20) mg/dL Creatinine 2.42 H (0.66-1.25) mg/dL Glucose 147 H (74-99) mg/dL Microbiology - Last 24 Hours (Table) 09/17/17 16:38 Blood Culture - Preliminary Blood No Growth after 120 hours 09/17/17 15:07 Blood Culture - Preliminary Blood No Growth after 120 hours 09/19/17 19:00 Gram Stain - Final Sputum Sputum Culture - Final Chest x-ray: report reviewed (Chest x-rays followed for infiltrates including left lower lobe and quit coarse changes) Assessment and Plan (1) Metastatic urothelial carcinoma Current Visit: Yes Status: Acute Priority: High Code(s): C79.10 - SECONDARY MALIGNANT NEOPLASM OF UNSPECIFIED URINARY ORGANS SNOMED Code(s): 60154450 Plan: Impression: 1. Medical debility. 2. Urothelial cancer with metastatic changes. 3. Hematuria. 4. Reflux. 5. Dyslipidemia. Comments and plan: At this time I have added PT and OT. Anticipate patient will do well and not require inpatient rehab. Will however follow closely with yourself for possible safety concerns not noted by myself but noted by therapist.
[2017-09-23 07:48] VITALS: BP 134/65; RESP 16; TEMP 98.6
[2017-09-23] MEDS: ACETYLCYSTEINE 800 MG/4 ML VIAL INHALATION SCH ×2 (08:58→12:11)
[2017-09-23] MEDS: IPRATROPIUM-ALBUTEROL 3 ML NEB INHALATION SCH ×2 (08:58→12:11)
[2017-09-23] MEDS: BUDESONIDE 0.5 MG/2 ML NEBU INHALATION SCH (08:58)
[2017-09-23] MEDS: CHLORPHEN-HYDROcod 8-10mg/5ml 5 ML ORAL.SYRG PO SCH (09:05)
[2017-09-23] MEDS: METHYLPHENIDATE HCL 5 MG TAB PO SCH ×2 (09:09→09:17)
[2017-09-23] MEDS: CEFEPIME 2 GM in SODIUM CHLORIDE 0.9% 50 ML IVPB SCH (09:10)
[2017-09-23] MEDS: FAMOTIDINE 20 MG TAB PO SCH (09:10)
[2017-09-23] MEDS: ALPRAZolam 0.25 MG TAB PO SCH (09:10)
[2017-09-23] MEDS: AMMONIUM LACTATE 12% LOTION 225 GM BTL TOPICAL SCH ×2 (09:10→09:18)
[2017-09-23] MEDS: FLUTICASONE 50MCG/SPRAY NASAL 16GM EA NOSTRIL SCH (09:10)
[2017-09-23] MEDS: guaiFENesin 600 MG TABLET.ER PO SCH (09:10)
[2017-09-23] MEDS: NYSTATIN 100,000 UNIT/ML SUSP 500,000 UNIT/5 ML CUP PO SCH ×2 (09:10→12:18)
[2017-09-23] MEDS: SODIUM BICARBONATE TAB 650 MG TAB PO SCH (09:10)
[2017-09-23] MEDS: predniSONE 20 MG TAB PO SCH (09:10)
[2017-09-23 09:22] VITALS: PULSE 92
[2017-09-23] MEDS ORDERED: CHLORPHEN-HYDROcod 8-10mg/5ml 5 ML ORAL.SYRG PO PRN (09:59)
--- NOTE | 2017-09-23 10:06 | P.PN ---
Subjective Progress Note Date: 09/23/17 Principal diagnosis: HCAP Patient is being seen examined and evaluated today with medical surgical unit. The patient remains in chemo precautions. Patient states that he continues to have shortness of breath with exertion however it is improving. He has been ambulating in the hallway. He states he continues to have a cough that is productive however each day becomes less and less. He is looking forward to be going home. Objective - Vital Signs Vital signs: Vital Signs Temp 98.6 F 09/23/17 07:00 Pulse 92 09/23/17 09:21 Resp 16 09/23/17 07:00 BP 134/65 09/23/17 07:00 Pulse Ox 93 L 09/23/17 07:00 Intake & Output 09/22/17 09/23/17 09/23/17 18:59 06:59 18:59 Intake Total 1200 Balance 1200 Intake: Oral 1200 Other: Voiding Method Toilet # Voids 3 1 - Exam GENERAL EXAM: Alert, comfortable in no apparent distress. HEAD: Normocephalic. EYES: Normal reaction of pupils, equal size. NOSE: Clear with pink turbinates. THROAT: No erythema or exudates. NECK: No masses, no JVD. CHEST: No chest wall deformity. LUNGS: improving aeration, scattered crackles at the bases, improved CVS: S1 and S2 normal with no audible mumurs, regular rhythm. ABDOMEN: No hepatosplenomegaly, normal bowel sounds, no guarding or rigidity. EXTREMITIES: No edema noted, pedal pulses palpable. CENTRAL NERVOUS SYSTEM: No focal deficits, tone is normal in all 4 extremities. - Labs CBC & Chem 7: 09/22/17 11:40 09/22/17 11:40 Labs: Abnormal Lab Results - Last 24 Hours (Table) 09/22/17 09/22/17 Range/Units 11:40 11:40 WBC 14.6 H (3.8-10.6) k/uL RBC 3.79 L (4.30-5.90) m/uL Hgb 10.3 L (13.0-17.5) gm/dL Hct 32.7 L (39.0-53.0) % Neutrophils # 12.9 H (1.3-7.7) k/uL Lymphocytes # 0.7 L (1.0-4.8) k/uL BUN 47 H (9-20) mg/dL Creatinine 2.42 H (0.66-1.25) mg/dL Glucose 147 H (74-99) mg/dL Microbiology - Last 24 Hours (Table) 09/17/17 16:38 Blood Culture - Preliminary Blood No Growth after 120 hours 09/17/17 15:07 Blood Culture - Preliminary Blood No Growth after 120 hours 09/19/17 19:00 Gram Stain - Final Sputum Sputum Culture - Final Assessment and Plan Assessment: Sepsis Bilateral pneumonia, suspect mixed bacterial, healthcare acquired Acute exacerbation of COPD Urothelial cancer with metastatic disease disease to the lungs and liver Immunocompromise secondary to chemotherapy treatment Generalized weakness CKD 4 Hematuria Severe depression Supplemental oxygen to maintain oxygen saturations greater than 90% DuoNeb and Pulmicort Antibiotics cefepime per ID Discontinue Solu-Medrol, start prednisone taper Incentive spirometer and pulmonary hygiene Oncology recommendations GI and DVT prophylaxis Flutter and Mucomyst nebs PT and OT Consult case management Consult PMR Patient cleared for discharge from a pulmonary standpoint I performed an examination of the patient and discussed their management with the nurse practitioner. I have reviewed the nurse practitioner's note and agree with the documented findings and plan of care.
--- NOTE | 2017-09-23 10:47 | P.PN ---
Subjective Patient is seen in follow-up for acute kidney injury on chronic kidney disease. Patient has chronic kidney disease stage IV with baseline creatinine near 2.5. He is currently being treated for pneumonia. Continues to have productive cough with clear sputum. Does admit to intermittent hematuria. Patient has a history of urothelial cancer with metastatic disease and is maintained on chemotherapy as an outpatient. Denies any chest pain or shortness of breath. Denies diarrhea but did have an episode of emesis yesterday. Admits to good urine output. Vital signs are stable. General: The patient appeared well nourished and normally developed. HEENT: Head exam is unremarkable. Neck is without jugular venous distension. LUNGS: Lungs are clear to auscultation and percussion. Breath sounds decreased. HEART: Rate and Rhythm are regular. First and second heart sounds normal. No murmurs, rubs or gallops. ABDOMEN: Abdominal exam reveals normal bowel sounds. Non-tender and non- distended. No evidence of peritonitis. EXTREMITITES: No clubbing, cyanosis, or edema. Objective - Vital Signs Vital signs: Vital Signs Temp 98.6 F 09/23/17 07:00 Pulse 92 09/23/17 09:21 Resp 16 09/23/17 07:00 BP 134/65 09/23/17 07:00 Pulse Ox 93 L 09/23/17 07:00 Intake & Output 09/22/17 09/23/17 09/23/17 18:59 06:59 18:59 Intake Total 1200 Balance 1200 Intake: Oral 1200 Other: Voiding Method Toilet # Voids 3 1 - Labs CBC & Chem 7: 09/22/17 11:40 09/22/17 11:40 Labs: Abnormal Lab Results - Last 24 Hours (Table) 09/22/17 09/22/17 Range/Units 11:40 11:40 WBC 14.6 H (3.8-10.6) k/uL RBC 3.79 L (4.30-5.90) m/uL Hgb 10.3 L (13.0-17.5) gm/dL Hct 32.7 L (39.0-53.0) % Neutrophils # 12.9 H (1.3-7.7) k/uL Lymphocytes # 0.7 L (1.0-4.8) k/uL BUN 47 H (9-20) mg/dL Creatinine 2.42 H (0.66-1.25) mg/dL Glucose 147 H (74-99) mg/dL Microbiology - Last 24 Hours (Table) 09/17/17 16:38 Blood Culture - Preliminary Blood No Growth after 120 hours 09/17/17 15:07 Blood Culture - Preliminary Blood No Growth after 120 hours 09/19/17 19:00 Gram Stain - Final Sputum Sputum Culture - Final Assessment and Plan Plan: Assessment: #1. Nonoliguric acute kidney injury mostly prerenal secondary to pneumonia. Improved. #2. Chronic kidney disease stage IV with baseline creatinine near 2.5. #3. Urothelial cancer with metastatic disease maintained on immunotherapy as an outpatient. #4. Pneumonia maintained on antibiotics. Plan: Stable to be discharged home from nephrology standpoint. He will need to follow -up as an outpatient in the next 2-3 weeks for CKD care. Antibiotics per infectious disease recommendations.
[2017-09-23] MEDS: LACTOBACILLUS ACIDOPH & BULGAR 1 EACH PACKET PO SCH (12:18)
[2017-09-23] MEDS: MULTIVITAMINS, THERA 1 EACH TAB PO SCH (12:18)
--- NOTE | 2017-09-23 14:11 | PN ---
PROGRESS NOTE DATE OF SERVICE: 09/23/2016. REASON FOR FOLLOWUP: Pneumonia. INTERVAL HISTORY: The patient is afebrile. He has been breathing comfortably. Denies having any chest pain or shortness of breath. Cough has decreased in intensity. No abdominal pain. No diarrhea. The patient is anxious to go home. EXAMINATION: Blood pressure 134/55 with a pulse of 96, temperature 98.6. He is 93% on room air. GENERAL DESCRIPTION: An elderly male, up in the bed in no distress. RESPIRATORY SYSTEM: Unlabored breathing. Decreased intensity. No wheeze. HEART: S1, S2. Regular rate and rhythm. ABDOMEN: Soft, no tenderness. LABS: Hemoglobin 10.8, white count 14.6 with a BUN of 47, creatinine 2.42. DIAGNOSTIC IMPRESSION AND PLAN: Patient with pneumonia with concern for possible gram-negative, however, sputum has been negative for any resistant pathogen. The patient did show overall improvement on cefepime. In view of the interstitial infiltrate, recommend to finish therapy with oral Avelox 400 daily for another week with close outpatient followup. Script sent to the pharmacy question: Questions and concerns were addressed. MMODL / IJN: [id number] /
--- NOTE | 2017-09-23 15:51 | P.DS ---
Providers Date of admission: 09/17/17 13:04 Expected date of discharge: 09/23/17 Attending physician: Keith Bird Consults: 09/17/17 13:23 Consult Physician Routine Consulting Provider: Bhumi Amor Consult Reason/Comments: pneumonitis Do you want consulting provider notified?: Yes 09/18/17 09:39 Consult Physician Routine Consulting Provider: Richard Clifford Consult Reason/Comments: chemo patient, known to you Do you want consulting provider notified?: Yes 09/18/17 10:04 Consult Physician Routine Consulting Provider: Sree Ordaz Consult Reason/Comments: pneumonia, non resolving Do you want consulting provider notified?: Yes 09/21/17 10:07 Consult Physician Routine Consulting Provider: Alex Garcia Consult Reason/Comments: rehab Do you want consulting provider notified?: Yes 09/21/17 12:24 Consult Physician Routine Consulting Provider: Lydia Workman Consult Reason/Comments: elevated potassium, BUN, cr. Do you want consulting provider notified?: Yes Primary care physician: Keith Bird [facility] Course: This is a 71-year-old male patient of Dr. Bird, Dr. Nunez, Dr. Fuentes, Dr. LORI Myles with history of CKD stage III, persistent hematuria secondary to urothelial renal cell carcinoma during his admission in 07/31/2017, from a liver biopsy, showing metastatic carcinoma showing a urothelial primary was kidneys,managed by Dr. Mayra Fuentes. He received his first immunotherapy using Atezolizumab (tecentriq)every 3 weeks. No other chemoradiation therapy offered, he got so weak, with increasing weight loss, and increasing shortness of breath, and was seen by yesterday in the office as a follow-up from recent hospitalization and the patient was directed to the hospital as a direct admission due to bilateral lower lobe pneumonia with increased shortness with an increased coughing and a temperature 103.1 because of the recent chemotherapy was admitted to the hospital for bilateral gram-negative pneumonia with sepsis. Patient was started on vancomycin as well as cefepime awaiting blood cultures as well as sputum culture. Previous diagnostic imaging included Patient underwent CT of the chest on that showed several mediastinotomy nodes, multiple small pulmonary nodules and a possible mass in the left kidney. A PET CAT scan was ordered on 07/26 which suggested suspicious bilateral pulmonary nodules along with increased activity in the region of mediastinal lymphadenopathy, hepatic mass and a mass in the upper pole of the left kidney with increased activity was also seen. liver core biopsy 07/31/2017, metastatic carcinoma suspicious for urothelial primary , 12/19/2016,Dr. Fuentes cystoscopy with cautery of polyp on dome of bladder and cautery of prostatic urethra presenting with gross hematuria. 09/18: Repeat white count is 12.0. BUN 36 and creatinine 2.72. Alkaline phosphatase is 299. Patient is seen and followed by Dr. Amor. Patient has been sleepy and tired today. No new complaints. 09/19: Repeat chest x-ray shows left lower lobe infiltrate and small effusion. Coarse and interstitial and correlate for chronic interstitial lung disease, interstitial pneumonitis or venous congestion. Patient is followed by oncology and Dr. Ordaz from infectious disease. Patient is continued on cefepime. Sputum culture is contaminated with oral jose a. Repeat sputum culture has not been obtained.. Blood culture is showing no growth on 2 specimens. CO2 is down to 15 and sodium bicarb added. IV fluids discontinued. BUN 35 and creatinine 2.55. Patient has had a bowel movement. He is currently on Solu- Medrol 40 mg every 12 hours. Patient does state that he has been up for a shower today and is now seen sitting in a chair. 09/20: Patient is sitting up in bed eating his lunch is feeling better, he continues to have some coughing minimal phlegm production, he denies any chest pain less short of breath he denies any abdominal pain no nausea or vomiting he had a small bowel movement. 09/21:Patient continued to improve slowly and gradually since admission stated that this morning was able to spit up some loose sputum patient feels all overall improved but still not quite back to baseline. The bedside including daughter and granddaughter and who reassured me that he was able to take shower on his own yesterday and felt much better. Patient is denying chest pain , nausea, vomiting, abdominal pain and said that he is back to normal with his appetite 09/22: Patient is improving overall up to the bathroom on his own steady on his feet tolerating diet still complaining of cough but stated that his shortness breath has improved significantly since yesterday and still able to cough up loose sputum 09/23: Shortness of breath continues to improve slowly. Patient has been cleared for discharge by pulmonary medicine. Patient will be discharged home today in stable condition. Discharge Diagnoses: 1. Bilateral lower lobe gram-negative pneumonias along with metastatic urothelial cancer to the lungs 2. Thrush. 3. Metastatic urothelial kidney carcinoma 4. Bilateral hydronephrosis with hematuria, postobstructive uropathy noted with acute on chronic kidney failure . 5. Acute kidney injury with chronic kidney disease stage IV. 6. BPH status post TURP 7. Generalized anxiety disorder. 8. Personal history of MRSA resolved June 2017 located right wrist. Stable. 9. New diagnosis of major depression. 10. Right lower extremity DVT. Discharge plan: Home with [facility] Impression and plan of care have been directed as dictated by the signing physician. Shannan Vail nurse practitioner acting as scribe for signing physician. Patient Condition at Discharge: Good Plan - Discharge Summary Discharge Rx Participant: Yes New Discharge Prescriptions: New methylPREDNISolone Dose Pack [Medrol Dose Pack] 4 mg PO DIRECTED #21 package Sodium Bicarbonate Tab 650 mg PO BID tab Dextromethorphan Polistirex [Delsym] 30 mg PO BID #120 ml Moxifloxacin HCl [Avelox] 400 mg PO DAILY #7 tablet Continue L.acidoph,Paracasei, B.lactis [Probiotic] 1 cap PO DAILY Famotidine [Pepcid] 20 mg PO DAILY #30 tab Ipratropium-Albuterol Nebulize [Duoneb 0.5 mg-3 mg/3 ml Soln] 3 ml INHALATION RT-QID #120 ampul.neb Wheat Dextrin [Benefiber] 1 packet PO DAILY Multivitamins, Thera [Multivitamin (formulary)] 1 tab PO DAILY Calcium/Vit D3 Chewable 1 tab PO DAILY ALPRAZolam [Xanax] 0.25 mg PO BID traMADol HCl [Ultram] 50 mg PO Q6H PRN PRN Reason: Pain Budesonide [Pulmicort] 0.5 mg INHALATION RT-BID Ammonium Lactate Lotion [Lac-Hydrin 12% Lotion] 1 applic TOPICAL DAILY applic CHLORPHEN-HYDROcod 8-10mg/5ml [Tussionex] 5 ml PO Q12HR #150 ml Enoxaparin [Lovenox] 80 mg SQ HS #30 syringe Fluticasone Nasal [place] [Flonase Nasal [place]] 1 spray EA NOSTRIL BID spr guaiFENesin [Mucinex] 1,200 mg PO Q12HR tablet.er Methylphenidate HCl [Ritalin] 15 mg PO AC-BRKFST #30 tab Methylphenidate HCl [Ritalin] 5 mg PO DAILY@1400 Mirtazapine [Remeron] 15 mg PO HS@1800 Discontinued predniSONE See Taper PO DAILY Discharge Medication List L.acidoph,Paracasei, B.lactis [Probiotic] 1 cap PO DAILY 07/30/17 [History] Famotidine [Pepcid] 20 mg PO DAILY #30 tab 08/01/17 [Rx] Ipratropium-Albuterol Nebulize [Duoneb 0.5 mg-3 mg/3 ml Soln] 3 ml INHALATION RT -QID #120 ampul.neb 08/01/17 [Rx] ALPRAZolam [Xanax] 0.25 mg PO BID 09/05/17 [History] Budesonide [Pulmicort] 0.5 mg INHALATION RT-BID 09/05/17 [History] Calcium/Vit D3 Chewable 1 tab PO DAILY 09/05/17 [History] Multivitamins, Thera [Multivitamin (formulary)] 1 tab PO DAILY 09/05/17 [History ] Wheat Dextrin [Benefiber] 1 packet PO DAILY 09/05/17 [History] traMADol HCl [Ultram] 50 mg PO Q6H PRN 09/05/17 [History] Ammonium Lactate Lotion [Lac-Hydrin 12% Lotion] 1 applic TOPICAL DAILY applic 09/10/17 [Rx] CHLORPHEN-HYDROcod 8-10mg/5ml [Tussionex] 5 ml PO Q12HR #150 ml 09/10/17 [Rx] Enoxaparin [Lovenox] 80 mg SQ HS #30 syringe 09/10/17 [Rx] Fluticasone Nasal [place] [Flonase Nasal [place]] 1 spray EA NOSTRIL BID spr [Rx] Methylphenidate HCl [Ritalin] 15 mg PO AC-BRKFST #30 tab 09/10/17 [Rx] guaiFENesin [Mucinex] 1,200 mg PO Q12HR tablet.er 09/10/17 [Rx] Methylphenidate HCl [Ritalin] 5 mg PO DAILY@1400 09/17/17 [History] Mirtazapine [Remeron] 15 mg PO HS@1800 09/17/17 [History] Dextromethorphan Polistirex [Delsym] 30 mg PO BID #120 ml 09/23/17 [Rx] Moxifloxacin HCl [Avelox] 400 mg PO DAILY #7 tablet 09/23/17 [Rx] Sodium Bicarbonate Tab 650 mg PO BID tab 09/23/17 [Rx] methylPREDNISolone Dose Pack [Medrol Dose Pack] 4 mg PO DIRECTED #21 package 09/23/17 [Rx] Follow up Appointment(s)/Referral(s): Keith Bird MD [Primary Care Provider] - 1 Week (Office closed for lunch, call for appt) Bhumi Amor DO [Doctor of Osteopathic Medicine] - 1 Week (Office closed for lunch, call for appt) Hernandez Lambert DO [STAFF PHYSICIAN] - 10/08/17 1:40 pm [facility] Visiting Nurse, [NON-STAFF] - Patient Instructions/Handouts: Sepsis (GEN), Pneumonia (DC) Activity/Diet/Wound Care/Special Instructions: Use tussinex OR deslym for cough. Discharge Disposition: HOME WITH HOME HEALTH SERVICES
--- NOTE | 2017-09-23 16:46 | P.PN ---
Subjective Progress Note Date: 09/23/17 Principal diagnosis: Metastatic Urothelial Carcinoma Pt seen in follow-up. He is ambulating independently, still SOB and coughing but , this is stable, he states feeling better then on admit. He is eating and drinking well, no nausea, no diarrhea. Objective - Vital Signs Vital signs: Vital Signs Temp 98.6 F 09/23/17 07:00 Pulse 92 09/23/17 09:21 Resp 16 09/23/17 07:00 BP 134/65 09/23/17 07:00 Pulse Ox 93 L 09/23/17 07:00 Intake & Output 09/22/17 09/23/17 09/23/17 18:59 06:59 18:59 Intake Total 1200 Balance 1200 Intake: Oral 1200 Other: Voiding Method Toilet # Voids 3 1 - Constitutional General appearance: Present: average body habitus, mild distress - EENT Eyes: Present: anicteric sclerae, normal appearance - Neck Details: supple - Respiratory Details: mild increased respiratory effort, improved from previous interaction Respiratory: bilateral: CTA (harsh breath sounds but air exchange in all lung hui posteriorly) - Cardiovascular Heart sounds: normal: S1, S2 - Peripheral edema leg Peripheral Edema: bilateral: None - Gastrointestinal General gastrointestinal: Present: normal bowel sounds, soft - Integumentary Integumentary: Present: normal - Neurologic Neurologic: Present: CNII-XII intact - Musculoskeletal Musculoskeletal: Present: gait normal - Psychiatric Psychiatric: Present: A&O x's 3, appropriate affect, intact judgment & insight - Labs CBC & Chem 7: 09/22/17 11:40 09/22/17 11:40 Labs: Abnormal Lab Results - Last 24 Hours (Table) 09/22/17 09/22/17 Range/Units 11:40 11:40 WBC 14.6 H (3.8-10.6) k/uL RBC 3.79 L (4.30-5.90) m/uL Hgb 10.3 L (13.0-17.5) gm/dL Hct 32.7 L (39.0-53.0) % Neutrophils # 12.9 H (1.3-7.7) k/uL Lymphocytes # 0.7 L (1.0-4.8) k/uL BUN 47 H (9-20) mg/dL Creatinine 2.42 H (0.66-1.25) mg/dL Glucose 147 H (74-99) mg/dL Microbiology - Last 24 Hours (Table) 09/17/17 16:38 Blood Culture - Preliminary Blood No Growth after 120 hours 09/17/17 15:07 Blood Culture - Preliminary Blood No Growth after 120 hours 09/19/17 19:00 Gram Stain - Final Sputum Sputum Culture - Final Assessment and Plan (1) Exertional dyspnea Narrative/Plan: Secondary to metastatic disease, better then on diagnosis, better then on admit. Pulmonary and ID following. Status: Acute Priority: High Code(s): R06.09 - OTHER FORMS OF DYSPNEA SNOMED Code(s): 42409255 (2) Metastatic urothelial carcinoma Narrative/Plan: S/P 2 cycles of atezolizumab with improvements in symptoms of PEREZ and hematuria. Pt symptoms not felt to be secondary to immunotherapy at this time. Treatment plan will continue as scheduled as long as he continues to recover. Status: Acute Priority: High Code(s): C79.10 - SECONDARY MALIGNANT NEOPLASM OF UNSPECIFIED URINARY ORGANS SNOMED Code(s): 35758998 (3) Hematuria Narrative/Plan: He is urinating and denies current hematuria, hemoglobin stable, continue to monitor CBC. Status: Chronic Priority: Medium Code(s): R31.9 - HEMATURIA, UNSPECIFIED SNOMED Code(s): 01341228
== END 2017-09-23 14:47 | disposition home health service (06) | DRG 871 ==
LOC: 4MS4W 13:04
PROVIDERS: ADMIT Internal Medicine Geriatric Medicine; ATTEND Internal Medicine Geriatric Medicine
DX: A41.9 Sepsis, unspecified organism (principal); J15.6 Pneumonia due to other Gram-negative bacteria; D84.9 Immunodeficiency, unspecified; I82.401 Acute embolism and thrombosis of unspecified deep veins of right lower extremity; N17.9 Acute kidney failure, unspecified; N18.4 Chronic kidney disease, stage 4 (severe); C78.00 Secondary malignant neoplasm of unspecified lung; C78.7 Secondary malignant neoplasm of liver and intrahepatic bile duct; E87.5 Hyperkalemia; B37.9 Candidiasis, unspecified; C64.2 Malignant neoplasm of left kidney, except renal pelvis; N13.30 Unspecified hydronephrosis; J44.1 Chronic obstructive pulmonary disease with (acute) exacerbation; E78.5 Hyperlipidemia, unspecified; F32.9 Major depressive disorder, single episode, unspecified; F41.1 Generalized anxiety disorder; K21.9 Gastro-esophageal reflux disease without esophagitis; K59.00 Constipation, unspecified; N40.0 Benign prostatic hyperplasia without lower urinary tract symptoms; R31.0 Gross hematuria; K44.9 Diaphragmatic hernia without obstruction or gangrene; K57.90 Diverticulosis of intestine, part unspecified, without perforation or abscess without bleeding; M19.90 Unspecified osteoarthritis, unspecified site; R73.9 Hyperglycemia, unspecified; L30.9 Dermatitis, unspecified; N39.9 Disorder of urinary system, unspecified; Z79.899 Other long term (current) drug therapy; Z88.5 Allergy status to narcotic agent; Z90.79 Acquired absence of other genital organ(s); Z87.442 Personal history of urinary calculi; Z86.14 Personal history of Methicillin resistant Staphylococcus aureus infection; Z90.49 Acquired absence of other specified parts of digestive tract; Z96.651 Presence of right artificial knee joint; Z80.42 Family history of malignant neoplasm of prostate; Z82.49 Family history of ischemic heart disease and other diseases of the circulatory system; Y95 Nosocomial condition
CPT/HCPCS: 71046; 80048; 80053; 80202; 81001; 83605; 83735; 84100; 85025; 85027; 87040; 87070; 87086; 87205; 87502; 93005; 94640; 94667; 94760

== ENCOUNTER → 2017-10-16 | Outpatient (CLI) | payer MEDICARE ==
--- NOTE | 2017-10-16 18:59 | CT ---
EXAMINATION TYPE: CT ChestAbdPelvis wo con DATE OF EXAM: 10/16/2017 COMPARISON: September 05, 2017 HISTORY: Malignant neoplasm of left renal pelvis CT DLP: 1426 mGycm. Automated Exposure Control for Dose Reduction was Utilized. TECHNIQUE: CT scan of the thorax, abdomen and pelvis is performed without IV contrast. FINDINGS: There is extensive nodular patchy infiltrate in both lungs. There are multiple nodules that measure u p to 1 cm. There is moderate left pleural effusion. There is small right pleural effusion. Heart is s lightly enlarged. There are multiple enlarged mediastinal lymph nodes that measure up to 1.5 cm. Ther e is no evidence of thoracic aortic aneurysm. There are multiple subtle hypodense areas in the liver. There is a dominant hypodense area that measu res 6 cm in the inferior right lobe of the liver. Spleen appears normal. There is no pancreatic mass. There is enlargement of the left kidney with infiltration seen in the upper pole. There is a 1.5 cm c alcification in the lower pole left kidney. There is a 1 cm calcification in the posterior left renal pelvis. There is left-sided hydronephrosis. There is a 1 cm calcification at the left ureteral pelvi c junction. There is no retroperitoneal adenopathy. There is no ascites. I see no intestinal wall thickening. The re are no dilated loops. There is no sign of appendicitis. There are prostatic calcifications. There is degenerative spurring in the thoracic and lumbar spine. There are multiple areas of mild osteoscle rosis in the thoracic and lumbar and sacral vertebra. CONCLUSION: Left renal calculi. Infiltrative mass involving upper pole left kidney is similar to old exam. There is now new obstruction of the left kidney due to large calculus at the left ureteropelvic junction. Multiple liver lesions consistent with metastatic disease. Nodular patchy bilateral pulmonary infiltrates are increased compared to old exam and suggestive of m etastatic disease. Left pleural effusion is slightly increased compared to old exam. Right pleural ef fusion is stable. There is mediastinal adenopathy unchanged. Subtle sclerosis in the spine suggestive of metastatic disease.
== END ==
LOC: RADCTMAIN 16:40
PROVIDERS: ATTEND Internal Medicine Hematology & Oncology
DX: C65.2 Malignant neoplasm of left renal pelvis (principal); J18.9 Pneumonia, unspecified organism; N20.0 Calculus of kidney; K76.89 Other specified diseases of liver; J90 Pleural effusion, not elsewhere classified
CPT/HCPCS: 71250; 74176

== ENCOUNTER → 2017-10-16 | Outpatient (CLI) | payer MEDICARE ==
--- NOTE | 2017-10-16 14:21 | XR ---
EXAMINATION TYPE: XR chest 2V DATE OF EXAM: 10/16/2017 COMPARISON: 09/22/2017 TECHNIQUE: PA and lateral views submitted. HISTORY: Cough FINDINGS: The patient's left lower lobe infiltrate persists. This is not significantly changed from previous. T here is an associated left effusion. The heart is not enlarged. There is coarse interstitial pattern, unchanged from previous. Hypertrophic and degenerative change of the spine. Surgical clips in the ri ght upper quadrant noted. Arthropathy of the shoulder correlate for calcific tendinosis on the right. 5 mm nodular densities in the left lung. IMPRESSION: 1. LEFT LOWER LOBE INFILTRATE. 2. COARSE INTERSTITIAL CHANGE. THIS IS STABLE FROM PREVIOUS. Correlate for interstitial chronic lung disease or pneumonitis. 2. Left upper lobe pulmonary nodules.
== END | disposition home or self-care (01) ==
LOC: RADXRMAIN 13:58
PROVIDERS: ATTEND Internal Medicine Hematology & Oncology
DX: C65.2 Malignant neoplasm of left renal pelvis (principal); C79.51 Secondary malignant neoplasm of bone; R91.8 Other nonspecific abnormal finding of lung field
CPT/HCPCS: 71046